=== PATIENT | female | born 1950 | race Caucasian/White ===

== ENCOUNTER → 2023-02-11 | Outpatient (OUT) | payer MEDICARE, SELFPAY ==
[2023-02-11 14:41] LABS: Anion Gap 12.5; BUN Creatinine Ratio 17.1; Calcium 8.7 mg/dL (8.5-10.1); Carbon Dioxide 28.4 mmol/L (21.0-32.0); Chloride 105 mmol/L (98-107); Estimated GFR (African America 49 (>=60); Estimated GFR (Non-African Ame 41 (>=60); Glucose 114 mg/dL (74-106); Potassium 4.9 mmol/L (3.5-5.1); Sodium 141 mmol/L (136-145)
== END ==
LOC: LAB 13:49
PROVIDERS: PCP Family Medicine
DX: Z01.812 Encounter for preprocedural laboratory examination (principal)
CPT/HCPCS: 36415; 80048

== ENCOUNTER 2023-04-07 11:02 | Emergency (ER) | payer MEDICARE, SELFPAY ==
[2023-04-07] VITALS (40 sets, daily range): BP systolic 62–118; BP diastolic 46–79; PULSE 91–114; RESP 10–34; O2SAT 83–99; BMI 35.7
--- NOTE | 2023-04-07 11:20 | ECG_ITS ---
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
--- NOTE | 2023-04-07 11:20 | XR_ITS ---
The [address] [address] Patient Name: CLINT HOLLAND MRN: [id number] date: 1950 Sex: F Assigned Patient Location: ER Current Patient Location: ER Accession/Order Number: [id number] Exam Date: 04/07/2023 12:25 Report Date: 04/07/2023 12:44 At the request of: JOAQUÍN CHAMBERS Procedure: XR chest 1V EXAMINATION: XR chest 1V HISTORY: sob COMPARISON: XR chest 05/31/2017 FINDINGS: LUNGS: Mild haziness within lateral left lung base. Right lung is clear. VASCULATURE: No increased pulmonary vasculature. PLEURA: No pneumothorax, effusion, or pleural thickening. CARDIAC: No cardiomegaly or cardiac silhouette abnormality. MEDIASTINUM: No visible mass or adenopathy. BONES: No fracture or visible bone lesion. OTHER: Negative. XR/XR chest 1V IMPRESSION: 1. Prominent left pericardial fat pad versus lingular infiltrates. A prominent fat pad is favored. Electronically authenticated by: ALEXX KATHLEEN Date: 04/07/2023 12:44
--- NOTE | 2023-04-07 11:24 | ED_ITS ---
HPI - General Adult General Chief complaint: Shortness of Breath/Dyspnea Stated complaint: SHORTNESS OF BREATH Time Seen by Provider: 04/07/23 11:20 Source: patient Mode of arrival: Wheelchair Limitations: no limitations History of Present Illness HPI narrative: Patient is a 72yo female who is presenting to the Emergency Room with chief complaint of shortness of breath, and worsening dyspnea on exertion. Patient takes no blood thinners. Patient stated on Friday and she started becoming more short of breath, and Friday she went to the [facility] was having significant amount of dyspnea with exertion. Patient stated she would only walk a very short distance and then had to sit on the bench to catch her breath. Patient has no significant recent traveling besides going to [place] for the [facility]. Patient is very mobile at home. Patient just had left rotator cuff surgery on February [address] Anne. patient is not a smoker, no hormone therapy. Patient has no significant cardiac history. Patient does take vitamins, hydrochlorothiazide, metformin, metoprolol, and acid reflux medicine along with statins. Patient has no significant weight gain. patient looks extremely pale. Patient's friends been telling her that she looks pale as well. Patient does take iron tablets daily. Patient does have black stool secondary to iron tablets, she's never had a gastrointestinal bleed before. Patient's lips look pale, skin looks pale. Patient has been complaining of some lightheaded dizziness as well, no significant chest pain or chest tightness. No dull pain, nausea, vomiting, or any other acute complaints. Patient action levels were in the mid 80s when she arrived to the Emergency Room, she is breathing in the low 20s. When patient was at rest, her oxygen was 89-91 room air, patient was initially placed on 2 L nasal cannula. Patient is speaking in full sentences, very pleasant. It was noted the patient's sister has had multiple blood clots as well, nobody else in the family has had blood clots. This information was found out after I found multiple submassive PE on the CTA of her chest as when patient told me this information. . All systems are negative except as noted/marked. All systems reviewed and otherwise negative. . Nurses note and vital signs reviewed and patient is hypoxic. patient placed on 2 L nasal cannula. General: The patient appears well and in mild respiratory distress secondary to hypoxia and slight increase in breathing.. Patient is resting comfortably on cart. Patient is not toxic, lethargic, or listless Skin: Warm, dry, extreme pallor noted. There is no rash noted. No petechiae, purpura. Head: Normocephalic, atraumatic Eye: pale conjunctiva, no drainage, EOMI. PERRL Ears, Nose, Mouth, and Throat: oral mucosa is moist. Nares patent. Mouth without vesicles. pale underneath her tongue sublingual as well. Cardiovascular: Regular Rate and Rhythm, no murmur, gallop, rub Respiratory: Patient is in mild respiratory distress secondary to increased work of breathing, mild hypoxia, no accessory muscle use, lungs are clear to auscultation, no wheezing, rales or rhonchi Back: non-tender, no CVA tenderness bilaterally to percussion. No CT LS midline pain GI: soft, obese, no tenderness to palpation, no masses appreciated. No rebound, guarding, or rigidity noted. No flank pain bilateral, No distention Musculoskeletal: Patient has full range of motion of all of the extremities, no motor, sensory, or focal neurological deficits. nonpitting edema to bilateral lower extremities,no chronic knee swelling, no unilateral swelling. Neurological: A&O x3, normal speech Psychiatric: Cooperative Related Data Home Medications Medication Instructions Recorded Confirmed cholecalciferol (vitamin D3) 50 2,000 unit PO DAILY 04/07/23 04/07/23 mcg (2,000 unit) capsule (Vitamin D3) diclofenac sodium 75 mg 75 mg PO Q12H 04/07/23 04/07/23 tablet,delayed release ferrous sulfate 325 mg (65 mg 325 mg PO DAILY 04/07/23 04/07/23 iron) tablet hydrochlorothiazide 12.5 mg tablet 12.5 mg PO DAILY 04/07/23 04/07/23 metformin 500 mg tablet 500 mg PO BID 04/07/23 04/07/23 metoprolol succinate 25 mg 25 mg PO DAILY 04/07/23 04/07/23 tablet,extended release 24 hr olmesartan 20 mg tablet 20 mg PO DAILY 04/07/23 04/07/23 pantoprazole 40 mg tablet,delayed 40 mg PO DAILY 04/07/23 04/07/23 release rosuvastatin 5 mg tablet 5 mg PO DAILY 04/07/23 04/07/23 Allergies Allergy/AdvReac Type Severity Reaction Status Date / Time meperidine [From Demerol] AdvReac Severe shortness Verified 04/07/23 11:10 of breath PFSH PFSH Social History Smoking status: Former smoker Exam Constitutional Vital Signs, click to edit/add: Last Vital Signs Pulse 98 H 04/07/23 12:20 Resp 18 04/07/23 12:20 BP 100/68 04/07/23 12:15 Pulse Ox 93 L 04/07/23 12:15 O2 Del Method Nasal Cannula 04/07/23 11:22 O2 Flow Rate 2 04/07/23 11:54 Course Vital Signs Vital signs: Vital Signs Pulse Rate 114 H 04/07/23 11:11 Respiratory Rate 24 04/07/23 11:11 Blood Pressure 118/79 04/07/23 11:11 Pulse Oximetry 90 L 04/07/23 11:11 Oxygen Delivery Method Room Air 04/07/23 11:11 Pulse Rate 98 H 04/07/23 12:20 Respiratory Rate 18 04/07/23 12:20 Blood Pressure 100/68 04/07/23 12:15 Pulse Oximetry 93 L 04/07/23 12:15 Oxygen Delivery Method Nasal Cannula 04/07/23 11:22 Oxygen Delivery Flow Rate 2 04/07/23 11:54 Medical Decision Making MDM Narrative Medical decision making narrative: a significant amount time was spent with this patient, greater than 60 minutes of one-on-one care. It was initially thought the patient would be severely anemic and required blood transfusion secondary to patient's color. Patient had pale lips, pallor to her conjunctiva, and sublingual. Patient was hypoxic when she arrived anywhere from 80-91 percent on room air, she is present to his oxygen. Patient was given a albuterol breathing treatment at [facility]. Patient was initially normotensive when I initially performed HPI, approximately 30 minutes later patient became hypotensive with a blood pressure 70/50s. Patient was given 1 L of IV fluid. Patient had a stat portable chest x-ray done that showed cardiomegaly, no other significant findings. Patient was given a 2nd liter of IV fluid along with a stat CTA chest ordered. I did call the radiologist, Dr. Beltre so that he could perform a stat read as well because I was concerned about large saddle PE. 1250 CTA chest showed a moderate PE burden bilateral, moderate heart strain which was the verbal report that I received from Dr. Roach. After the IV fluids, patient stated that she was feeling better. I initiated heparin drip PE protocol, I then spoke to the patient and she has been at the [facility] previously. She was there for a shoulder dislocation previously. [address] Wan at 1321 from the [facility], vascular surgeon. She agreed with IV fluids, IV heparin protocol, and stated the patient needed to come to the [facility] to the SICU for emergent transfer because patient will have intervention later today. Transfer could not be obtained within 4-5 hours, patient was going to be life flighted. 1345 Patient has been updated and aware of bilateral sudden massive PE, moderate heart strain, IV heparin drip, and the need to go to the [facility] for intervention. Patient has had a cardiac catheter several years ago and is aware of intervention that may occur. After 2 L of IV fluid, patient has maintained her blood pressure, heart rate has been in the 90s, patient has maintained mid 90s with her oxygen saturation with nasal cannula. Patient was extremely thankful for help. Patient mentioned to me that her sister years ago had multiple blood clots. Patient also states that her left calf has been cramping causing pain for the last couple weeks as well. Patient did have a shoulder surgery on February 28 of this year for rotator cuff surgery. Patient however has been very mobile and has not been bedridden because it was the left shoulder and she they will walk around function at home problem. Patient never had any type of genetic testing done for PE or deep vein thrombosis. Critical care time 60 minutes exclusive from separate billable procedures that were performed. The following was considered in the determination of critical care but not limited to the level of medical decision making, intensive cardiac and/or respiratory monitoring, frequent vital sign monitoring, evaluation of laboratory studies, evaluation of radiographic studies, oxygen monitoring, and constant monitoring and speaking to family at bedside Lab Data Lab results reviewed: Yes I reviewed the patient's lab results Lab results narrative: patient's H and H was tested twice. Patient arrives very pale, I believe the patient was in a be extremely anemic pursuant require blood transfusion by nina steele her history. H and H was checked again, and there is no significant change. 2 units of blood was canceled for transfusion. Labs: Lab Results 04/07/23 04/07/23 04/07/23 Range/Units 11:40 11:44 12:20 WBC 8.7 8.6 (4.0-11.0) 10^3/uL RBC 3.79 L 3.55 L (4.20-5.40) 10^6/uL Hgb 11.7 L 11.0 L (12.0-16.0) g/dL Hct 36.6 34.7 L (36.0-48.0) % MCV 96.6 97.7 (81.0-99.0) fL MCH 30.9 31.0 (26.7-34.0) pg MCHC 32.0 31.7 (29.9-35.2) g/dL RDW 14.6 14.6 (11.0-15.0) % Plt Count 266 237 (150-450) 10^3/uL MPV 9.9 9.7 (9.5-13.5) fL Neut % (Auto) 73.5 (43.0-75.0) % Lymph % (Auto) 16.7 L (20.5-60.0) % Garrett % (Auto) 8.3 (1.7-12.0) % Eos % (Auto) 0.7 L (0.9-7.0) % Baso % (Auto) 0.5 (0.2-2.0) % Neut # (Auto) 6.4 (1.4-6.5) 10^3/uL Lymph # (Auto) 1.5 (1.2-3.8) 10^3/uL Garrett # (Auto) 0.7 (0.3-0.8) 10^3/uL Eos # (Auto) 0.1 (0.0-0.7) 10^3/uL Baso # (Auto) 0.0 (0.0-0.1) 10^3/uL Abs Immat Gran (auto) 0.03 (0.00-0.03) 10^3/uL Imm/Tot Granulo (auto) 0.3 (0.0-0.5) % PT 10.5 (9.0-11.6) sec INR 0.99 APTT 27.6 (22.3-36.2) sec VBG pH 7.373 (7.330-7.430) VBG pCO2 44.0 (40.0-52.0) mmHg Sodium 131 L (136-145) mmol/L Potassium 3.7 (3.5-5.1) mmol/L Chloride 98 (98-107) mmol/L Carbon Dioxide 25.9 (21.0-32.0) mmol/L Anion Gap 10.8 BUN 17.0 (7.0-18.0) mg/dL Creatinine 1.21 H (0.55-1.02) mg/dL Est GFR ( Amer) 53 L (>=60) Est GFR (Non-Af Amer) 44 L (>=60) BUN/Creatinine Ratio 14.0 Glucose 172 H (74-106) mg/dL Calcium 9.2 (8.5-10.1) mg/dL Total Bilirubin 0.5 (0.2-1.0) mg/dL AST 11 L (15-37) U/L ALT 25 (14-59) U/L Alkaline Phosphatase 83 (46-116) U/L Troponin I High Sens 26.6 (4.0-51.3) pg/mL NT-Pro-B Natriuret Pep 6866.0 H* (<=900.0) pg/mL Total Protein 7.1 (6.4-8.2) g/dL Albumin 3.5 (3.4-5.0) g/dL Globulin 3.6 g/dL Albumin/Globulin Ratio 1.0 Stool Occult Blood Negative Blood Type A Positive Antibody Screen Negative Crossmatch See Detail Imaging Data CT scan - chest: Attestation: I personally reviewed and interpreted this imaging study as follows: Radiologist's impression: The [address] [address] Patient Name: CLINT HOLLAND MRN: [id number] date: 1950 Sex: F Assigned Patient Location: ER Current Patient Location: ER Accession/Order Number: [id number] Exam Date: 04/07/2023 12:28 Report Date: 04/07/2023 12:52 At the request of: JOAQUÍN CHAMBERS Procedure: CT angio chest EXAMINATION: CT angio chest HISTORY: sob COMPARISON: No relevant comparison available. TECHNIQUE: Multi-planar CT images were created with IV contrast. Axial, Coronal, and Sagittal images. Dose reduction techniques were achieved by using automated exposure control and/or adjustment of mA and/or kV according to patient size and/or use of iterative reconstruction technique. 3-D reconstruction was performed on a separate workstation. FINDINGS: VASCULATURE: Large amount of partially obstructing thrombus within right upper, lower, and middle lobe, and left upper, lower, and lingula. LUNGS: No visible pulmonary disease. PLEURA: No mass, effusion, or pneumothorax. GEOVANNY: No mass or adenopathy. MEDIASTINUM: No mass or adenopathy. CARDIAC: Interventricular septum is midline to slightly bulging into the left ventricle consistent with heart strain. AORTA: No aneurysm or dissection. CHEST WALL: No mass or axillary adenopathy. BONES: No bone lesion or fracture. LIMITED ABDOMEN: No suspicious findings. Limited images of the upper abdomen. OTHER: Negative. IMPRESSION: 1. Large pulmonary embolism burden bilaterally. 2. Mild to moderate heart strain. 3. No acute infiltrates. ECG Data Attestation: I personally reviewed and interpreted this ECG as follows: Interpretation: EKG interpretation. Sinus tachycardia at 105. Left axis deviation. Nonspecific ST-T wave changes. QTC of 397. Artifact noted. EKG reading low voltage. Discharge Plan Discharge Chief Complaint: Shortness of Breath/Dyspnea Clinical Impression: Dyspnea, Hypoxia, Pulmonary emboli Patient Disposition: Xfer Acute Care Hospital Discharge Location: [facility] Condition: Critical Mode of Transportation: EMS
[2023-04-07 11:51] LABS: pH VBG 7.373 (7.330-7.430)
[2023-04-07 11:57] LABS: Basophils Percent Auto 0.5 % (0.2-2.0); Eosinophils Absolute Auto 0.1 10^3/uL (0.0-0.7); Eosinophils Percent Auto 0.7 % (0.9-7.0); Hematocrit 36.6 % (36.0-48.0); Hemoglobin 11.7 g/dL (12.0-16.0); Immature Granulocytes Abs Auto 0.03 10^3/uL (0.00-0.03); Immature Granulocytes Pct Auto 0.3 % (0.0-0.5); Lymphocytes Absolute Auto 1.5 10^3/uL (1.2-3.8); Lymphocytes Percent Auto 16.7 % (20.5-60.0); Mean Corpuscular Hemoglobin 30.9 pg (26.7-34.0); Mean Corpuscular Volume 96.6 fL (81.0-99.0); Mean Platelet Volume 9.9 fL (9.5-13.5); Monocytes Absolute Auto 0.7 10^3/uL (0.3-0.8); Monocytes Percent Auto 8.3 % (1.7-12.0); Neutrophils Absolute Auto 6.4 10^3/uL (1.4-6.5); Neutrophils Percent Auto 73.5 % (43.0-75.0); Platelet Count 266 10^3/uL (150-450); Red Blood Count 3.79 10^6/uL (4.20-5.40); Red Cell Distribution Width 14.6 % (11.0-15.0); White Blood Count 8.7 10^3/uL (4.0-11.0)
[2023-04-07] MEDS: ALBUTEROL SULFATE 2.5 MG/3 ML VIAL NEB IH (12:00)
[2023-04-07 12:11] LABS: INR 0.99; Partial Thromboplastin Time 27.6 sec (22.3-36.2); Prothrombin Time 10.5 sec (9.0-11.6)
--- NOTE | 2023-04-07 12:12 | CT_ITS ---
The [address] [address] Patient Name: CLINT HOLLAND MRN: [id number] date: 1950 Sex: F Assigned Patient Location: ER Current Patient Location: ER Accession/Order Number: [id number] Exam Date: 04/07/2023 12:28 Report Date: 04/07/2023 12:52 At the request of: JOAQUÍN DAVIS Procedure: CT angio chest EXAMINATION: CT angio chest HISTORY: sob COMPARISON: No relevant comparison available. TECHNIQUE: Multi-planar CT images were created with IV contrast. Axial, Coronal, and Sagittal images. Dose reduction techniques were achieved by using automated exposure control and/or adjustment of mA and/or kV according to patient size and/or use of iterative reconstruction technique. 3-D reconstruction was performed on a separate workstation. FINDINGS: VASCULATURE: Large amount of partially obstructing thrombus within right upper, lower, and middle lobe, and left upper, lower, and lingula. LUNGS: No visible pulmonary disease. PLEURA: No mass, effusion, or pneumothorax. GEOVANNY: No mass or adenopathy. MEDIASTINUM: No mass or adenopathy. CARDIAC: Interventricular septum is midline to slightly bulging into the left ventricle consistent with heart strain. AORTA: No aneurysm or dissection. CHEST WALL: No mass or axillary adenopathy. BONES: No bone lesion or fracture. LIMITED ABDOMEN: No suspicious findings. Limited images of the upper abdomen. OTHER: Negative. CT/CT angio chest IMPRESSION: 1. Large pulmonary embolism burden bilaterally. 2. Mild to moderate heart strain. 3. No acute infiltrates. Findings discussed with Dr. Davis via telephone prior to dictation. Electronically authenticated by: ALEXX KATHLEEN Date: 04/07/2023 12:52
[2023-04-07] MEDS: 0.9 % SODIUM CHLORIDE 1,000 ML 1000 ML IV (12:15)
[2023-04-07 12:16] LABS: Alanine Aminotransferase 25 U/L (14-59); Albumin Level 3.5 g/dL (3.4-5.0); Alkaline Phosphatase 83 U/L (46-116); Anion Gap 10.8; Aspartate Amino Transferase 11 U/L (15-37); Bilirubin Total 0.5 mg/dL (0.2-1.0); Calcium 9.2 mg/dL (8.5-10.1); Carbon Dioxide 25.9 mmol/L (21.0-32.0); Chloride 98 mmol/L (98-107); Estimated GFR (African America 53 (>=60); Estimated GFR (Non-African Ame 44 (>=60); Globulin 3.6 g/dL; Glucose 172 mg/dL (74-106); Potassium 3.7 mmol/L (3.5-5.1); Sodium 131 mmol/L (136-145); Total Protein 7.1 g/dL (6.4-8.2)
[2023-04-07 12:22] LABS: Troponin I High Sensitivity 26.6 pg/mL (4.0-51.3)
[2023-04-07 12:24] LABS: Hematocrit 34.7 % (36.0-48.0); Mean Corpuscular HGB Conc 31.7 g/dL (29.9-35.2); Mean Corpuscular Volume 97.7 fL (81.0-99.0); Mean Platelet Volume 9.7 fL (9.5-13.5); Platelet Count 237 10^3/uL (150-450); Red Blood Count 3.55 10^6/uL (4.20-5.40); Red Cell Distribution Width 14.6 % (11.0-15.0); White Blood Count 8.6 10^3/uL (4.0-11.0)
[2023-04-07] MEDS: 0.9 % SODIUM CHLORIDE 1,000 ML 999 ML IV (13:10)
[2023-04-07] MEDS: HEPARIN SODIUM (PORCINE) 5,000 UNIT/ML VIAL 3300 UNIT IV (13:35)
[2023-04-07] MEDS: HEPARIN SODIUM,PORCINE/D5W 25,000 UNIT/500 ML IV.SOLN 22 UNIT IV (13:36)
[2023-04-07 14:44] LABS: Occult Blood Negative
== END 2023-04-07 15:25 | disposition short-term general hospital (02) ==
PROVIDERS: Emergency Provider Emergency Medicine; PCP Family Medicine
DX: I26.99 Other pulmonary embolism without acute cor pulmonale (principal); I51.9 Heart disease, unspecified; R06.09 Other forms of dyspnea; R09.02 Hypoxemia; Z79.899 Other long term (current) drug therapy; Z79.84 Long term (current) use of oral hypoglycemic drugs; E66.9 Obesity, unspecified; Z87.891 Personal history of nicotine dependence; Z68.35 Body mass index [BMI] 35.0-35.9, adult
CPT/HCPCS: 36415; 71045; 71275; 80053; 82800; 83880; 84484; 85025; 85027; 85610; 85730; 86850; 86900; 86901; 86920; 93005; 94640; 96374; 99285; G0328; Q9967

== ENCOUNTER 2023-05-21 07:49 | Outpatient (OUT) | payer MEDICARE, SELFPAY ==
[2023-05-21 08:29] LABS: Basophils Percent Auto 0.5 % (0.2-2.0); Eosinophils Absolute Auto 0.2 10^3/uL (0.0-0.7); Eosinophils Percent Auto 2.5 % (0.9-7.0); Hematocrit 33.2 % (36.0-48.0); Hemoglobin 10.4 g/dL (12.0-16.0); Immature Granulocytes Abs Auto 0.02 10^3/uL (0.00-0.03); Immature Granulocytes Pct Auto 0.3 % (0.0-0.5); Lymphocytes Absolute Auto 1.6 10^3/uL (1.2-3.8); Lymphocytes Percent Auto 26.9 % (20.5-60.0); Mean Corpuscular HGB Conc 31.3 g/dL (29.9-35.2); Mean Corpuscular Hemoglobin 31.2 pg (26.7-34.0); Mean Corpuscular Volume 99.7 fL (81.0-99.0); Mean Platelet Volume 9.6 fL (9.5-13.5); Monocytes Absolute Auto 0.7 10^3/uL (0.3-0.8); Monocytes Percent Auto 11.5 % (1.7-12.0); Neutrophils Absolute Auto 3.6 10^3/uL (1.4-6.5); Neutrophils Percent Auto 58.3 % (43.0-75.0); Platelet Count 310 10^3/uL (150-450); Red Blood Count 3.33 10^6/uL (4.20-5.40); Red Cell Distribution Width 14.9 % (11.0-15.0); White Blood Count 6.1 10^3/uL (4.0-11.0)
--- NOTE | 2023-05-21 08:30 | CA_ITS ---
Patient: CLINT HOLLAND Exam Date: 05/21/2023 : 1950 Gender:F Ordering : DR Larry Garcia . Admission #: [id number] Family : KRISTI ANDERSON Order #: [id number] CLICK HERE TO VIEW EXAM ECHOCARDIOGRAM REPORT PROCEDURE: CA ECHO DOPPLER COMPLETE INDICATIONS: Pulmonary embolism without acute cor pulmonale, hypertension, diabetes COMPARISON: None. DESCRIPTION: COMPLETE ECHOCARDIOGRAM Real-time transthoracic echocardiography with 2D, M-mode, spectral and color flow Doppler performed. QUALITY: Technical quality was good. LEFT VENTRICLE: Normal chamber size. Mild concentric left ventricular hypertrophy. LV EF: Normal left ventricular ejection fraction, (>55%). DIASTOLIC: Diastolic function is indeterminate. ATRIAL SEPTUM: Inadequately seen. LEFT ATRIUM: Normal chamber size. RIGHT ATRIUM: Normal chamber size. RIGHT VENTRICLE: Normal chamber size. Normal right ventricular systolic function. TRICUSPID VALVE: Normal mobility and thickness. No stenosis with trivial regurgitation. Doppler studies reveal mildly (35-45) elevated right sided pressures. RVSP 40 mmHg MITRAL VALVE: Normal mobility and thickness. No evidence of mitral valve stenosis. There is no mitral annular calcification. Mild mitral regurgitation. AORTIC VALVE: Normal trileaflet appearance. No visible sclerosis. Normal leaflet mobility. No evidence of aortic valve stenosis. No aortic regurgitation. AORTIC ROOT: Normal diameter and appearance. PULMONIC VALVE: Normal thickness and mobility. No stenosis. Trivial regurgitation. PERICARDIUM: Anterior free space; trivial effusion versus fat pad. IVC: Collapses with inspirations. PLEURA: CONCLUSION: 1. Global left ventricular systolic function is normal; visually estimated ejection fraction 60 to 65%. No wall motion abnormalities. 2. Mild left ventricular hypertrophy. 3. Diastolic function is indeterminate. 4. The right ventricle is normal in size and systolic function. 5. Trivial tricuspid regurgitation; mildly elevated right ventricular systolic pressure. 6. Mild mitral regurgitation. 7. Anterior free space; trivial effusion versus fat pad. Adult Echocardiography Procedure Report Left Ventricle LVEDD (3.7 - 5.6 cm): 4.37 cm LVESD (2.2 - 4.0 cm): 2.73 cm LVIVS thickness (0.6 - 1.2 cm): 0.85 cm LVPW thickness (0.5 - 1.0 cm): 1.12 cm e': 0.05 m/s E - e': 13.27 LVOT Max Gradient: 3.41 mm[Hg] LVOT Area (cm2): 0.92 m/s Peak Velocity (LVOT): 0.92 m/s LVOT Diameter 2.07 cm Left Atrium LA Volume Index (2D A2C): 25.70 ml/m2 Left Atrium Systolic Dimension: 4.16 cm Mitral Valve MV E to A Ratio: 0.65 Mitral Valve A-Wave Peak Velocity: 1.11 m/s Mitral Valve E-Wave Peak Velocity: 0.72 m/s Right Ventricle Aorta AO Root Diam: 2.99 cm Ascending Ao Diam: 2.55 cm Aortic Valve AoV Area (Peak Nelson): 1.98 cm2, 1.98 cm2 Peak Velocity(Antegrade Flow): 1.56 m/s Peak Gradient(Antegrade Flow): 9.69 mm[Hg] Tricuspid Valve Peak Velocity (Regurgitant Flow): 3.06 m/s Pulmonic Valve Peak Velocity: 1.10 m/s Peak Gradient: 5.16 mm[Hg], 4.53 mm[Hg] Right Atrium Right Atrium Systolic Pressure: 34.57 ml, 34.57 ml Dictated by: Marissa Cha M.D. on 05/22/2023 at 09:56 Approved by: Marissa Cha M.D. on 05/22/2023 at 09:59
[2023-05-21 09:02] LABS: Estimated Average Glucose 126 mg/dL
[2023-05-21 09:14] LABS: Alanine Aminotransferase 14 U/L (14-59); Albumin Globulin Ratio 1.1; Albumin Level 3.1 g/dL (3.4-5.0); Alkaline Phosphatase 53 U/L (46-116); Anion Gap 13.2; Aspartate Amino Transferase 8 U/L (15-37); BUN Creatinine Ratio 18.9; Bilirubin Total 0.5 mg/dL (0.2-1.0); Calcium 9.1 mg/dL (8.5-10.1); Carbon Dioxide 26.3 mmol/L (21.0-32.0); Chloride 106 mmol/L (98-107); Chol HDL Ratio 2.3; Cholesterol 106 mg/dL (<=200); Estimated GFR (African America 59 (>=60); Estimated GFR (Non-African Ame 48 (>=60); Free T3 1.19 pg/mL (2.18-3.98); Globulin 2.8 g/dL; Glucose 88 mg/dL (74-106); HDL Cholesterol 46 mg/dL (40-60); LDL Cholesterol Calculated 38.8 mg/dL; Potassium 4.5 mmol/L (3.5-5.1); Sodium 141 mmol/L (136-145); Thyroid Stimulating Hormone 2.169 uIU/mL (0.358-3.740); Total Protein 5.9 g/dL (6.4-8.2); Triglycerides 106 mg/dL (<=150); VLDL CHOLESTEROL 21.2 mg/dL
[2023-05-22 12:12] LABS: Insulin 14.7 uIU/mL (2.6-24.9)
== END 2023-05-21 07:50 | disposition home or self-care (01) ==
LOC: CARD 07:49
PROVIDERS: PCP Family Medicine; Visit Provider Family Medicine
DX: I26.99 Other pulmonary embolism without acute cor pulmonale (principal); E11.65 Type 2 diabetes mellitus with hyperglycemia; I10 Essential (primary) hypertension; E78.5 Hyperlipidemia, unspecified; E55.9 Vitamin D deficiency, unspecified; I08.1 Rheumatic disorders of both mitral and tricuspid valves
CPT/HCPCS: 36415; 80053; 80061; 82306; 83036; 83525; 83540; 84436; 84443; 84481; 85025; 93306

== ENCOUNTER 2024-01-23 09:25 | Outpatient (OUT) | payer MEDICARE, SELFPAY ==
--- NOTE | 2024-01-23 09:30 | MM_ITS ---
Patient Name: CLINT HOLLAND MR#: [id number] : 1950 Exam Date: 01/23/2024 Ordering Doctor: DR Larry Garcia . RADIOLOGY REPORT PROCEDURE: MM TOMOSYNTHESIS SCREENING BI COMPARISON: MG MAMM SCREEN DANICA W CAD, 11/08/2020. MG MAMM SCREEN 3D DANICA CAD, 03/13/2022. INDICATIONS: Screening Calculator Name NCI Breast Cancer Risk Assessment Tool 5 Year Breast Cancer Risk 1.60% Lifetime Breast Cancer Risk 4.10% Personal Breast Cancer No Personal Ovarian Cancer No Treatments HYSTERECTOMY Family Cancers None LOCATION: [facility] BREAST COMPOSITION: There are scattered areas of fibroglandular density. FINDINGS: DIAGNOSTIC CATEGORY 2--BENIGN FINDING. NO CHANGE FROM COMPARISON. Scattered benign-appearing nodules are present. Scattered benign-appearing calcifications are present. Scattered benign-appearing lymph nodes are present. RIGHT BREAST: No significant suspicious finding. LEFT BREAST: No significant suspicious finding. RECOMMENDATIONS: ROUTINE MAMMOGRAM AND CLINICAL EVALUATION IN 12 MONTHS. PLEASE NOTE: A NORMAL MAMMOGRAM DOES NOT EXCLUDE THE POSSIBILITY OF BREAST CANCER. A CLINICALLY SUSPICIOUS PALPABLE LUMP SHOULD BE BIOPSIED. Dictated by: Sandor Carpenter MD on 01/23/2024 at 11:37 Approved by: Sandor Carpenter MD on 01/23/2024 at 11:40
== END 2024-01-23 09:26 | disposition home or self-care (01) ==
LOC: MAMMO 09:26
PROVIDERS: PCP Family Medicine; Visit Provider Family Medicine
DX: Z12.31 Encounter for screening mammogram for malignant neoplasm of breast (principal)
CPT/HCPCS: 77063; 77067

== ENCOUNTER 2024-03-10 12:40 | Outpatient (OUT) | payer MEDICARE, SELFPAY ==
--- NOTE | 2024-03-10 12:48 | XR_ITS ---
[address] [address] Patient Name: CLINT HOLLAND MRN: [id number] date: 1950 Sex: F Assigned Patient Location: [facility] Current Patient Location: [facility] Accession/Order Number: [id number] Exam Date: 03/10/2024 13:00 Report Date: 03/10/2024 15:49 At the request of: KJ RILEY Procedure: XR DEXA axial skeleton EXAMINATION: XR DEXA axial skeleton HISTORY: Ovarian Failure COMPARISON: DEXA bone densitometry 09/16/2017 TECHNIQUE: Dual-energy X-ray absorptiometry (DXA) was performed. FINDINGS: SPINE ANALYSIS: Average bone mineral density is 1.221 g/cm2. T-score (standard deviation relative to young adult mean): 0.3 . +0.7% change since prior study. HIP ANALYSIS: Lowest bone mineral density is within the left femoral neck, 0.673 g/cm2. T-score (standard deviation relative to young adult mean): -2.6 . -4.9% change since prior study. XR/XR DEXA axial skeleton IMPRESSION: World Health Organization Classification: Osteoporosis - High Fracture Risk FRAX: Cannot calculate. Pharmacologic treatment recommendations * No uniform recommendation applies to all patients. Management plans must be individualized. * Consider initiating pharmacologic treatment in postmenopausal women and men >= 50 years of age who have the following: Primary fracture prevention: * T-score <= - 2.5 at the femoral neck, total hip, lumbar spine, 33% radius (some uncertainty with existing data) by DXA. * Low bone mass (osteopenia: T-score between - 1.0 and - 2.5) at the femoral neck or total hip by DXA with a 10-year hip fracture risk >= 3% or a 10-year major osteoporosis-related fracture risk >= 20% (i.e., clinical vertebral, hip, forearm, or proximal humerus) based on the [place]-adapted FRAXregistered model. Secondary fracture prevention: * Fracture of the hip or vertebra regardless of BMD [4, 5]. * Fracture of proximal humerus, pelvis, or distal forearm in persons with low bone mass (osteopenia: T-score between - 1.0 and - 2.5). The decision to treat should be individualized in persons with a fracture of the proximal humerus, pelvis, or distal forearm who do not have osteopenia or low BMD [12, 13]. Amol MS, Alla SL, Bert KL, Yudi EM, Teja KG, AJ, Catalino ES. The clinician's guide to prevention and treatment of osteoporosis. Osteoporos Int. 2021;33(10):5744-2104. doi: 10.1007/a32642-161-10045-o. Epub 2021Jan 03. Erratum in: Osteoporos Int. 2021Apr 04;: PMID: [id number]; PMCID: [id number]. Electronically authenticated by: ALEXX KATHLEEN Date: 03/10/2024 15:49
== END 2024-03-10 12:41 | disposition home or self-care (01) ==
LOC: RAD 12:41
PROVIDERS: PCP Family Medicine; Visit Provider Family Medicine
DX: E28.39 Other primary ovarian failure (principal); M81.0 Age-related osteoporosis without current pathological fracture
CPT/HCPCS: 77080

== ENCOUNTER 2024-04-01 07:26 | Outpatient (RCR) | payer MEDICARE, SELFPAY ==
[2024-04-01 10:24] VITALS: BP 120/76; PULSE 73; TEMP 36.3; O2SAT 93
--- NOTE | 2024-04-01 10:27 | PC.NURSE ---
educated patient on prolia schedule and need to have labs as well as taking calcium and vitamin d. patient verbalizes understanding
[2024-04-01 10:33] LABS: Calcium 9.6 mg/dL (8.5-10.1); Estimated GFR (African America >60 (>=60); Estimated GFR (Non-African Ame 55 (>=60)
[2024-04-01] MEDS: DENOSUMAB 60 MG/ML SYRINGE SUBQ (10:56)
== END 2024-04-07 08:32 | disposition home or self-care (01) ==
LOC: INF 07:26
PROVIDERS: PCP Family Medicine; Visit Provider Family Medicine
DX: M81.0 Age-related osteoporosis without current pathological fracture (principal)
CPT/HCPCS: 36415; 82310; 82565; 96372; J0897

== ENCOUNTER 2024-05-29 07:03 | Outpatient (OUT) | payer MEDICARE, SELFPAY ==
--- OUTSIDE RECORDS SUMMARY | 2024-05-29 07:07 | XMS_ITS | CCD ---
Author Organization [facility] Care Team Providers Care Education Teacher Name Role Phone ISAURA COLEMAN Attending Unavailable ISAURA COLEMAN Admitting Unavailable SELF, REFERRED Referring Unavailable SELF, REFERRED Primary Care Unavailable HOY ., DR UNDERWOOD Primary Care Unavailable HOY ., DR UNDERWOOD Admitting Unavailable HOY ., DR UNDERWOOD Attending Unavailable HOY ., DR UNDERWOOD Consulting Unavailable ZIEBER, DR MARK Castro Consulting Unavailable HOY ., DR UNDERWOOD Primary Care Unavailable HOY ., DR UNDERWOOD Admitting Unavailable HOY ., DR UNDERWOOD Attending Unavailable HOY ., DR UNDERWOOD Primary Care Unavailable HOY ., DR UNDERWOOD Admitting Unavailable HOY ., DR UNDERWOOD Attending Unavailable HOY ., DR UNDERWOOD Consulting Unavailable HOY ., DR UNDERWOOD Consulting Unavailable HOY ., DR UNDERWOOD Primary Care Unavailable HOY ., DR UNDERWOOD Admitting Unavailable HOY ., DR UNDERWOOD Attending Unavailable ZIEBER, DR MARK Castro Consulting Unavailable MARY ANN, SVETLANA Attending Unavailable SVETLANA REESE Admitting Unavailable HOY ., DR UNDERWOOD Primary Care Unavailable MARY ANN, SVETLANA Consulting Unavailable FISH, KRISTI H Attending Unavailable HOY, KJ M Referring Unavailable HOY, KJ M Primary Care Unavailable FISH, KRISTI H Referring Unavailable HOY, KJ M Primary Care Unavailable SUSANA ISRAEL Attending Unavailable Allergies Allergy Classification Reported Allergen(s) Allergy Type Date of Onset Reaction(s) Facility (2 sources) Meperidine Drug Allergy 05-13-2017 [facility] Repository (2 sources) Meperidine; Translations: [MEPERIDINE] Drug Allergy 07-14-2018 [facility] Repository Problems Active Problems Problem Classification Problem Date Documented Da te Episodic/Chronic Congestive heart failure; nonhypertensive (1 source) Unspecified diastolic (congestive) heart failure; Translations: [UNSPECIFIED DIASTOLIC HEART FAILURE] Onset: 09-04-2022 Chronic Deficiency and other anemia (2 sources) Anemia, unspecified; Translations: [ANEMIA UNSPECIFIED] Onset: 09-04-2022 Episodic Disorders of lipid metabolism (2 sources) Hyperlipidemia, unspecified; Translations: [Pure hypercholesterolemia , unspecified] Onset: 09-04-2022 Chronic Heart valve disorders (2 sources) Rheumatic tricuspid insufficiency; 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] Onset: 01-14-2023 Chronic Hypertension with complications and secondary hypertension (1 source) Hypertensive heart disease with heart failure; Translations: [HTN HEART DISEASE W/HEART FAIL] Onset: 09-04-2022 Chronic Osteoarthritis (1 source) Unspecified osteoarthritis, unspecified site; Translations: [UNSPECIFIED OSTEOARTHRITIS UNS SITE] Onset: 09-04-2022 Chronic Other and ill-defined heart disease (1 source) Heart disease, unspecified; Translations: [Heart disease, unspecified] Onset: 01-07-2024 Chronic Other lower respiratory disease (4 sources) Shortness of breath; Translations: [SHORTNESS OF BREATH] Onset: 01-08-2023 Episodic Phlebitis; thrombophlebitis and thromboembolism (1 source) Personal history of other venous thrombosis and embolism; Translations: [Personal history of other venous thrombosis and embolism] Onset: 01-07-2024 Episodic Pulmonary heart disease (1 source) Personal history of pulmonary embolism; Translations: [Personal history of pulmonary embolism] Onset: 01-07-2024 Episodic Unclassified (3 sources) CONTACT W/AND (SUSP) EXPOS COVID-19; Translations: [CONTACT W/AND (SUSP) EXPOS COVID-19] Onset: 04-06-2022 Unclassified (1 source) COUGH, UNSPECIFIED; Translations: [COUGH, UNSPECIFIED] Onset: 04-06-2022 Past or Other Problems Problem Classification Problem Date Documented Da te Episodic/Chronic Diabetes mellitus without complication (1 source) Other abnormal glucose; Translations: [OTHER ABNORMAL GLUCOSE] Onset: 09-04-2022 Episodic Other lower respiratory disease (1 source) Dyspnea, unspecified; Translations: [DYSPNEA UNSPECIFIED] Onset: 09-04-2022 Episodic Other screening for suspected conditions (not mental disorders or infectious disease) (4 sources) Encounter for screening mammogram for malignant neoplasm of breast; Translations: [ENC SCR MAMMO MALIG NEOPLASM BREAST] Onset: 03-13-2022 Episodic Other upper respiratory disease (1 source) Nasal congestion; Translations: [NASAL CONGESTION] Onset: 04-06-2022 Episodic Syncope (4 sources) Syncope and collapse; Translations: [SYNCOPE AND COLLAPSE] Onset: 08-28-2022 Episodic Unclassified (1 source) CONTACT W/AND (SUSP) EXPOS COVID-19; Translations: [CONTACT W/AND (SUSP) EXPOS COVID-19] Onset: 04-03-2022 Results Test Name Value Interpretation Reference Range Facility Office Visiton 01-23-2024 Follow-up visit [id number] StephonMartina K 1950 F Date Provider Department Center 01/23/2024 [id number]-[id number] ISRAEL BUCK Robertson Family History Problem Relation Age of Onset Valvular heart disease Mother Family Status - Relation Status Age at Mother Level of Service:68411 [place] OFFICE/OUTPATIENT ESTABLISHED LOW MDM 20 MIN Normal [facility] CBC AND AUTO DIFFon 01-07-20 ABSOLUTE BASOPHIL 0.0 X10E9/L Normal 0.0-0.2 [facility] Comment on above: Performed By: #### C NEREYDA, 50292-9, FEPR, 2276-4 #### [facility] ([id number]) [address], [address] [place] [address] ABSOLUTE NEUTROPHIL 4.3 X10E9/L Normal 1.5-6.6 [facility] Comment on above: Performed By: #### Cata DAWN, 11680-4, FEPR, 2276-4 #### [facility] ([id number]) [address], [address] [place] [address] Basophils/100 WBC (Bld) 0.6 % Normal [facility] Comment on above: Performed By: #### C NEREYDA, 64523-4, FEPR, 2276-4 #### [facility] ([id number]) [address], [address] [place] [address] Eosinophils (Bld) [#/Vol] 0.1 10*3/uL Normal 0.0-0.4 [facility] Comment on above: Performed By: #### C BCA, 88648-4, FEPR, 2275-4 #### [facility] ([id number]) [address] [address] [place] [address] Eosinophils/100 WBC (Bld) 1.5 % Normal [facility] Comment on above: Performed By: #### C BCA, 14251-2, FEPR, 2275-4 #### [facility] ([id number]) [address] [address] [place] [address] Erythrocyte distribution width (RBC) [Ratio] 13.1 % Normal 11.5-15.0 [facility] Comment on above: Performed By: #### C BCA, 72553-5, FEPR, 2275- #### [facility] ([id number]) [address] [address] [place] [address] Hematocrit (Bld) [Volume fraction] 38.2 % Normal 35-47 [facility] Comment on above: Performed By: #### C BCA, 17148-8, FEPR, 2275- #### [facility] ([id number]) [address] [address] [place] [address] Hemoglobin (Bld) [Mass/Vol] 12.9 g/dL Normal 11.7-15.5 [facility] Comment on above: Performed By: #### C BCA, 61976-2, FEPR, 2275- #### [facility] ([id number]) [address] [address] [place] [address] Lymphocytes (Bld) [#/Vol] 1.6 10*3/uL Normal 1.0-3.5 [facility] Comment on above: Performed By: #### C BCA, 27003-1, FEPR, 2275-4 #### [facility] ([id number]) [address] [address] [place] [address] Lymphocytes/100 WBC (Bld) 23.5 % Normal [facility] Comment on above: Performed By: #### C NEREYDA, 79139-2, FEPR, 2275- #### [facility] ([id number]) [address], [facility] [address] [place] [address] MCH (RBC) [Entitic mass] 31.5 pg Normal 27-34 [facility] Comment on above: Performed By: #### Cata BCA, 14113-5, FEPR, 2275- #### [facility] ([id number]) [address], [facility] [address] [place] [address] MCHC (RBC) [Mass/Vol] 33.7 g/dL Normal 32-36 [facility] Comment on above: Performed By: #### Cata DAWN, 30472-4, FEPR, 2275- #### [facility] ([id number]) [address], [facility] [address] [place] [address] MCV (RBC) [Entitic vol] 94 fL Normal 80-100 [facility] Comment on above: Performed By: #### Cata DAWN, 57817-7, FEPR, 2275- #### [facility] ([id number]) [address] [address] [place] [address] Monocytes (Bld) [#/Vol] 0.7 10*3/uL Normal 0-0.9 [facility] Comment on above: Performed By: #### Cata BCA, 31031-7, FEPR, 2275- #### [facility] ([id number]) [address], [facility] [address] [place] [address] Monocytes/100 WBC (Bld) 10.6 % Normal [facility] Comment on above: Performed By: #### Cata BCA, 08883-6, FEPR, 2275- #### [facility] ([id number]) [address], [facility] [address] [place] [address] Neutrophils/100 WBC (Bld) 63.8 % Normal [facility] Comment on above: Performed By: #### C BCA, 17844-8, FEPR, 2275-4 #### [facility] ([id number]) [address], [address] [place] [address] Platelet mean volume (Bld) [Entitic vol] 8.5 fL Normal 7-12 [facility] Comment on above: Performed By: #### C BCA, 25557-2, FEPR, 2275-4 #### [facility] ([id number]) [address] [address] [place] [address] Platelets (Bld) [#/Vol] 248 10*3/uL Normal 150-450 [facility] Comment on above: Performed By: #### Cata BCA, 31557-1, FEPR, 2275-4 #### [facility] ([id number]) [address] [address] [place] [address] RBC COUNT 4.08 X10E12/L Normal 3.80-5.20 [facility] Comment on above: Performed By: #### Cata BCA, 59769-5, FEPR, 2275-4 #### [facility] ([id number]) [address] [address] [place] [address] WBC (Bld) [#/Vol] 6.8 10*3/uL Normal 4.0-11.0 [facility] Comment on above: Performed By: #### Cata BCA, 65379-0, FEPR, 2275-4 #### [facility] ([id number]) [address] [address] [place] [address] FERRITINon 01-07-2024 Ferritin [Mass/Vol] 28 ng/mL Normal 11-307 [facility] Comment on above: Performed By: #### Cata BCA, 29995-4, FEPR, 2275-4 #### [facility] ([id number]) [address], [address] [place] [address] Fibrin D-dimer DDU (PPP) [Ma ss/Vol]on 01-07-2024 D DIMER <150 Normal <255 [facility] Comment on above: Result Comment: Results <255 ng/mL DDU: The presence of a VTE can safely be excluded with a negative D-Dimer result and Wells score. A negative result doesn't exclude the possibility of DIC. The test be repeated along with other diagnostic tests if the patient's symptoms persist or worsen. [email or web address] Performed By: #### C BCA, 33156-2, FEPR, 2276-4 #### [facility] ([id number]) [address], [address] [place] [address] IRON PROFILEon 01-07-2024 Iron [Mass/Vol] 95 ug/dL Normal 50-170 [facility] Comment on above: Performed By: #### C BCA, 76370-1, FEPR, 2276-4 #### [facility] ([id number]) [address], [address] [place] [address] IRON BINDING 372 ug/dL Normal 250-425 [facility] Comment on above: Performed By: #### C BCA, 75970-6, FEPR, 2276-4 #### [facility] ([id number]) [address], [address] [place] [address] IRON SATURATION 26 % SATURATION Normal 15-50 [facility] Comment on above: Performed By: #### C BCA, 02942-9, FEPR, 2276-4 #### [facility] ([id number]) [address], [address] [place] [address] Physician Referralon 023 Physician Referral [id number]#[id number] TIFF Normal [facility] ECHOCARDIO M/2D COMPLETEon 0 01-08-2023 ECHOCARDIO M/2D COMPLETE Patient: MARTINA HOLLAND Exam Date: 01/08/2023 : 1950 Gender:F Ordering : SVETLANA REESE [facility] Admission #: [id number] Family : 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 DESCRIPTION: COMPLETE ECHOCARDIOGRAM Real-time transthoracic echocardiography with 2D, M-mode, spectral and color flow Doppler performed. QUALITY: Technical quality was good. LEFT VENTRICLE: Normal chamber size. Normal left ventricular wall thickness. LV EF: Normal left ventricular ejection fraction, (>55%). DIASTOLIC: Normal diastolic function. ATRIAL SEPTUM: Visually appears intact. LEFT ATRIUM: Normal chamber size. RIGHT ATRIUM: Normal chamber size. RIGHT VENTRICLE: Normal chamber size. Normal right ventricular systolic function. TRICUSPID VALVE: Normal mobility and thickness. Mild regurgitation. No evidence of pulmonary hypertension. RVSP 31 mmHg MITRAL VALVE: Normal mobility and thickness. No evidence of mitral valve stenosis. There is no mitral annular calcification. Trivial mitral regurgitation. AORTIC VALVE: Normal trileaflet appearance. No visible sclerosis. Normal leaflet mobility. No evidence of aortic valve stenosis. No aortic regurgitation. AORTIC ROOT: Normal diameter and appearance. PULMONIC VALVE: Normal thickness and mobility. No stenosis. No regurgitation. PERICARDIUM: There is a small to moderate circumferential pericardial effusion seen. No obvious chamber collapse seen. No tricuspid or mitral inflow Doppler flows provided. IVC: Collapses with inspirations. CONCLUSION: Global left ventricular systolic function is normal; visually estimated ejection fraction is 60 to 65%. No significant wall motion abnormalities. The right ventricle is normal in size and systolic function. Normal diastolic function. Mild tricuspid regurgitation. Small to moderate circumferential pericardial effusion seen. Adult Echocardiography Procedure Report Left Ventricle LVEDD (3.7 - 5.6 cm): 4.28 cm LVESD (2.2 - 4.0 cm): 2.61 cm LVIVS thickness (0.6 - 1.2 cm): 0.75 cm LVPW thickness (0.5 - 1.0 cm): 0.80 cm e': 0.10 m/s E - e': 7.17 LVOT Max Gradient: 4.35 mm[Hg] Peak Velocity (LVOT): 1.04 m/s Mean Velocity (LVOT): 0.75 m/s LVOT Diameter 2.07 cm Left Ventricular Ejection Fraction: 69.85 %, 69.85 % Left Atrium LA Volume Index (2D A2C): 57.06 ml, 57.06 ml Left Atrium Systolic Dimension: 3.57 cm Mitral Valve MV E to A Ratio: 0.73, 0.71 Mitral Valve A-Wave Peak Velocity: 1.01 m/s, 0.93 m/s Mitral Valve E-Wave Peak Velocity: 0.73 m/s, 0.66 m/s Right Ventricle Aorta AO Root Diam: 2.82 cm Ascending Ao Diam: 2.59 cm Aortic Valve AoV Area (Peak Nelson): 2.20 cm2, 2.20 cm2 Peak Velocity(Antegrade Flow): 1.60 m/s Peak Gradient(Antegrade Flow): 10.24 mm[Hg] Tricuspid Valve Peak Velocity (Regurgitant Flow): 2.65 m/s Peak Velocity: 0.52 m/s Pulmonic Valve Peak Velocity: 1.00 m/s, 1.09 m/s Peak Gradient: 4.02 mm[Hg], 4.71 mm[Hg] Right Atrium Right Atrium Systolic Pressure: 55.43 ml, 55.43 ml Dictated by: Marissa Cha M.D. on 01/09/2023 at 16:46 Approved by: Marissa Cha M.D. on 01/09/2023 at 16:50 Normal [facility] INSULINon 08-29-2022 Insulin 18.2 uIU/mL Normal 2.6-24.9 [facility] Comment on above: Performed By: #### I NSULIN ####[facility] [id number] [address]DrCatalino Bebe Spann BNPon 08-28-2022 Natriuretic peptide B (Bld) [Mass/Vol] 82.0 pg/mL Normal <=900.0 [facility] Comment on above: Performed By: #### T SH, T7, CMP, BNP, LIPID #### [facility] [address] [address] [address] Bebe Spann CBC AUTO DIFFon 08-28-2022 BASO # 0.0 103/ul Normal 0.0-0.1 [facility] Comment on above: Performed By: #### C BC #### [facility] [address] [place] [address] Dr. Bebe Spann Basophils/100 WBC (Bld) 0.4 % Normal 0.2-2.0 [facility] Comment on above: Performed By: #### C BC #### [facility] [address] [place] [address] Dr. Bebe Spann EO # 0.1 103/ul Normal 0.0-0.7 [facility] Comment on above: Performed By: #### C BC #### [facility] [address] [place] [address] Dr. Bebe Spann Eosinophils/100 WBC (Bld) 1.7 % Normal 0.9-7.0 [facility] Comment on above: Performed By: #### C BC #### [facility] [address] [place] [address] Dr. Bebe Spann Erythrocyte distribution width (RBC) [Ratio] 14.4 % Normal 11.0-15.0 [facility] Comment on above: Performed By: #### C BC #### [facility] [address] [place] [address] Dr. Bebe Spann Hematocrit (Bld) [Volume fraction] 32.2 % Critically low 36.0-48.0 [facility] Comment on above: Performed By: #### C BC #### [facility] [address] [place] [address] Dr. Bebe Spann Hemoglobin (Bld) [Mass/Vol] 10.5 g/dL Critically low 12.0-16.0 [facility] Comment on above: Performed By: #### C BC #### [facility] [address] [place] [address] Dr. Bebe Spann IG # 0.03 10e3/ul Normal 0.00-0.03 [facility] Comment on above: Performed By: #### C BC #### [facility] [address] [place] [address] Dr. Bebe Spann IG % 0.4 % Normal 0.0-0.5 [facility] Comment on above: Performed By: #### C BC #### [facility] [address] [place] [address] Dr. Bebe Spann LYMPH # 2.2 103/ul Normal 1.2-3.8 [facility] Comment on above: Performed By: #### C BC #### [facility] [address] [place] [address] Dr. Bebe Spann Lymphocytes/100 WBC (Bld) 29.0 % Normal 20.5-60.0 [facility] Comment on above: Performed By: #### C BC #### [facility] [address] [place] [address] Dr. Bebe Spann MANUAL DIFF REQ NO Normal [facility] Comment on above: Performed By: #### C BC #### [facility] [address] [place] [address] Dr. Bebe Spann MCH (RBC) [Entitic mass] 31.0 pg Normal 26.7-34.0 [facility] Comment on above: Performed By: #### C BC #### [facility] [address] [place] [address] Dr. Bebe Spann MCHC (RBC) [Mass/Vol] 32.6 g/dL Normal 29.9-35.2 [facility] Comment on above: Performed By: #### C BC #### [facility] [address] [place] [address] Dr. Bebe Spann MCV (RBC) [Entitic vol] 95.0 fL Normal 81.0-99.0 [facility] Comment on above: Performed By: #### C BC #### [facility] [address] [place] [address] Dr. Bebe Spann MONO # 0.7 103/ul Normal 0.3-0.8 [facility] Comment on above: Performed By: #### C BC #### [facility] [address] [place] [address] Dr. Bebe Spann Monocytes/100 WBC (Bld) 9.1 % Normal 1.7-12.0 [facility] Comment on above: Performed By: #### C BC #### [facility] [address] [place] [address] Dr. Bebe Spann NEUT # 4.6 103/ul Normal 1.4-6.5 [facility] Comment on above: Performed By: #### C BC #### [facility] [address] [place] [address] Dr. Bebe Spann Neutrophils/100 WBC (Bld) 59.4 % Normal 43.0-75.0 [facility] Comment on above: Performed By: #### C BC #### [facility] [address] [place] [address] Dr. Bebe Spann Platelet mean volume (Bld) [Entitic vol] 9.7 fL Normal 9.5-13.5 [facility] Comment on above: Performed By: #### C BC #### [facility] [address] [place] [address] Dr. Bebe Spann PLT 277 103/ul Normal 150-450 [facility] Comment on above: Performed By: #### C BC #### [facility] [address] [place] [address] Dr. Bebe Spann RBC 3.39 106/ul Critically low 4.20-5.40 [facility] Comment on above: Performed By: #### C BC #### [facility] [address] [place] [address] Dr. Bebe Spann WBC 7.7 103/ul Normal 4.0-11.0 [facility] Comment on above: Performed By: #### C BC #### [facility] [address] [place] [address] Dr. Bebe Spann FREE THYROXINE INDEX T7on FTI 1.98 Normal 1.30-4.50 [facility] Comment on above: Performed By: #### T SH, T7, CMP, BNP, LIPID #### [facility] [address] [place] [address] Dr. Bebe Spann T3U 33.0 % Normal 30.0-39.0 [facility] Comment on above: Performed By: #### T SH, T7, CMP, BNP, LIPID #### [facility] [address] [address] [address] Bebe Spann T4 [Mass/Vol] 6.00 ug/dL Normal 4.80-13.90 [facility] Comment on above: Performed By: #### T SH, T7, CMP, BNP, LIPID #### [facility] [address] [address] [address] Bebe Spann GLYCOHEMOGLOBIN A1Con 2021 ADA RECOMMENDATION SEE BELOW Normal [facility] Comment on above: Result Comment: ADA RECOMMENDED LIMIT 4.0 - 6.0 ADA THERAPEUTIC TARGET < 7.0 ACTION SUGGESTED > 7.0 Performed By: #### A 1C ####[facility] [id number] [address]Dr. Bebe Spann Glucose [Mass/Vol] 134 mg/dL Normal [facility] Comment on above: Performed By: #### A 1C ####[facility] [id number] [address]Dr. Bebe Spann HbA1c (Bld) [Mass fraction] 6.3 % Critically high 4.5-6.2 [facility] Comment on above: Performed By: #### A 1C ####[facility] [address] [address]Dr. Bebe Spann IRONon 08-28-2022 Iron [Mass/Vol] 52.0 ug/dL Normal 50.0-170.0 [facility] Comment on above: Performed By: #### I ROSAMARIA #### [facility] [address] [address] [address] Bebe Spann LIPID PROFILEon 08-28-2022 CHOL-HDL RATIO NORM SEE BELOW Normal [facility] Comment on above: Result Comment: 3.3 - 4.4 LOW RISK 4.4 - 7.1 AVERAGE RISK 7.1 - 11.0 MODERATE RISK >11.0 HIGH RISK Performed By: #### T SH, T7, CMP, BNP, LIPID #### [facility] [address] [address] [address] Bebe Spann Cholesterol [Mass/Vol] 94 mg/dL Normal <=200 [facility] Comment on above: Performed By: #### T SH, T7, CMP, BNP, LIPID #### [facility] [address] [address] [address] Bebe Spann Cholesterol in HDL [Mass/Vol] 48 mg/dL Normal 40-60 [facility] Comment on above: Performed By: #### T SH, T7, CMP, BNP, LIPID #### [facility] [address] [address] [address] Bebe Spann Cholesterol in LDL [Mass/Vol] 23.2 mg/dL Normal [facility] Comment on above: Performed By: #### T SH, T7, CMP, BNP, LIPID #### [facility] [facility] [address] [address] [address] Bebe Spann Cholesterol.total/Ch olesterol in HDL [Mass ratio] 2.0 {ratio} Normal [facility] Comment on above: Performed By: #### T SH, T7, CMP, BNP, LIPID #### [facility] [address] [address] [address] Bebe Spann HDL NORMAL > or = 60 mg/dl - LO W CARDIOVASCULAR RISK <40 mg/dl - HIGH CARDIOVASCULAR RISK Normal [facility] Comment on above: Performed By: #### T SH, T7, CMP, BNP, LIPID #### [facility] [address] [address] [address] Bebe Spann LDL CALC NORMAL SEE BELOW Normal [facility] Comment on above: Result Comment: <100 mg/dl OPTIMAL 100 - 129 mg/dl NEAR OR ABOVE OPTIMAL 130 - 159 mg/dl BORDERLINE HIGH 160 - 189 mg/dl HIGH >190 mg/dl VERY HIGH Performed By: #### T SH, T7, CMP, BNP, LIPID #### [facility] [address] [address] [address] Bebe Spann Triglyceride [Mass/Vol] 114 mg/dL Normal <=150 [facility] Comment on above: Performed By: #### T SH, T7, CMP, BNP, LIPID #### [facility] [address] [place] [address] Dr. Bebe Spann VLDL CALC 22.8 mg/dL Normal [facility] Comment on above: Performed By: #### T SH, T7, CMP, BNP, LIPID #### [facility] [address] [place] [address] Dr. Bebe Spann PROF 14(COMP METB)on 022 Albumin [Mass/Vol] 3.2 g/dL Critically low 3.4-5.0 [facility] Comment on above: Performed By: #### T SH, T7, CMP, BNP, LIPID #### [facility] [address] [place] [address] Dr. Bebe Spann Albumin/Globulin [Mass ratio] 1.0 {ratio} Normal [facility] Comment on above: Performed By: #### T SH, T7, CMP, BNP, LIPID #### [facility] [address] [place] [address] Dr. Bebe Spann ALP [Catalytic activity/Vol] 61 U/L Normal 46-116 [facility] Comment on above: Performed By: #### T SH, T7, CMP, BNP, LIPID #### [facility] [address] [place] [address] Dr. Bebe Spann ALT [Catalytic activity/Vol] 20 U/L Normal 14-59 [facility] Comment on above: Performed By: #### T SH, T7, CMP, BNP, LIPID #### [facility] [address] [place] [address] Dr. Bebe Spann Anion gap [Moles/Vol] 10.6 mmol/L Normal [facility] Comment on above: Performed By: #### T SH, T7, CMP, BNP, LIPID #### [facility] [address] [place] [address] Dr. Bebe Spann AST [Catalytic activity/Vol] 12 U/L Critically low 15-37 [facility] Comment on above: Performed By: #### T SH, T7, CMP, BNP, LIPID #### [facility] [address] [place] [address] Dr. Bebe Spann Bilirubin [Mass/Vol] 0.3 mg/dL Normal 0.2-1.0 [facility] Comment on above: Performed By: #### T SH, T7, CMP, BNP, LIPID #### [facility] [address] [place] [address] Dr. Bebe Spann Calcium [Mass/Vol] 9.1 mg/dL Normal 8.5-10.1 [facility] Comment on above: Performed By: #### T SH, T7, CMP, BNP, LIPID #### [facility] [address] [place] [address] Dr. Bebe Spann Chloride [Moles/Vol] 103 mmol/L Normal 98-107 [facility] Comment on above: Performed By: #### T SH, T7, CMP, BNP, LIPID #### [facility] [address] [place] [address] Dr. Bebe Spann CO2 [Moles/Vol] 30.0 mmol/L Normal 21.0-32.0 [facility] Comment on above: Performed By: #### T SH, T7, CMP, BNP, LIPID #### [facility] [address] [place] [address] Dr. Bebe Spann Creatinine [Mass/Vol] 1.20 mg/dL Critically high 0.55-1.02 [facility] Comment on above: Performed By: #### T SH, T7, CMP, BNP, LIPID #### [facility] [address] [place] [address] Dr. Bebe Spann EGFR-AF MAURITANIAN 54 mL/min/1.73m2 Critically low >=60 [facility] Comment on above: Performed By: #### T SH, T7, CMP, BNP, LIPID #### [facility] [address] [place] [address] Dr. Bebe Spann EGFR-NON AF MAURITANIAN 44 mL/min/1.73m2 Critically low >=60 [facility] Comment on above: Performed By: #### T SH, T7, CMP, BNP, LIPID #### [facility] [address] [place] [address] Dr. Bebe Spann Globulin (S) [Mass/Vol] 3.1 g/dL Normal [facility] Comment on above: Performed By: #### T SH, T7, CMP, BNP, LIPID #### [facility] [address] [address] [address] Bebe Spann Glucose [Mass/Vol] 94 mg/dL Normal 74-106 [facility] Comment on above: Performed By: #### T SH, T7, CMP, BNP, LIPID #### [facility] [address] [place] [address] Dr. Bebe Spann Potassium [Moles/Vol] 4.6 mmol/L Normal 3.5-5.1 [facility] Comment on above: Performed By: #### T SH, T7, CMP, BNP, LIPID #### [facility] [address] [place] [address] Dr. Bebe Spann Protein [Mass/Vol] 6.3 g/dL Critically low 6.4-8.2 [facility] Comment on above: Performed By: #### T SH, T7, CMP, BNP, LIPID #### [facility] [address] [address] [address] Bebe Spann Sodium [Moles/Vol] 139 mmol/L Normal 136-145 [facility] Comment on above: Performed By: #### T SH, T7, CMP, BNP, LIPID #### [facility] [address] [address] [address] Bebe Spann Urea nitrogen [Mass/Vol] 20.0 mg/dL Critically high 7.0-18.0 [facility] Comment on above: Performed By: #### T SH, T7, CMP, BNP, LIPID #### [facility] [address] [address] [address] Bebe Spann Urea nitrogen/Creatinine [Mass ratio] 16.7 mg/mg Normal [facility] Comment on above: Performed By: #### T SH, T7, CMP, BNP, LIPID #### [facility] [address] [place] [address] Dr. Bebe Spann TSHon 08-28-2022 TSH 3.195 uIU/mL Normal 0.358-3.740 [facility] Comment on above: Performed By: #### T SH, T7, CMP, BNP, LIPID #### [facility] [address] [place], [place] [address] Dr. Bebe Spann [facility]09 SARS-CoV-2 (COVID-19) RNA MUSHTAQ+probe Ql (Unsp spec) Not detected Normal NOT DETECTED [facility] Comment on above: Result Comment: This test is not yet approved or cleared by the [place] FDA. When there are no FDA-approved or cleared tests available, and other criteria are met, FDA can make tests available under an emergency access mechanism called an Emergency Use Authorization (EUA). The EUA for this test is supported by the [place] of Health and Human Service's (HHS's) declaration that circumstances exist to justify the emergency use of in vitro diagnostics for the detection and/or diagnosis of the virus that causes COVID-19. This EUA will remain in effect (meaning this test can be used) for the duration of the COVID-19 declaration justifying emergency of IVDs, unless it is terminated or revoked by FDA (after which the test may no longer be used). When diagnostic testing is negative, the possibility of a false negative should be considered in the context of a patient's recent exposures and the presence of clinical signs and symptoms consistent with SARS-CoV-2. Performed By: #### C VDTBH ####[facility] [address] [place], [place] [address]EvDr. Bebe Spann MG MAMM SCREEN 3D DANICA CADon 03-13-2022 MG MAMM SCREEN 3D DANICA CAD Patient: MARTINA HOLLAND Exam Date: 03/13/2022 : 1950 Gender:F Ordering : DR KJ GARCIA . Admission #: [id number] Family : Order #: [id number] CLICK HERE TO VIEW EXAM RADIOLOGY REPORT PROCEDURE: MAMMOGRAM SCREENING 3D BILATERAL CAD COMPARISON: MG MAMM SCREEN DANICA W CAD, 11/08/2020. MG MAMM SCREEN DANICA W CAD, 09/29/2019. INDICATIONS: Screening mammography Calculator Name NCI Breast Cancer Risk Assessment Tool 5 Year Breast Cancer Risk 1.50% Lifetime Breast Cancer Risk 4.50% Personal Breast Cancer No Personal Ovarian Cancer No Treatments HYSTERECTOMY Family Cancers None LOCATION: [facility] BREAST COMPOSITION: Scattered areas fibroglandular density. RIGHT BREAST: No significant suspicious finding. Scattered benign-appearing calcifications are present. Scattered benign-appearing nodules are present. No significant change has occurred. LEFT BREAST: No significant suspicious finding. Scattered benign-appearing calcifications are present. Scattered benign-appearing nodules are present. No significant change has occurred. FINDINGS: DIAGNOSTIC CATEGORY 2--BENIGN FINDING: RECOMMENDATIONS: ROUTINE MAMMOGRAM AND CLINICAL EVALUATION IN 12 MONTHS. PLEASE NOTE: A NORMAL MAMMOGRAM DOES NOT EXCLUDE THE POSSIBILITY OF BREAST CANCER. A CLINICALLY SUSPICIOUS PALPABLE LUMP SHOULD BE BIOPSIED. Dictated by: Mark Beltre M.D. on 03/14/2022 at 13:25 Approved by: Mark Beltre M.D. on 03/14/2022 at 13:29 Normal [facility] Cardiovascular Lab Reporton 06-28-2021 Cardiovascular Lab Report [facility] Patient Name: [facility] MR #: [id number] Physician: Marissa Cha, Department of M.D. Medicine Service Date: 06/27/2021 Division of Birthdate: 1950 Cardiology Room #: [facility] Cardiovascular Services [address] [address] Cardiovascular Laboratory Report IMPRESSIONS: 1. Angiographically non-obstructive coronary arteries. 2. Normal global left ventricular systolic function. 3. Normal right-sided heart pressures and wedge pressures. 4. Normal cardiac output/cardiac index. 5. Evidence of probable left ventricular hypertrophy on left ventriculography. RECOMMENDATIONS: 1. The patient will undergo a complete echocardiogram. 2. Aggressive cardiovascular risk factor modification. 3. Consider alternate etiologies for the patient's symptomatology namely musculoskeletal, gastrointestinal, and/or pulmonary. 4. Further investigations and management for nonsustained ventricular tachycardia can be considered as an outpatient; she may benefit from referral to our electrophysiology colleagues. 5. Follow up with Isaura Coleman, certified nurse practitioner, in the next 2 to 4 weeks. 6. Follow up with her family physician as scheduled. PROCEDURES: Ultrasound-guided access to the right internal jugular vein, right heart catheterization, ultrasound-guided access to the left radial artery, bilateral selective coronary angiography, left heart catheterization, left ventriculography. METHODS: After risks, benefits, and alternatives were explained, written informed consent was obtained. The patient was prepped and draped in usual sterile fashion over the right neck and left wrist. Using 1% lidocaine solution, local infiltration anesthesia was achieved. Using a modified Seldinger technique, micropuncture kit under ultrasound guidance access to the right internal jugular vein was obtained. A 6-Latvian 11-cm sheath was inserted without difficulty. A Finn catheter was used for right heart catheterization measuring pressures in the right atrium, right ventricle, pulmonary artery, and pulmonary capillary wedge positions. Oxygen saturations were obtained and cardiac output/cardiac index was calculated using the modified Jitendra principle. The Finn catheter was removed. The jugular sheath was removed with application of manual pressure to achieve optimal hemostasis. Local infiltration anesthesia was achieved over the left wrist. A micropuncture kit was used under ultrasound guidance to access the left radial artery. A 6-Latvian glide sheath was inserted without difficulty. Bilateral selective coronary angiography was performed using JR4 and JL4 catheters. After reviewing the images, it was elected to proceed with left ventriculography. An angled pigtail catheter was advanced in and used to cross the aortic valve. Left ventriculography was performed using 36 mL at a constant rate of 12 mL per second. Aortic pullback pressure measurements were performed. At this point, it was elected to conclude the procedure. All catheters removed. The radial sheath was removed with application of a TR band per protocol to achieve optimal hemostasis. Overall, the patient tolerated the procedure well. There were no overt complications. She was to be transferred to the holding area in stable condition. FINDINGS: Hemodynamics. RA 11. RV 29/1, 7. PA 29/ (20). PCWP 11. TPG 9. AO 110/61 (81). Cardiac output 5.82/cardiac index 2.9. AO sat 95%/PA sat 60%. LEFT VENTRICULOGRAPHY: This was performed in the right anterior oblique projection. Ejection fraction was estimated to be 60% to 65%. No wall motion abnormalities were seen. No significant mitral regurgitation was seen. There appears to be concentric left ventricular hypertrophy. CORONARY ARTERIES: Left main coronary artery: This arises from the left coronary cusp. It bifurcates into the left anterior descending and left circumflex coronary arteries and is free of significant stenosis. Left anterior descending coronary artery: This is angiographically nonobstructive. Left circumflex coronary artery: This is angiographically nonobstructive. Right coronary artery: This is a dominant vessel giving rise to the posterior descending and posterolateral branches arise from a higher portion than normal. No significant stenosis is seen. INDICATIONS: Chest pain, nonsustained ventricular tachycardia. Electronically Signed by: Marissa Cha M.D. 07/03/2021 06:23 P Marissa Cha M.D. Date Dict: 06/27/2021/11:46 A/Marissa Cha M.D. Date Trans: 06/28/2021 03:01 A/[place] [id number] Normal [facility] Encounters Encounter Date Encounter Type Care Provider Facility Start: 01-23-2024 End: 01-23-2024 ambulatory SUSANA ISRAEL [facility] Start: 01-07-2024 End: 01-08-2024 ambulatory KRISTI Ramon [facility] Start: 01-07-2024 End: 01-07-2024 ambulatory KRISTI Ramon [facility] Start: 07-24-2023 ambulatory Facility:[facility] Start: 01-08-2023 End: 01-09-2023 ambulatory SVETLANA REESE Facility:[facility] Start: 08-28-2022 End: 08-29-[address] KJ GARCIA . Facility:[facility] Start: 04-11-[address] KJ GARCIA . Facili ty:[facility] Start: 04-03-2022 End: 04-03-[address] KJ GARCIA . Facility:[facility] Start: 03-13-2022 End: 03-14-[address] KJ GARCIA . Facility:[facility] Start: 06-27-2021 End: 06-28-2021 ambulatory ISAURA COLEMAN Facility:[facility] Procedures Date Procedure Procedure Detail Performing Clinician Start: 05-01-2024 Follow-up visit Follow-up KRISTI ANDERSON Payers Date Payer Category Payer Medicare [id number] 1958 Self-pay [id number] 1950 Unknown [id number] 2.16.8 [id number] 1950 Unknown [id number] 2.16.84 [id number] 1950 Unknown [id number] 2.16.84 [id number] 1950 Unknown [id number] 2.16.84 [id number] 1950 Unknown [id number] 2.16.84 [id number] 1950 Unknown [id number] 2.16.84 [id number] 1950 Unknown [id number] 2.16.8 [id number] 1950 Unknown [id number] 2.16.8 [id number] Medicare [id number] Unknown [id number] Progress note 01-23-2024 Note Date & Type Note Facility 01-23-2024 Note [facility] CARDIOLOGY PROGR ESS NOTE HPI: Martina Holland is a 73 y.o. female here for follow up Pmhx: HTN, NSVT, SVT, HPL. Patient here for 1 year follow up hypertension, hyperlipidemia, and NSVT. Had echo and routine labs w/ lipid in May 2023. She has lost 20# since visit last January, and Dr. Garcia has stopped olmesartan. Patient was diagnosed with PE in March 2023 and has been following with [facility] for this. Eliquis has been decreased to 2.5mg bid. She denies chest pain, SOB, palpitations, and LE edema. Review of Systems Constitutional: Negative. Respiratory: Negative. Cardiovascular: Negative. Neurological: Negative. All other systems reviewed and are negative. Visit Vitals BP 135/80 (BP Location: Left arm, Patient Position: Sitting) Pulse 59 Ht 1.549 m (5' 1 ) Wt 81.2 kg (179 lb) SpO2 97% BMI 33.82 kg/m??? Smoking Status Former BSA 1.87 m??? Allergies Allergen Reactions Meperidine Shortness of breath and Other Medications: Current Outpatient Medications on File Prior to Visit Medication Sig Dispense Refill aspirin 81 mg chewable tablet Chew 1 tablet every day by oral route. cholecalciferol, vitamin D3, 50 mcg (2,000 unit) capsule Take 2,000 Units by mouth in the morning. diclofenac (Voltaren) 75 mg EC tablet Take 75 mg by mouth every other day. Eliquis 5 mg tablet Take 2.5 mg by mouth in the morning and at bedtime. ferrous sulfate 325 (65 Fe) MG tablet 2 times daily. hydroCHLOROthiazide (HYDRODiuril) 12.5 mg tablet Take 1 tablet every day by oral route. metoprolol succinate XL (Toprol-XL) 25 mg 24 hr tablet 1 (one) time each day at the same time. pantoprazole (ProtoNix) 40 mg EC tablet 1 (one) time each day at the same time. rosuvastatin (Crestor) 5 mg tablet Take 5 mg by mouth in the morning. metFORMIN (Glucophage) 500 mg tablet every 12 (twelve) hours. olmesartan (BENIcar) 20 mg tablet 1 (one) time each day at the same time. No current facility-administered medications on file prior to visit. Physical Exam: Constitutional: Appearance: Normal appearance. Without apparent distress, obese HENT: Head: Normocephalic and atraumatic. Nose: Nose normal. Mouth/Throat: Mouth: Mucous membranes are moist. Eyes: Extraocular Movements: Extraocular movements intact. Conjunctiva/sclera: Conjunctivae normal. Neck: Vascular: No JVD. Cardiovascular: Rate and Rhythm: Normal rate and regular rhythm. Pulses: Dorsalis pedis pulses are 3 on the right side and 3on the left side. Posterior tibial pulses are 3 on the right side and 3 on the left side. Heart sounds: Normal heart sounds, S1 normal and S2 normal. Pulmonary: Effort: Pulmonary effort is normal. Breath sounds: Normal breath sounds. Abdominal: General: Bowel sounds are normal. Palpations: Abdomen is soft. Musculoskeletal: General: Normal range of motion. Cervical back: Normal range of motion. Right lower leg: No edema. Left lower leg: No edema. Skin: General: Skin is warm and dry. Capillary Refill: Capillary refill takes less than 2 seconds. Neurological: General: No focal deficit present. Mental Status: She is alert and oriented to person, place, and time. Psychiatric: Mood and Affect: Mood normal. Behavior: Behavior normal. Thought Content: Thought content normal. Judgment: Judgment normal. Labs: 08/28/22 CBC stable BUN 20, CR 1.20- elevated K+ 4.6 normal Chol 94, HDL 48, Trig 114, LDL 23.3- normal A1C 6.3- elevated Last lab values have been reviewed CV Testing: EKG today Normal sinus rhythm, Lt axis deviation, abnormal ECG- essentially unchanged from previous EKG 01/08/23 Echo 06/27/2021 Cardiac cath Assessment/Plan: Essential hypertension Hypertension is well controlled per patient report Olmesartan was stopped by PCP Continue toprol, hydrochlorothiazide Monitor Bp at home Nonsustained ventricular tachycardia Continue toprol 06/2021 Holter monitor strips reviewed with Dr Palmer- electrophysiology- agrees with 14 beat run of VT. Otherwise sinus bradycardia- at night, sinus tachycardia, PVCs and SVT Echo with normal EF. No signs/symptoms of ischemia Mixed hyperlipidemia Continue crestor Supraventricular tachycardia (CMS/HCC) Continue toprol PE On eliquis, managed by Vascular surgery Follow up with vascular surgery -Optimize medical management -Aggressive risk factor modification -Plan of care discussed with patient. All questions were answered. Patient voices understanding and is agreeable with current plan. -Patient was educated on red flag symptoms. Strict return precautions were provided. Patient verbalizes understanding -Follow-up in cardiology clinic in 6 months, or sooner as needed Thank you for allowing us to participate in the care of your patient. Please do not hesitate to contact cardiology with any questions or concerns. Susana Israel MD [facility] Clinical Note 08-28-2022 Note Date & Type Note Facility 08-28-2022 Note PROCEDURE: XR KNEE R T 4V or > HISTORY: Osteoarthritis ; chronic right knee pain COMPARISON: XR knee right 05/29/2017 FINDINGS: BONES:Right knee replacements and resurfacing of the patella; no hardware fracture or loosening. No bone fracture dislocation. SOFT TISSUES:No visible soft tissue swelling. EFFUSION:None visible. OTHER: Negative. IMPRESSION: 1. Stable surgical changes. No specific findings to account for patient's symptoms. Electronically authenticated by: MARK BELTRE Date: 2022-08-28 17:38 [facility] Summary Purpose Family History No Family History Records FoundNo Family History Records FoundNo Family History Records FoundNo Family History Records FoundNo Family History Records Found Advance Directives No Advanced Directives Records FoundNo Advanced Directives Records FoundNo Advanced Directives Records FoundNo Advanced Directives Records FoundNo Advanced Directives Records Found Additional Source Comments INFORMATION SOURCE (unrecogn ized section and content) DATE CREATED AUTHOR 07/03/2021 [facility] DATE CREATED AUTHOR AUTHOR'S ORGANIZ ATION 01/15/2023 [facility] DATE CREATED AUTHOR AUTHOR'S ORGANIZ ATION 07/26/2023 [facility] DATE CREATED AUTHOR AUTHOR'S ORGANIZ ATION 01/08/2024 [facility] DATE CREATED AUTHOR AUTHOR'S ORGANIZ ATION 03/08/2024 [facility] FOR RECORDS PERTAINING TO PATIENTS WHO ARE OR HAVE BEEN ENROLLED IN A CHEMICAL DEPENDENCY/SUBSTANCEABUSE PROGRAM, SOME INFORMATION MAY BE OMITTED. This clinical summary was aggregated from multiple sources. Caution should be exercised in using it in the provision of clinical care. This summary normalizes information from multiple sources, and as a consequence, information in this document may materially change the coding, format and clinical context of patient data. In addition, data may be omitted in some cases. CLINICAL DECISIONS SHOULD BE BASED ON THE PRIMARY CLINICAL RECORDS. [employer] provides no warranty or guarantee of the accuracy or completeness of information in this document.
[2024-05-29 07:29] LABS: Basophils Absolute Auto 0.1 10^3/uL (0.0-0.1); Basophils Percent Auto 0.9 % (0.2-2.0); Eosinophils Absolute Auto 0.1 10^3/uL (0.0-0.7); Eosinophils Percent Auto 1.9 % (0.9-7.0); Hematocrit 37.1 % (36.0-48.0); Hemoglobin 11.9 g/dL (12.0-16.0); Immature Granulocytes Abs Auto 0.02 10^3/uL (0.00-0.03); Immature Granulocytes Pct Auto 0.3 % (0.0-0.5); Lymphocytes Percent Auto 34.2 % (20.5-60.0); Mean Corpuscular HGB Conc 32.1 g/dL (29.9-35.2); Mean Corpuscular Hemoglobin 31.2 pg (26.7-34.0); Mean Corpuscular Volume 97.1 fL (81.0-99.0); Mean Platelet Volume 10.7 fL (9.5-13.5); Monocytes Absolute Auto 0.5 10^3/uL (0.3-0.8); Monocytes Percent Auto 9.1 % (1.7-12.0); Neutrophils Absolute Auto 3.1 10^3/uL (1.4-6.5); Neutrophils Percent Auto 53.6 % (43.0-75.0); Platelet Count 164 10^3/uL (150-450); Red Blood Count 3.82 10^6/uL (4.20-5.40); Red Cell Distribution Width 13.7 % (11.0-15.0); White Blood Count 5.7 10^3/uL (4.0-11.0)
[2024-05-29 08:13] LABS: Alanine Aminotransferase 17 U/L (14-59); Albumin Globulin Ratio 1.4; Albumin Level 3.4 g/dL (3.4-5.0); Alkaline Phosphatase 49 U/L (46-116); Anion Gap 8.4; Aspartate Amino Transferase 14 U/L (15-37); BUN Creatinine Ratio 15.7; Bilirubin Total 0.5 mg/dL (0.2-1.0); Calcium 9.1 mg/dL (8.5-10.1); Carbon Dioxide 32.5 mmol/L (21.0-32.0); Chloride 104 mmol/L (98-107); Chol HDL Ratio 2.2; Cholesterol 119 mg/dL (<=200); Estimated GFR (African America >60 (>=60); Estimated GFR (Non-African Ame 53 (>=60); Free T3 2.49 pg/mL (2.18-3.98); Globulin 2.4 g/dL; Glucose 99 mg/dL (74-106); HDL Cholesterol 54 mg/dL (40-60); LDL Cholesterol Calculated 45.2 mg/dL; Potassium 3.9 mmol/L (3.5-5.1); Sodium 141 mmol/L (136-145); Thyroid Stimulating Hormone 2.687 uIU/mL (0.358-3.740); Total Protein 5.8 g/dL (6.4-8.2); Triglycerides 99 mg/dL (<=150); VLDL CHOLESTEROL 19.8 mg/dL
[2024-05-29 10:48] LABS: Estimated Average Glucose 128 mg/dL; Glycohemoglobin A1C 6.1 % (4.5-6.2)
== END 2024-05-29 07:04 | disposition home or self-care (01) ==
LOC: LAB 07:04
PROVIDERS: PCP Family Medicine; Visit Provider Family Medicine
DX: E11.65 Type 2 diabetes mellitus with hyperglycemia (principal); E78.00 Pure hypercholesterolemia, unspecified; I10 Essential (primary) hypertension; K29.70 Gastritis, unspecified, without bleeding; E78.9 Disorder of lipoprotein metabolism, unspecified; D64.9 Anemia, unspecified; E03.9 Hypothyroidism, unspecified
CPT/HCPCS: 36415; 80053; 80061; 83036; 83540; 84436; 84443; 84481; 85025

== ENCOUNTER 2024-07-28 06:53 | Outpatient (OUT) | payer MEDICARE, SELFPAY ==
--- OUTSIDE RECORDS SUMMARY | 2024-07-28 06:56 | XMS_ITS | CCD ---
Author Organization [facility] Care Team Providers Care Beauty Culturist Apprentice Name Role Phone ISAURA COLEMAN Attending Unavailable [...] HOY ., DR UNDERWOOD Primary Care Unavailable SVETLANA REESE Consulting Unavailable MONICA, KRISTI H Attending Unavailable HOY, KJ M Referring Unavailable HOY, KJ M Primary Care Unavailable FISH, KRISTI H Referring Unavailable HOY, KJ M Primary Care Unavailable SUSANA ISRAEL Attending Unavailable Cahva Garcialas Primary Care Physician Eddie MILLARD Attending Unavailable Chava Garcialas Referring Unavailable Allergies Allergy Classification Reported Allergen(s) Allergy Type Date of Onset Reaction(s) Facility (3 sources) Meperidine; Translations: [Demerol] Drug Allergy 7 [facility] Repository (3 sources) Meperidine; Translations: [MEPERIDINE] Drug Allergy 8 Dyspnea (finding) [facility] Repository (2 sources) Ciprofloxacin; Translations: [ciprofloxacin] Drug Allergy Eruption of skin (disorder) [facility] Bk (1 source) No Known Medication Allergies; Translations: [No Known Medication Allergies] Propensity to adverse reactions (disorder) [facility] Repository Medications Current Medications Medication Drug Class(es) Dates Sig (Normalized) Sig (Original) apixaban 2.5 mg oral tablet (1 source) Factor Xa Inhibitor Start: 4 take 1 tablet by mouth twice daily Eliquis 2.5 mg oral tablet 2.5 mg = 1 tab(s), Oral, BID, Refills(s) 0 Start Date: 06/07/24 Status: Ordered aspirin 81 mg delayed release oral tablet (1 source) Platelet Aggregation Inhibitor, Nonsteroidal Anti-inflammator y Drug Start: 4 take 1 tablet by mouth once daily aspirin 81 mg Oral EC Tab 81 mg = 1 tab(s), Oral, Daily, Refills(s) 0 Start Date: 06/07/24 Status: Ordered ferrous sulfate 325 mg oral tablet (1 source) Start: 4 take 1 tablet by mouth twice daily ferrous sulfate 325 mg Tab 325 mg = 1 tab(s), Oral, BID, Refills(s) 0 Start Date: 06/07/24 Status: Ordered hydroCHLOROthiazide 12.5 mg oral capsule (1 source) Thiazide Diuretic Start: 4 take 1 capsule by mouth once daily hydrochlorothiazide 12.5 mg Cap 12.5 mg = 1 cap(s), Oral, Daily, Refills(s) 0 Start Date: 06/07/24 Status: Ordered 24 hr metoprolol succinate 25 mg extended release oral tablet (1 source) beta-Adrenergic Jayant Start: 4 take 1 tablet by mouth once daily metoprolol succinate 25 mg ER Tab 25 mg = 1 tab(s), Oral, Daily, Refills(s) 0 Start Date: 06/07/24 Status: Ordered pantoprazole 40 mg delayed release oral tablet (1 source) Proton Pump Inhibitor Start: 4 take 1 tablet by mouth once daily Pantoprazole [address] Tab 40 mg = 1 tab(s), Oral, Daily, Refills(s) 0 Start Date: 06/07/24 Status: Ordered rosuvastatin calcium 5 mg oral tablet (1 source) HMG-CoA Reductase Inhibitor Start: 4 take 1 tablet by mouth once daily rosuvastatin 5 mg Tab 5 mg = 1 tab(s), Oral, Daily, Refills(s) 0 Start Date: 06/07/24 Status: Ordered Vitamin D2 2000 intl units oral capsule (1 source) Start: 4 take 1 capsule by mouth once daily Vitamin D2 2000 intl units oral capsule 50 mcg = 1 cap(s), Oral, Daily, cap(s), Refills(s) 0 Start Date: 06/07/24 Status: Ordered Problems Active Problems Problem Classification Problem Date Documented Date Episodic/Chronic Abdominal hernia (2 sources) Incisional hernia; Translations: [Incisional hernia without obstruction or gangrene] Onset: 4 Episodic Allergic reactions (1 source) Eczema 06-07-2024 Episodic Cancer; other and unspecified primary (1 source) H/O: malignant neoplasm 06-07-2024 Episodic Cardiac dysrhythmias (1 source) Supraventricular tachycardia Onset: 1 06-07-2024 Chronic Congestive heart failure; nonhypertensive (1 source) Unspecified diastolic (congestive) heart failure; Translations: [UNSPECIFIED DIASTOLIC HEART FAILURE] Onset: 2 Chronic Coronary atherosclerosis and other heart disease (1 source) History of myocardial infarction 06-07-2024 Chronic Deficiency and other anemia (2 sources) Anemia, unspecified; Translations: [ANEMIA UNSPECIFIED] Onset: 2 Episodic Diabetes mellitus without complication (1 source) Type 2 diabetes mellitus Onset: 1 06-07-2024 Chronic Disorders of lipid metabolism (4 sources) Hyperlipidemia, unspecified; Translations: [Pure hypercholesterolemia, unspecified] Onset: 2 06-07-2024 Chronic Comment on above: Outside Source Comme nt: Last Assessment & Plan: Well controlled- continue crestor Diverticulosis and diverticulitis (1 source) Diverticular disease of colon 06-07-2024 Chronic Essential hypertension (1 source) Essential hypertension Onset: 7 06-07-2024 Chronic Comment on above: Outside Source Comme nt: Last Assessment & Plan: Hypertension is is well controlled 116/63 Continue toprol, olmesartan, hydrochlorothiazide Renal function stable Heart valve disorders (2 sources) Rheumatic tricuspid insufficiency; 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] Onset: 3 Chronic Hypertension with complications and secondary hypertension (1 source) Hypertensive heart disease with heart failure; Translations: [HTN HEART DISEASE W/HEART FAIL] Onset: 2 Chronic Osteoarthritis (1 source) Unspecified osteoarthritis, unspecified site; Translations: [UNSPECIFIED OSTEOARTHRITIS UNS SITE] Onset: 2 Chronic Osteoporosis (1 source) Osteoporosis 06-07-2024 Chronic Other and ill-defined heart disease (1 source) Heart disease, unspecified; Translations: [Heart disease, unspecified] Onset: 4 Chronic Other lower respiratory disease (4 sources) Shortness of breath; Translations: [SHORTNESS OF BREATH] Onset: 3 Episodic Other nutritional; endocrine; and metabolic disorders (1 source) Body mass index 30+ - obesity 07-06-2024 Chronic Other nutritional; endocrine; and metabolic disorders (1 source) Obesity caused by energy imbalance 06-07-2024 Chronic Other screening for suspected conditions (not mental disorders or infectious disease) (5 sources) Encounter for screening mammogram for malignant neoplasm of breast; Translations: [Screening for malignant neoplasm of colon done] Onset: 2 Episodic Other upper respiratory disease (1 source) Allergic rhinitis 06-07-2024 Chronic Phlebitis; thrombophlebitis and thromboembolism (2 sources) Personal history of other venous thrombosis and embolism; Translations: [H/O: Deep vein thrombosis] Onset: 4 06-07-2024 Episodic Pulmonary heart disease (2 sources) Personal history of pulmonary embolism; Translations: [Pulmonary embolism] Onset: 4 06-07-2024 Episodic Unclassified (3 sources) CONTACT W/AND (SUSP) EXPOS COVID-19; Translations: [CONTACT W/AND (SUSP) EXPOS COVID-19] Onset: 2 Unclassified (1 source) COUGH, UNSPECIFIED; Translations: [COUGH, UNSPECIFIED] Onset: 2 Unclassified (1 source) Patient encounter status 07-06-2024 Past or Other Problems Problem Classification Problem Date Documented Da te Episodic/Chronic Diabetes mellitus without complication (1 source) Other abnormal glucose; Translations: [OTHER ABNORMAL GLUCOSE] Onset: 09-04-2022 Episodic Other lower respiratory disease (1 source) Dyspnea, unspecified; Translations: [DYSPNEA UNSPECIFIED] Onset: 09-04-2022 Episodic Other upper respiratory disease (1 source) Nasal congestion; Translations: [NASAL CONGESTION] Onset: 04-06-2022 Episodic Residual codes; unclassified (1 source) Chronic pain Onset: 03-12-2017 06-07-2024 Episodic Syncope (4 sources) Syncope and collapse; Translations: [SYNCOPE AND COLLAPSE] Onset: 08-28-2022 Episodic Unclassified (1 source) CONTACT W/AND (SUSP) EXPOS COVID-19; Translations: [CONTACT W/AND (SUSP) EXPOS COVID-19] Onset: 04-03-2022 Results Test Name Value Interpretation Reference Range Facility Reminderson 07-08-2024 Reminders Reminders From: Mikayla Castillo LPN To: [facility] - Clinical; Sent: 07/08/2024 09:21:21 EDT Show up: 03/22/2029 07:00:00 EDT Subject: colonoscopy recall Due Date/Time: 04/22/2029 07:00:00 EDT Reminder/Recall Patient due for screening colonoscopy 04/2029. Normal [facility] Ambulatory Visit Summaryon 1 Ambulatory Visit Summary Ambulatory Visit Summary MARTINA HOLLAND :1950 Visit Date:07/06/2024 Ambulatory Visit Instructions Your Care Team Attending Physician - VENICE MERCHANT, Eddie Castro Primary Care Physician - Radha MERCHANT, Kj Referring Physician - Kj Garcia MD This Is Your Medications List Contact prescribing physician if questions or concerns apixaban (Eliquis 2.5 mg oral tablet) aspirin (aspirin 81 mg Oral EC Tab) ergocalciferol (Vitamin D2 2000 intl units oral capsule) ferrous sulfate (ferrous sulfate 325 mg Tab) hydrochlorothiazide (hydrochlorothiazide 12.5 mg Cap) metoprolol (metoprolol succinate 25 mg ER Tab) pantoprazole (Pantoprazole [address] Tab) rosuvastatin (rosuvastatin 5 mg Tab) Procedures Performed Colonoscopy (02/17/2014), Arthroscopy of knee, Arthroscopy of shoulder, Carpal tunnel release, section, Excision of calcaneal spur, Lithotripsy, Release of trigger finger, Repair of right inguinal hernia, Repair of ventral hernia, MELANI BSO - Total abdominal hysterectomy and bilateral salpingo-oophorectomy. Discharge Vitals Heart Rate (Peripheral) 68 Respiratory Rate 16 Blood Pressure 118/66 Height 154.9 cm Height 61 in Weight 80 kg Weight 176 lb BMI 33.34 Medications What How Much When Instructions Unchanged apixaban (Eliquis 2.5 mg oral tablet) 1 Tablets By Mouth 2 times a day Contact prescribing physician if questions or concerns Unchanged aspirin (aspirin 81 mg Oral EC Tab) 1 Tablets By Mouth Every day Contact prescribing physician if questions or concerns Unchanged ergocalciferol (Vitamin D2 2000 intl units oral capsule) 1 Capsules By Mouth Every day Contact prescribing physician if questions or concerns Unchanged ferrous sulfate (ferrous sulfate 325 mg Tab) 1 Tablets By Mouth 2 times a day Contact prescribing physician if questions or concerns Unchanged hydrochlorothiazide (hydrochlorothiazide 12.5 mg Cap) 1 Capsules By Mouth Every day Contact prescribing physician if questions or concerns Unchanged metoprolol (metoprolol succinate 25 mg ER Tab) 1 Tablets By Mouth Every day Contact prescribing physician if questions or concerns Unchanged pantoprazole (Pantoprazole [address] Tab) 1 Tablets By Mouth Every day Contact prescribing physician if questions or concerns Unchanged rosuvastatin (rosuvastatin 5 mg Tab) 1 Tablets By Mouth Every day Contact prescribing physician if questions or concerns Allergies Cipro (Rash) Demerol (SOB - Shortness of breath) Problems Ongoing - Any problem that you are currently receiving treatment for. Allergic rhinitis BMI 33.0-33.9,adult Chronic pain Diverticular disease of colon Eczema Essential hypertension History of DVT (deep vein thrombosis) History of myocardial infarction History of uterine cancer Mixed hyperlipidemia Obesity due to excess calories Osteoporosis Pulmonary embolism Pure hypercholesterolemia Supraventricular tachycardia Type 2 diabetes mellitus Patient Survey You may receive a survey via text or e-mail asking about your office visit. Please share your experience with us by completing your survey. We appreciate your feedback and thank you for choosing us for your care. Normal [facility] Office Visiton 01-23-2024 Follow-up visit [id number] Martina Holland 1950 F Date Provider Department Center 01/23/2024 3848-MARCELINALIBIADINORAVANGIEEarlene CARD [facility] Family History Problem Relation Age of Onset Valvular heart disease Mother Family Status - Relation Status Age at Mother Level of Service:87705 MI OFFICE/OUTPATIENT ESTABLISHED LOW MDM 20 MIN Normal [facility] CBC AND AUTO DIFFon 01-07-20 ABSOLUTE BASOPHIL 0.0 X10E9/L Normal 0.0-0.2 [facility] Comment on above: Performed By: #### C BCA, 94936-6, FEPR, 2276-4 #### [facility] ([id number]) [address], [address] [place] [address] ABSOLUTE NEUTROPHIL 4.3 X10E9/L Normal 1.5-6.6 [facility] Comment on above: Performed By: #### Cata BCA, 09046-6, FEPR, 6-4 #### [facility] ([id number]) [address], [address] [place] [address] Basophils/100 WBC (Bld) 0.6 % Normal [facility] Comment on above: Performed By: #### Cata BCA, 07217-0, FEPR, 2275-4 #### [facility] ([id number]) [address], [address] [place] [address] Eosinophils (Bld) [#/Vol] 0.1 10*3/uL Normal 0.0-0.[address] [facility] Comment on above: Performed By: #### Cata BCA, 73477-1, FEPR, 2276-4 #### [facility] ([id number]) [address], [address] [place] [address] Eosinophils/100 WBC (Bld) 1.5 % Normal [facility] Comment on above: Performed By: #### Cata BCA, 33719-1, FEPR, 2276-4 #### [facility] ([id number]) [address], [address] [place] [address] Erythrocyte distribution width (RBC) [Ratio] 13.1 % Normal 11.5-15.[address] [facility] Comment on above: Performed By: #### C BCA, 85263-8, FEPR, 2275- #### [facility] ([id number]) [address] [place] [address] Hematocrit (Bld) [Volume fraction] 38.2 % Normal 35-[address] [facility] Comment on above: Performed By: #### Cata BCA, 18906-2, FEPR, 2275- #### [facility] ([id number]) [address] [address] [place] [address] Hemoglobin (Bld) [Mass/Vol] 12.9 g/dL Normal 11.7-15.[address] [facility] Comment on above: Performed By: #### Cata BCA, 65300-8, FEPR, 2275- #### [facility] ([id number]) [address] [address] Lymphocytes (Bld) [#/Vol] 1.6 10*3/uL Normal 1.0-3.[address] [facility] Comment on above: Performed By: #### Cata BCA, 35663-6, FEPR, 2275- #### [facility] ([id number]) [address] [address] Lymphocytes/100 WBC (Bld) 23.5 % Normal [facility] Comment on above: Performed By: #### C BCA, 50330-4, FEPR, 2275- #### [facility] ([id number]) [address] [place] [address] MCH (RBC) [Entitic mass] 31.5 pg Normal 27-[address] [facility] Comment on above: Performed By: #### Cata BCA, 44052-0, FEPR, 2275-4 #### [facility] ([id number]) [address] [address] [place] [address] MCHC (RBC) [Mass/Vol] 33.7 g/dL Normal 32-[address] [facility] Comment on above: Performed By: #### Cata BCA, 14003-0, FEPR, 2275-4 #### [facility] ([id number]) [address] [address] [place] [address] MCV (RBC) [Entitic vol] 94 fL Normal 80-[address] [facility] Comment on above: Performed By: #### Cata BCA, 05607-1, FEPR, 2275- #### [facility] ([id number]) [address] [address] [place] [address] Monocytes (Bld) [#/Vol] 0.7 10*3/uL Normal 0-0.[address] [facility] Comment on above: Performed By: #### Cata BCA, 32593-1, FEPR, 2275- #### [facility] ([id number]) [address] [address] Monocytes/100 WBC (Bld) 10.6 % Normal [facility] Comment on above: Performed By: #### Cata BCA, 83923-0, FEPR, 2275- #### [facility] ([id number]) [address] [address] [place] [address] Neutrophils/100 WBC (Bld) 63.8 % Normal [facility] Comment on above: Performed By: #### Cata BCA, 18323-7, FEPR, 2275- #### [facility] ([id number]) [address] [place] [address] Platelet mean volume (Bld) [Entitic vol] 8.5 fL Normal 7-[address] [facility] Comment on above: Performed By: #### Cata BCA, 41140-9, FEPR, 2275- #### [facility] ([id number]) [address] [address] Platelets (Bld) [#/Vol] 248 10*3/uL Normal 150-[address] [facility] Comment on above: Performed By: #### Cata BCA, 14009-9, FEPR, 2276-4 #### [facility] ([id number]) [address] [address] RBC COUNT 4.08 X10E12/L Normal 3.80-5.[address] [facility] Comment on above: Performed By: #### Cata BCA, 61742-7, FEPR, 2276-4 #### [facility] ([id number]) [address] [address] WBC (Bld) [#/Vol] 6.8 10*3/uL Normal 4.0-11.0 [facility] Comment on above: Performed By: #### Cata BCA, 12449-9, FEPR, 2276-4 #### [facility] ([id number]) [address] [address] FERRITINon 01-07-2024 Ferritin [Mass/Vol] 28 ng/mL Normal 11-307 [facility] Comment on above: Performed By: #### Cata BCA, 41580-8, FEPR, 2276-4 #### [facility] ([id number]) [address] [address] Fibrin D-dimer DDU (PPP) [Ma ss/Vol]on 01-07-2024 D DIMER <150 Normal <[address] [facility] Comment on above: Result Comment: Results <255 ng/mL DDU: The presence of a VTE can safely be excluded with a negative D-Dimer result and Wells score. A negative result doesn't exclude the possibility of DIC. The test be repeated along with other diagnostic tests if the patient's symptoms persist or worsen. [email or web address] Performed By: #### C BCA, 87613-3, FEPR, 2276-4 #### [facility] ([id number]) [address], [address] [place] [address] IRON PROFILEon 01-07-2024 Iron [Mass/Vol] 95 ug/dL Normal 50-[address] [facility] Comment on above: Performed By: #### C BCA, 51338-9, FEPR, 2276-4 #### [facility] ([id number]) [address] [facility] [facility] [place] [address] IRON BINDING 372 ug/dL Normal 250-[address] [facility] Comment on above: Performed By: #### C BCA, 95998-0, FEPR, 2276-4 #### [facility] ([id number]) [address], [address] [place] [address] IRON SATURATION 26 % SATURATION Normal 15-50 [facility] Comment on above: Performed By: #### C BCA, 93854-6, FEPR, 2276-4 #### [facility] ([id number]) [address], [address] [place] [address] Physician Referralon 023 Physician Referral [phone] [id number] Normal [facility] ECHOCARDIO M/2D COMPLETEon 0 01-08-2023 ECHOCARDIO M/2D COMPLETE Patient: MARTINA HOLLAND Exam Date: 01/08/2023 : 1950 Gender:F Ordering : SVETLANA REESE 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 on 01/09/2023 at 16:50 Normal [facility] INSULINon 08-29-2022 Insulin 18.2 uIU/mL Normal 2.6-24.9 [facility] Comment on above: Performed By: #### I NSULIN ####[facility] [id number] [address]Dr. Bebe Spann BNPon 08-28-2022 Natriuretic peptide B (Bld) [Mass/Vol] 82.0 pg/mL Normal <=900.0 [facility] Comment on above: Performed By: #### T SH, T7, CMP, BNP, LIPID #### [facility] [address] [address] [address] Bebe Spann CBC AUTO DIFFon 08-28-2022 BASO # 0.0 103/ul Normal 0.0-0.1 [facility] Comment on above: Performed By: #### C BC #### [facility] [address] [address] [address] Bebe Spann Basophils/100 WBC (Bld) 0.4 % Normal 0.2-2.0 [facility] Comment on above: Performed By: #### C BC #### [facility] [address] [place] [address] Dr. Bebe Spann EO # 0.1 103/ul Normal 0.0-0.7 [facility] Comment on above: Performed By: #### C BC #### [facility] [address] [place] [address] Dr. Bebe Spann Eosinophils/100 WBC (Bld) 1.7 % Normal 0.9-7.0 [facility] Comment on above: Performed By: #### C BC #### [facility] [address] [place] [address] Dr. Bebe Spann Erythrocyte distribution width (RBC) [Ratio] 14.4 % Normal 11.0-15.0 [facility] Comment on above: Performed By: #### C BC #### [facility] [address] [place] [address] Dr. Bebe Spann Hematocrit (Bld) [Volume fraction] 32.2 % Critically low 36.0-48.0 [facility] Comment on above: Performed By: #### C BC #### [facility] [address] [place] [address] Dr. Bebe Spann Hemoglobin (Bld) [Mass/Vol] 10.5 g/dL Critically low 12.0-16.0 [facility] Comment on above: Performed By: #### C BC #### [facility] [address] [place] [address] Dr. Bebe Spann IG # 0.03 10e3/ul Normal 0.00-0.03 [facility] Comment on above: Performed By: #### C BC #### [facility] [address] [place] [address] Dr. Bebe Spann IG % 0.4 % Normal 0.0-0.5 [facility] Comment on above: Performed By: #### C BC #### [facility] [address] [place] [address] Dr. Bebe Spann LYMPH # 2.2 103/ul Normal 1.2-3.8 [facility] Comment on above: Performed By: #### C BC #### [facility] [address] [place] [address] Dr. Bebe Spann Lymphocytes/100 WBC (Bld) 29.0 % Normal 20.5-60.0 [facility] Comment on above: Performed By: #### C BC #### [facility] [address] [place] [address] Dr. Bebe Spann MANUAL DIFF REQ NO Normal [facility] Comment on above: Performed By: #### C BC #### [facility] [address] [place] [address] Dr. Bebe Spann MCH (RBC) [Entitic mass] 31.0 pg Normal 26.7-34.0 [facility] Comment on above: Performed By: #### C BC #### [facility] [address] [place] [address] Dr. Bebe Spann MCHC (RBC) [Mass/Vol] 32.6 g/dL Normal 29.9-35.2 [facility] Comment on above: Performed By: #### C BC #### [facility] [address] [place] [address] Dr. Bebe Spann MCV (RBC) [Entitic vol] 95.0 fL Normal 81.0-99.0 [facility] Comment on above: Performed By: #### C BC #### [facility] [address] [place] [address] Dr. Bebe Spnan MONO # 0.7 103/ul Normal 0.3-0.8 [facility] Comment on above: Performed By: #### C BC #### [facility] [address] [place] [address] Dr. Bebe Spann Monocytes/100 WBC (Bld) 9.1 % Normal 1.7-12.0 [facility] Comment on above: Performed By: #### C BC #### [facility] [address] [place] [address] Dr. Beeb Spann NEUT # 4.6 103/ul Normal 1.4-6.5 [facility] Comment on above: Performed By: #### C BC #### [facility] [address] [place] [address] Dr. Bebe Spann Neutrophils/100 WBC (Bld) 59.4 % Normal 43.0-75.0 [facility] Comment on above: Performed By: #### C BC #### [facility] [address] [place] [address] Dr. Bebe Spann Platelet mean volume (Bld) [Entitic vol] 9.7 fL Normal 9.5-13.5 [facility] Comment on above: Performed By: #### C BC #### [facility] [address] [address] [address] Bebe Spann PLT 277 103/ul Normal 150-450 [facility] Comment on above: Performed By: #### C BC #### [facility] [address] [place] [address] Dr. Bebe Spann RBC 3.39 106/ul Critically low 4.20-5.40 [facility] Comment on above: Performed By: #### C BC #### [facility] [address] [place] [address] Dr. Bebe Spann WBC 7.7 103/ul Normal 4.0-11.0 [facility] Comment on above: Performed By: #### C BC #### [facility] [address] [place] [address] Dr. Bebe Spann FREE THYROXINE INDEX T7on FTI 1.98 Normal 1.30-4.50 [facility] Comment on above: Performed By: #### T SH, T7, CMP, BNP, LIPID #### [facility] [address] [place] [address] Dr. Bebe Spann T3U 33.0 % Normal 30.0-39.0 [facility] Comment on above: Performed By: #### T SH, T7, CMP, BNP, LIPID #### [facility] [address] [place] [address] Dr. Bebe Spann T4 [Mass/Vol] 6.00 ug/dL Normal 4.80-13.90 [facility] Comment on above: Performed By: #### T SH, T7, CMP, BNP, LIPID #### [facility] [address] [place] [address] Dr. Bebe Spann GLYCOHEMOGLOBIN A1Con 2021 ADA RECOMMENDATION SEE BELOW Normal [facility] Comment on above: Result Comment: ADA RECOMMENDED LIMIT 4.0 - 6.0 ADA THERAPEUTIC TARGET < 7.0 ACTION SUGGESTED > 7.0 Performed By: #### A 1C ####[facility] [id number] [place] [address]Dr. Bebe Spann Glucose [Mass/Vol] 134 mg/dL Normal [facility] Comment on above: Performed By: #### A 1C ####[facility] [id number] [place] [address]Dr. Bebe Spann HbA1c (Bld) [Mass fraction] 6.3 % Critically high 4.5-6.2 [facility] Comment on above: Performed By: #### A 1C ####[facility] [id number] [place] [address]Dr. Bebe Spann IRONon 08-28-2022 Iron [Mass/Vol] 52.0 ug/dL Normal 50.0-170.0 [facility] Comment on above: Performed By: #### I ROSAMARIA #### [facility] [address] [address] [address] Bebe Spann LIPID PROFILEon 08-28-2022 CHOL-HDL RATIO NORM SEE BELOW Normal [facility] Comment on above: Result Comment: 3.3 - 4.4 LOW RISK 4.4 - 7.1 AVERAGE RISK 7.1 - 11.0 MODERATE RISK >11.0 HIGH RISK Performed By: #### T SH, T7, CMP, BNP, LIPID #### [facility] [address] [address] [address] Bebe Spann Cholesterol [Mass/Vol] 94 mg/dL Normal <=200 [facility] Comment on above: Performed By: #### T SH, T7, CMP, BNP, LIPID #### [facility] [address] [address] [address] Bebe Spann Cholesterol in HDL [Mass/Vol] 48 mg/dL Normal 40-60 [facility] Comment on above: Performed By: #### T SH, T7, CMP, BNP, LIPID #### [facility] [address] [address] [address] Bebe Spann Cholesterol in LDL [Mass/Vol] 23.2 mg/dL Normal [facility] Comment on above: Performed By: #### T SH, T7, CMP, BNP, LIPID #### [facility] [address] [address] [address] Bebe Spann Cholesterol.total/C holesterol in HDL [Mass ratio] 2.0 {ratio} Normal [facility] Comment on above: Performed By: #### T SH, T7, CMP, BNP, LIPID #### [facility] [address] [address] [address] Bebe Spann HDL NORMAL > or = 60 mg/dl - LO W CARDIOVASCULAR RISK <40 mg/dl - HIGH CARDIOVASCULAR RISK Normal [facility] Comment on above: Performed By: #### T SH, T7, CMP, BNP, LIPID #### [facility] [address] [address] [address] Bebe Spann LDL CALC NORMAL SEE BELOW Normal [facility] Comment on above: Result Comment: <100 mg/dl OPTIMAL 100 - 129 mg/dl NEAR OR ABOVE OPTIMAL 130 - 159 mg/dl BORDERLINE HIGH 160 - 189 mg/dl HIGH >190 mg/dl VERY HIGH Performed By: #### T SH, T7, CMP, BNP, LIPID #### [facility] [address] [address] [address] Bebe Spann Triglyceride [Mass/Vol] 114 mg/dL Normal <=150 [facility] Comment on above: Performed By: #### T SH, T7, CMP, BNP, LIPID #### [facility] [address] [address] [address] Bebe Spann VLDL CALC 22.8 mg/dL Normal [facility] Comment on above: Performed By: #### T SH, T7, CMP, BNP, LIPID #### [facility] [address] [address] [address] Bebe Spann PROF 14(COMP METB)on 022 Albumin [Mass/Vol] 3.2 g/dL Critically low 3.4-5.[address] [facility] Comment on above: Performed By: #### T SH, T7, CMP, BNP, LIPID #### [facility] [address] [place] [address] Dr. Bebe Spann Albumin/Globulin [Mass ratio] 1.0 {ratio} Normal [facility] Comment on above: Performed By: #### T SH, T7, CMP, BNP, LIPID #### [facility] [address] [place] [address] Dr. Bebe Spann ALP [Catalytic activity/Vol] 61 U/L Normal 46-116 [facility] Comment on above: Performed By: #### T SH, T7, CMP, BNP, LIPID #### [facility] [address] [place] [address] Dr. Bebe Spann ALT [Catalytic activity/Vol] 20 U/L Normal 14-59 [facility] Comment on above: Performed By: #### T SH, T7, CMP, BNP, LIPID #### [facility] [address] [place] [address] Dr. Bebe Spann Anion gap [Moles/Vol] 10.6 mmol/L Normal [facility] Comment on above: Performed By: #### T SH, T7, CMP, BNP, LIPID #### [facility] [address] [place] [address] Dr. Bebe Spann AST [Catalytic activity/Vol] 12 U/L Critically low 15-37 [facility] Comment on above: Performed By: #### T SH, T7, CMP, BNP, LIPID #### [facility] [address] [place] [address] Dr. Bebe Spann Bilirubin [Mass/Vol] 0.3 mg/dL Normal 0.2-1.0 [facility] Comment on above: Performed By: #### T SH, T7, CMP, BNP, LIPID #### [facility] [address] [place] [address] Dr. Bebe Spann Calcium [Mass/Vol] 9.1 mg/dL Normal 8.5-10.1 [facility] Comment on above: Performed By: #### T SH, T7, CMP, BNP, LIPID #### [facility] [address] [address] [address] Bebe Spann Chloride [Moles/Vol] 103 mmol/L Normal 98-107 [facility] Comment on above: Performed By: #### T SH, T7, CMP, BNP, LIPID #### [facility] [address] [address] [address] Bebe Spann CO2 [Moles/Vol] 30.0 mmol/L Normal 21.0-32.0 [facility] Comment on above: Performed By: #### T SH, T7, CMP, BNP, LIPID #### [facility] [address] [place] [address] Dr. Bebe Spann Creatinine [Mass/Vol] 1.20 mg/dL Critically high 0.55-1.02 [facility] Comment on above: Performed By: #### T SH, T7, CMP, BNP, LIPID #### [facility] [address] [place] [address] Dr. Bebe Spann EGFR-AF SOUTH AFRICAN 54 mL/min/1.73m2 Critically low >=60 [facility] Comment on above: Performed By: #### T SH, T7, CMP, BNP, LIPID #### [facility] [address] [place] [address] Dr. Bebe Spann EGFR-NON AF SOUTH AFRICAN 44 mL/min/1.73m2 Critically low >=60 [facility] Comment on above: Performed By: #### T SH, T7, CMP, BNP, LIPID #### [facility] [address] [place] [address] Dr. Bebe Spann Globulin (S) [Mass/Vol] 3.1 g/dL Normal [facility] Comment on above: Performed By: #### T SH, T7, CMP, BNP, LIPID #### [facility] [address] [place] [address] Dr. Bebe Spann Glucose [Mass/Vol] 94 mg/dL Normal 74-106 [facility] Comment on above: Performed By: #### T SH, T7, CMP, BNP, LIPID #### [facility] [address] [place] [address] Dr. Bebe Spann Potassium [Moles/Vol] 4.6 mmol/L Normal 3.5-5.1 [facility] Comment on above: Performed By: #### T SH, T7, CMP, BNP, LIPID #### [facility] [address] [place] [address] Dr. Bebe Spann Protein [Mass/Vol] 6.3 g/dL Critically low 6.4-8.2 [facility] Comment on above: Performed By: #### T SH, T7, CMP, BNP, LIPID #### [facility] [address] [place] [address] Dr. Bebe Spann Sodium [Moles/Vol] 139 mmol/L Normal 136-145 [facility] Comment on above: Performed By: #### T SH, T7, CMP, BNP, LIPID #### [facility] [address] [place] [address] Dr. Bebe Spann Urea nitrogen [Mass/Vol] 20.0 mg/dL Critically high 7.0-18.0 [facility] Comment on above: Performed By: #### T SH, T7, CMP, BNP, LIPID #### [facility] [address] [place] [address] Dr. Bebe Spann Urea nitrogen/Creatinine [Mass ratio] 16.7 mg/mg Normal [facility] Comment on above: Performed By: #### T SH, T7, CMP, BNP, LIPID #### [facility] [address] [place] [address] Dr. Bebe Spann TSHon 08-28-2022 TSH 3.195 uIU/mL Normal 0.358-3.740 [facility] Comment on above: Performed By: #### T SH, T7, CMP, BNP, LIPID #### [facility] [address] [place] [address] Dr. Bebe Spann Cov[facility]-19 [facility]09 SARS-CoV-2 (COVID-19) RNA MUSHTAQ+probe Ql (Unsp spec) Not detected Normal NOT DETECTED [facility] Comment on above: Result Comment: This test is not yet approved or cleared by the [place] FDA. When there are no FDA-approved or cleared tests available, and other criteria are met, FDA can make tests available under an emergency access mechanism called an Emergency Use Authorization (EUA). The EUA for this test is supported by the Accounts Receivable Supervisor of Health and Human Service's (HHS's) declaration [...] consistent with SARS-CoV-2. Performed By: #### [facility] ####[facility] [id number] [place], [place] [address]Bg. Bebe Spann MG MAMM SCREEN 3D DANICA CADon 03-13-2022 MG MAMM SCREEN 3D DANICA CAD Patient: MARTINA HOLLAND Exam Date: 03/13/2022 : 1950 Gender:F Ordering : DR KJ GARCIA . Admission #: [id number] Family : Order #: [id number] CLICK HERE TO VIEW EXAM RADIOLOGY REPORT [...] Treatments HYSTERECTOMY Family Cancers None LOCATION: [facility] BREAST COMPOSITION: Scattered areas fibroglandular density. RIGHT [...] Beltre M.D. on 03/14/2022 at 13:29 Normal [facility] Cardiovascular Lab Reporton 06-28-2021 Cardiovascular Lab Report [facility] Patient Name: Stephon Martina [facility] MR #: [id number] Physician: Marissa Cha, Department of M.D. Medicine Service Date: 06/27/2021 Division of Birthdate: 1950 Cardiology Room #: [facility] Cardiovascular Services [place] [address] Cardiovascular Laboratory Report IMPRESSIONS: 1. Angiographically non-obstructive [...] right internal jugular vein was obtained. A 6-South African 11-cm sheath was inserted without difficulty. A [...] to access the left radial artery. A 6-South African glide sheath was inserted without difficulty. Bilateral [...] Hemodynamics. RA 11. RV 29/1, 7. PA 29/11 (20). PCWP 11. TPG 9. AO 110/61 [...] P Marissa Cha M.D. Date Dict: 06/27/2021/11:46 Amanda Cha M.D. Date Trans: 06/28/2021 03:01 Mejia/destinee [id number] Normal [facility] Vital Signs Date Time Vital Sign Value Performing Clinician Jose lal 07-06-2024 13:26-0400 Blood Pressure Location Eddie MILLARD [facility] 07-06-2024 13:26-0400 Diastolic blood pressure 66 mm[Hg] Eddie MILLARD [facility] 07-06-2024 13:26-0400 Heart rate 68 /min Eddie MILLARD [facility] 07-06-2024 13:26-0400 Respiratory rate 16 /min Eddie MILLARD [facility] 07-06-2024 13:26-0400 Systolic blood pressure 118 mm[Hg] [facility] En[facility] Encounter Date Encounter Type Care Provider Facility Start: 07-06-2024 End: 07-06-2024 ambulatory Eddie MILLARD Facility: [facility] Start: 07-06-2024 End: 07-06-2024 [facility] Start: 01-23-2024 End: [facility]23[facility]: 01-07-2024 End: 01-08-2024 ambulatory [facility] Start: 01-07-2024 End: 01-07-2024 ambulatory [facility] Start: 07-24-2023 ambulatory Eddie MILLARD Facility:[facility] Start: 01-08-2023 End: 01-09-2023 ambulatory SVETLANA REESE Facility:[facility] Start: 08-28-2022 End: 08-29-[address] KJ GARCIA . Facility:[facility] Start: 04-11-[address] KJ GARCIA . Facili ty:[facility] Start: 04-03-2022 End: 04-03-[address] KJ GARCIA . Facility:[facility] Start: 03-13-2022 End: 03-14-[address] KJ GARCIA . Facility:[facility] Start: 06-27-2021 End: 06-28-2021 ambulatory ISAURA Rosales JARED Facility:[facility] Procedures Date Procedure Procedure Detail Performing Clinician Start: 01-07-2024 Follow-up visit Follow-up KRISTI ANDERSON Start: 02-17-2014 Colonoscopy Eddie NI LL Arthroscopy of knee Eddie NILL Arthroscopy of shoulder Raymond ael NILL section Eddie NIL L Decompression of med nya nerve Eddie NILL Lithotripsy Eddie NILL Ostectomy of calcane us for spur Eddie NILL Release of trigger finger Mi chael NILL Repair of right ingu inal hernia Eddie NILL Repair of ventral hernia Preston hael NILL Total abdominal hysterectomy with bilateral salpingo-oophorectomy Eddie NILL Immunizations Immunization Date Immunization Notes Care Provider Fa cili 07-24-2022 SARS-CoV-2 (COVID-19 ) [id number] Eddie NILL [facility] 06-12-2021 SARS-CoV-2 (COVID-19 ) mRNA BNT-162b2 vax Eddie NILL [facility] 11-28-2020 SARS-CoV-2 (COVID-19 ) mRNA BNT-162b2 antelmo MILLARD [facility] 11-06-2020 SARS-CoV-2 (COVID-19 ) mRNA BNT-162b2 antelmo MILLARD [facility] Payers Date Payer Category Payer Medicare [id number] 1958 Self-pay [id number] 1950 Unknown [id number] 2.16.8 [id number] 1950 Unknown [id number] 2.16.84 [id number] 1950 Unknown [id number] 2.16.84 [id number] 1950 Unknown [id number] 2.16.84 [id number] 1950 Unknown [id number] 2.16.84 [id number] 1950 Unknown [id number] 2.16.84 [id number] 1950 Unknown [id number] 2.16.8 [id number] 1950 Unknown [id number] 2.16.8 [id number] 1950 Unknown [id number] 2.16.8 [id number] Medicare [id number] Unknown [id number] Social History Date Type Detail Facility Start: 07-06-2024 Tobacco smoking status Never [facility] Sex Assigned At Female [facility] Functional Status Date Assessment Result Facility 07-06-2024 Functional Status N/A [facility] Clinical Note 07-06-2024 Note Date & Type Note Facility 07-06-2024 Note General Surgery Offi ce/Clinic Note Chief Complaint consultation for colonoscopy HPI Staff 74 year old female presents on consultation from Dr. Garcia for screening colonoscopy. Denies abdominal or rectal pain. No rectal bleeding or change in bowel habits. Denies nausea or vomiting. No unexplained weight loss. Last colonoscopy completed 02/2014 with diverticulosis. No known family history of colon cancer. Patient on Eliquis for h/o of PE/DVT. In addition, patient request evaluation of ventral hernia. Reports noting bulge to right of surgical scar that she noted greater than one year ago. Denies this being bothersome. No imaging completed. History of Present Illness 74 yo female with h/o htn, DMII, hyperlipidemia, DVT/PE on Eliquis, [place], SVT, osteoporosis, uterine cancer; referred for colorectal screening; last colonoscopy 2013 with diffuse diverticulosis; patient denies abd pain or bowel changes, no blood in stools, some intermittent abd pain in area of recurrent bulge mid abd; no N/V; abd operations significant for , MELANI with bso, ventral hernia repair, upper midline; on baby asa and Eliquis daily; no tobacco use; no fmhx of GI malignancy or IBD. Review of Systems PHQ Score Initial Depression Screen Score: 0 SCORE ROS - Provider Constitutional: no fever, no sweats, no weight loss. Eyes: no glasses, no blurred vision, no visual loss. ENMT: no dentures, no hoarseness, no swallowing difficulties, no hearing loss, no ear infection(s), no nose bleeds. Cardiovascular: normal blood pressure, no chest pain, regular heartbeat, no heart murmur. Respiratory: no shortness of breath, no cough, no asthma, no wheezing. Gastrointestinal: no nausea, no vomiting, no diarrhea, no constipation, no blood in stool, no change in bowel habits, no abdominal pain, no hepatitis. Genitourinary: no kidney stones, no urine infection, no dysuria. Musculoskeletal: no pain, no weakness. Skin: no changing moles, no rash, no skin lumps. Neurologic: no seizures, no epilepsy, no headache. Psychiatric: no emotional or psychiatric problem. Heme/Lymph: no bleeding problems, no anemia, no blood clots, no transfusions. Allergy/Immunologic: no swollen lymph nodes/glands, no IV drug abuse. Other: Additional ROS info: Except as noted in the above Review of Systems and in the History of Present Illness, all other systems have been reviewed and are negative or noncontributory. Physical Exam Vitals & Measurements HR: 68(Peripheral) RR: 16 BP: 118/66 HT: 61 in HT: 154.9 cm WT: 80 kg WT: 176 lb BMI: 33.34 HEENT: normal conjunctiva, sclera clear, no scleral icterus, EOM intact, PERRLA, oral mucosa moist without lesions. Neck: trachea midline, no mass, symmetric, no thyromegaly or nodules, no adenopathy Respiratory: lungs CTA, respirations non labored. Cardiovascular: regular rate and rhythm, no murmur, no pedal edema or varicosities. Gastrointestinal: obese, soft, non distended, no tenderness, no masses, 5 cm reducible bulge to right of upper midline scar, supraumbilical area; nontender, no skin changes; diastasis recti yes, no hepatosplenomegaly; normal bs Lymphatic: no cervical adenopathy, no supraclavicular adenopathy. Musculoskeletal: normal gait, digits and nails without infection, nodes, cyanosis, clubbing. Skin: no rashes, no lesions, no ulcers, no subcutaneous nodules, induration. Psychiatric/Neuro: oriented to time, place, person, judgement normal, affect appropriate for age, insight intact, no focal deficits. Tests: , review of old records completed , Discussed surgical options, risks, and possible complications with patient. Assessment/Plan 1. Screening for malignant neoplasm of colon (Z12.11: Encounter for screening for malignant neoplasm of colon) plan colonoscopy under anesthesia, informed consent obtained. Ordered: E&M of New Patient Moderate 45-59 Min [id number] 2. Recurrent ventral incisional hernia (K43.2: Incisional hernia without obstruction or gangrene) obtain abd/pelvic ct scan with contrast for further evaluation, will call patient with results; signs/symptoms of incarceration/strangulation of hernia explained in detail, and patient understands that he should seek prompt medical evaluation if they were to occur. Ordered: E&M of New Patient Moderate 45-59 Min [id number] Follow-up No qualifying data available Problem List/Past Medical History Ongoing Allergic rhinitis BMI 33.0-33.9,adult Chronic pain Diverticular disease of colon Eczema Essential hypertension History of DVT (deep vein thrombosis) History of myocardial infarction History of uterine cancer Mixed hyperlipidemia Obesity due to excess calories Osteoporosis Pulmonary embolism Pure hypercholesterolemia Recurrent ventral incisional hernia Screening for malignant neoplasm of colon Supraventricular tachycardia Type 2 diabetes mellitus Historical No qualifying data Procedure/Surgical History Colonoscopy (02/17/2014), Arthroscopy of (more content not included)... [facility] Comment on above: Result Comment: Elec tronically Signed By: VENICE MERCHANT, Eddie Harley\Date and Time Signed: 07/06/24 14:31 EDT Progress note 01-23-2024 Note Date & Type [...] March 2023 and has been following with [facility] [place] [facility] for this. Eliquis has been [...] any questions or concerns. Susana Israel MD [facility] Clinical Note 08-28-2022 Note Date & Type [...] by: MARK BELTRE Date: 2022-08-28 17:38 [facility] Evaluation + Plan note Note Date & Type Note Facility Evaluation + Plan note No data available for this section [facility] Hospital Discharge instructions Note Date & Type Note Facility Hospital Discharge instructions No data available for this section [facility] Progress note Note Date & Type Note Facility Progress note No data available for this section [facility] Summary Purpose Family History No Family History Records FoundNo Family History Records FoundNo Family History Records FoundNo Family History Records Found No data available for this section No Family History Records Found Advance Directives No Advanced Directives Records FoundNo Advanced Directives Records FoundNo Advanced Directives Records FoundNo Advanced Directives Records FoundNo Advanced Directives Records Found Additional Source Comments INFORMATION SOURCE (unrecogn ized section and content) DATE CREATED AUTHOR 07/03/2021 [facility] DATE CREATED AUTHOR AUTHOR'S ORGANIZ ATION 01/15/2023 [facility] DATE CREATED AUTHOR AUTHOR'S ORGANIZ ATION 01/08/[address] [facility] DATE CREATED AUTHOR AUTHOR'S ORGANIZ ATION 03/08/2024 [facility] DATE CREATED AUTHOR AUTHOR'S ORGANIZ ATION 07/10/2024 [facility] Patient Care team informatio n (unrecognized section and content) Personnel Name: Kj Garcia MD Address: Address: [address] [place] [address] FOR RECORDS PERTAINING TO PATIENTS WHO ARE [...] BE BASED ON THE PRIMARY CLINICAL RECORDS. [facility] provides no warranty or guarantee of the accuracy or completeness of information in this document.
--- NOTE | 2024-07-28 07:07 | CT_ITS ---
The [address] [address] Patient Name: CLINT HOLLAND MRN: [id number] date: 1950 Sex: F Assigned Patient Location: LAB Current Patient Location: LAB Accession/Order Number: [id number] Exam Date: 07/28/2024 08:15 Report Date: 07/28/2024 08:50 At the request of: POONAM MILLARD Procedure: CT abdomen pelvis w con EXAM: CT abdomen pelvis w con HISTORY: Recurrent ventral incisional hernia K43.2 COMPARISON: None. TECHNIQUE: Following intravenous administration of 100 mL of Omnipaque 300, axial soft tissue windows of the abdomen and pelvis were performed with coronal and sagittal reformats. CT dose reduction technique was used including Automated Exposure Control. Findings: Small hiatal hernia. ABDOMEN: The liver, gallbladder, spleen, pancreas, and adrenal glands are unremarkable. Unremarkable right kidney. Left renal low-attenuation lesions, too small to characterize. The bilateral ureters are nondilated. There are colonic diverticula. There is a small epigastric ventral hernia containing a portion of small bowel. There is mild small bowel wall thickening. Small bowel immediately upstream is mildly dilated whereas the wall bowel downstream is normal caliber. Oral contrast is seen downstream from the hernia. The appendix is nondilated. The aorta is normal caliber. No enlarged abdominal lymph nodes or free abdominal fluid. Postsurgical changes involving the ventral wall the abdomen. Pelvis: Unremarkable bladder. The uterus is surgically absent. No enlarged pelvic lymph nodes or free pelvic fluid. Mild multilevel degenerative thoracic spondylosis. CT/CT abdomen pelvis w con IMPRESSION: 1. Ventral hernia containing small bowel. Partial small bowel obstruction. 2. Other nonemergent findings, as described above. Electronically authenticated by: JESUS MANUEL FERNÁNDEZ Date: 07/28/2024 08:50
[2024-07-28 07:19] LABS: Estimated GFR (African America 56 (>=60 mL/min/1.73m^2); Estimated GFR (Non-African Ame 46 (>=60 mL/min/1.73m^2)
== END 2024-07-28 06:54 | disposition home or self-care (01) ==
LOC: LAB 06:54
PROVIDERS: PCP Family Medicine; Visit Provider Surgery
DX: Z01.812 Encounter for preprocedural laboratory examination (principal); K43.2 Incisional hernia without obstruction or gangrene; K43.9 Ventral hernia without obstruction or gangrene; K56.690 Other partial intestinal obstruction
CPT/HCPCS: 36415; 74177; 82565; Q9967

== ENCOUNTER 2024-09-22 13:39 | Outpatient (OUT) | payer MEDICARE, SELFPAY ==
--- NOTE | 2024-09-22 13:46 | XR_ITS ---
The [address] [address] Patient Name: CLINT HOLLAND MRN: [id number] date: 1950 Sex: F Assigned Patient Location: [facility] Current Patient Location: Accession/Order Number: [id number] Exam Date: 09/22/2024 13:50 Report Date: 09/23/2024 07:30 At the request of: KJ RILEY Procedure: XR hand RT min 3V PROCEDURE: XR wrist RT min 3V, XR hand RT min 3V COMPARISON: None. HISTORY: Hand Arthritis FINDINGS: BONES:No acute fracture or dislocation. Mild to moderate diffuse degenerative changes with joint space narrowing and marginal osteophyte formation most significant at the first carpal metacarpal joint SOFT TISSUES:Negative. No visible soft tissue swelling. EFFUSION:None visible. OTHER: Negative. XR/XR hand RT min 3V IMPRESSION: Osteoarthritis most significant first carpometacarpal joint Electronically authenticated by: ZANDRA ADAMSON Date: 09/23/2024 07:30
--- NOTE | 2024-09-22 13:46 | XR_ITS ---
The [address] [address] Patient Name: CLINT HOLLAND MRN: [id number] date: 1950 Sex: F Assigned Patient Location: [facility] Current Patient Location: Accession/Order Number: [id number] Exam Date: 09/22/2024 13:50 Report Date: 09/23/2024 07:30 At the request of: KJ RILEY Procedure: XR wrist RT min 3V PROCEDURE: XR wrist RT min 3V, XR hand RT min 3V COMPARISON: None. HISTORY: Hand Arthritis FINDINGS: BONES:No acute fracture or dislocation. Mild to moderate diffuse degenerative changes with joint space narrowing and marginal osteophyte formation most significant at the first carpal metacarpal joint SOFT TISSUES:Negative. No visible soft tissue swelling. EFFUSION:None visible. OTHER: Negative. XR/XR wrist RT min 3V IMPRESSION: Osteoarthritis most significant first carpometacarpal joint Electronically authenticated by: ZANDAR ADAMSON Date: 09/23/2024 07:30
== END 2024-09-22 13:40 | disposition home or self-care (01) ==
LOC: RAD 13:40
PROVIDERS: PCP Family Medicine; Visit Provider Family Medicine
DX: M19.041 Primary osteoarthritis, right hand (principal); M19.031 Primary osteoarthritis, right wrist
CPT/HCPCS: 73110; 73130

== ENCOUNTER 2025-03-04 10:07 | Outpatient (OUT) | payer MEDICARE, SELFPAY ==
--- OUTSIDE RECORDS SUMMARY | 2025-01-03 09:22 | XMS_ITS ---
Author Organization The [facility] in [place] Address [address] [place] [address] Care Team Providers Care Lens Molder Name Role Phone Chava Garcia Primary Care Provider [phone] REASON FOR VISIT Water Pill/ Lightheadedness Encounters Encounter Location Date Provider Diagnosis [facility] [address] [place] [address] 01/03/2025 Chava Garcia Acute bronchitis, unspecified organism J20.9 Assessments Encounter Date Diagnosis (ICD Code) Assessment Notes Treatment Notes Treatment Clinical Notes Section Notes 01/03/2025 Acute bronchitis, unspecified organism (ICD-10 - J20.9) Plan Of Treatment Medication Medication Name Sig Start Date Stop Date Notes Paxlovid (300/100) 20 x 150 MG & 10 x 100MG 3 tablets Orally Twice a day 08/09/2024 Normal creatinine < 1 month ago Next Appt Details Provider Name:Chava Garcia, 08:45:00 AM, [address] [place], [address], Progress Notes * Martina HOLLAND KDOB:1950 (74 yo F)Acc No.[id number]:01/03/2025 Patient: Sabine TORREZporfirio Lauren :1950 A ge:74 Y S ex:Female Address:[address] [place] [address] [place], [address] * Refills Stop Paxlovid (300/100) Tablet Therapy Pack, 20 x 150 MG & 10 x 100MG, Orally, 3 tablets, Twice a day * true * Date: Generated for Tamara steele/Kel/Valentina on: 0 03/04/2025 10:10 AM EDT
--- OUTSIDE RECORDS SUMMARY | 2025-01-24 09:45 | XMS_ITS ---
Author Organization The [facility] in [place] Address [address] [place] [address] Care Team Providers Care Engine Repairer Service Name Role Phone Chava Garcia Primary Care Provider [phone] REASON FOR VISIT wants to talk to nurse Encounters Encounter Location Date Provider Diagnosis [address] [address] 01/24/2025 Chava Garcia Plan Of Treatment Next Appt Details Provider Name:Chava Garcia, 08:45:00 AM, [address] [place], [address], Progress Notes * Martina HOLLAND KDOB:1950 (74 yo F)Acc No.[id number]:01/24/2025 UNLOCKED PROGRESS NOTE Nurse Visit Patient: Martina TORREZ [facility] Fel[facility] :1950 A ge:74 Y S ex:Female Date:01/24/2025 Address:[address] [place] [address] [id number] Check In:01:45 PM EST Subjective: * Chief Complaints: * 1 . Wants to talk to nurse. * Medical History: Objective: * Vitals: Assessment: Plan: * Treatment: * * Electronic signature of Chava Garcia MD, [id number] on 03/04/2025 at 10:10 AM EDT Sign off status: Pending Visit Status: C ANC (Cancelled) * Provider: Earlene Garcia ([facility])MD Date: 0 01/24/2025 Generated for Tamara steele/Kel/Valentina on: 0 03/04/2025 10:10 AM EDT
--- OUTSIDE RECORDS SUMMARY | 2025-02-23 06:30 | XMS_ITS ---
Author Organization [facility] in [place] Address [address] [place] [address] Care Team Providers Care Tool Maker Bench Name Role Phone Chava Garcia Primary Care Provider Allergies Allergen (clinical drug ingredient) Drug/Non Drug Allergy documented on EMR Reaction Allergy Type Onset Date Status meperidine Demerol shortness of breath Drug Allergy Active ciprofloxacin Ciprofloxacin rash Drug Allergy Active Results Component Value Reference Range Notes UA DIP NONAUTO WO MICRO (810 02) - IN OFFICE (Not yet reviewed by provider) Interpretation: Performing Lab: Notes/Report: COLOR yellow CLARITY clear GLUCOSE n BILIRUBIN n KETONE n SPECIFIC GRAVITY 1.005 BLOOD n PH 5 PROTEIN n UROBILINOGEN n NITRITE n LEUKOCYTE ESTERASE n REASON FOR VISIT 3mon, Thinks possibly UTI, urinary urgency Medications Medication SIG (Take, Route, Frequency, Duration) Notes Start Date End Date Status Rosuvastatin Calcium 5 MG 1 tablet Orall y Once a day for 90 days Active Pantoprazole Sodium 40 MG 1 tablet Orall y Once a day for 90 days Active Triamcinolone Acetonide 0.1 % 1 application Externally Two times a Week Active Vitamin D3 50 MCG (1999) 1 capsule Or ally Once a day Active Metoprolol Succinate ER 25 MG 1 tablet Orally Once a day for 90 days Active Lancets 30G - use 1 lancet DX: E11 .9 once Daily for 90 days Active OneTouch Ultra - USE 1 STRIP TO CHECK GLUCOSE ONCE DAILY VIA METER, FASTING, IN THE MORNING. 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 15 ; Diabetes mellitus type 2, uncontrolled E11.65 ; Pure hypercholesterolemia, unspecified E78.00 ; Essential (primary) hypertension I10 ; Gastritis K29.70 ; Chronic kidney disease due to diabetes mellitus E11.22 ; Primary pulmonary hypertension I27.0 and Chronic kidney disease, stage 3a N18.31 Assessments Encounter Date Diagnosis (ICD Code) Assessment Notes Treatment Notes Treatment Clinical Notes Section Notes 02/23/2025 Urinary urgency (ICD-10 - R39.15) treateing for uti 02/23/2025 Diabetes mellitus type 2, uncontrolled (ICD-10 - E11.65) great controle 02/23/2025 Pure hypercholesterole michelle, unspecified (ICD-10 - E78.00) on meds 02/23/2025 Essential (primary) hypertension (ICD-10 - I10) stabel here 02/23/2025 Gastritis (ICD-10 - K29.70) stagble on meds 02/23/2025 Chronic kidney disease due to diabetes mellitus (ICD-10 - E11.22) wathin labs 02/23/2025 Primary pulmonary hypertension (ICD-10 - I27.0) roman stable 02/23/2025 Chronic kidney disease, stage 3a (ICD-10 - N18.31) checking labs Plan Of Treatment Medication Medication Name Sig Start Date Stop Date Notes Amoxicillin-Pot Clavulanate 875-125 MG 1 tablet Orally every 12 hrs for 10 days 02/23/2025 Treatment Notes Assessment Notes Urinary urgency treateing for uti Diabetes mellitus type 2, uncontrolled g reat controle Pure hypercholesterolemia, unspecified o n meds Essential (primary) hypertension stabel here Gastritis stagble on meds Chronic kidney disease due to diabetes m [facility] wathin labs Primary pulmonary hypertension roman stabl e Chronic kidney disease, stage 3a checkin g labs Pending Test Test Name Order Date UA DIP NONAUTO WO MICRO (12511) - IN OFF ICE 02/23/2025 Next Appt Details Provider Name:Chava Garcia, 08:45:00 AM, [address] [place], [address], Progress Notes * Martina HOLLAND KDOB:1950 (74 yo F)Acc No.[id number]:02/23/2025 Progress Note Patient: Martina TORREZ Provider: Earlene Garcia ([facility])MD :1950 A ge:74 Y S ex:Female Date:02/23/2025 Address:[address] [place] [address] [address] [id number] Check In:10:19 AM ESTCheck O ut:10:56 AM EST Subjective: * Chief Complaints: * 3 monThinks possibly UTI, urinary urgency * HPI: G eneral: Fee like UTI coming back -0 urien dilute so test isnt accurate dm 110's chol - taking meds and tolerateon gerd - stabel on meds. * ROS: E ENT: hearing changes d enies. v isual changes d enies.?non-healing mouth sores d enies. s wollen glands or neck lumps d enies. h oarseness d enies. s ore throat d enies. d ifficulty swallowing d enies. n ose bleeds d enies. n kathrine congestion d enies. e ar ache d enies. e ar discharge?denies. r inging in ears d enies. l ight sensitivity d enies. e ye pain d enies. b lurring d enies. e ye irritation d enies. d ouble vision d enies.?vision loss d enies. G eneral/Constitutional: Sweats: D enies. F atigue d enies. S leep problems d enies. A norexia d enies. M alaise d enies. W eight loss d enies.?Fatigue or Weakness d enies. F ever or Chills d enies. C ardiovascular: Shortness of Breath w/lying flat d enies. L ightheadedness/dizziness d enies. C hest tightness/ heavy pressure d enies. S welling of legs, ankles, or feet d enies. W aking up with shortness of breath d enies. C hest pain denies. P alpitations d enies. W eight gain d enies. R espiratory: Chronic or frequent cough d enies. C oughing up blood?denies. D ifficulty breathing d enies. P roductive cough d enies. S noring?denies. S hortness of breath that awakens from sleep (PND) d enies. C hest pain d enies. S putum production d enies. W heezing d enies. M usculoskeletal: Joint pain d enies. J oint Fluid d enies. B ack pain d enies. K nee pain d enies. N marcell pain d enies. J oint Stiffness d enies. M uscle cramps d enies. W eakness of muscles d enies. A rthritis d enies. M uscle aches d enies. P ain in shoulder(s) d enies. S wollen joints d enies. 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, not elsewhere classified Modified On:01/17/2023W/U Status:confirmed R53.83 Fatigue Modified On:01/17/2023/U Status:confirmed G56.00 Carpal tunnel syndro me Modified On:01/17/2023 Status:confirmed I95.1 Orthostasis Modified On:01/17/2023 Status:confirmed M85.80 Osteopenia Modified On:01/17/2023 Status:confirmed L30.9 Eczema Modified On:01/17/2023U Status:confirmed M25.559 Hip pain Modified On:01/17/2023 Status:confirmed M25.50 Arthralgia Modified On:01/17/2023U Status:confirmed M17.9 Osteoarthritis of ri ght knee Modified On:01/17/2023 Status:confirmed E11.65 Diabetes mellitus ty pe 2, uncontrolled Modified On:11/26/2023 Status:confirmed R55 Near syncope Modified On:01/17/2023 Status:confirmed K42.9 Umbilical hernia Modified On:01/17/2023 Status:confirmed E66.3 Over weight Modified On:01/17/2023 Status:confirmed J30.2 Allergic rhinitis, s easonal Modified On:01/17/2023 Status:confirmed K57.30 Colon, diverticulosi s Modified On:01/17/2023 Status:confirmed K46.9 Other abdominal dimitry ia Modified On:01/17/2023 Status:confirmed K42.9 Periumbilical hernia Modified On:01/17/2023 Status:confirmed M19.90 DA (degenerative art hritis) Modified On:01/17/2023 Status:confirmed M77.32 Calcaneal spur, left Modified On:01/17/2023U Status:confirmed G25.9 Abnormal leg movemen t Modified On:01/17/2023U Status:confirmed E78.00 Pure hypercholestero lemia, unspecified Modified On:11/26/2023U Status:confirmed 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, unspecified laterality Modified On:11/26/2023U Status:confirmed J30.9 Allergic rhinitis, u nspecified Modified On:12/30/2022 Status:confirmed I10 Essential (primary) hypertension Modified On:11/26/2023U Status:confirmed I51.5 Myocardial degenerat ion Modified On:11/26/2023 Status:confirmed I26.99 Other pulmonary embo lism without acute cor pulmonale Modified On:05/07/2023U Status:confirmed I25.2 Anterolateral myocar dial infarction greater than eight weeks ago Modified On:04/23/2023U Status:confirmed I82.409 Acute embolism and t hrombosis of unspecified deep veins of unspecified lower extremity Modified On:07/08/2023U Status:confirmed J01.90 Acute sinus infectio n Modified On:07/23/2023 Status:confirmed K29.70 Gastritis Modified On:08/27/2023 Status:confirmed M54.50 Low back pain at mul tiple sites Modified On:09/29/2023 Status:confirmed N39.0 Urinary tract infect ion, site not specified Modified On:09/29/2023 Status:confirmed S00.93XA Head contusion Modified On:11/03/2023U Status:confirmed M81.0 Osteoporosis Modified On:03/12/2024U Status:confirmed K57.90 Diverticulosis Modified On:05/26/2024U Status:confirmed M12.9 Hand arthritis Modified On:09/22/2024U Status:confirmed E11.9 Diabetes Modified On:11/24/2024U Status:confirmed I95.1 Orthostatic hypotens ion Modified On:12/31/2024U Status:confirmed 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 Modified On:02/23/2025U Status:confirmed I27.0 Primary pulmonary hy pertension Modified On:02/23/2025U Status:confirmed N18.31 Chronic kidney disea se, stage 3a Modified On:02/23/2025U Status:confirmed * Medical History: * Surgical History: H ernia Repair C Section Bone Spur Lithotripsy Left Shoulder Surgery 02/28/2023exa study 5-8-80Ldcxaflyi hernia repair 10/29/2024 * Hospitalization/Major Diagno stic Procedure: F all/ Shoulder Dislocation ulmonary Embolism 03/2023 * Family History: F ather: , acute myocardial infarction, hypertension, diagnosed with Unspecified essential hypertension, Unspecified heart disease. M other: , Cerebral vascular accident, acute myocardial infarction, diagnosed with Unspecified heart disease. B nikier(s): alive. S isopal(s): alive. D isaac(s): alive. 2 brother(s) , 4 sister(s) - healthy. 1 daughter(s) - healthy. . * Social History: T obacco Use: T obacco Use/Smoking P atient is a n onsmoker * Medications: T akingAspir-Low 81 MG Tablet Delayed Release 1 tablet Orally Once a day Eliquis(Apixaban) 2.5 MG Tablet 1 tablet Orally Twice a day Iron 325 (65 Fe) MG Tablet 1 tablet Orally BID Lancets 30G - Miscellaneous use 1 lancet DX: E11.9 once Daily Metoprolol Succinate ER 25 MG Tablet Extended Release 24 Hour 1 tablet Orally Once a day OneTouch Ultra(Glucose Blood) - Strip USE 1 STRIP TO CHECK GLUCOSE ONCE DAILY VIA METER, FASTING, IN THE MORNING. In Vitro Dx: E11.9 Pantoprazole Sodium 40 MG Tablet Delayed Release 1 tablet Orally Once a day Rosuvastatin Calcium 5 MG Tablet 1 tablet Orally Once a day Triamcinolone Acetonide 0.1 % Cream 1 application Externally Two times a Week Vitamin D3 50 MCG (1999 UT) Capsule 1 capsule Orally Once a day Taking Aspir-Low 81 MG Tablet Delayed Release 1 tablet Orally Once a day Taking Eliquis(Apixaban) 2.5 MG Tablet 1 tablet Orally Twice a day Taking Iron 325 (65 Fe) MG Tablet 1 tablet Orally BID Taking Lancets 30G - Miscellaneous use 1 lancet DX: E11.9 once Daily Taking Metoprolol Succinate ER 25 MG Tablet Extended Release 24 Hour 1 tablet Orally Once a day Taking OneTouch Ultra(Glucose Blood) - Strip USE 1 STRIP TO CHECK GLUCOSE ONCE DAILY VIA METER, FASTING, IN THE MORNING. In Vitro Dx: E11.9 Taking Pantoprazole Sodium 40 MG Tablet Delayed Release 1 tablet Orally Once a day Taking Rosuvastatin Calcium 5 MG Tablet 1 tablet Orally Once a day Taking Triamcinolone Acetonide 0.1 % Cream 1 application Externally Two times a Week Taking Vitamin D3 50 MCG (2000 UT) Capsule 1 capsule Orally Once a day DiscontinuedCarafate(Sucralfate) 1 GM Tablet 1 tablet on an empty stomach Orally before each meal CeleBREX(Celecoxib) 100 MG Capsule 1 capsule with food Orally Once a day Ondansetron 4 MG Tablet Disintegrating 1 tablet on the tongue and allow to dissolve Orally Q 6 hours PRN tiZANidine HCl 4 MG Tablet 1 tablet at bedtime as needed Orally Once a day , Notes to Pharmacist: PRNMedication List reviewed and reconciled with the patientDiscontinued Carafate(Sucralfate) 1 GM Tablet 1 tablet on an empty stomach Orally before each meal Discontinued CeleBREX(Celecoxib) 100 MG Capsule 1 capsule with food Orally Once a day Discontinued Ondansetron 4 MG Tablet Disintegrating 1 tablet on the tongue and allow to dissolve Orally Q 6 hours PRN Discontinued tiZANidine HCl 4 MG Tablet 1 tablet at bedtime as needed Orally Once a day , Notes to Pharmacist: PRNMedication List reviewed and reconciled with the patient * Allergies: D emerol: shortness of breath - Allergy - Criticality HighCiprofloxacin: rash - Side Effects - Criticality Highno[Allergies Verified] Objective: * Vitals: W t:187.4lbs, Ht: 61 in, BP:118/76mm Hg, BMI:35.41Index, Ht-cm: 154.94 cm, Wt-k kg. * Examination: P hysical Exam: GENERAL: w ell developed, well nourished, in no acute distress. HEAD: n ormocephalic/atraumatic. EYES: p upils equal, round and reactive to light, conjunctivae and sclerae normal. EARS: n o deformity or lesion of external ear, canals and TM appear normal bilaterally, TM's intact, not inflamed with normal light reflex, hearing grossly normal to conversational speech. NOSE: n o deformity, discharge, inflammation, or lesions.? MOUTH: m ucous membranes moist, normal oropharynx and posterior pharynx without lesions or exudates, tongue normal, dentition normal. NECK: n marcell supple, no masses or palpable cervical nodes, trachea midline, thyroid without nodules, masses, tenderness, or enlargement. CHEST: n o chest wall deformity, no chest wall tenderness.? LUNGS: n ormal respiratory effort and clear to auscultation, no wheezes, rales, or rhonchi, good air exchange. CARDIO: r egular rate and rhythm, normal S1 and S2, nor murmur, rub, or gallop. PULSES: n ormal capillary refill. ABDOMEN: s oft, non-distended, non-tender, no masses. MUSCULOSKELETAL: n o deformity or scoliosis noted, normal range of motion, joints normal, no erythema, edema, effusion, or ecchymosis. EXTREMITY: n o clubbing, cyanosis, edema, or deformity with normal ROM in both upper and lower bilateral extremities. NEUROLOGIC: g rossly normal. SKIN: n o rashes, ulcerations, or suspicious lesions. LYMPH NODES: n o cervical adenopathy, nodes normal. MENTAL STATUS: a lert and oriented x3, normal mood and affect. Assessment: * Assessment: 1. U rinary urgency - R39.15 (Primary) 2 . D iabetes mellitus type 2, uncontrolled - E11.65 3 . P ure hypercholesterolemia, unspecified - E78.00 4 . E ssential (primary) hypertension - I10 5 . G astritis - K29.70 6. C hronic kidney disease due to diabetes mellitus - E11.22 7 .?Primary pulmonary hypertension - I27.0 8 . C hronic kidney disease, stage 3a - N18.31 Plan: * Treatment: 2. D iabetes mellitus type 2, uncontrolled Notes: great controle 3. P ure hypercholesterolemia, unspecified Notes: on meds 4. E ssential (primary) hypertension Notes: stabel here 5. G astritis Notes: stagble on meds 6. C hronic kidney disease due to diabetes mellitus Notes: wathin labs 7. P rimary pulmonary hypertension Notes: roman stable 8. C hronic kidney disease, stage 3a Notes: checking labs * Labs: * L ab: UA DIP NONAUTO WO MICRO (83699) - IN OFFICE (Collection Date & Time - 02/23/2025) Value Reference Range C OLOR yellow * C LARITY clear * G LUCOSE n * B ILIRUBIN n * K ETONE n * S PECIFIC GRAVITY 1.005 * B LOOD n * P H 5 * P ROTEIN n * U ROBILINOGEN n * N ITRITE n * L EUKOCYTE ESTERASE n * Procedure Codes: 8 1002 URINALYSIS WO MICRO * * Sign off status: Completed Visit Status: C HK (Check Out) true * Provider: Earlene Garcia ([facility])MD Date: 0 02/23/2025 Generated for Printi ng/Faxing/eTransmitting on: 0 03/04/2025 10:10 AM EDT History and Physical Notes * HPI (History of Present Illness) Category Sub-Category Detail Notes Category Not es General Fee like UTI coming back -0 urien dilute so test isnt accurate dm 110's chol - taking meds and tolerateon gerd - stabel on meds Examination Category Sub-Category Detail Notes Category Not es Physical Exam GENERAL: well developed, well nourished, in no acute distress HEAD: normocephalic/atraum atic EYES: pupils equal, round and reactive to light, conjunctivae and sclerae normal EARS: no deformity or lesi on of external ear, canals and TM appear normal bilaterally, TM's intact, not inflamed with normal light reflex, hearing grossly normal to conversational speech NOSE: no deformity, discha rge, inflammation, or lesions MOUTH: mucous membranes ester st, normal oropharynx and posterior pharynx without lesions or exudates, tongue normal, dentition normal NECK: neck supple, no mass es or palpable cervical nodes, trachea midline, thyroid without nodules, masses, tenderness, or enlargement CHEST: no chest wall deform ity, no chest wall tenderness LUNGS: normal respiratory e ffort and clear to auscultation, no wheezes, rales, or rhonchi, good air exchange CARDIO: regular rate and rhy thm, normal S1 and S2, nor murmur, rub, or gallop PULSES: normal capillary ref ill ABDOMEN: soft, non-distended, non-tender, no masses RECTAL: MUSCULOSKELETAL: no deformity or scol iosis noted, normal range of motion, joints normal, no erythema, edema, effusion, or ecchymosis EXTREMITY: no clubbing, cyanosi s, edema, or deformity with normal ROM in both upper and lower bilateral extremities NEUROLOGIC: grossly normal SKIN: no rashes, ulceratio ns, or suspicious lesions LYMPH NODES: no cervical adenopat hy, nodes normal MENTAL STATUS: alert and oriented x 3, normal mood and affect
--- OUTSIDE RECORDS SUMMARY | 2025-03-04 09:40 | XMS_ITS | Encounter Summary ---
Author Organization [facility] Address [address] [place] [address] Care Team Providers Care End Worker Name Role Phone Larry Garcia MD Primary Care Provider [phone] Encounter Details Date Type Department Care Team (Late st Contact Info) Description 03/04/2025 9:40 AM EDT Office Visit [facility] [address] [place] [address] Asael Hansen, FUNDRAISING COORDINATOR [address] [place] [address] Essential hypertension (Primary Dx); Nonsustained ventricular tachycardia (CMS/HCC); Supraventricular tachycardia; Mixed hyperlipidemia Social History Tobacco Use Types Packs/Day Years Used Date Smoking Tobacco: Former Cigarettes Smokeless Tobacco: Never Alcohol Use Standard Drinks/Week Comments Defer 0 (1 standard drink = 0.6 oz pur e alcohol) Humiliation, Afraid, Rape, and Kick questionnair e Answer Date Recorded Within the last year, have y ou been afraid of your partner or ex-partner? No 01/11/2025 Emotionally Abused Not on file 01/11/2025 Physically Abused Not on file 01/11/2025 Sexually Abused Not on file 01/11/2025 PHQ-2 Answer Date Recorded Patient Health Questionnaire-2 Score 0 01/11/2025 Comments Unknown Sex and Gender Information Value Date Recorded Sex Assigned at Not on file Legal Sex Female 11:59 PM EDT Gender Identity Not on file Sexual Orientation Not on file documented as of this encounter Last Filed Vital Signs Vital Sign Reading Time Taken Comments Blood Pressure 146/80 03/04/2025 9:47 AM EDT Pulse 62 03/04/2025 9:47 AM EDT Temperature - - Respiratory Rate - - Oxygen Saturation 96% 03/04/2025 9:47 AM EDT Inhaled Oxygen Concentration - - Weight 85.3 kg (188 lb) 03/04/2025 9:47 AM EDT Height 154.9 cm (5' 1 ) 03/04/2025 9:47 AM EDT Body Mass Index 35.52 03/04/2025 9:47 AM EDT documented in this encounter Progress Notes * Asael Hansen, FUNDRAISING COORDINATOR - 03/04/2025 9:40 AM EDT Images from the original note were not included. SUBJECTIVE Reason for Visit: Martina Szymanski is a 74 y.o. year old female patient being seen for follow-up visit,6 month. HPI: Martina Szymanski is a 74 y.o. year old female with significant medical history of hypertension, hyperlipidemia, nonsustained ventricular tachycardia and nonsustained SVT, PE March 2023, and obesity. 03/04/2025 office visit: Patient seen evaluated in the office today, she is accompanied by her daughter. She denies chest pain, shortness of breath, lightheadedness dizziness, or lower extremity edema. She does endorse palpitations that occur very infrequently, reports occurring about 2 times in the last year where she is aware of her heart rate and it feels it is beating extra fast. The duration lasts less than 1 minute and is not associated with diaphoresis or chest pain. 09/20/2024 office visit (Dr. Winslow): The patient is physically very active, she cleans her house every day and she mops it every other day without any symptoms of chest pain or shortness of breath. She denies orthopnea or paroxysmal nocturnal dyspnea or dizziness or palpitations. She denies legs edema or legs comfort on exertion. Medical History[1] Surgical History[2] Problem List[3] family history includes Valvular heart disease in her mother. Social History[4] OBJECTIVE Visit Vitals Smoking Status Former Physical Exam Constitutional: General Appearance: well-developed, appears stated age. Level of Distress: no acute distress. Neck: Jugular Veins: normal jugular venous pressure. Lungs: Auscultation: no rales or rhonchi and normal breath sounds. Cardiovascular: Rate And Rhythm: regular Heart Sounds: normal S1 and s2; Systolic Murmur: not heard. Diastolic Murmur: not heard. Extremities: no edema Peripheral Pulses: Pulses: full and equal in all extremities except if noted. Abdomen: Inspection and Palpation: non distended or tender and soft. Musculoskeletal: Inspection: no joint tenderness or swelling. Neurologic: Gait: normal gait. Psychiatric: Mental Status: alert and normal affect. Skin: Inspection and Palpation: warm and dry. Allergies: Allergies[5] Outpatient Medications: Current Outpatient Medications Medication Instructions aspirin 81 mg chewable tablet Chew 1 tablet every day by oral route. cholecalciferol (vitamin D3) 2,000 Units, oral, Daily RT Eliquis 2.5 mg, oral, 2 times daily ferrous sulfate 325 (65 Fe) MG tablet 2 times daily hydroCHLOROthiazide (HYDRODiuril) 12.5 mg tablet Take 1 tablet every day by oral route. metoprolol succinate XL (Toprol-XL) 25 mg 24 hr tablet Every 24 hours oxyCODONE (ROXICODONE) 5 mg, oral, Every 6 hours PRN pantoprazole (ProtoNix) 40 mg EC tablet Every 24 hours rosuvastatin (CRESTOR) 5 mg, oral, Nightly Recent Labs: No visits with results within 2 Month(s) from this visit. Latest known visit with results is: Admission on 10/29/2024, Discharged on 10/29/2024 Component Date Value Glucose POC 10/29/2024 105 Most recent labs reviewed 05/29/2024: WBC 5.7, hemoglobin 11.9, platelets 164 Sodium 141, potassium 3.9, BUN 16, creatinine 1.02, EGFR 53, glucose 99, hemoglobin A1c 6.1%, calcium 9.1, albumin 3.4 LDL 45, triglycerides 99, HDL 54, total cholesterol 119 TSH 2.6, T47.0, I have personally reviewed and anaylzed the following laboratory results above. These findings havebeen analyzed in the context of the patient's clinical presentation. Cardiovascular Diagnostic Studies: TTE 05/21/2023: CONCLUSION: 1. Global left ventricular systolic function is normal; visually estimated ejection fraction 60 to 65%. No wall motion abnormalities. 2. Mild left ventricular hypertrophy. 3. Diastolic function is indeterminate. 4. The right ventricle is normal in size and systolic function. 5. Trivial tricuspid regurgitation; mildly elevated right ventricular systolic pressure. 6. Mild mitral regurgitation. 7. Anterior free space; trivial effusion versus fat pad. 12 Lead ECG: Encounter Date: 09/20/24 ECG 12 lead Narrative Normal sinus rhythm, heart rate 63 bpm, left axis deviation, possible old anterolateral septal infarct, no change from prior EKG I have personally reviewed and analyzed all available cardiac diagnostic tests and imaging reports.Findings have been analyzed in the context of the patient's clinical status. Assessment and Plan #Hypertension Blood pressure today is 146/80, heart rate 62 She reports stopping her hydrochlorothiazide because it made her pee too much but she is agreeable to try it again and she was instructed on the importance of keeping her blood pressure under control Most recent TTE 05/21/2023: EF 60 to 65%. Mild LVH. Diastolic dysfunction. - She is prescribed hydrochlorothiazide 12.5 mg ---> reports not taking, last dispensed November 2024 with 90-day supply ---> recommend restarting patient agreeable will send new prescription - Continue metoprolol succinate XL 25 mg daily #Hyperlipidemia Most recent lipid panel reviewed, 05/29/2024: LDL 45, triglycerides 99, HDL 54, total cholesterol 119 Stable - Continue rosuvastatin 5 mg daily #Nonsustained ventricular tachycardia Noted on Holter monitor Asymptomatic Controlled on metoprolol - Continue metoprolol succinate 25 XL mg #Nonsustained SVT Denies palpitations Denies lightheadedness dizziness, presyncope or syncopal episodes Stable - Continue metoprolol succinate XL 25 mg daily #Hx of PE History of PE March 2023 - Continue Eliquis 2.5 mg twice daily #Hx of Hernia Ventral incisional hernia status post repair #Obesity Plan Overview: She was instructed to keep a log of her blood pressure right before taking medications and approximately 2 hours after. She is agreeable with treatment plan. Labs: BMP, CBC, lipid panel Will resume hydrochlorothiazide ---> sent to pharmacy Follow-up in 6 months No follow-ups on file. Asael Hansen, [facility] [1] Past Medical History: Diagnosis Date Arthritis Cancer (CMS/HCC) uterus Deep vein thrombosis (CMS/HCC) GERD (gastroesophageal reflux disease) Hernia, incisional Hyperlipidemia Hypertension Joint pain rt hand NSVT (nonsustained ventricular tachycardia) (CMS/HCC) Pulmonary embolism (CMS/HCC) Sleep apnea SVT (supraventricular tachycardia) [2] Past Surgical History: Procedure Laterality Date CARDIAC CATHETERIZATION 06/27/2021 SECTION, CLASSIC HERNIA REPAIR HYSTERECTOMY 2004, total KNEE ARTHROPLASTY rt knee REPLACEMENT TOTAL KNEE ONCOLOGIC [3] Patient Active Problem List Diagnosis Acute pain of right knee Artificial knee joint present Chronic pain Essential hypertension History of cancer of uterine body History of hysterectomy Hypoproteinemia Malignant neoplasm of uterus (CMS/HCC) Near syncope Nonsustained ventricular tachycardia (CMS/HCC) Obesity Orthopedic aftercare Osteoarthritis of knee Skin rash Supraventricular tachycardia Type 2 diabetes mellitus without complication (CMS/HCC) Mixed hyperlipidemia Premenopausal menorrhagia Internal derangement of left shoulder History of total knee replacement Pre-operative cardiovascular examination Abdominal hernia Acute deep vein thrombosis (DVT) of tibial vein of right lower extremity (CMS/HCC) Acute pulmonary embolism with acute cor pulmonale (CMS/HCC) Arthritis Calcaneal spur Carpal tunnel syndrome Diverticular disease of colon Eczema Extrapyramidal movements present Fatigue Left shoulder pain Low back pain Ocular hypertension Orthostatic hypotension Osteopenia Overweight Pathological dislocation of left shoulder, not elsewhere classified PONV (postoperative nausea and vomiting) Prolonged emergence from general anesthesia Pure hypercholesterolemia Seasonal allergic rhinitis SOB (shortness of breath) Umbilical hernia History of DVT (deep vein thrombosis) History of myocardial infarction Recurrent ventral incisional hernia Pre-op evaluation History of anesthesia complications [4] Social History Tobacco Use Smoking status: Former Types: Cigarettes Smokeless tobacco: Never Substance Use Topics Alcohol use: Defer Drug use: Never [5] Allergies Allergen Reactions Meperidine Shortness of breath and Other Ciprofloxacin Rash documented in this encounter Plan of Treatment Scheduled Orders Name Type Priority Associated Diagnoses Orde r Schedule Basic metabolic panel Lab Routine Essential hypertension Expected: 03/04/2025 (Approximate), Expires: 03/04/2026 documented as of this encounter Visit Diagnoses Diagnosis Essential hypertension- Primary Unspecified essential hypertension Nonsustained ventricular tachycardia (CMS/HCC) Supraventricular tachycardia Other specified cardiac dysrhythmias Mixed hyperlipidemia documented in this encounter Care Teams End Worker Relationship Specialty Start Date End Date Larry Garcia MD [facility] [id number] PCP - General 08/13/22 documented as of this encounter
--- OUTSIDE RECORDS SUMMARY | 2025-03-04 10:10 | XMS_ITS ---
Author Organization [employer] Address [id number] [address] [place] [address] Care Team Providers Care Solar Panel Installation Supervisor Name Role Phone Larry Garcia MD Primary Care Provider [phone] Active Problems Problem Noted Date Diagnosed Date History of myocardial infarction 09/20/2024 Controlled type 2 diabetes m ellitus, without long-term current use of insulin 04/08/2023 Arthritis 04/08/2023 HLD (hyperlipidemia) 04/08/2023 HTN (hypertension) 04/08/2023 PONV (postoperative nausea and vomiting) 023 Cancer, uterine 04/08/20232004 Prolonged emergence from general anesthesia 09/2022 Acute deep vein thrombosis ( DVT) of tibial vein of right lower extremity 04/08/2023 SOB (shortness of breath) 04/08/2023 Acute pulmonary embolism with acute cor pulmonal e 04/07/2023 Left shoulder pain 03/28/2023 Abdominal hernia 03/05/2023 Carpal tunnel syndrome 03/05/2023 Diverticular disease of colon 03/05/2023 Eczema 03/05/2023 Extrapyramidal movements present 03/05/2023 Fatigue 03/05/2023 Hip pain 03/05/2023 Low back pain 03/05/2023 Ocular hypertension 03/05/2023 Orthostatic hypotension 03/05/2023 Osteopenia 03/05/2023 Pathological dislocation of left shoulder, not elsewhere classified 03/05/2023 Seasonal allergic rhinitis 03/05/2023 Pure hypercholesterolemia 03/05/2023 Premenopausal menorrhagia 01/29/2023 Nonsustained ventricular tachycardia 2021 Overview (04/08/2023): Images from the original note were not included. Last Assessment & Plan: Denied palpitations- stable Continue metoprolol Images from the original note were not included. Last Assessment & Plan: Denied palpitations- stable Continue metoprolol Obesity 2021 Supraventricular tachycardia 2021 Overview (04/08/2023): Last Assessment & Plan: Continue toprol Last Assessment & Plan: Continue toprol Presence of right artificial knee joint 10/23/19 18 Hypoproteinemia 06/13/2017 Chronic pain 03/12/2017 Osteoarthritis of knee 01/28/2017 Current Treatment and Therapy Plans No current plan information found. Past Treatment and Therapy Plans No past plan information found. Lifetime Dose Tracking * Chemical Lifetime Dose Automatic Entry Manual Entr y Fluoroscopy 208 mGy 0 mGy 208 mGy
--- OUTSIDE RECORDS SUMMARY | 2025-03-04 10:10 | XMS_ITS | Encounter Summary ---
Author Organization [employer] Address [id number] [address] [place] [address] Care Team Providers Care Composite Science Teacher Name Role Phone Larry Garcia MD Primary Care Provider [phone] Encounter Details Date Type Department Care Team (Late st Contact Info) Description 07/09/2023 Orders Only [facility] [address] [place] [id number] Ref Prov, [place] [address] Social History Tobacco Use Types Packs/Day Years Used Date Smoking Tobacco: Former Smokeless Tobacco: Never Alcohol Use Standard Drinks/Week Comments Yes 0 (1 standard drink = 0.6 oz pur e alcohol) rare beer AUDIT-C Answer Date Recorded Q1: How often do you have a drink containing alc ohol? 2-4 times a month 04/07/2023 Q2: How many drinks containi ng alcohol do you have on a typical day when you are drinking? 1 or 2 04/07/2023 Q3: How often do you have si x or more drinks on one occasion? Never 04/07/2023 PHQ-2 Answer Date Recorded Total Score 0 04/07/2023 PRAPARE - Transportation Answer Date Re corded In the past 12 months, has l ack of transportation kept you from medical appointments or from getting medications? No 11/2022 In the past 12 months, has l ack of transportation kept you from meetings, work, or from getting things needed for daily living? No 04/10/2023 Housing Instability Answer Date Recorde d Are you worried or concerned that in the next two months you may not have stable housing that you own, rent or stay in as a part of a household? No 04/10/2023 Childcare Answer Date Recorded Childcare Unknown 02/17/2019 Employment Answer Date Recorded Employment Unknown 02/17/2019 Hunger Screening Answer Date Recorded Within the past 12 months we worried whether our food would run out before we got money to buy more. Never True 07/07/2023 Within the past 12 months th e food we bought just didn't last and we didn't have money to get more. Never True 07/07/2023 Purpose - Life Answer Date Recorded Purpose and direction in life Unknown Comments No Sex and Gender Information Value Date Recorded Sex Assigned at Not on file Legal Sex Female 11:22 AM EDT Gender Identity Not on file Sexual Orientation Not on file documented as of this encounter Plan of Treatment Upcoming Encounters Date Type Department Care Team (Late st Contact Info) Description 02/06/2026 8:30 AM EDT Office Visit [facility] [address] [place] [address] Lorraine Mc, [address] [facility] [address] [place] [id number] documented as of this encounter Procedures Procedure Name Priority Date/Time Associated Diagnosis Comments ECHO COMPLETE WO CONTRAST Routine 05/21/2023 2:27 PM EDT documented in this encounter Results * Echo complete W/O contrast (05/21/2023 2:27 PM EDT) Anatomical Region Laterality Modality Chest N/A Ultrasound us Not In System Ref Prov CV ECHO ORDERABLES Final Result documented in this encounter Visit Diagnoses Not on filedocumented in this encounter Additional Health Concerns Assessment Noted Time PHQ-9 Depression Total Score: 0 04/07/20 7:12 PM EDT documented as of this encounter Care Teams Composite Science Teacher Relationship Specialty Start Date End Date Larry Garcia MD PCP - General 11/03/22 documented as of this encounter
--- OUTSIDE RECORDS SUMMARY | 2025-03-04 10:10 | XMS_ITS | Clinical Summary ---
Author Organization [employer] Address [id number] [address] [place] [address] Care Team Providers Care Pumper Gager Apprentice Name Role Phone Larry Garcia MD Primary Care Provider [phone] Allergies Active Allergy Reactions Criticality Noted Date Comments Meperidine Shortness Of Breath High 07/14/2018 Medications cholecalciferol , vitamin D3, 2,000 units capsule Take 1 capsule (2,000 Units total) by mouth in the morning. Active hydroCHLOROthia zide (HYDRODIURIL) 12.5 mg tablet Take 1 tablet (12.5 mg total) by mouth daily. Active diclofenac (VOLTAREN) 75 mg EC tablet Take 1 tablet (75 mg total) by mouth in the morning and 1 tablet (75 mg total) before bedtime. Every other day. Active aspirin 81 mg Take 1 tablet (81 mg total) by mouth in the morning. Active pantoprazole (PROTONIX) 20 mg EC tablet Take 1 tablet (20 mg total) by mouth in the morning. Active ferrous sulfate 325 (65 FE) mg tablet Take 1 tablet (325 mg total) by mouth in the morning and 1 tablet (325 mg total) in the evening. Take with meals. Active metoprolol succinate XL (TOPROL XL) 25 mg 24 hr tablet Take 1 tablet (25 mg total) by mouth in the morning. Active rosuvastatin (CRESTOR) 5 mg tablet Take 1 tablet (5 mg total) by mouth in the morning. Active ELIQUIS 2.5 mg tablet Take 1 tablet (2.5 mg total) by mouth in the morning and 1 tablet (2.5 mg total) before bedtime. Active Active Problems Problem Noted Date Diagnosed Date [...] Chronic pain 03/12/2017 Osteoarthritis of knee 01/28/2017 Encounters Date Type Department Care Team Description 01/24/2025 8:30 AM EDT Office Visit [facility] [place] [address] Lorraine Mc, Bilateral carotid artery stenosis (Primary Dx); History of pulmonary embolus (PE); History of DVT (deep vein thrombosis) 01/24/2025 Travel from Last 3 Months Immunizations Immunization Administration Dates Next Due Covid-19, Mrna, Lnp-s, Bival ent, Pf, 10 Mcg/0.2 Ml 07/24/2022 Influenza, Injectable, quadrivalent (PF) 020,07/27/2018,05/29/2017 Influenza, Trivalent, Adjuvanted 06/14/2020 Influenza, Unspecified 06/06/2016 Pneumococcal Conjugate 13-Valent 12/04/2017 Pneumococcal Polysaccharide 10/09/2016, 6 Tdap 06/01/2021,10/17/2014 Family History Medical History Relation Name Comments Heart attack Father Hypertension Father Stroke Mother Relation Name Status Comments Father Mother Social History Tobacco Use Types Packs/Day Years Used Date Smoking Tobacco: Former Smokeless Tobacco: Never Tobacco Cessation:Counseling Given: Not Answered Alcohol Use Standard Drinks/Week Comments Yes 0 [...] got money to buy more. Never True 01/07/2024 Within the past 12 months th e food we bought just didn't last and we didn't have money to get more. Never True 01/07/2024 Purpose - Life Answer Date Recorded Purpose and direction in life Unknown Comments No Sex and Gender Information Value Date Recorded Sex Assigned at Not on file Legal Sex Female 11:22 AM EDT Gender Identity Not on file Sexual Orientation Not on file Last Filed Vital Signs Vital Sign Reading Time Taken Comments Blood Pressure 129/80 01/24/2025 8:36 AM EDT Pulse 63 01/24/2025 8:36 AM EDT Temperature 36.8 C (98.2 F) 04/10/2023 12:00 PM EDT Respiratory Rate 15 07/07/2023 11:40 AM EDT Oxygen Saturation 94% 05/05/2023 11:56 AM EDT Inhaled Oxygen Concentration - - Weight 83.5 kg (184 lb) 01/24/2025 8:36 AM EDT Height 154.9 cm (5' 1 ) 01/07/2024 8:30 AM EDT Body Mass Index 34.77 01/07/2024 8:30 AM EDT Plan of Treatment Upcoming Encounters Date Type Department Care Team (Late st Contact Info) Description 02/06/2026 8:30 AM EDT Office Visit [facility] [address] [place] [address] Lorraine Mc, DO [address] [place] [address] Health Maintenance Due Date Last Done Comments Diabetic Ophthalmology Exam 1950 Diabetic Foot Exam 1969 Depression Screening 04/07/2024 04/07/2023 Fall Risk Screening 07/07/2024 07/07/2023 COVID-19 Vaccine (5 - Pfizer risk 2023- season) 2025 08/02/2024, 07/24/2022, 06/12/2021, Additional history exists Influenza Vaccine 05/09/2025 07/25/2020, , 07/27/2018, Additional history exists Adult BMI Screening 01/24/2026 01/24/2025 Tobacco Screening 01/24/2026 01/24/2025 DTaP,Tdap and Td Vaccines (3 - Td or Tdap) 06/01/2031 06/01/2021, 10/17/2014 Zoster (Shingles) Vaccine Completed 07/02/2023, Medical Devices Not on file Insurance [employer] MEDICARE Care Teams Pumper Gager Apprentice Relationship Specialty Start Date End Date Larry Garcia MD PCP - General 11/03/22
--- OUTSIDE RECORDS SUMMARY | 2025-03-04 10:11 | XMS_ITS | Clinical Summary ---
Author Organization [facility] Address [address] [place] [address] Care Team Providers Care Outbound Telemarketer Name Role Phone Larry Garcia MD Primary Care Provider [phone] Allergies Active Allergy Reactions Criticality Noted Date Comments Ciprofloxacin Rash Low 10/25/2024 Meperidine Shortness of breath,Other High 07/14/2018 Medications aspirin 81 mg chewable tablet Chew 1 tablet every day by oral route. Active cholecalciferol, vitamin D3, 50 mcg (2,000 unit) capsule Take 2,000 Units by mouth in the morning. Active metoprolol succinate XL (Toprol-XL) 25 mg 24 hr tablet 1 (one) time each day at the same time. Active pantoprazole (ProtoNix) 40 mg EC tablet 1 (one) time each day at the same time. Active rosuvastatin (Crestor) 5 mg tablet Take 5 mg by mouth at bedtime. Active ferrous sulfate 325 (65 Fe) MG tablet 2 times daily. Activ e Eliquis 5 mg tablet Take 2.5 mg by mouth in the morning and at bedtime. 12/24/19 24 Active oxyCODONE (Roxicodone) 5 mg immediate release tabletIndication s:Recurrent ventral incisional hernia Take 1 tablet (5 mg) by mouth every 6 (six) hours if needed for severe pain (8-10 pain score) for up to 15 doses. 15 tablet 10/29/19 25 Active Additional Information Patient not taking.Reported on 03/04/2025 hydroCHLOROthiaz gloria 12.5 mg tabletIndication s:Essential hypertension Take 1 tablet (12.5 mg) by mouth in the morning. 90 tablet 3 03/04/20 25 Active hydroCHLOROthiaz gloria (HYDRODiuril) 12.5 mg tablet Take 1 tablet every day by oral route. 025 Discontin ued(Reord er) Active Problems Problem Noted Date Diagnosed Date Chronic kidney disease due to diabetes mellitus 03/04/2025 Idiopathic pulmonary hypertensive arterial disea se 03/04/2025 Stage 3a chronic kidney disease 03/04/2025 History of anesthesia complications 10/29/2024 History of DVT (deep vein thrombosis) 09/20/2024 History of myocardial infarction 09/20/2024 Recurrent ventral incisional hernia 09/20/2024 Pre-op evaluation 09/20/2024 Acute deep vein thrombosis ( DVT) of tibial vein of right lower extremity 04/08/2023 01/23/2024 Arthritis 04/08/2023 01/23/2024 PONV (postoperative nausea and vomiting) 023 01/23/2024 Prolonged emergence from general anesthesia 09/202201/23/2024 SOB (shortness of breath) 04/08/20232023 Acute pulmonary embolism with acute cor pulmonal e 04/07/2023 01/23/2024 Left shoulder pain 03/28/2023 01/23/2024 Abdominal hernia 03/05/2023 Assessment & Plan (10/29/2024 2:05 PM EST): Orders from past 72 hours: Full Code; Standing ceFAZolin in dextrose (iso-os) (Ancef) IVPB 2 g Full Code Calcaneal spur 03/05/2023 01/23/2024 Carpal tunnel syndrome 03/05/2023 Diverticular disease of colon 03/05/2023 Eczema 03/05/2023 01/23/2024 Extrapyramidal movements present 03/05/2023 01/23/2024 Fatigue 03/05/2023 01/23/2024 Low back pain 03/05/2023 01/23/2024 Ocular hypertension 03/05/2023 01/23/2024 Orthostatic hypotension 03/05/2023 01/23/20 24 Osteopenia 03/05/2023 01/23/2024 Overweight 03/05/2023 01/23/2024 Pathological dislocation of left shoulder, not elsewhere classified 03/05/2023 01/23/2024 Pure hypercholesterolemia 03/05/20232023 Seasonal allergic rhinitis 03/05/202301/22 Umbilical hernia 03/05/2023 01/23/2024 Pre-operative cardiovascular examination 023 Assessment & Plan (02/05/2023 12:16 PM EDT): RCRI- 0 points Class I Risk 3.9 % 30-day risk of , CT, or cardiac arrest From a cardiology perspective pt may proceed with planned Lt shoulder arthroscopy surgery, she is a low risk for a low risk procedure. She may hold ASA for 5-7 days prior if needed. Please monitor all hemodynamics carefully Premenopausal menorrhagia 01/29/2023 Internal derangement of left shoulder 01/29/2023 History of total knee replacement 01/29/2023 Mixed hyperlipidemia 08/14/2022 Assessment & Plan (02/05/2023 12:12 PM EDT): Well controlled- continue crestor Assessment & Plan (08/14/2022 12:13 PM EST): Continue crestor Near syncope 2021 Assessment & Plan (02/05/2023 12:13 PM EDT): Stable- no syncope episodes Assessment & Plan (08/14/2022 12:11 PM EST): Denied any syncopal episodes since last visit Nonsustained ventricular tachycardia 2021 Overview (08/14/2022): Images from the original note were not included. Assessment & Plan (02/05/2023 12:13 PM EDT): Denied palpitations- stable Continue metoprolol Assessment & Plan (08/14/2022 9:14 AM EST): Continue toprol 06/2021 Holter monitor strips reviewed with Dr Palmer- electrophysiology- agrees with 14 beat run of VT. Otherwise sinus bradycardia- at night, sinus tachycardia, PVCs and SVT Obesity 2021 Supraventricular tachycardia 2021 Assessment & Plan (08/14/2022 12:11 PM EST): Continue toprol History of cancer of uterine body 03/25/2019 History of hysterectomy 03/25/2019 Acute pain of right knee 04/01/2018 Skin rash 12/11/2017 Orthopedic aftercare 08/07/2017 Hypoproteinemia 06/13/2017 Artificial knee joint present 06/12/2017 Malignant neoplasm of uterus 06/11/2017 Essential hypertension 06/03/2017 Assessment & Plan (02/05/2023 12:12 PM EDT): Hypertension is is well controlled 116/63 Continue toprol, olmesartan, hydrochlorothiazide Renal function stable Assessment & Plan (08/14/2022 12:11 PM EST): Hypertension is well controlled Continue toprol, hydrochlorothiazide, olmesartan Chronic pain 03/12/2017 Osteoarthritis of knee 01/28/2017 Type 2 diabetes mellitus without complication Encounters Date Type Department Care Team Description 03/04/2025 9:40 AM EDT Office Visit [facility] [address] [place] [address] Asael Hansen CNP Essential hypertension (Primary Dx); Nonsustained ventricular tachycardia (CMS/HCC); Supraventricular tachycardia; Mixed hyperlipidemia 01/11/2025 9:00 AM EDT Office Visit [facility] [address] [place] [address] Bhavya Fishman MD Incisional hernia, without obstruction or gangrene (Primary Dx) from Last 3 Months Family History Medical History Relation Name Comments Valvular heart disease Mother Atrial fibrillation Sister Lupus Sister Relation Name Status Comments Mother Sister Social History Tobacco Use Types Packs/Day Years Used Date Smoking Tobacco: Former Cigarettes Smokeless Tobacco: Never Tobacco Cessation:Counseling Given: Not Answered Alcohol Use Standard Drinks/Week Comments Defer 0 [...] Pulse 62 03/04/2025 9:47 AM EDT Temperature 36.3 C (97.4 F) 01/11/2025 8:58 AM EDT Respiratory Rate 16 01/11/2025 8:58 AM EDT Oxygen Saturation 96% 03/04/2025 9:47 AM EDT Inhaled Oxygen Concentration - - Weight 85.3 kg (188 lb) 03/04/2025 9:47 AM EDT Height 154.9 cm (5' 1 ) 03/04/2025 9:47 AM EDT Body Mass Index 35.52 03/04/2025 9:47 AM EDT Plan of Treatment Health Maintenance Due Date Last Done Comments CT Colonography 1951 Diabetes: Hemoglobin A1C 1950 FIT-DNA 1951 FIT 1951 FOBT 1950 Medicare Annual Wellness (AWV) 1950 Sigmoidoscopy 1950 Diabetes: Retinopathy Screening 1961 Mammogram 1991 COVID-19 Vaccine ( season) 2024 08/02/2024, 07/24/2022, 07/24/2022, Additional history exists Influenza Vaccine (Season Ended) 2025 07/25/2020, 06/14/2020, 07/27/2018, Additional history exists Depression Screening 01/11/2026 01/11/2025 Fall Risk Screening 01/11/2026 01/11/2025 Colonoscopy 04/22/2029 04/22/2019, 04/08, 02/17/2014 Colorectal Cancer Screening 04/22/2029 Adult Tetanus 06/01/2031 06/01/2021, 10/17/2014 Pneumococcal Vaccine: 50+ Years Completed 05/03/2023, 12/04/2017, 10/09/2016, Additional history exists Zoster Vaccines Completed 07/02/2023, 05/03/2023 HIB Vaccines Aged Out No longer eligi ble based on patient's age to complete this topic HPV Vaccines Aged Out No longer eligi ble based on patient's age to complete this topic IPV Vaccines Aged Out No longer eligi ble based on patient's age to complete this topic Meningococcal B Vaccine Aged Out No l onger eligible based on patient's age to complete this topic Meningococcal Vaccine Aged Out No davin sumaya eligible based on patient's age to complete this topic Rotavirus Vaccines Aged Out No longer eligible based on patient's age to complete this topic Insurance [employer] MEDICARE ADVANTAGE Advance Directives * Full Code (Latest Code Status on File) Date Activated Date Inactivated Comments 10/29/2024 11:28 AM 10/29/2024 7:58 PM Care Teams Outbound Telemarketer Relationship Specialty Start Date End Date Larry Garcia MD [address] [facility] [address] [address] PCP - General 08/13/22
--- OUTSIDE RECORDS SUMMARY | 2025-03-04 10:11 | XMS_ITS | Patient Health Record ---
Author Organization The [facility] in [place] Address [address] [place] [address] Care Team Providers Care [employer] Assistant Name Role Phone Chaav Riley Primary Care Provider Allergies Allergen (clinical drug ingredient) Drug/Non Drug Allergy documented on EMR Reaction Allergy Type Onset Date Status meperidine Demerol shortness of breath Drug Allergy Active ciprofloxacin Ciprofloxacin rash Drug Allergy Active Results Component Value Reference Range Notes COVID-19, Flu A+B IH (Not ye t reviewed by provider) Interpretation: Performing Lab: Notes/Report: COVID positive FLU A neg FLU B neg Control present UA DIP NONAUTO WO MICRO (810 02) - IN OFFICE (Not yet reviewed by provider) Interpretation: Performing Lab: Notes/Report: COLOR yellow CLARITY clear GLUCOSE n BILIRUBIN n KETONE n SPECIFIC GRAVITY 1.005 BLOOD n PH 5 PROTEIN n UROBILINOGEN n NITRITE n LEUKOCYTE ESTERASE n GLYCOHEMOGLOBIN A1C Reviewed date:05/30/2024 09:18:25 PM Interpretation: Performing Lab: Notes/Report: [facility] , Glycohemoglobin A1C 6.1 4.5-6.2 % ADA THERAPEUTIC TARGET < 7.0 ADA RECOMMENDED LIMIT 4.0 - 6.0 ACTION SUGGESTED > 7.0 Estimated Average Glucose 128 Performing Lab: see note ML - [facility] LB CREATININE Reviewed date:07/28/2024 07:54:49 AM Interpretation: Performing Lab: Notes/Report: [facility] , Creatinine 1.15 0.55-1.02 mg/dL Estimated GFR ( Regina 56 >=60 mL/min/1.73m 2 Estimated GFR (Non- Shira 46 >=60 mL/min/1.73m 2 Performing Lab: see note ML - [facility] LB CBC AUTO DIFF Reviewed date:05/30/2024 09:18:25 PM Interpretation: Performing Lab: Notes/Report: [facility] , White Blood Count 5.7 4.0-11.0 10 3/uL Red Blood Count 3.82 4.20-5.40 10 6/uL Hemoglobin 11.9 12.0-16.0 g/dL Hematocrit 37.1 36.0-48.0 % Mean Corpuscular Volume 97.1 81.0-99.0 fL Mean Corpuscular Hemoglobin 31.2 26.7-34.0 pg Mean Corpuscular HGB Conc 32.1 29.9-35.2 g/dL Red Cell Distribution Width 13.7 11.0-15.0 % Platelet Count 164 150-450 10 3/uL Mean Platelet Volume 10.7 9.5-13.5 fL Neutrophils Percent Auto 53.6 43.0-75.0 % Lymphocytes Percent Auto 34.2 20.5-60.0 % Monocytes Percent Auto 9.1 1.7-12.0 % Eosinophils Percent Auto 1.9 0.9-7.0 % Basophils Percent Auto 0.9 0.2-2.0 % Immature Granulocytes Pct Auto 0.3 0.0-0.5 % Neutrophils Absolute Auto 3.1 1.4-6.5 10 3/uL Lymphocytes Absolute Auto 2.0 1.2-3.8 10 3/uL Monocytes Absolute Auto 0.5 0.3-0.8 10 3/uL Eosinophils Absolute Auto 0.1 0.0-0.7 10 3/uL Basophils Absolute Auto 0.1 0.0-0.1 10 3/uL Immature Granulocytes Abs Auto 0.02 0.00-0.03 10 3/uL Performing Lab: see note ML - [facility] LB CREATININE Reviewed date:04/01/2024 09:01:52 PM Interpretation: Performing Lab: Notes/Report: [facility] , Creatinine 0.99 0.55-1.02 mg/dL Estimated GFR ( Regina >60 >=60 Estimated GFR (Non- Shira 55 >=60 Performing Lab: see note ML - [facility] LB CALCIUM Reviewed date:04/01/2024 09:01:52 PM Interpretation: Performing Lab: Notes/Report: [facility] , Calcium 9.6 8.5-10.1 mg/dL Performing Lab: see note ML - [facility] LB XR DEXA axial skeleton Reviewed date:03/11/2024 12:49:25 PM Interpretation: Performing Lab: Notes/Report: Source Facility: [facility]-[address] [place] [address] [place] [address] XRay Report Signed Patient: MARTINA HOLLAND MR#: [id number] : 1950 Acct:[id number] Age/Sex: 73 / F ADM Date: 03/10/24 Loc: RAD Attending Dr: Kj Riley M.D. Ordering Physician: Kj Riley M.D. Date of Service: 03/10/24 Procedure(s): XR DEXA axial skeleton Accession Number(s): [id number] cc: Kj Riley M.D. The [place] [address] Patient Name: MARTINA HOLLAND MRN: [id number] date: 1950 Sex: F Assigned Patient Location: [facility] Current Patient Location: [facility] Accession/Order Number: [id number] Exam Date: 03/10/2024 13:00 Report Date: 03/10/2024 15:49 At the request of: KJ RILEY Procedure: XR DEXA axial skeleton EXAMINATION: XR DEXA axial skeleton HISTORY: Ovarian Failure COMPARISON: DEXA bone densitometry 09/16/2017 TECHNIQUE: Dual-energy X-ray absorptiometry (DXA) was performed. FINDINGS: SPINE ANALYSIS: Average bone mineral density is 1.221 g/cm2. T-score (standard deviation relative to young adult mean): 0.3 . +0.7% change since prior study. HIP ANALYSIS: Lowest bone mineral density is within the left femoral neck, 0.673 g/cm2. T-score (standard deviation relative to young adult mean): -2.6 . -4.9% change since prior study. XR/XR DEXA axial skeleton IMPRESSION: World Health Organization Classification: Osteoporosis - High Fracture Risk FRAX: Cannot calculate. Pharmacologic treatment recommendations * No uniform recommendation applies to all patients. Management plans must be individualized. * Consider initiating pharmacologic treatment in postmenopausal women and men >= 50 years of age who have the following: Primary fracture prevention: * T-score <= - 2.5 at the femoral neck, total hip, lumbar spine, 33% radius (some uncertainty with existing data) by DXA. * Low bone mass (osteopenia: T-score between - 1.0 and - 2.5) at the femoral neck or total hip by DXA with a 10-year hip fracture risk >= 3% or a 10-year major osteoporosis-related fracture risk >= 20% (i.e., clinical vertebral, hip, forearm, or proximal humerus) based on the US-adapted FRAXregistered model. Secondary fracture prevention: * Fracture of the hip or vertebra regardless of BMD [4, 5]. * Fracture of proximal humerus, pelvis, or distal forearm in persons with low bone mass (osteopenia: T-score between - 1.0 and - 2.5). The decision to treat should be individualized in persons with a fracture of the proximal humerus, pelvis, or distal forearm who do not have osteopenia or low BMD [12, 13]. Amol MS, Alla SL, Bert KL, Yudi EM, Teja KG, AJ, Catalino ES. The clinician's guide to prevention and treatment of osteoporosis. Osteoporos Int. 2021;33(10):2647-7248. doi: 10.1007/g99312-204-03123-z. Epub 2021Jan 03. Erratum in: Osteoporos Int. 2021Apr 04;: PMID: 61774247; PMCID: [id number]. Electronically authenticated by: MARK BELTRE Date: 03/10/2024 15:49 Dictated By: Mark Beltre M.D. Signed By: 03/10/24 1551 DD/ 1549 TD/TT: Extension Work Director: The [address] [address] XRay Report Signed Patient: MARTINA HOLLAND MR#: [id number] : 1950 Acct:[id number] Age/Sex: 73 / F ADM Date: 03/10/24 Loc: RAD Attending Dr: Octavio Riley M.D. Ordering Physician: Kj Riley M.D. Date of Service: 03/10/24 Procedure(s): XR DEX A axial skeleton Accession Number(s): [id number] cc: Kj Riley M.D. [place] [address] Patient Name: MARTINA HOLLAND MRN: [id number] date: 1950 Sex: F Assigned Patient Location: [facility] Current Patient Location: [facility] Accession/Order Numb er: [id number] Exam Date: 03/10/2024 13:00 Report Date: 03/10/2024 15:49 At the request of: KJ RILEY Procedure: XR DEXA axial skeleton EXAMINATION: XR DEXA axial skeleton HISTORY: Ovarian Failure COMPARISON: DEXA bon e densitometry 09/16/2017 TECHNIQUE: Dual-ener gy X-ray absorptiometry (DXA) was performed. FINDINGS: SPINE ANALYSIS: Average bone mineral density is 1.221 g/cm2. T-score (standard deviation relative to young adult mean): 0.3 . +0.7% change since prior study. HIP ANALYSIS: Lowest bone mineral density is within the left femoral neck, 0.673 g/cm2. T-score (standard deviation relative to young adult mean): -2.6 . -4.9% change since prior study. XR/XR DEXA axial skeleton IMPRESSION: World Health Organization Classification: Osteoporosis - High Fracture Risk FRAX: Cannot calculate. Pharmacologic treatm ent recommendations * No uniform recommendation applies to all patients. Management plans must be individualized. * Consider initiatin g pharmacologic treatment in postmenopausal women and men >= 50 years of age w ho have the following: Primary fracture prevention: * T-score <= - 2.5 a t the femoral neck, total hip, lumbar spine, 33% radius (some uncertainty wi th existing data) by DXA. * Low bone mass (osteopenia: T-score between - 1.0 and - 2.5) at the femoral neck or total hip by DXA with a 10-year hip fracture risk >= 3% or a 10-year major osteoporosis-related fracture risk >= 20% (i.e., clinical vertebral, hip, forearm, or proximal humerus) based on the US-adapted FRAXregistered model. Secondary fracture prevention: * Fracture of the hi p or vertebra regardless of BMD [4, 5]. * Fracture of proxim al humerus, pelvis, or distal forearm in persons with low bone mass (osteopeni a: T-score between - 1.0 and - 2.5). The decision to treat should be individualized in persons with a fracture of the proximal humerus, pelvis, or distal forearm who do not have osteopenia or low BMD [12, 13]. Amol MS, Alla SL, Bert KL, Yudi EM, Teja KG, AJ, Catalino ES. The clinician's guid e to prevention and treatment of osteoporosis. Osteoporos Int. 2021;3310):4954-0579. doi: 10.1007/i71117-516-8826 0-y. Epub 2021Jan 03. Erratum in: Osteoporos Int. 2021Apr 04;: PMID: [id number]; PMCID: [id number]. Electronically authenticated by: MARK BELTRE Date: 03/10/2024 15:49 Dictated By: Mark Beltre M.D. Signed By: 03/10/24 1551 DD/ 1549 TD/TT: Extension Work Director: XR wrist RT min 3V Reviewed date:09/23/2024 12:49:26 PM Interpretation: Performing Lab: Notes/Report: Source Facility: [place] [address] [place] [address] XRay Report Signed Patient: MARTINA HOLLAND MR#: [id number] : 1950 Acct:[id number] Age/Sex: 74 / F ADM Date: 09/22/24 Loc: RAD Attending Dr: Kj Riley M.D. Ordering Physician: Kj Riley M.D. Date of Service: 09/22/24 Procedure(s): XR wrist RT min 3V Accession Number(s): [id number] cc: Kj Riley M.D. [place] [address] Patient Name: MARTINA HOLLAND MRN: [id number] date: 1950 Sex: F Assigned Patient Location: RAD Current Patient Location: Accession/Order Number: [id number] Exam Date: 09/22/2024 13:50 Report Date: 09/23/2024 07:30 At the request of: KJ RILEY Procedure: XR wrist RT min 3V PROCEDURE: XR wrist RT min 3V, XR hand RT min 3V COMPARISON: None. HISTORY: Hand Arthritis FINDINGS: BONES:No acute fracture or dislocation. Mild to moderate diffuse degenerative changes with joint space narrowing and marginal osteophyte formation most significant at the first carpal metacarpal joint SOFT TISSUES:Negative. No visible soft tissue swelling. EFFUSION:None visible. OTHER: Negative. XR/XR wrist RT min 3V IMPRESSION: Osteoarthritis most significant first carpometacarpal joint Electronically authenticated by: ZANDRA ADAMSON Date: 09/23/2024 07:30 Dictated By: Zandra Adamson M.D. Signed By: 09/23/2432 DD/ 9 TD/TT: Extension Work Director: [place] [address] XRay Report Signed Patient: MARTINA HOLLAND MR#: [id number] : 1950 Acct:[id number] Age/Sex: 74 / F ADM Date: 09/22/24 Loc: RAD Attending Dr: Octavio Riley M.D. Ordering Physician: Kj Riley M.D. Date of Service: 09/22/24 Procedure(s): XR wri st RT min 3V Accession Number(s): [id number] cc: Kj Riley M.D. The [address] [address] Patient Name: MARTINA HOLLAND MRN: [id number] date: 1950 Sex: F Assigned Patient Location: [facility] Current Patient Location: Accession/Order Numb er: [id number] Exam Date: 09/22/2024 13:50 Report Date: 09/23/2024 07:30 At the request of: KJ RILEY Procedure: XR wrist RT min 3V PROCEDURE: XR wrist RT min 3V, XR hand RT min 3V COMPARISON: None. HISTORY: Hand Arthritis FINDINGS: BONES:No acute fract ure or dislocation. Mild to moderate diffuse degenerative changes with joint space narrowing and marginal osteophyte formation most significant at the first carpal metacarpal joint SOFT TISSUES:Negativ e. No visible soft tissue swelling. EFFUSION:None visible. OTHER: Negative. XR/XR wrist RT min 3V IMPRESSION: Osteoarthritis most significant first carpometacarpal joint Electronically authenticated by: ZANDRA ADAMSON Date: 09/23/2024 07:30 Dictated By: Walt Adamson M.D. Signed By: 09/23/2432 DD/ 9 TD/TT: Extension Work Director: XR HAND RT MIN 3V Reviewed date:09/23/2024 12:49:26 PM Interpretation: Performing Lab: Notes/Report: Source Facility: [place] [address] XRay Report Signed Patient: MARTINA HOLLAND MR#: [id number] : 1950 Acct:[id number] Age/Sex: 74 / F ADM Date: 09/22/24 Loc: [facility] Attending Dr: Kj Riley M.D. Ordering Physician: Kj Riley M.D. Date of Service: 09/22/24 Procedure(s): XR hand RT min 3V Accession Number(s): [id number] cc: Kj Riley M.D. [place] [address] Patient Name: MARTINA HOLLAND MRN: [id number] date: 1950 Sex: F Assigned Patient Location: [facility] Current Patient Location: Accession/Order Number: [id number] Exam Date: 09/22/2024 13:50 Report Date: 09/23/2024 07:30 At the request of: KJ RILEY Procedure: XR hand RT min 3V PROCEDURE: XR wrist RT min 3V, XR hand RT min 3V COMPARISON: None. HISTORY: Hand Arthritis FINDINGS: BONES:No acute fracture or dislocation. Mild to moderate diffuse degenerative changes with joint space narrowing and marginal osteophyte formation most significant at the first carpal metacarpal joint SOFT TISSUES:Negative. No visible soft tissue swelling. EFFUSION:None visible. OTHER: Negative. XR/XR hand RT min 3V IMPRESSION: Osteoarthritis most significant first carpometacarpal joint Electronically authenticated by: ZANDRA ADAMSON Date: 09/23/2024 07:30 Dictated By: Zandra Adamson M.D. Signed By: 09/23/2432 DD/ 9 TD/TT: Extension Work Director: [place] [address] XRay Report Signed Patient: MARTINA HOLLAND MR#: [id number] : 1950 Acct:[id number] Age/Sex: 74 / F ADM Date: 09/22/24 Loc: RAD Attending Dr: Octavio Riley M.D. Ordering Physician: Kj Riley M.D. Date of Service: 09/22/24 Procedure(s): XR ring d RT min 3V Accession Number(s): [id number] cc: Kj Riley M.D. [place] [id number] Patient Name: MARTINA HOLLAND MRN: [id number] date: 1950 Sex: F Assigned Patient Location: RAD Current Patient Location: Accession/Order Numb er: [id number] Exam Date: 09/22/2024 13:50 Report Date: 09/23/2024 07:30 At the request of: KJ RILEY Procedure: XR hand R T min 3V PROCEDURE: XR wrist RT min 3V, XR hand RT min 3V COMPARISON: None. HISTORY: Hand Arthritis FINDINGS: BONES:No acute fract ure or dislocation. Mild to moderate diffuse degenerative changes with joint space narrowing and marginal osteophyte formation most significant at the first carpal metacarpal joint SOFT TISSUES:Negativ e. No visible soft tissue swelling. EFFUSION:None visible. OTHER: Negative. XR/XR hand RT min 3V IMPRESSION: Osteoarthritis most significant first carpometacarpal joint Electronically authenticated by: ZANDRA ADAMSON Date: 09/23/2024 07:30 Dictated By: Walt Adamson M.D. Signed By: 09/23/24731 DD/ 9 TD/TT: Extension Work Director: CT abdomen pelvis w con Reviewed date:07/28/2024 12:33:32 PM Interpretation: Performing Lab: Notes/Report: Source Facility: [place] [address] CT Scan Report Signed Patient: MARTINA HOLLAND MR#: [id number] : 1950 Acct:[id number] Age/Sex: 74 / F ADM Date: 07/28/24 Loc: LAB Attending Dr: Poonam Schmitt M.D. Ordering Physician: Poonam Schmitt M.D. Date of Service: 07/28/24 Procedure(s): CT abdomen pelvis w con Accession Number(s): [id number] cc: Kj Riley M.D. [place] [address] Patient Name: MARTINA HOLLAND MRN: [id number] date: 1950 Sex: F Assigned Patient Location: LAB Current Patient Location: LAB Accession/Order Number: [id number] Exam Date: 07/28/2024 08:15 Report Date: 07/28/2024 08:50 At the request of: POONAM SCHMITT Procedure: CT abdomen pelvis w con EXAM: CT abdomen pelvis w con HISTORY: Recurrent ventral incisional hernia K43.2 COMPARISON: None. TECHNIQUE: Following intravenous administration of 100 mL of Omnipaque 300, axial soft tissue windows of the abdomen and pelvis were performed with coronal and sagittal reformats. CT dose reduction technique was used including Automated Exposure Control. Findings: Small hiatal hernia. ABDOMEN: The liver, gallbladder, spleen, pancreas, and adrenal glands are unremarkable. Unremarkable right kidney. Left renal low-attenuation lesions, too small to characterize. The bilateral ureters are nondilated. There are colonic diverticula. There is a small epigastric ventral hernia containing a portion of small bowel. There is mild small bowel wall thickening. Small bowel immediately upstream is mildly dilated whereas the wall bowel downstream is normal caliber. Oral contrast is seen downstream from the hernia. The appendix is nondilated. The aorta is normal caliber. No enlarged abdominal lymph nodes or free abdominal fluid. Postsurgical changes involving the ventral wall the abdomen. Pelvis: Unremarkable bladder. The uterus is surgically absent. No enlarged pelvic lymph nodes or free pelvic fluid. Mild multilevel degenerative thoracic spondylosis. CT/CT abdomen pelvis w con IMPRESSION: 1. Ventral hernia containing small bowel. Partial small bowel obstruction. 2. Other nonemergent findings, as described above. Electronically authenticated by: JESUS MANUEL BURNETT Date: 07/28/2024 08:50 Dictated By: Jesus Manuel Burnett M.D. Signed By: 07/28/24852 DD/ 9 TD/TT: Extension Work Director: [place] [address] CT Scan Report Signed Patient: MARTINA HOLLAND MR#: [id number] : 1950 Acct:[id number] Age/Sex: 74 / F ADM Date: 07/28/24 Loc: LAB Attending Dr: Wen Schmitt M.D. Ordering Physician: Poonam Schmitt M.D. Date of Service: 07/28/24 Procedure(s): CT abdomen pelvis w con Accession Number(s): [id number] cc: Kj Riley M.D. [place] [id number] Patient Name: MARTINA HOLLAND MRN: [id number] date: 1950 Sex: F Assigned Patient Location: LAB Current Patient Location: LAB Accession/Order Numb er: [id number] Exam Date: 08:15 Report Date: 07/28/2024 08:50 At the request of: POONAM SCHMITT Procedure: CT abdome n pelvis w con EXAM: CT abdomen pel vis w con HISTORY: Recurrent ventral incisional hernia K43.2 COMPARISON: None. TECHNIQUE: Following intravenous administration of 100 mL of Omnipaque 300, axial soft tissue windows of the abdomen and pelvis were performed with coronal and sagittal reforma ts. CT dose reduction technique was used including Automated Exposure Control. Findings: Small hiatal hernia. ABDOMEN: The liver, gallbladd er, spleen, pancreas, and adrenal glands are unremarkable. Unremarkable right kidney. Left renal low-attenuation lesions, too small to characterize. The bilateral ureters are nondilated. There are colonic diverticula. There is a small epigastric ventral hernia containing a portion of small bowel. There is mild small bowel wall thickening. Small bowel immediat carolina upstream is mildly dilated whereas the wall bowel downstream is normal caliber. Oral contrast is seen downstream from the hernia. The appendix is nondilated. The aorta is normal caliber. No enlarged abdomina l lymph nodes or free abdominal fluid. Postsurgical changes involving the ventral wall the abdomen. Pelvis: Unremarkable bladder. The uterus is surgically absent. No enlarged pelvic lymph nodes or free pelvic fluid. Mild multilevel degenerative thoracic spondylosis. CT/CT abdomen pelvis w con IMPRESSION: 1. Ventral hernia containing small bowel. Partial small bowel obstruction. 2. Other nonemergent findings, as described above. Electronically authenticated by: JESUS MANUEL BURNETT Date: 07/28/2024 08:50 Dictated By: Jesus Manuel Burnett M.D. Signed By: 07/28/24 0853 DD/ 0850 TD/TT: Extension Work Director: TSH Reviewed date:05/30/2024 09:18:26 PM Interpretation: Performing Lab: Notes/Report: [facility] , Thyroid Stimulating Hormone 2.687 0.358-3.740 uIU/mL Performing Lab: see note ML - [facility] LB T4 Reviewed date:05/30/2024 09:18:26 PM Interpretation: Performing Lab: Notes/Report: [facility] , T4 Thyroxine 7.00 4.80-13.90 ug/dL Performing Lab: see note ML - [facility] LB PROF 14(COMP METB) Reviewed date:05/30/2024 09:18:25 PM Interpretation: Performing Lab: Notes/Report: [facility] , Sodium 141 136-145 mmol/L Potassium 3.9 3.5-5.1 mmol/L Chloride 104 98-107 mmol/L Carbon Dioxide 32.5 21.0-32.0 mmol/L Anion Gap 8.4 Glucose 99 74-106 mg/dL Blood Urea Nitrogen 16.0 7.0-18.0 mg/dL Creatinine 1.02 0.55-1.02 mg/dL Estimated GFR ( Regina >60 >=60 Estimated GFR (Non- Shira 53 >=60 BUN Creatinine Ratio 15.7 Calcium 9.1 8.5-10.1 mg/dL Bilirubin Total 0.5 0.2-1.0 mg/dL Aspartate Amino Transferase 14 15-37 U/L Alanine Aminotransferase 17 14-59 U/L Alkaline Phosphatase 49 46-116 U/L Total Protein 5.8 6.4-8.2 g/dL Albumin Level 3.4 3.4-5.0 g/dL Globulin 2.4 Albumin Globulin Ratio 1.4 Performing Lab: see note ML - [facility] LIPID PROFILE Reviewed date:05/30/2024 09:18:25 PM Interpretation: Performing Lab: Notes/Report: [facility] , Triglycerides 99 <=150 mg/dL Cholesterol 119 <=200 mg/dL HDL Cholesterol 54 40-60 mg/dL <40 mg/dl - HIGH CARDIOVASCULAR RISK > or =60 mg/dl - LOW CARDIOVASCULAR RISK LDL Cholesterol Calculated 45.2 130-159 mg/dl BORDERLINE HIGH >190 mg/dl VERY HIGH 100-129 mg/dl NEAR OR ABOVE OPTIMAL <100 mg/dl OPTIMAL 160-189 mg/dl HIGH VLDL CHOLESTEROL 19.8 Chol HDL Ratio 2.2 3.3 - 4.4 LOW RISK >11.0 HIGH RISK 7.1 - 11.0 MODERATE RISK 4.4 - 7.1 AVERAGE RISK Performing Lab: see note ML - [facility] IRON Reviewed date:05/30/2024 09:18:25 PM Interpretation: Performing Lab: Notes/Report: [facility] , Iron 62.0 50.0-170.0 ug/dL Performing Lab: see note ML - [facility] FREE T3 Reviewed date:05/30/2024 09:18:25 PM Interpretation: Performing Lab: Notes/Report: [facility] , Free T3 2.49 2.18-3.98 pg/mL Performing Lab: see note ML - [facility] LB Reason For Referral Diagnosis 1 Diverticulosis (K57. 90) Referral Organization [facility] Referring Provider First Name Chava Referring Provider Last Name Radha Referring Provider Speciality Family [facility] hakeem Referred Provider Poonam Schmitt Referred Provider Specialty General Surg lizet Referral Priority Routine Medications Medication SIG (Take, Route, Frequency, Duration) Notes Start Date End Date Status Rosuvastatin Calcium 5 MG 1 tablet Orall y Once a day for 90 days Active Pantoprazole Sodium 40 MG 1 tablet Orall y Once a day for 90 days Active Triamcinolone Acetonide 0.1 % 1 application Externally Two times a Week Active Aspir-Low 81 MG 1 tablet Orally Once a day Active Metoprolol Succinate ER 25 MG 1 tablet Orally Once a day for 90 days Active Lancets 30G - use 1 lancet DX: E11 .9 once Daily for 90 days Active OneTouch Ultra - USE 1 STRIP TO CHECK GLUCOSE ONCE DAILY VIA METER, FASTING, IN THE MORNING. In Vitro Dx: E11.9 for 100 days Active Eliquis 2.5 MG 1 tablet Orally Twic e a day Active Vitamin D3 50 MCG (2000 UT) 1 capsule Or ally Once a day Active Amoxicillin-Pot Clavulanate 875-125 MG 1 tablet Orally every 12 hrs for 10 days 02/23/2025 Active Iron 325 (65 Fe) MG 1 tablet Orally BID for 90 days Active Immunizations Vaccine Route Administration Date Status Comme nts Flu, Fluad (83835) 65 yrs + High Dose Seasonal (6494-2489) IM Intramuscular 07/01/2023 Administered Flu, Fluad (40158) 65 yrs+, single-dose syringe (7955-8724) IM Intramuscular 07/06/2024 Administered Pneumococcal (Pneumovax 23) Unknown 09/04/2016 Administered Pneumococcal (Pneumovax 23) Unknown 10/09/2016 Administered Pneumococcal (Prevnar 13) Unknown 12/04/2017 Administer ed Pneumococcal (Prevnar 20) Unknown 05/03/2023 Administer ed SARS-COV-2 (COVID 19 Pfizer 30mcg/0.3mL) Unknown 11/06/2020 Administered SARS-COV-2 (COVID 19 Pfizer 30mcg/0.3mL) Unknown 11/28/2020 Administered SARS-COV-2 (COVID 19 Pfizer 30mcg/0.3mL) Unknown 06/12/2021 Administered SARS-COV-2 (COVID 19) bivalent 30 mcg/0.3 ml dose Unknown 07/24/2022 Administered Shingrix (Zoster) Unknown 05/03/2023 Administered Shingrix (Zoster) Unknown 07/02/2023 Administered Social History Tobacco Use: Social History Observation Description Date Details (start date - stop date) Never Smoker NA - NA Tobacco Use/Smoking Question Answer Notes Patient is a nonsmoker Alcohol Screen (Audit-C) Question Answer Notes Did you have a drink containing alcohol in the p ast year? No Points 0 Interpretation Negative AUDIT-C (Standard) Question Answer Notes Did you have a drink containing alcohol in the p ast year? 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) Active confirmed Problem 068791347673 Acute embolism and thrombosis of unspecified deep veins of unspecified lower extremity (I82.409) Active confirmed Problem Orthostatic hypotension (81449439) Orthostatic hypotension (I95.1) Active confirmed Problem 66474270 Allergic rhinitis, unspecified (J30.9) Active confirmed Problem Pathological dislocation of the shoulder region (064292965) Pathological dislocation of left shoulder, 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 confirmed Problem 90258712 Urinary tract infection, site not specified (N39.0) Active confirmed Problem Fatigue (42867781) Fatigue (R53.83) Active conf irmed Problem Carpal tunnel syndro me (67538650) Carpal tunnel syndrome (G56.00) Active confirmed Problem Orthostatic hypotension (34708336) Orthostasis (I95.1) Active confirmed Problem Osteopenia (357229204) Osteopeni a (M85.80) Active confirmed Problem Eczema (21975872) Eczema (L30.9) Active confirm ed Problem Hip pain (77387621) Hip pain (M25.559) Active confirmed Problem Diverticular disease of colon (992268904) Diverticulosis (K57.90) Active confirmed Problem Arthralgia (10810031) Arthralgia (M25.50) Active confirmed Problem Osteoarthritis of kn ee (322757265) Osteoarthritis of right knee (M17.9) Active confirmed Problem Osteoporosis (93845656) Osteoporosis (M81.0) Active confirmed Problem Gastritis (3866965) Gastritis (K29.70) Active confirmed Problem Diabetes mellitus ty pe 2 (12956986) Diabetes mellitus type 2, uncontrolled (E11.65) Active confirmed Problem Near syncope (390047434) Near syncope (R55) Active confirmed Problem Umbilical hernia (136336203) Umbilical hernia (K42.9) Active confirmed Problem Acute sinusitis (22753830) Acute sinus infection (J01.90) Active confirmed Problem Overweight (286892439) Over weig ht (E66.3) Active confirmed Problem Seasonal allergic rhinitis (970012082) Allergic rhinitis, seasonal (J30.2) Active confirmed Problem Diverticular disease of colon (048594902) Colon, diverticulosis (K57.30) Active confirmed Problem Abdominal hernia (26934975) Other abdominal hernia (K46.9) Active confirmed Problem Head contusion (S00.93XA) Active confirmed Problem Umbilical hernia (873048601) Periumbilical hernia (K42.9) Active confirmed Problem Arthropathy (897187131) Hand arthritis (M12.9) Active confirmed Problem Osteoarthritis (696183925) DA (degenerative arthritis) (M19.90) Active confirmed Problem Calcaneal spur (20138289) Calcaneal spur, left (M77.32) Active confirmed Problem Extrapyramidal movements (700198468) Abnormal leg movement (G25.9) Active confirmed Problem Pure hypercholesterolemia (560580937) Pure hypercholesterol emia, unspecified (E78.00) Active confirmed Problem Old myocardial infarction (1664119) Anterolateral myocardial infarction greater than eight weeks ago (I25.2) Active confirmed Problem Ocular hypertension (4045720) Borderline glaucoma with ocular hypertension, 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) Active confirmed Problem Diabetic renal disea se (170037503) 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) Active confirmed Problem Type II diabetes mellitus without complication (478426677) Diabetes (E11.9) Active confirmed Problem Chronic kidney disea se stage 3A (disorder) (659314830) Chronic kidney disease, stage 3a (N18.31) Active confirmed Problem Low back pain (finding) (185141049) Low back pain at multiple sites (M54.50) Active confirmed Vital Signs Temperature 99.1 degrees Fahrenheit 08/09/2024 Blood pressure diastolic 76 mm Hg 02/23/2025 Height 61 in 02/23/2025 Blood pressure systolic 118 mm Hg 02/23/2025 Weight 187.4 lbs 02/23/2025 BMI 35.41 kg/m2 02/23/2025 Encounters Encounter Location Date Provider Diagnosis [facility] [address] [place] [address] 03/11/2024 [facility] [address] [place] [address] 03/18/2024 [facility] [address] [place] [address] 05/26/2024 Chava eugenia Diverticulosis K57.9 0 [facility] [address] [place] [address] 05/30/2024 Chava eugenia [facility] [address] [place] [address] 09/09/2024 [facility] [address] [place] [address] 09/14/2024 [facility] [address] [place] [address] 09/22/2024 [facility] [address] [place] [address] 09/23/2024 Chava eugenia [facility] [address] [place] [address] 10/04/2024 Chava eugenia [facility] [address] [place] [address] 10/21/2024 [facility] [address] [place] [address] 11/12/2024 [facility] [address] [place] [address] 12/06/2024 [facility] [address] [place] [address] 01/03/2025 Chava H[place] Acute bronchitis, unspecified organism J20.[address] [address] 07/06/2024 Chava Hoy Encounter for immunization Z23 [address] [address] 11/24/2024 Chava Hoy Fatigue R53.83 ; Pur e hypercholesterolemia, unspecified E78.00 ; Essential (primary) hypertension I10 and Diabetes E11.[address] [address] 02/23/2025 Chava Hoy Urinary urgency R39. 15 ; Diabetes mellitus type 2, uncontrolled E11.65 ; Pure hypercholesterolemia, unspecified E78.00 ; Essential (primary) hypertension I10 ; Gastritis K29.70 ; Chronic kidney disease due to diabetes mellitus E11.22 ; Primary pulmonary hypertension I27.0 and Chronic kidney disease, stage 3a N18.[address] [address] 05/26/2024 Chava Hoy Diabetes mellitus ty pe 2, uncontrolled E11.65 ; Pure hypercholesterolemia, unspecified E78.00 ; Essential (primary) hypertension I10 and Gastritis K29.[address] [address] 08/09/2024 Chava Hoy Acute bronchitis, unspecified organism J20.9 and COVID-[address] [address] 09/22/2024 Chava Hoy Myocardial degenerat ion I51.5 ; Diabetes mellitus type 2, uncontrolled E11.65 and Hand arthritis M12.[address] [address] 12/31/2024 Chava Hoy Orthostatic hypotens ion I95.[address] [address] 03/17/2024 Chava Hoy Hip pain M25.559 and Arthralgia M25.50 Assessments Encounter Date Diagnosis (ICD Code) Assessment Notes Treatment Notes Treatment Clinical Notes Section Notes 05/26/2024 Diabetes mellitus type 2, uncontrolled (ICD-10 - E11.65) levels are good 05/26/2024 Pure hypercholesterolem ia, unspecified (ICD-10 - E78.00) review meds 03/17/2024 Hip pain (ICD-10 - M25.559) 03/17/2024 Arthralgia (ICD-10 - M25.50) 07/06/2024 Encounter for immunization (ICD-10 - Z23) 08/09/2024 Acute bronchitis, unspecified organism (ICD-10 - J20.9) Rest and drink more liquids, especially water. You may use a humidifier or vaporizer to help keep the drainage moist. Slwa-vha-mekworw Nasal Saline may help the stuffy and runny nose. Use Ibuprofen and or Tylenol as needed for fever, chills, body aches or pain. Children 5 years old should not be given dzia-rrz-eqeeuhu cough and cold medications such as guaifenesin and dextromethorphan. If you're over age 5, you may try nizy-cls-htvprkm cold medications such as guaifenesin and dextromethorphan, or multi-symptom cold reliever such as Dayquil to help reduce the symptoms. Antibiotics have been prescribed. You should take these until completed and follow the directions. Antibiotics can sometimes cause upset stomach, and in rare cases, serious allergic reactions or serious gastrointestinal problems. If you start having severe abdominal pain, severe vomiting, or bloody diarrhea, you should be reevaluated by your physician or urgent care immediately. Follow up with your Primary Care Provider or return to clinic if symptoms do not improve within 3-5 days. If you develop severe symptoms such as shortness of breath, repeated vomiting, coughing up blood, or chest pain you should go to the emergency room or call 911 08/09/2024 COVID-19 (ICD-10 - U07.1) 11/24/2024 Fatigue (ICD-10 - R53.83) 11/24/2024 Pure hypercholesterolem ia, unspecified (ICD-10 - E78.00) sgabel on meds 12/31/2024 Orthostatic hypotension (ICD-10 - I95.1) thining possible related to her meds - stoipping HCTZ 02/23/2025 Urinary urgency (ICD-10 - R39.15) treateing for uti 02/23/2025 Diabetes mellitus type 2, uncontrolled (ICD-10 - E11.65) great controle 09/22/2024 Myocardial degeneration (ICD-10 - I51.5) 05/26/2024 Diverticulosis (ICD-10 - K57.90) 01/03/2025 Acute bronchitis, unspecified organism (ICD-10 - J20.9) 09/22/2024 Diabetes mellitus type 2, uncontrolled (ICD-10 - E11.65) 09/22/2024 Hand arthritis (ICD-10 - M12.9) 02/23/2025 Pure hypercholesterolem ia, unspecified (ICD-10 - E78.00) on meds 11/24/2024 Essential (primary) hypertension (ICD-10 - I10) good control 05/26/2024 Essential (primary) hypertension (ICD-10 - I10) stable on meds 05/26/2024 Gastritis (ICD-10 - K29.70) no symptoms 11/24/2024 Diabetes (ICD-10 - E11.9) stable 02/23/2025 Essential (primary) hypertension (ICD-10 - I10) stabel here 02/23/2025 Gastritis (ICD-10 - K29.70) stagble on meds 02/23/2025 Chronic kidney disease due to diabetes mellitus (ICD-10 - E11.22) wathin labs 02/23/2025 Primary pulmonary hypertension (ICD-10 - I27.0) roman stable 02/23/2025 Chronic kidney disease, stage 3a (ICD-10 - N18.31) checking labs Plan Of Treatment Pending Test Test Name Order Date CMP (COMPLETE METABOLIC PANEL) 3 CMP (COMPLETE METABOLIC PANEL) 4 HEMOGLOBIN A1C (GLYCO) 05/07/2023 HEMOGLOBIN A1C (GLYCO) 05/26/2024 IRON, TOTAL 05/26/2024 IRON, TOTAL 05/07/2023 LIPID PANEL (CHOL/TRIG/HDL/LDL) 05/07/20 23 LIPID PANEL (CHOL/TRIG/HDL/LDL) 05/26/20 24 CBC WITH DIFF 05/26/2024 CBC WITH DIFF 05/07/2023 VITAMIN D, 25 LEVEL (TOTAL) 05/07/2023 DEXA Axial Skeleton (hips, pelvis, spine )* 02/26/2024 UA DIP NONAUTO WO MICRO (45671) - IN OFF ICE 02/23/2025 Insulin Level 05/07/2023 COVID-19, Flu A+B IH 08/09/2024 XR Hand 3 Views Right 09/22/2024 ECHOCARDIO M or 2D COMPLETE 12/30/2022 THYROID PANEL (T4/TSH/FREE T3) 3 THYROID PANEL (T4/TSH/FREE T3) 4 ECHOCARDIO M/2D COMPLETE 05/07/2023 Next Appt Details Provider Name:Chava Riley, 08:45:00 AM, [address] [facility], [place], [address], Insurance Providers Payer Name Payer Address Payer Phone Subscriber Number Group Number Insured Name Patient Relationship to Insured Coverage Start Date Coverage End Date [employer] [address] [place], [place] [id number] Martina Holland Self - patient is the insured 2 Medications Administered Medication Instructions Date of Administration Dosage Notes Ketorolac Tromethamine 09/29/2023 30 mg 30 Orphenadrine Citrate 09/29/2023 30 mg 30 Medical (General) History Medical History History ICD Code Pathological dislocation of left shoulde r, not elsewhere classified M24.312 Fatigue R53.83 DA (degenerative arthritis) M19.90 Other abdominal hernia K46.9 Over weight E66.3 Near syncope R55 Eczema L30.9 Borderline glaucoma with ocular hyperten viky, unspecified laterality H40.059 Osteopenia M85.80 Diabetes mellitus type 2, uncontrolled E 11.65 Arthralgia M25.50 Orthostasis I95.1 Low back pain, unspecified M54.50 Hip pain M25.559 Osteoarthritis of right knee M17.9 Allergic rhinitis, seasonal J30.2 Carpal tunnel syndrome G56.00 Colon, diverticulosis K57.30 Periumbilical hernia K42.9 Calcaneal spur, left M77.32 Pure hypercholesterolemia, unspecified E 78.00 Abnormal leg movement G25.9 Umbilical hernia K42.9 Surgical History Surgery Date(Month/Year) Hernia Repair C Section Bone Spur Left Shoulder Surgery 02/28/2023 dexa study 03-10-24 Umbilical hernia repair 10/29/2024 Lithotripsy Hospitalization History Reason Date(Month/Year) Pulmonary Embolism 03/2023 Fall/ Shoulder Dislocation 10/2022
--- OUTSIDE RECORDS SUMMARY | 2025-03-04 10:11 | XMS_ITS | Referral Summary ---
Author Organization [facility] Address [address] [place] [address] Care Team Providers Care Adult Care Provider Name Role Phone Larry Garcia MD Primary Care Provider [phone] Encounters Date Type Department Care Team Description 03/04/2025 9:40 AM EDT Office Visit [facility] [place] [address] [place] [address] Asael Hansen CNP Essential hypertension (Primary Dx); Nonsustained ventricular tachycardia (CMS/HCC); Supraventricular tachycardia; Mixed hyperlipidemia 01/11/2025 9:00 AM EDT Office Visit [facility] [address] [place] [address] Bhavya Fishman MD Incisional hernia, without obstruction or gangrene (Primary Dx) from Last 3 Months Allergies Active Allergy Reactions Criticality Noted Date [...] hypertension 03/05/2023 01/23/2024 Orthostatic hypotension 03/05/2023 01/23/20 Osteopenia 03/05/2023 01/23/2024 Overweight 03/05/2023 01/23/2024 Pathological dislocation of left shoulder, not elsewhere classified 03/05/2023 01/23/2024 Pure hypercholesterolemia 03/05/20232023 Seasonal allergic rhinitis 03/05/202301/22 Umbilical hernia 03/05/2023 01/23/2024 Pre-operative cardiovascular examination 023 Assessment & Plan (02/05/2023 12:16 PM EDT): RCRI- 0 points Class I Risk 3.9 % 30-day risk of , MS, or cardiac arrest From a cardiology perspective [...] 01/28/2017 Type 2 diabetes mellitus without complication Social History Tobacco Use Types Packs/Day Years [...] 03/04/2025 9:47 AM EDT Plan of Treatment Not on file Insurance [employer] MED[employer]ARE ADVANTAGE Advance Directives * Full Code (Latest Code Status on File) Date Activated Date Inactivated Comments 10/29/2024 11:28 AM 10/29/2024 7:58 PM Care Teams Adult Care Provider Relationship Specialty Start Date End Date Larry Garcia MD [address] [facility] [place] [address] PCP - General 08/13/22
--- OUTSIDE RECORDS SUMMARY | 2025-03-04 10:11 | XMS_ITS | Encounter Summary ---
Author Organization [facility] Address [id number] [address] [place] [address] Care Team Providers Care Chairman Ceo Name Role Phone Larry Garcia MD Primary Care Provider [phone] Encounter Details Date Type Department Care Team (Late st Contact Info) Description 04/07/2023 Orders Only [facility] [address] [place] [phone] External, Scanning Provider Pain (Primary Dx) Social History Tobacco Use Types Packs/Day Years [...] Employment Answer Date Recorded Employment Unknown 02/17/2019 Purpose - Life Answer Date Recorded Purpose and direction in life Unknown Comments No Sex and Gender Information Value Date Recorded Sex Assigned at Not on file Legal Sex Female 11:22 AM EDT Gender Identity Not on file Sexual Orientation Not on file documented as of this encounter Functional Status * Audit-C Score Answer Date of Assessment Author 2 04/07/2023 7:11 PM EDT Ivette Smalls RN * Question Answer Date of Assessment Author Q1: How often do you have a drink containing alcohol? 2-4 times a month 04/07/2023 7:11 PM KARINT Torsten Smalls RN Q2: How many drinks containing alcohol do you have on a typical day when you are drinking? 1 or 2 04/07/2023 7:11 PM EDT Torsten Smalls RN Q3: How often do you have six or more drinks on one occasion? Never 04/07/2023 7:11 PM EDT Torsten Smalls RN * Question Answer Date of Assessment Author Functional Status Independent 04/07/2023 7:12 PM EDT Ivette Smalls RN documented as of this encounter Plan of Treatment Upcoming Encounters Date Type Department Care Team (Late st Contact Info) Description 02/06/2026 8:30 AM EDT Office Visit [facility] [place] [address] Lorraine Mc DO [address] [facility] [address] [place] [address] documented as of this encounter Results * CT angiogram chest (04/07/2023 12:35 PM EDT) us Scanning Provider External IMG CT ORDERABLES Fin al Result * X-ray chest 1 view (04/07/2023 11:55 AM EDT) us Scanning Provider External IMG DIAGNOSTIC IMAGIN G ORDERABLES Final Result documented in this encounter Visit Diagnoses Diagnosis Pain- Primary Generalized pain documented in this encounter Additional Health Concerns Assessment Noted Time PHQ-9 Depression Total Score: 0 04/07/20 23 7:12 PM EDT documented as of this encounter Care Teams Chairman Ceo Relationship Specialty Start Date End Date Larry Garcia MD PCP - General 11/03/22 documented as of this encounter
--- OUTSIDE RECORDS SUMMARY | 2025-03-04 10:11 | XMS_ITS | Encounter Summary ---
Author Organization [facility] Address [address] [facility] [place] [address] Care Team Providers Care Emery Wheel Molder Name Role Phone Larry Garcia MD Primary Care Provider [phone] Encounter Details Date Type Department Care Team (Late Contact Info) Description 03/12/2023 Abstract [facility] [address] [place] [address] Kervin Camara, MEDICAL ASSISTING PROGRAM DIRECTOR [address] [place] [address] Social History Tobacco Use Types Packs/Day Years Used Date Smoking Tobacco: Former Cigarettes Smokeless Tobacco: Never Alcohol Use Standard Drinks/Week Comments Never 0 (1 standard drink = 0.6 oz pur e alcohol) Comments Unknown Sex and Gender Information Value Date Recorded Sex Assigned at Not on file Legal Sex Female 7:11 PM EDT Gender Identity Not on file Sexual Orientation Not on file COVID-19 Exposure Response Date Recorded In the last 10 days, have yo u been in contact with someone who was confirmed or suspected to have Coronavirus/COVID-19? No / Unsure 03/05/2023 1:23 PM EDT documented as of this encounter Plan of Treatment Upcoming Encounters Date Type Department Care Team (Late Contact Info) Description 06/08/2025 8:00 AM EDT Office Visit [facility] [address] [place] [address] Jr. Akbar Dent DO [address] [place] [address] documented as of this encounter Visit Diagnoses Not on filedocumented in this encounter Care Teams Emery Wheel Molder Relationship Specialty Start Date End Date Larry Garcia MD PCP - General Family Medicine 01/16/23 documented as of this encounter
--- OUTSIDE RECORDS SUMMARY | 2025-03-04 10:11 | XMS_ITS | Clinical Summary ---
Author Organization [facility] Address [address] [place] [address] Care Team Providers Care Spray Gunner Name Role Phone Larry Garcia MD Primary Care Provider [phone] Allergies Active Allergy Reactions Criticality Noted Date Comments Meperidine Hcl 01/29/2023 Other Reaction(s): Trouble Breathing / Fainted Medications metFORMIN (Glucophage) 500 MG tablet every 12 (twelve) hours. Active cholecalciferol (Vitamin D-3) 50 MCG (1999 UT) capsule Take by mouth Daily. 12/24/2022 Active simvastatin (Zocor) 20 MG tablet take 1 tablet (20MG) by ORAL route every day for in the evening Oral Active olmesartan (BENIcar) 20 MG tablet Take 20 mg by mouth in the morning. Active hydroCHLOROthia zide (Microzide) 12.5 MG capsule 1 capsule 1 (one) time each day at the same time. Active diclofenac (Voltaren) 75 MG EC tablet Take 75 mg by mouth in the morning and 75 mg before bedtime. 01/10/2023 Active ASPIRIN 81 MG chewable tablet 1 (one) time each day at the same time. Active pantoprazole (ProtoNix) 40 MG EC tablet 1 (one) time each day at the same time. Active metoprolol succinate XL (Toprol-XL) 25 MG 24 hr tablet 1 (one) time each day at the same time. Active ferrous sulfate 325 (65 Fe) MG tablet 1 (one) time each day at the same time. Active Eliquis DVT/PE Starter Pack 5 MG tablet therapy pack Take 2 tablets by mouth twice daily for 7 days, then take 1 tablet twice daily 04/08/2023 Active Active Problems Problem Noted Date Diagnosed Date Left shoulder pain 03/28/2023 Status post left rotator cuff repair 03/28/2023 Abdominal hernia 03/05/2023 Calcaneal spur 03/05/2023 Carpal tunnel syndrome 03/05/2023 Diverticular disease of colon 03/05/2023 Eczema 03/05/2023 Extrapyramidal movements present 03/05/2023 Fatigue 03/05/2023 Low back pain 03/05/2023 Ocular hypertension 03/05/2023 Orthostatic hypotension 03/05/2023 Osteopenia 03/05/2023 Overweight 03/05/2023 Pathological dislocation of left shoulder, not elsewhere classified 03/05/2023 Pure hypercholesterolemia 03/05/2023 Seasonal allergic rhinitis 03/05/2023 Umbilical hernia 03/05/2023 Hip pain 03/05/2023 Pre-operative cardiovascular examination 023 Overview (03/05/2023): Last Assessment & Plan: RCRI- 0 points Class I Risk 3.9 % 30-day risk of , CO, or cardiac arrest From a cardiology perspective pt may proceed with planned Lt shoulder arthroscopy surgery, she is a low risk for a low risk procedure. She may hold ASA for 5-7 days prior if needed. Please monitor all hemodynamics carefully Essential hypertension 01/29/2023 History of hysterectomy 01/29/2023 History of total knee replacement 01/29/2023 Hypoproteinemia 01/29/2023 Internal derangement of left shoulder 01/29/2023 Malignant neoplasm of uterus 01/29/2023 Other chronic pain 01/29/2023 Premenopausal menorrhagia 01/29/2023 Pain in right knee 01/29/2023 Presence of right artificial knee joint 01/30/20 Primary osteoarthritis of right knee 01/29/2023 Skin rash 01/29/2023 Type 2 diabetes mellitus wit hout complication, without long-term current use of insulin 01/29/2023 Mixed hyperlipidemia 08/14/2022 Overview (03/05/2023): Last Assessment & Plan: Well controlled- continue crestor Near syncope 2021 Overview (03/05/2023): Last Assessment & Plan: Stable- no syncope episodes Nonsustained ventricular tachycardia 2021 Overview (03/05/2023): Images from the original note were not included. Last Assessment & Plan: Denied palpitations- stable Continue metoprolol Obesity 2021 Supraventricular tachycardia 2021 Overview (03/05/2023): Last Assessment & Plan: Continue toprol History of cancer of uterine body 03/25/2019 Orthopedic aftercare 08/07/2017 Arthralgia of lower leg 01/17/2017 Immunizations Immunization Administration Dates Next Due Influenza, Unspecified 06/06/2016 Influenza, injectable, quadr ivalent, preservative free 07/25/2020,07/27/2018,05/29/2017 Influenza, trivalent, adjuvanted 06/14/2020 Moderna Bivalent Booster Vaccination 07/24/2022 Pneumococcal Conjugate PCV 13 12/04/2017 Pneumococcal Polysaccharide PPSV23 10/09/2016, Tdap 06/01/2021,10/17/2014 Family History Medical History Relation Name Comments Heart disease Father Hypertension Father Stroke Mother Relation Name Status Comments Father Mother Social History Tobacco Use Types Packs/Day Years Used Date Smoking Tobacco: Former Cigarettes Smokeless Tobacco: Never Tobacco Cessation:Counseling Given: Not Answered Alcohol Use Standard Drinks/Week Comments Never 0 (1 standard drink = 0.6 oz pure alcohol) caffeine intake:1-2 cups per day Comments Unknown Sex and Gender Information Value Date Recorded Sex Assigned at Not on file Legal Sex Female 7:11 PM EDT Gender Identity Not on file Sexual Orientation Not on file Last Filed Vital Signs Vital Sign Reading Time Taken Comments Blood Pressure 120/80 11/17/2019 12:00 PM EDT Pulse - - Temperature - - Respiratory Rate - - Oxygen Saturation - - Inhaled Oxygen Concentration - - Weight 85.3 kg (188 lb) 06/04/2023 8:07 AM EDT Height 154.9 cm (5' 1 ) 06/04/2023 8:07 AM EDT Body Mass Index 35.52 06/04/2023 8:07 AM EDT Plan of Treatment Upcoming Encounters Date Type Department Care Team (Late st Contact Info) Description 06/08/2025 8:00 AM EDT Office Visit [facility] [address] [place] [id number] Jr. Akbar Dent C, DO [address] [facility] [address] [place] [address] Health Maintenance Due Date Last Done Comments CT Colonography 1951 FIT-DNA 1951 FIT 1950 FOBT 1950 Sigmoidoscopy 1950 Mammogram 1991 Influenza Vaccine (Season Ended) 2025 07/25/2020, 06/14/2020, 07/27/2018, Additional history exists Colonoscopy 04/22/2029 04/22/2019 Colorectal Cancer Screening 04/22/2029 Pneumococcal Vaccine: 65+ Years Completed 05/03/2023, 12/04/2017, 10/09/2016, Additional history exists Procedures Procedure Name Priority Date/Time Associated Diagnosis Comments COLONOSCOPY Routine 04/22/2019 12:00 PM EDT from Last 3 Months or Most Recently Relevant to Health Maintenance Results * Colonoscopy (04/22/2019 12:00 PM EDT) Anatomical Region Laterality Modality Endoscopy 04/22/2019 12:0 0 PM EDT Narrative 04/22/2019 12:00 PM EDT PERFORMED AT [facility] LOCATION:[id number] Procedure Note CONVERSION, GENERIC - 01/22/2023 PERFORMED AT [facility] LOCATION:[id number] us Neville Xavier MD ENDOSCOPY PROCEDURE ORDERABL ES Final Result from Last 3 Months or Most Recently Relevant to Health Maintenance Insurance [employer] MED[employer]ARE [employer]AGE Care Teams Spray Gunner Relationship Specialty Start Date End Date Larry Garcia MD PCP - General Family Medicine 01/16/23
--- OUTSIDE RECORDS SUMMARY | 2025-03-04 10:33 | XMS_ITS | CCD ---
Author Organization [facility] Care Team Providers Care Hot Saw Helper Name Role Phone DEDE COLEMAN Attending Unavailable DEDE COLEMAN Admitting Unavailable SELF, REFERRED Referring Unavailable SELF, REFERRED Primary Care Unavailable HOY ., DR UNDERWOOD Primary Care Unavailable HOY ., DR UNDERWOOD Admitting Unavailable HOY ., DR UNDERWOOD Attending Unavailable HOY ., DR UNDERWOOD Consulting Unavailable ZIEBER, DR ALEXX Castro Consulting Unavailable HOY ., DR UNDERWOOD [...] ., DR UNDERWOOD Attending Unavailable ZIEBER, DR ALEXX Castro Consulting Unavailable SVETLANA REESE Attending Unavailable SVETLANA REESE Admitting Unavailable LIBIAY ., DR UNDERWOOD Primary Care Unavailable SVETLANA REESE Consulting Unavailable KRISTI ESCOBAR Attending Unavailable HOY, KJ M Referring Unavailable HOY, KJ M Primary Care Unavailable KRISTI ESCOBAR Referring Unavailable HOY, KJ M Primary Care Unavailable Radha Kj Primary Care Physician Eddie MILLARD Attending Unavailable Kj Garcia Referring Unavailable Kj Garcia MD Primary Care Provider HAIR LEIGH Admitting Unavailable HAIR LEIGH Attending Unavailable HAIR LEIGH Attending Unavailable HAIR LEIGH Attending Unavailable ARGENIS ONEIL Attending Unavailable ISAIAH ISRAEL Attending Unavailable HAIR LEIGH Referring Unavailable HAIR LEIGH Attending Unavailable Kj Garcia MD Primary Care Provider [phone] LORRAINE STEPHENS Attending Unavailable KJ GARCIA Referring Unavailable KJ GARCIA Primary Care Unavailable Allergies Allergy Classification Reported Allergen(s) Allergy Type Date of Onset Reaction(s) Facility (3 sources) Meperidine; Translations: [Demerol] Drug Allergy 7 [facility] Repository (7 sources) Meperidine; Translations: [MEPERIDINE] Drug Allergy 8 Dyspnea (finding), Shortness Of Breath [facility] Repository (3 sources) Ciprofloxacin; Translations: [ciprofloxacin] Drug Allergy 5 Eruption of skin (disorder) [facility] (1 source) No Known Medication Allergies; Translations: [No Known Medication Allergies] Propensity to adverse reactions (disorder) [facility] Repository Medications Current Medications Medication Drug Class(es) Dates Sig (Normalized) Sig (Original) apixaban 2.5 mg oral tablet (6 sources) Factor Xa Inhibitor Start: 06-07-2024 take 1 tablet by mouth twice daily Eliquis 2.5 mg oral tablet 2.5 mg = 1 tab(s), Oral, BID, Refills(s) 0 Start Date: 06/07/24 Status: Ordered Start: 04-17-2023 End: 01-24-2025 take 1 tablet by mouth in the morning, then take 1 tablet by mouth at bedtime apixaban (ELIQUIS) 5 mg tablet Take 1 tablet (5 mg total) by mouth in the morning and 1 tablet (5 mg total) before bedtime. 60 tablet 3 04/17/2023 01/24/2025 Discontinued (Dose adjustment) Start: 04-08-2023 End: 01-07-2024 take 2 tablets by mouth twice daily, then take 1 tablet by mouth twice daily apixaban (ELIQUIS DVT-PE TREAT 30D START) 5 mg (74 tabs) tablets,dose pack tablet Take 2 tablets by mouth twice daily for 7 days, then take 1 tablet twice daily 74 tablet 04/08/2023 01/07/2024 Discontinued (Duplicate Listing) aspirin 81 mg delayed release oral tablet (4 sources) Platelet Aggregation Inhibitor, Nonsteroidal Anti-inflammatory Drug Start: 06-07-2024 take 1 tablet by mouth once daily aspirin 81 mg Oral EC Tab 81 mg = 1 tab(s), Oral, Daily, Refills(s) 0 Start Date: 06/07/24 Status: Ordered cholecalciferol 0.05 mg oral capsule (3 sources) Vitamin D take 1 capsule by mouth in the morning cholecalciferol, vitamin D3, 2,000 units capsule Take 1 capsule (2,000 Units total) by mouth in the morning. Active diclofenac sodium 75 mg delayed release oral tablet (3 sources) Nonsteroidal Anti-inflammatory Drug take 1 tablet by mouth in the morning, then take 1 tablet by mouth every other day at bedtime diclofenac (VOLTAREN) 75 mg EC tablet Take 1 tablet (75 mg total) by mouth in the morning and 1 tablet (75 mg total) before bedtime. Every other day. Active ferrous sulfate 325 mg oral tablet (4 sources) Start: 06-07-2024 take 1 tablet by mouth twice daily ferrous sulfate 325 mg Tab 325 mg = 1 tab(s), Oral, BID, Refills(s) 0 Start Date: 06/07/24 Status: Ordered hydroCHLOROthiazide 12.5 mg oral capsule (4 sources) Thiazide Diuretic Start: 06-07-2024 take 1 capsule by mouth once daily hydrochlorothiazide 12.5 mg Cap 12.5 mg = 1 cap(s), Oral, Daily, Refills(s) 0 Start Date: 06/07/24 Status: Ordered take 1 tablet by mouth once betty y hydroCHLOROthiazide (HYDRODIURIL) 12.5 mg tablet Take 1 tablet (12.5 mg total) by mouth daily. Active 24 hr metoprolol succinate 25 mg extended release oral tablet (4 sources) beta-Adrenergic Jayant Start: 06-07-2024 take 1 tablet by mouth once daily metoprolol succinate 25 mg ER Tab 25 mg = 1 tab(s), Oral, Daily, Refills(s) 0 Start Date: 06/07/24 Status: Ordered take 1 tablet by fabienne th every twenty-four hours in the morning metoprolol succinate XL (TOPROL XL) 25 m g 24 hr tablet Take 1 tablet (25 mg total) by mouth in the morning. Active pantoprazole 40 mg delayed release oral tablet (4 sources) Proton Pump Inhibitor Start: 06-07-2024 take 1 tablet by mouth once daily Pantoprazole [address] Tab 40 mg = 1 tab(s), Oral, Daily, Refills(s) 0 Start Date: 06/07/24 Status: Ordered take 1 tablet by mouth in the mo rning pantoprazole (PROTONIX) 20 mg EC tablet Take 1 tablet (20 mg total) by mouth in the morning. Active rosuvastatin calcium 5 mg oral tablet (4 sources) HMG-CoA Reductase Inhibitor Start: 06-07-2024 take 1 tablet by mouth once daily rosuvastatin 5 mg Tab 5 mg = 1 tab(s), Oral, Daily, Refills(s) 0 Start Date: 06/07/24 Status: Ordered simvastatin 20 mg oral tablet (3 sources) HMG-CoA Reductase Inhibitor End: 01-24-2025 simvastatin (ZOCOR) 20 mg tablet 01/24/2025 Discontinued Vitamin D2 2000 intl units oral capsule (1 source) Start: 06-07-2024 take 1 capsule by mouth once daily Vitamin D2 2000 intl units oral capsule 50 mcg = 1 cap(s), Oral, Daily, cap(s), Refills(s) 0 Start Date: 06/07/24 Status: Ordered Completed/Discontinued Medications Medication Drug Class(es) Dates Sig (Normalized) Sig (Original) cetirizine hydrochloride 10 mg oral tablet (1 source) Histamine-1 Receptor Antagonist End: 01-07-2024 take 1 tablet by mouth in the morning, then take 1 tablet by mouth at bedtime cetirizine (ZyrTEC) 10 mg tablet Take 1 tablet (10 mg total) by mouth in the morning and 1 tablet (10 mg total) before bedtime. 01/07/2024 Discontinued (Therapy completed) metFORMIN hydrochloride 500 mg oral tablet (1 source) Biguanide Start: 04-11-2023 End: 01-07-2024 take 1 tablet by mouth in the morning, then take 1 tablet by mouth at bedtime metFORMIN (GLUCOPHAGE) 500 mg tablet Take 1 tablet (500 mg total) by mouth in the morning and 1 tablet (500 mg total) before bedtime. Hold Metformin until evening dose on 04/11/23. 60 tablet 1 04/11/2023 01/07/2024 Discontinued (Patient Stopped On Own) olmesartan medoxomil 20 mg oral tablet (1 source) Angiotensin 2 Receptor Jayant End: 01-07-2024 take 1 tablet by mouth in the morning olmesartan (BENICAR) 20 mg tablet Take 1 tablet (20 mg total) by mouth in the morning. 01/07/2024 Discontinued (Therapy completed) Problems Active Problems Problem Classification Problem Date Documented Date Episodic/Chronic Cancer of uterus (3 sources) Malignant neoplasm of uterus; Translations: [Malignant neoplasm of uterus, part unspecified] Onset: 3 04-08-2023 Chronic Cancer; other and unspecified primary (1 source) H/O: malignant neoplasm 06-07-2024 Episodic Cardiac dysrhythmias (7 sources) Supraventricular tachycardia; Translations: [Nonsustained ventricular tachycardia ] Onset: 1 06-07-2024 Chronic Congestive heart failure; nonhypertensive (1 source) Unspecified diastolic (congestive) heart failure; Translations: [UNSPECIFIED DIASTOLIC HEART FAILURE] Onset: 2 Chronic Coronary atherosclerosis and other heart disease (4 sources) History of myocardial infarction; Translations: [Old myocardial infarction] Onset: 5 06-07-2024 Chronic Deficiency and other anemia (2 sources) Anemia, unspecified; Translations: [ANEMIA UNSPECIFIED] Onset: 2 Episodic Diabetes mellitus without complication (4 sources) Type 2 diabetes mellitus; Translations: [Type 2 diabetes mellitus without complications] Onset: 1 06-07-2024 Chronic Disorders of lipid metabolism (10 sources) Hyperlipidemia, unspecified; Translations: [Pure hypercholesterolemia, unspecified] Onset: 2 06-07-2024 Chronic Comment on above: Outside Source Comme nt: Last Assessment & Plan: Well controlled- continue crestor Diverticulosis and diverticulitis (4 sources) Diverticular disease of colon; Translations: [Diverticulosis of colon] Onset: 3 06-07-2024 Chronic Essential hypertension (6 sources) Essential hypertension; Translations: [Hypertensive disorder] Onset: 7 06-07-2024 Chronic Comment on above: Outside Source Comme nt: Last Assessment & Plan: Hypertension is is well controlled 116/63 Continue toprol, olmesartan, hydrochlorothiazide Renal function stable Glaucoma (3 sources) Ocular hypertension; Translations: [Ocular hypertension, unspecified eye] Onset: 3 04-08-2023 Chronic Heart valve disorders (2 sources) Rheumatic tricuspid insufficiency; 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] Onset: 3 Chronic Hypertension with complications and secondary hypertension (1 source) Hypertensive heart disease with heart failure; Translations: [HTN HEART DISEASE W/HEART FAIL] Onset: 2 Chronic Menopausal disorders (3 sources) Menorrhagia; Translations: [Excessive bleeding in the premenopausal period] Onset: 3 04-08-2023 Chronic Occlusion or stenosis of precerebral arteries (3 sources) Bilateral stenosis of carotid arteries; Translations: [Occlusion and stenosis of bilateral carotid arteries] Onset: 5 01-24-2025 Chronic Osteoarthritis (7 sources) Unspecified osteoarthritis, unspecified site; Translations: [Arthritis] Onset: 7 04-08-2023 Chronic Osteoporosis (1 source) Osteoporosis 06-07-2024 Chronic Other and ill-defined heart disease (1 source) Heart disease, unspecified; Translations: [Heart disease, unspecified] Onset: 4 Chronic Other connective tissue disease (3 sources) Artificial knee joint present; Translations: [Presence of right artificial knee joint] Onset: 8 04-08-2023 Chronic Other hereditary and degenerative nervous system conditions (3 sources) Extrapyramidal movements; Translations: [Extrapyramidal and movement disorder, unspecified] Onset: 3 04-08-2023 Chronic Other lower respiratory disease (4 sources) Shortness of breath; Translations: [SHORTNESS OF BREATH] Onset: 3 Episodic Other nervous system disorders (3 sources) Carpal tunnel syndrome; Translations: [Carpal tunnel syndrome, unspecified upper limb] Onset: 3 04-08-2023 Chronic Other nervous system disorders (3 sources) Chronic pain; Translations: [Other chronic pain] Onset: 7 04-08-2023 Chronic Other nutritional; endocrine; and metabolic disorders (1 source) Body mass index 30+ - obesity 07-06-2024 Chronic Other nutritional; endocrine; and metabolic disorders (1 source) Obesity caused by energy imbalance 06-07-2024 Chronic Other nutritional; endocrine; and metabolic disorders (3 sources) Hypoproteinemia; Translations: [Other disorders of glycoprotein metabolism] Onset: 7 04-08-2023 Chronic Other nutritional; endocrine; and metabolic disorders (3 sources) Obesity; Translations: [Obesity, unspecified] Onset: 1 04-08-2023 Chronic Other nutritional; endocrine; and metabolic disorders (2 sources) Other obesity due to excess calories; Translations: [Other obesity due to excess calories] Onset: 2 Chronic Other nutritional; endocrine; and metabolic disorders (2 sources) Body mass index (BMI) 33.0-33.9, adult; Translations: [Body mass index (BMI) 33.0-33.9, adult] Onset: 2 Chronic Other screening for suspected conditions (not mental disorders or infectious disease) (5 sources) Encounter for screening mammogram for malignant neoplasm of breast; Translations: [Screening for malignant neoplasm of colon done] Onset: 2 Episodic Other upper respiratory disease (1 source) Allergic rhinitis 06-07-2024 Chronic Other upper respiratory disease (3 sources) Seasonal allergic rhinitis; Translations: [Other seasonal allergic rhinitis] Onset: 3 04-08-2023 Chronic Phlebitis; thrombophlebitis and thromboembolism (8 sources) Personal history of other venous thrombosis and embolism; Translations: [H/O: Deep vein thrombosis] Onset: 3 06-07-2024 Episodic Pulmonary heart disease (3 sources) Acute pulmonary embolism; Translations: [Other pulmonary embolism with acute cor pulmonale] Onset: 3 04-10-2023 Chronic Pulmonary heart disease (5 sources) Personal history of pulmonary embolism; Translations: [Pulmonary embolism] Onset: 4 06-07-2024 Episodic Unclassified (3 sources) CONTACT W/AND (SUSP) EXPOS COVID-19; Translations: [CONTACT W/AND (SUSP) EXPOS COVID-19] Onset: 2 Unclassified (1 source) COUGH, UNSPECIFIED; Translations: [COUGH, UNSPECIFIED] Onset: 2 Unclassified (1 source) Patient encounter status 07-06-2024 Unclassified (2 sources) Post-op; Translations: [Post-op] Onset: 5 Unclassified (1 source) Supraventricular tachycardia, unspecified; Translations: [Supraventricular tachycardia, unspecified] Onset: 2 Unclassified (1 source) Other ventricular tachycardia; Translations: [Other ventricular tachycardia] Onset: 2 Unclassified (1 source) Obesity, class 1; Translations: [Obesity, class 1] Onset: 2 Unclassified (2 sources) Consult; Translations: [Consult] Onset: 4 Unclassified (1 source) Blood Clot(s) Onset: 5 Past or Other Problems Problem Classification Problem Date Documented Date Episodic/Chronic Abdominal hernia (9 sources) Incisional hernia; Translations: [Incisional hernia without obstruction or gangrene] Onset: 03-05-2023 Episodic Allergic reactions (4 sources) Eczema; Translations: [Dermatitis, unspecified] Onset: 03-05-2023 06-07-2024 Episodic Coagulation and hemorrhagic disorders (2 sources) Spontaneous ecchymoses; Translations: [Spontaneous ecchymoses] Onset: 09-30-2024 Episodic Complications of surgical procedures or medical care (3 sources) Delayed recovery from general anesthesia; Translations: [Other complications of anesthesia, initial encounter] Onset: 04-08-2023 04-08-2023 Episodic Deficiency and other anemia (1 source) Anemia; Translations: [Anemia, unspecified] 01-07-2024 Episodic Diabetes mellitus without complication (1 source) Other abnormal glucose; Translations: [OTHER ABNORMAL GLUCOSE] Onset: 09-04-2022 Episodic Malaise and fatigue (3 sources) Fatigue; Translations: [Other fatigue] Onset: 03-05-2023 04-08-2023 Episodic Mood disorders (3 sources) Mood disorders Onset: 04-07-2023 04-07-2023 Nausea and vomiting (3 sources) Postoperative nausea and vomiting; Translations: [Nausea with vomiting, unspecified] Onset: 04-08-2023 04-08-2023 Episodic Other bone disease and musculoskeletal deformities (3 sources) Osteopenia; Translations: [Other specified disorders of bone density and structure, unspecified site] Onset: 03-05-2023 04-08-2023 Episodic Other circulatory disease (3 sources) Orthostatic hypotension; Translations: [Orthostatic hypotension] Onset: 03-05-2023 04-08-2023 Episodic Other lower respiratory disease (1 source) Dyspnea, unspecified; Translations: [DYSPNEA UNSPECIFIED] Onset: 09-04-2022 Episodic Other lower respiratory disease (3 sources) Dyspnea; Translations: [Shortness of breath] Onset: 04-08-2023 04-08-2023 Episodic Other non-traumatic joint disorders (3 sources) Hip pain; Translations: [Pain in unspecified hip] Onset: 03-05-2023 04-08-2023 Episodic Other non-traumatic joint disorders (3 sources) Pain in left shoulder; Translations: [Pain in joint, shoulder region] Onset: 03-28-2023 04-08-2023 Episodic Other non-traumatic joint disorders (3 sources) Pathological dislocation of shoulder region; Translations: [Pathological dislocation of left shoulder, not elsewhere classified] Onset: 03-05-2023 04-08-2023 Episodic Other upper respiratory disease (1 source) Nasal congestion; Translations: [NASAL CONGESTION] Onset: 04-06-2022 Episodic Residual codes; unclassified (1 source) Chronic pain Onset: 03-12-2017 06-07-2024 Episodic Spondylosis; intervertebral disc disorders; other back problems (3 sources) Low back pain; Translations: [Low back pain] Onset: 03-05-2023 04-08-2023 Episodic Syncope (4 sources) Syncope and collapse; Translations: [SYNCOPE AND COLLAPSE] Onset: 08-28-2022 Episodic Unclassified (1 source) CONTACT W/AND (SUSP) EXPOS COVID-19; Translations: [CONTACT W/AND (SUSP) EXPOS COVID-19] Onset: 04-03-2022 Unclassified (1 source) Supraventricular tachycardia, unspecified; Translations: [Supraventricular tachycardia, unspecified] Onset: 09-20-2024 Unclassified (1 source) Other ventricular tachycardia; Translations: [Other ventricular tachycardia] Onset: 09-20-2024 Unclassified (1 source) Obesity, class 1; Translations: [Obesity, class 1] Onset: 09-20-2024 Results Test Name Value Interpretation Reference Range Facility Office Visiton 01-11-2025 Follow-up visit [id number] Martina Holland 1950 F Date Provider Department [place] 01/11/2025 [facility] Family History Problem Relation Age of Onset Valvular heart disease Mother Family Status - Relation Status Age at Mother Level of Service:30256 [place] POSTOP FOLLOW UP VISIT RELATED TO ORIGINAL PX Reason for Visit and Comments: Post-op [483] - Patient here for 2 month post op, s/p open incisional hernia repair 10/29/2024. [facility] Office Visiton 11-10-2024 Follow-up visit [id number] Martina Holland 1950 F Date Provider Department Center 11/10/2024 [facility] SURG Second Fl Family History Problem Relation Age of Onset Valvular heart disease Mother Family Status - Relation Status Age at Mother Level of Service:31995 [place] POSTOP FOLLOW UP VISIT RELATED TO ORIGINAL PX Reason for Visit and Comments: Post-op [483] - Martina is here today for post op: s/p open incisional hernia repair 10/29/2024 [facility] 36on 11-02-[address] Leigh: patien t is to wear the binder for 2 months. She may try wearing the binder over a t-shirt rather than contact directly with skin. Spoke with patient and notified, understands. Will keep area clean and dry and try wearing over a t-shirt. [facility] 36 Patient called in stating that she has been wearing the binder since her surgery on 10/29/[address] Leigh for hernia repair. She voiced that she is starting to get a rash from wearing it all the time. She would like to know how long she has to wear it. Please advise. [facility] 36on 11-01-2024 36 Letter created and emailed as requested. [facility] 36 Patient called statreji steele that her daughter forgot to ask for a letter for work for the day that the patient had surgery. Patient had surgery on 10/[address] Leigh. She would like the letter to be emailed to [email or web address] [facility] HPon 10-29-2024 HP History Of Present Illness Martina Holland is a 74 y.o. female with known midline ventral hernia. She was seen in clinic on 08/24/24 and complained of increased bulging of her midline hernia. Prior CT imaging of her abdomen showed supraumbilical abdominal wall bulging with 3.8 cm fascial defect. Abdominal surgical history significant for incisional hernia repair, hysterectomy, and . Patient was was also evaluated by Cardiology for pre-operative risk stratification given history of NSVT and determined to be low risk for cardiac events. She denies any obstructive symptoms. Past Medical History She has a past medical history of Arthritis, Cancer (CMS/HCC), Deep vein thrombosis (CMS/HCC), GERD (gastroesophageal reflux disease), Hernia, incisional, Hyperlipidemia, Hypertension, Joint pain, NSVT (nonsustained ventricular tachycardia) (CMS/HCC), Pulmonary embolism (CMS/HCC), Sleep apnea, and SVT (supraventricular tachycardia). Surgical History She has a past surgical history that includes section, classic; Hernia repair; Hysterectomy; Replacement total knee oncologic; Cardiac catheterization (06/27/2021); and Knee Arthroplasty. Social History She reports that she has quit smoking. Her smoking use included cigarettes. She has never used smokeless tobacco. No history on file for alcohol use and drug use. Family History Family History Problem Relation Name Age of Onset Valvular heart disease Mother Allergies Meperidine and Ciprofloxacin Medications Medications Prior to Admission Medication Sig Dispense Refill Last Dose aspirin 81 mg chewable tablet Chew 1 tablet every day by oral route. Past Week cholecalciferol, vitamin D3, 50 mcg (2,000 unit) capsule Take 2,000 Units by mouth in the morning. Past Week Eliquis 5 mg tablet Take 2.5 mg by mouth in the morning and at bedtime. Past Week ferrous sulfate 325 (65 Fe) MG tablet 2 times daily. Past Week hydroCHLOROthiazide (HYDRODiuril) 12.5 mg tablet Take 1 tablet every day by oral route. 10/28/2024 metoprolol succinate XL (Toprol-XL) 25 mg 24 hr tablet 1 (one) time each day at the same time. 10/29/2024 pantoprazole (ProtoNix) 40 mg EC tablet 1 (one) time each day at the same time. 10/29/2024 rosuvastatin (Crestor) 5 mg tablet Take 5 mg by mouth at bedtime. 10/28/2024 Review of Systems All other systems reviewed and are negative. Last Recorded Vitals Visit Vitals BP (!) 141/91 (BP Location: Left arm, Patient Position: Lying) Pulse 69 Temp 36 ???C (96.8 ???F) (Temporal) Resp 16 Ht 1.549 m (5' 1 ) Wt 80.2 kg (176 lb 12.9 oz) SpO2 97% BMI 33.41 kg/m??? Smoking Status Former BSA 1.86 m??? Physical Exam Constitutional: Appearance: She is obese. HENT: Head: Atraumatic. Cardiovascular: Rate and Rhythm: Normal rate. Pulmonary: Effort: Pulmonary effort is normal. Abdominal: General: Abdomen is flat. Palpations: Abdomen is soft. Comments: Supraumbilical midline abdominal wall bulging. Musculoskeletal: Cervical back: Neck supple. Neurological: Mental Status: She is alert. Relevant Lab Results Lab Results Component Value Date NA 142 09/30/2024 K 3.8 09/30/2024 CL 103 09/30/2024 CO2 32 (H) 09/30/2024 BUN 14 09/30/2024 CREATININE 1.04 09/30/2024 GLUCOSE 100 09/30/2024 CALCIUM 9.6 09/30/2024 ANIONGAP 11 09/30/2024 EGFR 56.8 (L) 09/30/2024 BCR 13.5 09/30/2024 Relevant Imaging Results ECG 12 lead Normal sinus rhythm, heart rate 63 bpm, left axis deviation, possible old anterolateral septal infarct, no change from prior EKG Assessment & Plan Abdominal hernia Orders from past 72 hours: Full Code; Standing ceFAZolin in dextrose (iso-os) (Ancef) IVPB 2 g Full Code Principal Problem: Abdominal hernia Martina Holland is a 74 y.o. female with known midline ventral hernia. She was seen in clinic on 08/24/24 and complained of increased bulging of her midline hernia. OR today for open incisional hernia repair, possible mesh Informed consent obtained at bedside Serge Durand MD General Surgery PGY2 [facility] OPNOTEon 10-29-2024 OPNOTE OPEN INCISIONAL CEFERINO IA REPAIR Operative Note Date: 10/29/2024 Location: [facility] OR Name: Martina Holland, : 1950, Diagnosis Pre-op Diagnosis * Incisional hernia, without obstruction or gangrene [K43.2] Post-op Diagnosis * Incisional hernia, without obstruction or gangrene [K43.2] Procedures * OPEN INCISIONAL HERNIA REPAIR Surgeons Primary: Hair Leigh MD Resident - Assisting: Serge Durand MD Procedure Summary Anesthesia: General ASA: III Estimated Blood Loss: Minimal Total IV Fluids: 250 mL Drains: * None in log * Staff: Graduate Teaching Assistant: Kareen Rangel RN Scrub Person: Mylene Nino CST [employer] Graduate Teaching Assistant: Shavon Alcantar RN [employer] Scrub: Mary Mcarthur RN Indications: Martina Holland is an 74 y.o. female who is having surgery for Incisional hernia, without obstruction or gangrene [K43.2]. Open incisional hernia repair was offered to the patient, informed consent was obtained. Procedure Details: The patient was seen in the preoperative area. The risks, benefits, complications, treatment options, non-operative alternatives, expected recovery and outcomes were discussed with the patient. The possibilities of reaction to medication, pulmonary aspiration, injury to surrounding structures, bleeding, recurrent infection, the need for additional procedures, failure to diagnose a condition, and creating a complication requiring transfusion or operation were discussed with the patient. The patient concurred with the proposed plan, giving informed consent. The site of surgery was properly noted/marked if necessary per policy. The patient has been actively warmed in preoperative area. Preoperative antibiotics have been ordered and given within 1 hours of incision. Venous thrombosis prophylaxis have been ordered including bilateral sequential compression devices The patient was brought to the operating room, laid on the operating table in supine position. General was initiated. Patient's abdomen was prepped and draped in usual sterile fashion. 1 % lidocaine local infiltration was performed. A vertical supra umbilical incision was made 8 cm long with # 15 scalpel. subcutaneous tissue dissection with the electrocautery. A 3 cm in diameter hernia sac were freed from subcutaneous tissue. The neck of hernia sac was from the fascia defect. The hernia sac was opened, hernia content including small bowel. Hernia content was reduced. The sac was resected. The fascia defect is 3 cm in diameter, which was repaired with interrupted 1-0 PDS figure of 8 sutures. the skin was closed by 3-0 Vicryl interrupted deep dermal sutures and 4-0 Vicryl running subcuticular sutures. Steri-Strips was applied to the incision. Abdominal binder was applied. The operation was completed without complication. I was present during the entire operation. Minimal blood loss. Hernia sac was sent to permanent pathology. Findings: Supraumbilical incisional hernia, fascial defect is 3 cm in diameter. Hernia content is small bowel, reducible. Complications: None; patient tolerated the procedure well. Disposition: PACU - hemodynamically stable. Condition: stable Hair Leigh Normal [facility] POCT GLUCOSE METER UNSOLICIT ED RESULTSon 10-29-2024 Glucose [Mass/Vol] 105 mg/dL Normal 70-105 [facility] Comment on above: Order Comment: Waive d Testing in the ED is performed under the ED CLIA certificate #[id number]. Result Comment: dhol as Performed By: #### L [id number] #### [facility] ([facility]) [address] [place] [address] 36on 10-05-2024 36 ----- Message from Lj Oneil MD sent at 10/04/2024 1:22 PM EST ----- Lipids and LFTs are good. Continue meds and diet and recheck in 6 months. Also BMP is good Normal [facility] Owen 09-30-2024 ALT [Catalytic activity/Vol] 15 U/L Normal 7-52 [facility] Comment on above: Performed By: #### L [id number] ####[facility] ([facility])[address] [place] [address] Manuel 09-30-2024 AST [Catalytic activity/Vol] 17 U/L Normal 13-39 [facility] Comment on above: Performed By: #### L [id number] ####[facility] ([facility])[address] [place] [address] BASIC METABOLIC PANELon - Anion gap [Moles/Vol] 11 mmol/L Normal 7-20 [facility] Comment on above: Performed By: #### L [id number] #### [facility] ([facility]) [address] [place] [address] Calcium [Mass/Vol] 9.6 mg/dL Normal 8.6-10.3 [facility] Comment on above: Performed By: #### L [id number] #### [facility] ([facility]) [address] [place] [address] Chloride [Moles/Vol] 103 mmol/L Normal 98-107 [facility] Comment on above: Performed By: #### L [id number] #### [facility] ([facility]) [address] [place] [address] CO2 [Moles/Vol] 32 mmol/L High 21-31 [facility] Comment on above: Performed By: #### L [id number] #### [facility] ([facility]) [address] [place] [address] Creatinine [Mass/Vol] 1.04 mg/dL Normal 0.60-1.20 [facility] Comment on above: Performed By: #### L [id number] #### [facility] ([facility]) [address] [place] [address] GLOMERULAR FILTRATION RATE ML/MIN/1.73 SQ M.PREDICTED 56.8 mL/min/1.73m*2 Low >60.0 [facility] Comment on above: Result Comment: The [facility]???s estimated glomerular filtration rate (eGFR) will no longer include consideration of race in its calculation. The National Kidney Foundation???s eGFR Task Force developed new recommendations for the estimation of the glomerular filtration rate in the [place] They recommend immediate implementation of the new equation refit without the race variable in all laboratories because the calculation does not include race. In addition to not including race in the calculation and reporting, it included diversity in its development, and has acceptable performance characteristics and potential consequences that do not disproportionately affect any one group of individuals. Performed By: #### L [id number] #### [facility] ([facility]) [address] [place] [address] Glucose [Mass/Vol] 100 mg/dL Normal 70-100 [facility] Comment on above: Performed By: #### L [id number] #### [facility] ([facility]) [address] [place] [address] Potassium [Moles/Vol] 3.8 mmol/L Normal 3.5-5.1 [facility] Comment on above: Performed By: #### L [id number] #### [facility] ([facility]) [address] [facility] [place] [address] Sodium [Moles/Vol] 142 mmol/L Normal 136-145 [facility] Comment on above: Performed By: #### L [id number] #### [facility] ([facility]) [address] [place] [address] Urea nitrogen [Mass/Vol] 14 mg/dL Normal 7-25 [facility] Comment on above: Performed By: #### L [id number] #### [facility] ([facility]) [address] [place] [address] UREA NITROGEN/CREATININE (MASS RATIO) IN SER/PLAS 13.5 Normal [facility] Comment on above: Performed By: #### L [id number] #### [facility] ([facility]) [address] [place] [address] CBC WITH AUTO DIFFERENTIALon 09-30-2024 Basophils (Bld) [#/Vol] 0.05 10*3/uL Normal 0.00-0.20 [facility] Comment on above: Performed By: #### L [id number] #### [facility] ([facility]) [address] [place] [address] Basophils/100 WBC (Bld) 0.9 % Normal 0.0-1.0 [facility] Comment on above: Performed By: #### L [id number] #### [facility] ([facility]) [address] [place] [address] Eosinophils (Bld) [#/Vol] 0.15 10*3/uL Normal 0.00-0.50 [facility] Comment on above: Performed By: #### L [id number] #### [facility] ([facility]) [address] [place] [address] Eosinophils/100 WBC (Bld) 2.6 % Normal 0.0-6.0 [facility] Comment on above: Performed By: #### L [id number] #### [facility] ([facility]) [address] [place] [address] Erythrocyte distribution width (RBC) [Ratio] 14.3 % Normal 11.5-15.0 [facility] Comment on above: Performed By: #### L [id number] #### [facility] ([facility]) [address] [place] [address] ERYTHROCYTE MEAN CORPUSCULAR HEMOGLOBIN CONCENTRATION (G/DL) BY AUTOMATED 32.8 g/dL Normal 32.0-35.0 [facility] Comment on above: Performed By: #### L [id number] #### [facility] ([facility]) [address] [place] [address] Hematocrit (Bld) [Volume fraction] 40.2 % Normal 36.0-48.0 [facility] Comment on above: Performed By: #### L [id number] #### [facility] ([facility]) [address] [place] [address] Hemoglobin (Bld) [Mass/Vol] 13.2 g/dL Normal 12.0-15.0 [facility] Comment on above: Performed By: #### L [id number] #### [facility] ([facility]) [address] [place] [address] Immature granulocytes (Bld) [#/Vol] 0.02 10*3/uL Normal 0.00-0.20 [facility] Comment on above: Performed By: #### L [id number] #### [facility] ([facility]) [address] [place] [address] Immature granulocytes/100 WBC (Bld) 0.3 % Normal 0.0-1.0 [facility] Comment on above: Performed By: #### L [id number] #### [facility] ([facility]) [address] [place] [address] Lymphocytes (Bld) [#/Vol] 1.93 10*3/uL Normal 1.20-4.00 [facility] Comment on above: Performed By: #### L [id number] #### [facility] ([facility]) [address] [place] [address] Lymphocytes/100 WBC (Bld) 32.9 % Normal 20.0-45.0 [facility] Comment on above: Performed By: #### L [id number] #### [facility] ([facility]) [address] [place] [address] MCH (RBC) [Entitic mass] 32.1 pg Normal 27.0-33.0 [facility] Comment on above: Performed By: #### L [id number] #### [facility] ([facility]) [address] [place] [address] MCV (RBC) [Entitic vol] 97.8 fL Normal 82.0-98.0 [facility] Comment on above: Performed By: #### L [id number] #### [facility] ([facility]) [address] [place] [address] Monocytes (Bld) [#/Vol] 0.64 10*3/uL Normal 0.10-1.00 [facility] Comment on above: Performed By: #### L [id number] #### [facility] ([facility]) [address] [place] [address] Monocytes/100 WBC (Bld) 10.9 % Normal 5.0-12.0 [facility] Comment on above: Performed By: #### L [id number] #### [facility] ([facility]) [address] [place] [address] Neutrophils (Bld) [#/Vol] 3.08 10*3/uL Normal 1.60-7.60 [facility] Comment on above: Performed By: #### L [id number] #### [facility] ([facility]) [address] [place] [address] Neutrophils/100 WBC (Bld) 52.4 % Normal 40.0-72.0 [facility] Comment on above: Performed By: #### L [id number] #### [facility] ([facility]) [address] [place] [address] NRBC (PER 100 WBCS) BY AUTOMATED COUNT 0.0 % Normal 0 [facility] Comment on above: Performed By: #### L [id number] #### [facility] ([facility]) [address] [place] [address] PLATELETS (10*3/UL) IN BLOOD AUTOMATED COUNT 191 10*3/uL Normal 150-400 [facility] Comment on above: Performed By: #### L [id number] #### [facility] ([facility]) [address] [place] [address] RBC (Bld) [#/Vol] 4.11 10*6/uL Normal 3.80-5.00 [facility] Comment on above: Performed By: #### L [id number] #### [facility] ([facility]) [address] [place] [address] WBC (Bld) [#/Vol] 5.87 10*3/uL Normal 4.00-10.60 [facility] Comment on above: Performed By: #### L [id number] #### [facility] ([facility]) [address] [place] [address] LIPID PANELon 09-30-2024 CHOL/HDL 2.3 mg/dL Normal [facility] Comment on above: Performed By: #### L [id number] #### [facility] ([facility]) [address] [place] [address] Cholesterol [Mass/Vol] 119 mg/dL Low 120-200 [facility] Comment on above: Performed By: #### L [id number] #### [facility] ([facility]) [address] [place] [address] Magnesium [Mass/Vol] 99 mg/dL Normal 40-149 [facility] Comment on above: Result Comment: TRIG LYCERIDE REFERENCE RANGE: 20 YEARS AND OLDER CARDIOVASCULAR RISK LESS THAN 150 mg/dL LOW RISK 150 TO 199 mg/dL BORDERLINE RISK 200 mg/dL AND GREATER HIGH RISK Performed By: #### L [id number] #### [facility] ([facility]) [address] [place] [address] Magnesium [Mass/Vol] 48 mg/dL Normal 0-160 [facility] Comment on above: Performed By: #### L [id number] #### [facility] ([facility]) [address] [place] [address] Magnesium [Mass/Vol] 51 mg/dL Normal 23-92 [facility] Comment on above: Performed By: #### L [id number] #### [facility] ([facility]) [address] [place] [address] NON HDL CHOL. (LDL+VLDL) 68 Normal [facility] Comment on above: Performed By: #### L [id number] #### [facility] ([facility]) [address] [place] [address] TOTAL VLDL-C 20 mg/dL Normal 0-40 [facility] Comment on above: Performed By: #### L [id number] #### [facility] ([facility]) [address] [place] [address] Labon 09-30-2024 Lab [id number] Martina Holland 1950 F Date Provider Department Center 09/30/2024 2245-[facility] OPD LAB RESOURCE [facility] OPD [facility] C Family History Problem Relation Age of Onset Valvular heart disease Mother Family Status - Relation Status Age at Mother Normal [facility] MRSA/MSSA DNA NASALon 2024 MRSA DNA Negative Normal Negative [facility] Comment on above: Order Comment: Testi ng methodology is an automated qualitative in vitro diagnostic test for the directdetection and differentiation of Staphylococcus aureus (SA) DNA and methicillin-resistant Staphylococcus aureus (MRSA) DNA from nasal swabs in patients at risk for nasal colonization. The test utilizes real-time polymerase chain reaction (PCR) for the amplification of MRSA/SA DNA and fluorogenic target-specific hybridization probes for the detection of the amplified DNA. A negative result does not preclude nasal colonization. Performed By: #### L [id number] ####[facility] ([facility])[address] [place] [address] MSSA DNA Negative Normal Negative [facility] Comment on above: Order Comment: Sindyi ng methodology is an automated qualitative in vitro diagnostic test for the directdetection and differentiation of Staphylococcus aureus (SA) DNA and methicillin-resistant Staphylococcus aureus (MRSA) DNA from nasal swabs in patients at risk for nasal colonization. The test utilizes real-time polymerase chain reaction (PCR) for the amplification of MRSA/SA DNA and fluorogenic target-specific hybridization probes for the detection of the amplified DNA. A negative result does not preclude nasal colonization. Performed By: #### L [id number] ####[facility] ([facility])[address] [place] [address] PROTIME-INRon 09-30-2024 INR IN PPP BY COAGULATION ASSAY 1.02 Normal 0.90-1.10 [facility] Comment on above: Result Comment: ACCC P RECOMMENDED INR FOR WARFARIN THERAPY CONDITION INR PROPHYLAXIS OF VENOUS THROMBOSIS 2-3 (HIGH-RISK SURGERY) TREATMENT OF VENOUS THROMBOSIS 2-3 TREATMENT OF PULMONARY EMBOLISM 2-3 PREVENTION OF SYSTEMIC EMBOLISM: 2-3 ACUTE MYOCARDIAL INFARCTION TISSUE HEART VALVES VALVULAR HEART DISEASE ATRIAL FIBRILLATION RECURRENT SYSTEMIC EMBOLISM MECHANICAL HEART VALVE 2.5-3.5 FROM: ORAL ANTICOAGULANTS. MECHANISM OF ACTION, CLINICAL EFFECTIVENESS, AND OPTIMAL THERAPEUTIC RANGE. CHEST 1995;108:231S-246S. Performed By: #### L [id number] #### [facility] ([facility]) [address] [place] [address] PROTHROMBIN TIME (PT) IN PPP BY COAGULATION ASSAY 13.4 Seconds Normal 12.3-14.8 [facility] Comment on above: Performed By: #### L [id number] #### [facility] ([facility]) [address] [place] [address] Office Visiton 09-20-2024 Follow-up visit [id number] Martina Holland 1950 Date Provider Department Center 09/20/2024 83585-[facility]ENIS [facility] Family History Problem Relation Age of Onset Valvular heart disease Mother Family Status - Relation Status Age at Mother Level of Service:33761 [place] OFFICE/OUTPATIENT ESTABLISHED MOD MDM 30 MIN Reason for Visit and Comments: DVT [Other] - On Eliquis. Dr. Leigh's office has a message out to Dr. Escobar asking about holding Eliquis prior to procedure. Pre-op Exam [[id number]] - She is requesting cardiac clearance for upcoming hernia surgery with Dr. Leigh at [facility]. Patient denies chest pain, SOB, palpitations, and lightheadedness/syncope. Hypertension [[id number]] Hyperlipidemia [182] - Had routine labs w/ lipid panel in May 2024. Normal [facility] Consulton 08-24-2024 Consult [id number] Martina Holland 1950 Provider Department Center 08/24/2024 454-HAIR LEIGH [facility] SURG [place] Family History Problem Relation Age of Onset Valvular heart disease Mother Family Status - Relation Status Age at Mother Level of Service:95009 [place] OFFICE/OUTPATIENT NEW LOW MDM 30 MINUTES Reason for Visit and Comments: Consult [484] - Martina is here today for consult: Incisional Hernia Normal [facility] Reminderson 07-08-2024 Reminders Reminders From: Mikayla Castillo LPN To: N - Clinical; Sent: 07/08/2024 09:21:21 EDT Show up: 03/22/2029 07:00:00 EDT Subject: colonoscopy recall Due Date/Time: 04/22/2029 07:00:00 EDT Reminder/Recall Patient due for screening colonoscopy 04/2029. Normal [facility] Ambulatory Visit Summaryon 1 Ambulatory Visit [...] for choosing us for your care. Normal [facility] Office Visiton 01-23-2024 Follow-up visit [id number] Martina Holland 1950 F Date Provider Department Center 01/23/2024 3848[facility] Family History Problem Relation Age of Onset Valvular heart disease Mother Family Status - Relation Status Age at Mother Level of Service:74160 [place] OFFICE/OUTPATIENT ESTABLISHED LOW MDM 20 MIN Normal [facility] CBC AND AUTO DIFFon 01-07-20 24 ABSOLUTE BASOPHIL 0.0 X10E9/L Normal 0.0-0.2 [facility] Comment on above: Performed By: #### C BCA, 60849-8, FEPR, 2276-4 #### [facility] ([id number]) [address], [address] [place] [address] ABSOLUTE NEUTROPHIL 4.3 X10E9/L Normal 1.5-6.6 [facility] Comment on above: Performed By: #### C BCA, 75653-0, FEPR, 2276-4 #### [facility] ([id number]) [address], [address] [place] [address] Basophils/100 WBC (Bld) 0.6 % Normal [facility] Comment on above: Performed By: #### C BCA, 32791-1, FEPR, 2276-4 #### [facility] ([id number]) [address], [address] [place] [address] Eosinophils (Bld) [#/Vol] 0.1 10*3/uL Normal 0.0-0.4 [facility] Comment on above: Performed By: #### C BCA, 26429-1, FEPR, 2276-4 #### [facility] ([id number]) [address], [address] [place] [address] Eosinophils/100 WBC (Bld) 1.5 % Normal [facility] Comment on above: Performed By: #### C BCA, 55317-3, FEPR, 6-4 #### [facility] ([id number]) [address] [place] [address] Erythrocyte distribution width (RBC) [Ratio] 13.1 % Normal 11.5-15.0 [facility] Comment on above: Performed By: #### Cata BCA, 32583-9, FEPR, 6-4 #### [facility] ([id number]) [address], [address] [place] [address] Hematocrit (Bld) [Volume fraction] 38.2 % Normal 35-47 [facility] Comment on above: Performed By: #### C BCA, 63007-7, FEPR, 6-4 #### [facility] ([id number]) [address], [address] [place] [address] Hemoglobin (Bld) [Mass/Vol] 12.9 g/dL Normal 11.7-15.5 [facility] Comment on above: Performed By: #### C BCA, 44211-3, FEPR, 6-4 #### [facility] ([id number]) [address] [place] [address] Lymphocytes (Bld) [#/Vol] 1.6 10*3/uL Normal 1.0-3.5 [facility] Comment on above: Performed By: #### C BCA, 72471-9, FEPR, 2275- #### [facility] ([id number]) [address] [address] [place] [address] Lymphocytes/100 WBC (Bld) 23.5 % Normal [facility] Comment on above: Performed By: #### Cata BCA, 08996-7, FEPR, 2275- #### [facility] ([id number]) [address], [facility] [address] [place] [address] MCH (RBC) [Entitic mass] 31.5 pg Normal 27-34 [facility] Comment on above: Performed By: #### Cata DAWN, 06654-3, FEPR, 2275-12 #### [facility] ([id number]) [address], [facility] [address] [place] [address] MCHC (RBC) [Mass/Vol] 33.7 g/dL Normal 32-36 [facility] Comment on above: Performed By: #### Cata DAWN, 16958-7, FEPR, 2275- #### [facility] ([id number]) [address], [facility] [address] [place] [address] MCV (RBC) [Entitic vol] 94 fL Normal 80-100 [facility] Comment on above: Performed By: #### Cata DAWN, 45759-6, FEPR, 2275-12 #### [facility] ([id number]) [address], [facility] [address] [place] [address] Monocytes (Bld) [#/Vol] 0.7 10*3/uL Normal 0-0.9 [facility] Comment on above: Performed By: #### Cata BCA, 95263-6, FEPR, 2275- #### [facility] ([id number]) [address] [place] [address] Monocytes/100 WBC (Bld) 10.6 % Normal [facility] Comment on above: Performed By: #### C BCA, 40131-4, FEPR, 2275-4 #### [facility] ([id number]) [address] [address] [place] [address] Neutrophils/100 WBC (Bld) 63.8 % Normal [facility] Comment on above: Performed By: #### Cata DAWN, 82437-8, FEPR, 2275-4 #### [facility] ([id number]) [address] [address] [place] [address] Platelet mean volume (Bld) [Entitic vol] 8.5 fL Normal 7-12 [facility] Comment on above: Performed By: #### Cata DAWN, 79788-3, FEPR, 2275- #### [facility] ([id number]) [address] [address] Platelets (Bld) [#/Vol] 248 10*3/uL Normal 150-450 [facility] Comment on above: Performed By: #### Cata DAWN, 62992-5, FEPR, 2275- #### [facility] ([id number]) [address] [address] RBC COUNT 4.08 X10E12/L Normal 3.80-5.20 [facility] Comment on above: Performed By: #### Cata DAWN, 36732-6, FEPR, 2275- #### [facility] ([id number]) [address] [address] [place] [address] WBC (Bld) [#/Vol] 6.8 10*3/uL Normal 4.0-11.0 [facility] Comment on above: Performed By: #### Caat BCA, 17496-0, FEPR, 2275-4 #### [facility] ([id number]) [address] [address] [place] [address] D-Dimeron 01-07-2024 Fibrin D-dimer DDU (PPP) [Mass/Vol] NINF [facility] Comment on above: Results <255 ng/mL DDU: The presence of a VTE can safely be excluded with a negative D-Dimer result and Wells score. A negative result doesn't exclude the possibility of DIC. The test be repeated along with other diagnostic tests if the patient's symptoms persist or worsen. [email or web address] FERRITINon 01-07-2024 Ferritin [Mass/Vol] 28 ng/mL Normal 11-307 [facility] Comment on above: Performed By: #### C BCA, 78813-0, FEPR, 2276-4 #### [facility] ([id number]) [address] [place] [address] Fibrin D-dimer DDU (PPP) [Ma ss/Vol]on 01-07-2024 D DIMER <150 Normal <255 [facility] Comment on above: Result Comment: Results <255 ng/mL DDU: The presence of a VTE can safely be excluded with a negative D-Dimer result and Wells score. A negative result doesn't exclude the possibility of DIC. The test be repeated along with other diagnostic tests if the patient's symptoms persist or worsen. [email or web address] Performed By: #### C BCA, 18772-5, FEPR, 2276-4 #### [facility] ([id number]) [address], [address] [place] [address] [facility] IRON PROFILEon 01-07-2024 Iron [Mass/Vol] 95 ug/dL Normal 50-170 [facility] Comment on above: Performed By: #### C BCA, 43197-8, FEPR, 2276-4 #### [facility] ([id number]) [address], [address] [place] [address] IRON BINDING 372 ug/dL Normal 250-425 [facility] Comment on above: Performed By: #### C BCA, 65747-9, FEPR, 2276-4 #### [facility] ([id number]) [address] [place] [address] IRON SATURATION 26 % SATURATION Normal 15-50 [facility] Comment on above: Performed By: #### C BCA, 92147-2, FEPR, 2276-4 #### [facility] ([id number]) [address] [place] [address] Physician Referralon 023 Physician Referral [id number] Normal [facility] ECHOCARDIO M/2D COMPLETEon 0 01-08-2023 ECHOCARDIO M/2D COMPLETE Patient: MARTINA HOLLAND Exam Date: 01/08/2023 : 1950 Gender:F Ordering : SVETLANA REESE [facility] Admission #: [id number] Family : JOSÉ ANTONIO ASTUDILLO [employer] CLE[employer] Order #: [id number] CLICK HERE TO VIEW EXAM ECHOCARDIOGRAM REPORT [...] M.D. on 01/09/2023 at 16:50 Normal [facility] INSULINon 08-29-2022 Insulin 18.2 uIU/mL Normal 2.6-24.9 [facility] Comment on above: Performed By: #### I NSULIN ####[facility] [address] [place] [address]Dr. Bebe Spann BNPon 08-28-2022 Natriuretic peptide B (Bld) [Mass/Vol] 82.0 pg/mL Normal <=900.0 [facility] Comment on above: Performed By: #### T SH, T7, CMP, BNP, LIPID #### [facility] [address] [place] [address] Dr. Bebe Spann CBC AUTO DIFFon 08-28-2022 BASO # 0.0 103/ul Normal 0.0-0.1 [facility] Comment on above: Performed By: #### C BC #### [facility] [address] [place] [address] Dr. Bebe Spann Basophils/100 WBC (Bld) 0.4 % Normal 0.2-2.0 [facility] Comment on above: Performed By: #### C BC #### [facility] [address] [place] [address] Dr. Bebe Spann EO # 0.1 103/ul Normal 0.0-0.7 [facility] Comment on above: Performed By: #### C BC #### [facility] [address] [place] [address] Dr. Bebe Spann Eosinophils/100 WBC (Bld) 1.7 % Normal 0.9-7.0 [facility] Comment on above: Performed By: #### C BC #### [facility] [address] [place] [address] Dr. Bebe Spann Erythrocyte distribution width (RBC) [Ratio] 14.4 % Normal 11.0-15.0 [facility] Comment on above: Performed By: #### C BC #### [facility] [address] [place] [address] Dr. Bebe Spann Hematocrit (Bld) [Volume fraction] 32.2 % Critically low 36.0-48.0 [facility] Comment on above: Performed By: #### C BC #### [facility] [address] [place] [address] Dr. Bebe Spann Hemoglobin (Bld) [Mass/Vol] 10.5 g/dL Critically low 12.0-16.0 [facility] Comment on above: Performed By: #### C BC #### [facility] [address] [place] [address] Dr. Bebe Spann IG # 0.03 10e3/ul Normal 0.00-0.03 [facility] Comment on above: Performed By: #### C BC #### [facility] [address] [place] [address] Dr. Bebe Spann IG % 0.4 % Normal 0.0-0.5 [facility] Comment on above: Performed By: #### C BC #### [facility] [address] [place] [address] Dr. Bebe Spann LYMPH # 2.2 103/ul Normal 1.2-3.8 [facility] Comment on above: Performed By: #### C BC #### [facility] [address] [place] [address] Dr. Bebe Spann Lymphocytes/100 WBC (Bld) 29.0 % Normal 20.5-60.0 [facility] Comment on above: Performed By: #### C BC #### [facility] [address] [place] [address] Dr. Bebe Spann MANUAL DIFF REQ NO Normal [facility] Comment on above: Performed By: #### C BC #### [facility] [address] [place] [address] Dr. Bebe Spann MCH (RBC) [Entitic mass] 31.0 pg Normal 26.7-34.0 [facility] Comment on above: Performed By: #### C BC #### [facility] [address] [address] [address] Bebe Spann MCHC (RBC) [Mass/Vol] 32.6 g/dL Normal 29.9-35.2 [facility] Comment on above: Performed By: #### C BC #### [facility] [address] [place] [address] Dr. Bebe Spann MCV (RBC) [Entitic vol] 95.0 fL Normal 81.0-99.0 [facility] Comment on above: Performed By: #### C BC #### [facility] [address] [place] [address] Dr. Bebe Spann MONO # 0.7 103/ul Normal 0.3-0.8 [facility] Comment on above: Performed By: #### C BC #### [facility] [address] [place] [address] Dr. Bebe Spann Monocytes/100 WBC (Bld) 9.1 % Normal 1.7-12.0 [facility] Comment on above: Performed By: #### C BC #### [facility] [address] [place] [address] Dr. Bebe Spann NEUT # 4.6 103/ul Normal 1.4-6.5 [facility] Comment on above: Performed By: #### C BC #### [facility] [address] [place] [address] Dr. Bebe Spann Neutrophils/100 WBC (Bld) 59.4 % Normal 43.0-75.0 [facility] Comment on above: Performed By: #### C BC #### [facility] [address] [place] [address] Dr. Bebe Spann Platelet mean volume (Bld) [Entitic vol] 9.7 fL Normal 9.5-13.5 [facility] Comment on above: Performed By: #### C BC #### [facility] [address] [place] [address] Dr. Bebe Spann PLT 277 103/ul Normal 150-450 [facility] Comment on above: Performed By: #### C BC #### [facility] [address] [place] [address] Dr. Bebe Spann RBC 3.39 106/ul Critically low 4.20-5.40 [facility] Comment on above: Performed By: #### C BC #### [facility] [address] [address] [address] Bebe Spann WBC 7.7 103/ul Normal 4.0-11.0 [facility] Comment on above: Performed By: #### C BC #### [facility] [address] [address] [address] Bebe Spann FREE THYROXINE INDEX T7on FTI 1.98 Normal 1.30-4.50 [facility] Comment on above: Performed By: #### T SH, T7, CMP, BNP, LIPID #### [facility] [address] [address] [address] Bebe Spann T3U 33.0 % Normal 30.0-39.0 [facility] Comment on above: Performed By: #### T SH, T7, CMP, BNP, LIPID #### [facility] [address] [address] [address] Bebe Spann T4 [Mass/Vol] 6.00 ug/dL Normal 4.80-13.90 [facility] Comment on above: Performed By: #### T SH, T7, CMP, BNP, LIPID #### [facility] [address] [address] [address] Bebe Spann GLYCOHEMOGLOBIN A1Con 2021 ADA RECOMMENDATION SEE BELOW Normal [facility] Comment on above: Result Comment: ADA RECOMMENDED LIMIT 4.0 - 6.0 ADA THERAPEUTIC TARGET < 7.0 ACTION SUGGESTED > 7.0 Performed By: #### A 1C ####[facility] [address] [place] [address]Dr. Bebe Spann Glucose [Mass/Vol] 134 mg/dL Normal [facility] Comment on above: Performed By: #### A 1C ####[facility] [address] [place] [address]Dr. Bebe Spann HbA1c (Bld) [Mass fraction] 6.3 % Critically high 4.5-6.2 [facility] Comment on above: Performed By: #### A 1C ####[facility] [address] [place], [place] [address]OfDr. Bebe Spann IRONon 08-28-2022 Iron [Mass/Vol] 52.0 ug/dL Normal 50.0-170.0 [facility] Comment on above: Performed By: #### I ROSAMARIA #### [facility] [address] [address] [address] Bebe Spann LIPID PROFILEon 08-28-2022 CHOL-HDL RATIO NORM SEE BELOW Normal [facility] Comment on above: Result Comment: 3.3 - 4.4 LOW RISK 4.4 - 7.1 AVERAGE RISK 7.1 - 11.0 MODERATE RISK >11.0 HIGH RISK Performed By: #### T SH, T7, CMP, BNP, LIPID #### [facility] [address] [address] [address] Bbee Spann Cholesterol [Mass/Vol] 94 mg/dL Normal <=200 [facility] Comment on above: Performed By: #### T SH, T7, CMP, BNP, LIPID #### [facility] [address] [address] [address] Bebe Spann Cholesterol in HDL [Mass/Vol] 48 mg/dL Normal 40-60 [facility] Comment on above: Performed By: #### T SH, T7, CMP, BNP, LIPID #### [facility] [id number] Beeb Spann Cholesterol in LDL [Mass/Vol] 23.2 mg/dL Normal [facility] Comment on above: Performed By: #### T SH, T7, CMP, BNP, LIPID #### [facility] [id number] Bebe Spann Cholesterol.total/C holesterol in HDL [Mass ratio] 2.0 {ratio} Normal [facility] Comment on above: Performed By: #### T SH, T7, CMP, BNP, LIPID #### [facility] [address] [address] [address] Bebe Spann HDL NORMAL > or = 60 mg/dl - LO W CARDIOVASCULAR RISK <40 mg/dl - HIGH CARDIOVASCULAR RISK Normal [facility] Comment on above: Performed By: #### T SH, T7, CMP, BNP, LIPID #### [facility] [address] [address] [address] Bebe Spann LDL CALC NORMAL SEE BELOW Normal [facility] Comment on above: Result Comment: <100 mg/dl OPTIMAL 100 - 129 mg/dl NEAR OR ABOVE OPTIMAL 130 - 159 mg/dl BORDERLINE HIGH 160 - 189 mg/dl HIGH >190 mg/dl VERY HIGH Performed By: #### T SH, T7, CMP, BNP, LIPID #### [facility] [address] [address] [address] Bebe Spann Triglyceride [Mass/Vol] 114 mg/dL Normal <=150 [facility] Comment on above: Performed By: #### T SH, T7, CMP, BNP, LIPID #### [facility] [address] [address] [address] Bebe Spann VLDL CALC 22.8 mg/dL Normal [facility] Comment on above: Performed By: #### T SH, T7, CMP, BNP, LIPID #### [facility] [address] [address] [address] Bebe Spann PROF 14(COMP METB)on 022 Albumin [Mass/Vol] 3.2 g/dL Critically low 3.4-5.0 [facility] Comment on above: Performed By: #### T SH, T7, CMP, BNP, LIPID #### [facility] [address] [address] [address] Bebe Spann Albumin/Globulin [Mass ratio] 1.0 {ratio} Normal [facility] Comment on above: Performed By: #### T SH, T7, CMP, BNP, LIPID #### [facility] [address] [address] [address] Bebe Spann ALP [Catalytic activity/Vol] 61 U/L Normal 46-116 [facility] Comment on above: Performed By: #### T SH, T7, CMP, BNP, LIPID #### [facility] [address] [address] [address] Bebe Spann ALT [Catalytic activity/Vol] 20 U/L Normal 14-59 [facility] Comment on above: Performed By: #### T SH, T7, CMP, BNP, LIPID #### [facility] [address] [place] [address] Dr. Bebe Spann Anion gap [Moles/Vol] 10.6 mmol/L Normal [facility] Comment on above: Performed By: #### T SH, T7, CMP, BNP, LIPID #### [facility] [address] [place] [address] Dr. Bebe Spann AST [Catalytic activity/Vol] 12 U/L Critically low 15-37 [facility] Comment on above: Performed By: #### T SH, T7, CMP, BNP, LIPID #### [facility] [address] [place] [address] Dr. Bebe Spann Bilirubin [Mass/Vol] 0.3 mg/dL Normal 0.2-1.0 [facility] Comment on above: Performed By: #### T SH, T7, CMP, BNP, LIPID #### [facility] [address] [place] [address] Dr. Bebe Spann Calcium [Mass/Vol] 9.1 mg/dL Normal 8.5-10.1 [facility] Comment on above: Performed By: #### T SH, T7, CMP, BNP, LIPID #### [facility] [address] [place] [address] Dr. Bebe Spann Chloride [Moles/Vol] 103 mmol/L Normal 98-107 [facility] Comment on above: Performed By: #### T SH, T7, CMP, BNP, LIPID #### [facility] [address] [place] [address] Dr. Bebe Spann CO2 [Moles/Vol] 30.0 mmol/L Normal 21.0-32.0 [facility] Comment on above: Performed By: #### T SH, T7, CMP, BNP, LIPID #### [facility] [address] [place] [address] Dr. Bebe Spann Creatinine [Mass/Vol] 1.20 mg/dL Critically high 0.55-1.02 [facility] Comment on above: Performed By: #### T SH, T7, CMP, BNP, LIPID #### [facility] [address] [place] [address] Dr. Bebe Spann EGFR-AF CAMEROONIAN 54 mL/min/1.73m2 Critically low >=60 [facility] Comment on above: Performed By: #### T SH, T7, CMP, BNP, LIPID #### [facility] [address] [place] [address] Dr. Bebe Spann EGFR-NON AF CAMEROONIAN 44 mL/min/1.73m2 Critically low >=60 [facility] Comment on above: Performed By: #### T SH, T7, CMP, BNP, LIPID #### [facility] [address] [place] [address] Dr. Bebe Spann Globulin (S) [Mass/Vol] 3.1 g/dL Normal [facility] Comment on above: Performed By: #### T SH, T7, CMP, BNP, LIPID #### [facility] [address] [place] [address] Dr. Bebe Spann Glucose [Mass/Vol] 94 mg/dL Normal 74-106 [facility] Comment on above: Performed By: #### T SH, T7, CMP, BNP, LIPID #### [facility] [address] [place] [address] Dr. Bebe Spann Potassium [Moles/Vol] 4.6 mmol/L Normal 3.5-5.1 [facility] Comment on above: Performed By: #### T SH, T7, CMP, BNP, LIPID #### [facility] [address] [place] [address] Dr. Bebe Spann Protein [Mass/Vol] 6.3 g/dL Critically low 6.4-8.2 [facility] Comment on above: Performed By: #### T SH, T7, CMP, BNP, LIPID #### [facility] [address] [place] [address] Dr. Bebe Spann Sodium [Moles/Vol] 139 mmol/L Normal 136-145 [facility] Comment on above: Performed By: #### T SH, T7, CMP, BNP, LIPID #### [facility] [address] [address] [address] Bebe Spann Urea nitrogen [Mass/Vol] 20.0 mg/dL Critically high 7.0-18.0 [facility] Comment on above: Performed By: #### T SH, T7, CMP, BNP, LIPID #### [facility] [address] [place] [address] Dr. Bebe Spann Urea nitrogen/Creatinine [Mass ratio] 16.7 mg/mg Normal [facility] Comment on above: Performed By: #### T SH, T7, CMP, BNP, LIPID #### [facility] [address] [place] [address] Dr. Bebe Spann TSHon 08-28-2022 TSH 3.195 uIU/mL Normal 0.358-3.740 [facility] Comment on above: Performed By: #### T SH, T7, CMP, BNP, LIPID #### [facility] [address] [place] [address] Dr. Bebe Spann [facility]09 SARS-CoV-2 (COVID-19) RNA MUSHTAQ+probe Ql (Unsp spec) Not detected Normal NOT DETECTED [facility] Comment on above: Result Comment: This test is not yet approved or cleared by the [place] FDA. When there are no FDA-approved or cleared tests available, and other criteria are met, FDA can make tests available under an emergency access mechanism called an Emergency Use Authorization (EUA). The EUA for this test is supported by the Note Keeper of Health and Human Service's (HHS's) declaration [...] consistent with SARS-CoV-2. Performed By: #### C VDTB ####[facility] [address] [place], [place] [address]JpCatalino Spann MG MAMM SCREEN 3D DANIAC CADon 03-13-2022 MG MAMM SCREEN 3D DANICA CAD Patient: MARTINA HOLLAND Exam Date: 03/13/2022 : 1950 Gender:F Ordering : DR KJ GARCIA . Admission #: [id number] Family : Order #: [id number] CLICK HERE TO VIEW EXAM RADIOLOGY REPORT [...] Treatments HYSTERECTOMY Family Cancers None LOCATION: [facility] BREAST COMPOSITION: Scattered areas fibroglandular density. RIGHT [...] PALPABLE LUMP SHOULD BE BIOPSIED. Dictated by: Alexx Beltre M.D. on 03/14/2022 at 13:25 Approved by: Alexx Beltre M.D. on 03/14/2022 at 13:29 Normal [facility] Cardiovascular Lab Reporton 06-28-2021 Cardiovascular Lab Report [facility] Patient Name: Martina Holland [facility] MR #: [id number] Physician: Marissa Cha, Department of M.D. Medicine Service Date: 06/27/2021 Division of Birthdate: 1950 Cardiology Room #: Adult Cardiovascular Services [place] [address] Cardiovascular Laboratory Report IMPRESSIONS: 1. Angiographically non-obstructive [...] our electrophysiology colleagues. 5. Follow up with Dede Coleman, certified nurse practitioner, in the next [...] right internal jugular vein was obtained. A 6-Georgian 11-cm sheath was inserted without difficulty. A [...] to access the left radial artery. A 6-Georgian glide sheath was inserted without difficulty. Bilateral [...] P Marissa Cha M.D. Date Dict: 06/27/2021/11:46 Mejia/Marissa Cha M.D. Date Trans: 06/28/2021 03:01 Mejia/destinee [id number] Normal [facility] Vital Signs Date Time Vital Sign Value Performing Clinician Jose lal 01-24-2025 08:36-0400 Body mass index (BMI) [Ratio] 34.77 kg/m2 [employer] [facility] 01-24-2025 08:36-0400 Body weight 83.46 kg Lorraine Stephens DO Work Phone: [facility] 01-24-2025 08:36-0400 Diastolic blood pressure 80 mm[Hg] Lorraine Stephens DO Work Phone: [facility] 01-24-2025 08:36-0400 Heart rate 63 /min Lorraine Stephens DO Work Phone: [facility] 01-24-2025 08:36-0400 Systolic blood pressure 129 mm[Hg] Lorraine Stephens DO Work Phone: [facility] 07-06-2024 13:26-0400 Blood Pressure Location Eddie DOZIERL [facility] 07-06-2024 13:26-0400 Diastolic blood pressure 66 mm[Hg] Eddie DOZIERL [facility] 07-06-2024 13:26-0400 Heart rate 68 /min Eddie DOZIERL [facility] 07-06-2024 13:26-0400 Respiratory rate 16 /min Eddie DOZIERL [facility] 07-06-2024 13:26-0400 Systolic blood pressure 118 mm[Hg] Eddie DOZIERL [facility] 01-07-2024 08:30-0400 Body height 154.9 cm Kristi Escobar MD Work Phone: [facility] 01-07-2024 08:30-0400 Body mass index (BMI) [Ratio] 34.39 kg/m2 Kristi Escobar MD Work Phone: [facility] 01-07-2024 08:30-0400 Body weight 82.56 kg Kristi Escobar MD Work Phone: [facility] 01-07-2024 08:30-0400 Diastolic blood pressure 80 mm[Hg] Kristi Escobar MD Work Phone: [facility] 01-07-2024 08:30-0400 Systolic blood pressure 126 mm[Hg] Kristi Escobar MD Work Phone: [facility] Encounters Encounter Date Encounter Type Care Provider Facility Start: 01-24-2025 End: 01-24-2025 Office outpatient visit 15 minutes Lorraine Stephens DO Work Phone: [facility] Comment on above: Bilateral carotid ar [place] stenosis (Primary Dx); History of pulmonary embolus (PE); History of DVT (deep vein thrombosis) Start: 01-24-2025 End: 01-24-2025 ambulatory LORRAINE STEPHENS [facility] Start: 01-11-2025 End: 01-11-2025 ambulatory [facility] Start: 11-10-2024 End: 11-10-2024 ambulatory [facility] Start: 10-29-2024 End: 10-29-2024 ambulatory [facility] Start: 09-30-2024 ambulatory [facility] Start: 09-20-2024 End: 09-20-2024 ambulatory [facility] Start: 09-20-2024 End: 09-20-2024 Encounter for other preprocedural examination [facility] Start: 08-24-2024 End: 08-24-2024 ambulatory [facility] Start: 08-24-2024 End: 08-24-2024 ambulatory [facility] Start: 07-06-2024 End: 07-06-2024 ambulatory Eddie MILLARD Facility:[facility] Start: 07-06-2024 End: 07-06-2024 Patient encounter procedure Eddie MILLARD [facility] Start: 01-23-2024 End: 01-23-2024 ambulatory [facility] Start: 01-08-2024 End: 01-08-2024 Telephone encounter Xenia Lindo CMA [facility] Start: 01-07-2024 End: 01-08-2024 ambulatory KRISTI ESCOBAR [facility] Start: 01-07-2024 End: 01-07-2024 ambulatory KRISTI ESCOBAR [facility] Start: 01-07-2024 End: 01-07-2024 Office outpatient visit 25 minutes Kristi Escobar MD Work Phone: [facility] Comment on above: History of DVT (deep vein thrombosis) (Primary Dx); History of pulmonary embolus (PE); Anemia, unspecified type Start: 07-24-2023 ambulatory Eddie MILLARD Facility:[facility] Start: 01-08-2023 End: 01-09-2023 ambulatory SVETLANA REESE Facility:[facility] Start: 08-28-2022 End: 08-29-[address] KJ GARCIA . Facility:[facility] Start: 04-11-[address] KJ GARCIA . Facili ty:[facility] Start: 04-03-2022 End: 04-03-[address] KJ GARCIA . Facility:[facility] Start: 03-13-2022 End: 03-14-[address] KJ GARCIA . Facility:[facility] Start: 06-27-2021 End: 06-28-2021 ambulatory DEDE COLEMAN Facility:[facility] Procedures Date Procedure Procedure Detail Performing Clinician Start: 01-24-2025 Follow-up visit Follow-up LORRAINE STEPHENS Start: 01-07-2024 Follow-up visit Follow-up KRISTI ESCOBAR Start: 04-07-2023 Adult depression scr eening assessment Kristi Escobar MD Work Phone: Start: 02-17-2014 Colonoscopy Eddie NI LL Arthroscopy of knee Eddie MILLARD Arthroscopy of shoulder Raymond ael NILL section Eddie DOZIER L Decompression of med nya nerve Eddie MILLARD Lithotripsy Eddie MILLARD Ostectomy of calcane us for spur Eddie MILLARD Release of trigger finger Mi yanira MILLARD Repair of right ingu inal hernia Eddie MILLARD Repair of ventral hernia Preston jossy MILLARD Total abdominal hysterectomy with bilateral salpingo-oophorectomy Eddie MILLARD Plan of Treatment Date Care Activity Detail Author Start: 06-01-2031 DTaP,Tdap and Td Vaccines (3 - Td or Tdap) DTaP,Tdap and Td Vaccines (3 - Td or Tdap) [facility] Start: 02-06-2026 End: 02-06-2026 Patient encounter procedure 02/06/2026 8:30 AM EDT Office Visit [facility] [place] [address] Lorraine Stephens, DO [address] [address] [facility] [place] Start: 01-24-2026 Adult BMI Screening [facility] Start: 01-24-2026 Tobacco Screening Tobacco [facility]ening [facility] Start: 05-09-2025 Influenza vaccination Influenza Vacc ine [facility] Start: 01-30-2025 COVID-19 Vaccine (5 - Pfizer risk season) COVID-19 Vaccine (5 - Pfizer risk season) [facility] Start: 01-24-2025 End: 01-24-2026 US Carotid arteries - bilateral Vas carotid duplex bilateral Vascular Ultrasound Routine Bilateral carotid artery stenosis Expected: 01/24/2025, Expires: 01/24/2026 [employer] Work Phone: Comment on above: Expected: 01/24/2025 , Expires: 01/24/2026 Start: 01-24-2025 End: 01-24-2025 Patient encounter procedure 01/24/2025 8:30 AM EDT Office Visit [facility] [address] [place] [address] [place] [address] Lorraine Stephens, DO [address] [facility] [address] [place] [address] [facility] Start: 01-06-2025 Adult BMI Screening Adult BMI Screen ing [facility] Start: 01-06-2025 Tobacco Screening Tobacco Screening [facility] Start: 07-07-2024 Fall Risk Screening Fall Risk Screen ing [facility] Start: 05-09-2024 Influenza vaccination Influenza Vacc ine [facility] Start: 04-07-2024 Depression Screening Depression Scre ening [facility] Start: 05-09-2023 COVID-19 Vaccine ( season) COVID-19 Vaccine ( season) [facility] Start: 1968 Adult BMI Follow Up Plan Adult BMI Follow Up Plan [facility] Start: 1969 Diabetic foot examination Diabetic Foot Exam [facility] Start: 1950 Glaucoma screening Diabetic Op hthalmology Exam [facility] Start: 1950 Medicare Annual Wellness Visit Medicare Annual Wellness Visit [facility] End: 02-07-2024 D-Dimer D-Dimer Lab Routine History of DVT (deep vein thrombosis) History of pulmonary embolus (PE) Anemia, unspecified type 1 Occurrences starting 01/07/2024 until 02/07/2024 [employer] Work Phone: Comment on above: 1 Occurrences starti ng 01/07/2024 until 02/07/2024 Immunizations Immunization Date Immunization Notes Care Provider Fa cili 07-24-2022 Covid-19, Mrna, Lnp- s, Bivalent, Pf, 10 Mcg/0.2 Ml Kristi Escobar MD Work Phone: [facility] 07-24-2022 SARS-CoV-2 (COVID-19 ) [id number] Eddie MILLARD [facility] 06-12-2021 SARS-CoV-2 (COVID-19 ) mRNA BNT-162b2 vax Eddie MILLARD [facility] 06-01-2021 tetanus toxoid, redu екатерина diphtheria toxoid, and acellular pertussis vaccine, adsorbed Kristi Escobar MD Work Phone: [facility] 11-28-2020 SARS-CoV-2 (COVID-19 ) mRNA BNT-162b2 v[address] DOZIERL [facility] 11-06-2020 SARS-CoV-2 (COVID-19 ) mRNA BNT-162b1 vax Eddie NILL [facility] 07-25-2020 influenza, injectabl e, quadrivalent, preservative free Kristi Escobar MD Work Phone: [facility] 07-25-2020 influenza virus vacc ine, unspecified formulation Kristi Escobar MD Work Phone: [facility] 06-14-2020 Seasonal trivalent influenza vaccine, adjuvanted, preservative free Kristi Escobar MD Work Phone: [facility] 07-27-2018 influenza, injectabl e, quadrivalent, preservative free Kristi Escobar MD Work Phone: [facility] 12-04-2017 pneumococcal conjuga te vaccine, 13 valent Kristi Escobar MD Work Phone: [facility] 05-29-2017 influenza, injectabl e, quadrivalent, preservative free Kristi Escobar MD Work Phone: [facility] 10-09-2016 pneumococcal polysaccharide vaccine, 23 valent Kristi Escobar MD Work Phone: [facility] 09-04-2016 pneumococcal polysaccharide vaccine, 23 valent Kristi Escobar MD Work Phone: [facility] 06-06-2016 influenza virus vacc ine, unspecified formulation Kristi Escobar MD Work Phone: [facility] 10-17-2014 tetanus toxoid, redu екатерина diphtheria toxoid, and acellular pertussis vaccine, adsorbed Kristi Escobar MD Work Phone: [facility] Payers Date Payer Category Payer Medicare AETNA MEDICARE A ETNA MEDICARE PLAN (HMO) [id number] 2021-Present [phone] [address] [place] [address] [id number] 2021 Medicare HMO [employer] MEDICARE [id number] 1959 Medicare [id number] 1959 Self-pay [id number] 1950 Unknown [id number] 1950 Unknown [id number] 1951 Unknown [id number] 1951 Unknown [id number] 1951 Unknown [id number] 1951 Unknown [id number] 1951 Unknown [id number] 1951 Unknown [id number] 1951 Unknown [id number] 1950 Unknown [id number] Medicare [id number] Unknown [id number] Social History Date Type Detail Facility Start: 07-06-2024 Tobacco smoking status Never [facility] Start: 10-19-2020 End: 04-07-2023 Sex Assigned At Female [facility] Start: 04-07-2023 Tobacco smoking stat [facility] Ex-smoker [facility] History of tobacco use Current smoker [facility] Start: 04-07-2023 Tobacco use and exposure Smokeless tobacco non-user [facility] Start: 01-07-2024 End: 01-24-2025 Alcoholic beverage intake Current drinker of alcohol (finding) [facility] Start: 10-19-2020 End: 04-07-2023 History of Social function [facility] How often to you hav e a drink containing alcohol? 2-4 times a month [facility] How many standard drinks containing alcohol do you have on a typical day? 1 or 2 [facility] How often do you hav e 6 or more drinks on 1 occasion? Never [facility] Start: 04-21-2019 Alcohol Comment rare beer [facility] Start: 1950 Sex assigned at Not on file P [facility] Start: 04-13-2015 Sex Female (finding) [facility] Functional Status Date Assessment Result Facility 07-06-2024 Functional Status N/A [facility] Clinical Notes 08-28-2022 to 01-24-2025 Lorraine Stephens DO - 01/24/2025 8:30 AM EDTTelephone Encounter - Xenia Lindo CMA - 01/08/2024 9:06 AM EDTTelephone Encounter - Xenia Lindo [employer] - 01/08/2024 9:06 AM EDT Note Date & Type Note Facility 01-24-2025 History of Present illness Narrative Images from the original note were not included. CC: Chief Complaint Patient presents with Follow-up Blood Clot(s) No testing 74 y.o. 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 -04/09/2023: EKOS - PE (Dr. Mcgrath) Pt last seen in office 01/07/24 (Dr. Escobar). No significant SOB, LE edema. Decreased eliquis to 2.5mg BID. RTC 1 year. 01/24/25: Pt states since last seen in office she has overall been same. C/o intermittent chest tightness - follows w/ [facility]. Symptoms intermittent and only last a few seconds and occur during rest. Denies acute vision loss/amaurosis, focal neuro changes and/or stroke-like symptoms. Denies pain/cramping in LE w/ activity, rest pain, and/or tissue loss. Continues on eliquis 2.5mg BID - denies bleeding and/or cost concerns. Patient Active Problem List Diagnosis Acute pulmonary embolism with acute cor pulmonale ([facility]) Controlled type 2 diabetes mellitus, without long-term current use of insulin ([facility]) Arthritis HLD (hyperlipidemia) HTN (hypertension) PONV (postoperative nausea and vomiting) Cancer, uterine ([facility]) Prolonged emergence from general anesthesia Abdominal hernia Presence of right artificial knee joint Carpal tunnel syndrome Chronic pain Diverticular disease of colon Eczema Extrapyramidal movements present Fatigue Hip pain Hypoproteinemia Left shoulder pain Low back pain Nonsustained ventricular tachycardia ([facility]) Obesity Ocular hypertension Orthostatic hypotension Osteoarthritis of knee Osteopenia Pathological dislocation of left shoulder, not elsewhere classified Premenopausal menorrhagia Seasonal allergic rhinitis Supraventricular tachycardia Acute deep vein thrombosis (DVT) of tibial vein of right lower extremity ([facility]) SOB (shortness of breath) History of myocardial infarction Pure hypercholesterolemia BP 129/80 Pulse 63 Wt 83.5 kg (184 lb) BMI 34.77 kg/m Past Medical History: Diagnosis Date Arthritis Cancer ([facility]) uterine 2004 Chronic kidney disease stones Diabetes mellitus type 2, controlled (CMS-HCC) Hyperlipidemia Hypertension PONV (postoperative nausea and vomiting) Prolonged emergence from general anesthesia Past Surgical History: Procedure Laterality Date CARPAL TUNNEL RELEASE SECTION COLONOSCOPY N/A 04/22/2019 Performed by Neville Xavier MD at [facility] EX[facility] SP[facility] HERNIA REPAIR x4 HYSTERECTOMY JOINT REPLACEMENT Right knee LITHOTRIPSY ROTATOR CUFF REPAIR Right SHOULDER SURGERY TRIGGER FINGER RELEASE x2 Vascular Invasive/EKOS N/A 04/09/2023 Performed by Myron Mcgrath MD at [facility] CARDIAC CATH LABS ROS: Review of Systems Respiratory: Negative for shortness of breath. Cardiovascular: Negative for leg swelling. Gastrointestinal: Negative for abdominal pain and blood in stool. Hernia repair 10/2024 Genitourinary: Negative for hematuria and vaginal bleeding. Skin: Negative for wound. [x] Up to date w/ colon cancer screening [x] Up to date w/ mammogram [] Not up to date w/ [employer] cancer screening former smoker - quit 1975 History of: no h/o CVA + h/o: DVT, PE + h/o: MN, CAD, HTN no h/o: PAD, PVD, claudication no h/o: dilated LE veins/varicose veins + h/o: DM + h/o: cancer (uterine cancer - hysterectomy 1994) no family history of aneurysms Physical Exam: Physical Exam Vitals and nursing note reviewed. Constitutional: Appearance: Normal appearance. HENT: Head: Normocephalic and atraumatic. Pulmonary: Effort: Pulmonary effort is normal. Musculoskeletal: General: Normal range of motion. Comments: Moving all ext equally Skin: General: Skin is warm and dry. Neurological: General: No focal deficit present. Mental Status: She is alert and oriented to person, place, and time. Psychiatric: Attention and Perception: Attention normal. Mood and Affect: Mood normal. Speech: Speech normal. Behavior: Behavior is cooperative. Testing Reviewed: CBC with Differential: Lab Results Component Value Date WBC 6.8 01/07/2024 HGB 12.9 01/07/2024 HCT 38.2 01/07/2024 PLT 248 01/07/2024 MCV 94 01/07/2024 MCH 31.5 01/07/2024 MCHC 33.7 01/07/2024 RDW 13.1 01/07/2024 BMP: Lab Results Component Value Date SODIUM 142 04/10/2023 K 4.0 04/10/2023 CL 111 (H) 04/10/2023 CO2 20 (L) 04/10/2023 BUN 10 04/10/2023 CREATININE 0.80 04/10/2023 EGFR 79 04/10/2023 GLU 84 04/10/2023 BNP: Lab Results Component Value Date BNP 426 (H) 04/07/2023 Troponin: Lab Results Component Value Date TROPONINI 0.05 (H) 04/07/2023 HgBA1c: No results found for: HGBA1C Lipid Panel: No results found for: CHOL , TRIG , HDL , CHOLHDLR Assessment: Encounter Diagnoses Name Primary? Bilateral carotid artery stenosis Yes History of pulmonary embolus (PE) History of DVT (deep vein thrombosis) Martina was seen today for follow-up and blood clot(s). Diagnoses and all orders for this visit: Bilateral carotid artery stenosis - Vas carotid duplex bilateral; Future History of pulmonary embolus (PE) History of DVT (deep vein thrombosis) Plan of care: Please note that total time spent was 20 minutes. Preparing to see the patient (e.g., review of tests) Obtaining and/or reviewing separately obtained history Performing a medically appropriate examination and evaluation Counseling and educating the patient/family/caregiver Ordering medications, tests, or procedures Documenting visit details Martina was seen today for follow-up and blood clot(s). Diagnoses and all orders for this visit: Bilateral carotid artery stenosis - Vas carotid duplex bilateral; Future History of pulmonary embolus (PE) History of DVT (deep vein thrombosis) Martina Holland is a 74 y.o. White or female with h/o HTN, SVT, uterine cancer (1994), coronary artery disease ([place]), HLD, DM-2 and previous unprovoked VTE (DVT/PE 04/2023). -04/09/2023: EKOS - PE (Dr. Mcgrath) VTE: 04/2023: R posterior tibial DVT/PE 04/2023 Unprovoked Anticoag: eliquis 2.5mg BID Duration of AC: indefinite Asymptomatic carotid artery disease: pt high risk for carotid artery disease given age, HLD, and smoking history. Carotid duplex ordered. Chest tightness/pressure: encouraged to discuss w/ cardiology Medical mgmt: Anti-platelet: ASA Statin: crestor Anticoag: eliquis (DVT/PE) Return to clinic in 1 year after carotid duplex completed to review results and discuss further plan of care. SIGNATURE: Lorraine Stephens DO CC: MD Radha BUNDY Douglas M, MD documented in this encounter [facility] 01-11-2025 Note Subjective Patient ID: Martina Holland is a 74 y.o. female who presents for Post-op (Patient here for 2 month post op, s/p open incisional hernia repair 10/29/2024.). HPI 74 years old white female is status post open incisional hernia repair on October 2024. She is tolerating the regular diet, normal bowel movement, without abdominal pain. Review of Systems Constitutional: Negative. HENT: Negative. Eyes: Negative. Respiratory: Negative. Cardiovascular: Negative. Gastrointestinal: Negative. Endocrine: Negative. Genitourinary: Negative. Musculoskeletal: Positive for arthralgias and myalgias. Skin: Negative. Allergic/Immunologic: Negative. Neurological: Negative. Hematological: Bruises/bleeds easily. Objective Visit Vitals BP 144/63 (BP Location: Left arm, Patient Position: Sitting) Pulse 66 Temp 36.3 ???C (97.4 ???F) Resp 16 Physical Exam Constitutional: Appearance: She is obese. HENT: Head: Atraumatic. Cardiovascular: Rate and Rhythm: Normal rate. Pulmonary: Effort: Pulmonary effort is normal. Abdominal: General: Abdomen is flat. Palpations: Abdomen is soft. Comments: Incision is dry, clean, intact. Without sign of hernia recurrence. Musculoskeletal: Cervical back: Neck supple. Neurological: Mental Status: She is alert. Assessment/Plan Incisional hernia Postoperative visit Avoid lifting more than 20 pounds. No diagnosis found. No orders of the defined types were placed in this encounter. No results found for this or any previous visit (from the past 36 hour(s)). No follow-ups on file. [facility] 11-10-2024 Note Subjective Patient ID: Martina Holland is a 74 y.o. female who presents for Post-op (Martina is here today for post op: s/p open incisional hernia repair 10/29/2024). HPI 74 years old morbid obesity white female is status post open incisional hernia repair on October 29, 2024. She is tolerating to regular diet, normal bowel meant, without abdominal pain. Review of Systems Constitutional: Negative. HENT: Negative. Respiratory: Negative. Cardiovascular: Negative. Gastrointestinal: Negative. Genitourinary: Negative. Musculoskeletal: Negative. Neurological: Negative. Hematological: Negative. Objective Visit Vitals BP 134/66 (BP Location: Left arm, Patient Position: Sitting) Pulse 73 Temp 36.8 ???C (98.2 ???F) (Oral) Physical Exam HENT: Head: Atraumatic. Cardiovascular: Rate and Rhythm: Normal rate. Pulmonary: Effort: Pulmonary effort is normal. Abdominal: General: Abdomen is flat. Palpations: Abdomen is soft. Comments: Incision is dry, clean, intact. Musculoskeletal: Cervical back: Neck supple. Neurological: Mental Status: She is alert. Assessment/Plan Postoperative visit Apply abdominal binder for 2 months Avoid lifting more than 20 pounds for 2 months No diagnosis found. No orders of the defined types were placed in this encounter. No results found for this or any previous visit (from the past 36 hour(s)). No follow-ups on file. [facility] 10-29-2024 Note Patient: Martina morgan Procedure Summary Date: 10/29/24 Room / Location: [facility] OPERATING ROOM 01 / [facility] Operating Room Anesthesia Start: 1501 Anesthesia Stop: 1647 Procedure: OPEN INCISIONAL HERNIA REPAIR Diagnosis: Incisional hernia, without obstruction or gangrene (Incisional hernia, without obstruction or gangrene [K43.2]) Surgeons: Hair Leigh MD Responsible Provider: Lázaro Phelps MD Anesthesia Type: general ASA Status: 3 Anesthesia Type: general Vitals Value Taken Time BP 144/70 10/29/24 1715 Temp 36.8 ???C (98.2 ???F) 10/29/24 164 Pulse 67 10/29/24 1715 Resp 19 10/29/24 171 SpO2 96 % 10/29/241714 Anesthesia Post Evaluation Patient location during evaluation: PACU Patient participation: complete - patient participated Level of consciousness: awake and alert Pain score: 0 Pain management: satisfactory to patient Multimodal analgesia pain management approach Airway patency: patent Two or more strategies used to mitigate risk of obstructive sleep apnea Cardiovascular status: hemodynamically stable, acceptable and stable Respiratory status: acceptable, room air, spontaneous ventilation and nonlabored ventilation Hydration status: acceptable Patient is hemodynamically stable and is able to be discharged from PACU per anesthesia protocol. No notable events documented. [facility] 10-29-2024 Note Peripheral IV Date/Time: 10/29/2024 3:08 PM Placement Needle size: 18 G Laterality: left Location: external jugular Local anesthetic: none Site prep: alcohol Technique: anatomical landmarks Attempts: 1 [facility] 10-29-2024 Note Airway Date/Time: 10/29/2024 3:20 PM Urgency: elective Airway not difficult General Information and Staff Patient location during procedure: OR Anesthesiologist: Lázaro Phelps MD Resident/HOUSEHOLD REFRIGERATION MECHANIC/CAA: Tanner Mclaughlin MD Performed: resident/HOUSEHOLD REFRIGERATION MECHANIC/CAA Indications and Patient Condition Indications for airway management: anesthesia Spontaneous Ventilation: absent Sedation level: deep Preoxygenated: yes Patient position: sniffing Mask difficulty assessment: 1 - vent by mask Planned trial extubation Final Airway Details Final airway type: endotracheal airway Successful airway: ETT Cuffed: yes Successful intubation technique: video laryngoscopy Facilitating devices/methods: intubating stylet Endotracheal tube insertion site: oral Blade: Cohen Blade size: #3 ETT size (mm): 7.5 Cormack-Lehane Classification: grade I - full view of glottis Placement verified by: chest auscultation and capnometry Cuff volume (mL): 8 Measured from: lips ETT to lips (cm): 22 Number of attempts at approach: 1 Number of other approaches attempted: 0 [facility] 10-29-2024 Note Orders from past 72 hours: Full Code; Standing ceFAZolin in dextrose (iso-os) (Ancef) IVPB 2 g Full Code [facility] 10-28-2024 Note Patient: Martina morgan Procedure Information Date/Time: 10/29/24 1300 Procedure: OPEN INCISIONAL HERNIA REPAIR Location: [facility] OPERATING [facility] 01 / [facility] Operating Room Surgeons: Hair Leigh MD Relevant Problems Anesthesia (+) History of anesthesia complications (+) PONV (postoperative nausea and vomiting) (+) Prolonged emergence from general anesthesia Cardio (+) Essential hypertension (+) Supraventricular tachycardia Endo (+) Type 2 diabetes mellitus without complication (CMS/HCC) Nervous (+) Chronic pain Circulatory (+) Nonsustained ventricular tachycardia (CMS/HCC) Other (+) Arthritis (+) Extrapyramidal movements present (+) History of myocardial infarction Eliquis: Last taken ? TTE 04/08/2023: Left Ventricle: Systolic function is hyperdynamic with an ejection fraction over 70%. No segmental wall motion abnormalities. Right Ventricle: Right ventricular size appears normal. Systolic function is moderately reduced. Aortic Valve: There is trace regurgitation. There is no evidence of aortic valve stenosis. Mitral Valve: There is mild regurgitation. Tricuspid Valve: There is mild regurgitation.There is mild pulmonary hypertension. RVSP 48 mmHg. Pericardium: There is a trivial pericardial effusion. There is no echocardiographic evidence of tamponade. Past Medical History: Diagnosis Date Arthritis Cancer (CMS/HCC) uterus Deep vein thrombosis (CMS/HCC) GERD (gastroesophageal reflux disease) Hernia, incisional Hyperlipidemia Hypertension Joint pain rt hand NSVT (nonsustained ventricular tachycardia) (CMS/HCC) Pulmonary embolism (CMS/HCC) Sleep apnea SVT (supraventricular tachycardia) Past Surgical History: Procedure Laterality Date CARDIAC CATHETERIZATION 06/27/2021 SECTION, CLASSIC HERNIA REPAIR HYSTERECTOMY 2004, total KNEE ARTHROPLASTY rt knee REPLACEMENT TOTAL KNEE ONCOLOGIC Social History Tobacco Use Smoking status: Former Types: Cigarettes Smokeless tobacco: Never Labs Lab Results Component Value Date WBC 5.87 09/30/2024 HGB 13.2 09/30/2024 HCT 40.2 09/30/2024 PLT 191 09/30/2024 Lab Results Component Value Date NA 142 09/30/2024 K 3.8 09/30/2024 CO2 32 (H) 09/30/2024 CL 103 09/30/2024 BUN 14 09/30/2024 CREATININE 1.04 09/30/2024 GLUCOSE 100 09/30/2024 CALCIUM 9.6 09/30/2024 Lab Results Component Value Date PT 13.4 09/30/2024 INR 1.02 09/30/2024 No echocardiogram results found for the past 12 months Clinical information reviewed: Allergies Meds Physical Exam Airway Mallampati: III TM distance: >3 FB Neck ROM: full Cardiovascular Rhythm: regular Rate: normal Dental Pulmonary (+) decreased breath sounds Abdominal Anesthesia Plan ASA 3 general (Patient chart (PMH/PSH/Social/Meds/Allergies/etc ) was reviewed prior to patient interview. Difficult IV stick, discussed plan for central line. NSVT on chart, just seen on holter. Cardiology note reviewed. Patient did take toprol as expected. Specifically discussed the risks of oral/airway instrumentation (if needed) including (but not limited to) lip, gum, and teeth trauma. This has the potential to cause significant dental damage including tooth loss. Patient expressed understanding and wished to proceed. Patient was interviewed and evaluated prior to the start of the anesthetic. Note was inputted later. ) intravenous induction Postoperative administration of opioids is intended. Anesthetic plan and risks discussed with patient. Use of blood products discussed with patient who consented to blood products. Plan discussed with attending. Additional Equipment Requests [facility] 09-30-2024 Note Patient notified via mychart. Rachael Gomes MA [facility] 09-20-2024 Note ID Cardiology - [facility] Subjective Martina Holland is a 74 y.o. year old female patient being seen for preop clearance Patient Active Problem List Diagnosis Acute pain of right knee Artificial knee joint present Chronic pain Essential hypertension History of cancer of uterine body History of hysterectomy Hypoproteinemia (CMS/HCC) Malignant neoplasm of uterus (CMS/HCC) Near syncope Nonsustained ventricular tachycardia (CMS/HCC) Obesity Orthopedic aftercare Osteoarthritis of knee Skin rash Supraventricular tachycardia (CMS/HCC) Type 2 diabetes mellitus without complication (CMS/HCC) [...] rhinitis SOB (shortness of breath) Umbilical hernia HPI Patient has history of hypertension, hyperlipidemia, nonsustained ventricular tachycardia and nonsustained SVT, PE March 2023, and obesity The patient is physically very active, she cleans her house every day and she mops it every other day without any symptoms of chest pain or shortness of breath. She denies orthopnea or paroxysmal nocturnal dyspnea or dizziness or palpitations. She denies legs edema or legs comfort on exertion. ROS All systems were reviewed and they were negative except for the positive findings noted above in the history Past Medical History: Diagnosis Date Hyperlipidemia Hypertension NSVT (nonsustained ventricular tachycardia) (CMS/HCC) Past Surgical History: Procedure Laterality Date CARDIAC CATHETERIZATION 06/27/2021 SECTION, CLASSIC HERNIA REPAIR HYSTERECTOMY REPLACEMENT TOTAL KNEE ONCOLOGIC Family History Problem Relation Name Age of Onset Valvular heart disease Mother Social History Tobacco Use Smoking status: Former Types: Cigarettes Smokeless tobacco: Never Allergies Allergies Allergen Reactions Meperidine Shortness of breath and Other Medications Current Outpatient Medications: aspirin 81 mg chewable tablet, Chew 1 tablet every day by oral route., Disp: , Rfl: cholecalciferol, vitamin D3, 50 mcg (2,000 unit) capsule, Take 2,000 Units by mouth in the morning., Disp: , Rfl: Eliquis 5 mg tablet, Take 2.5 mg by mouth in the morning and at bedtime., Disp: , Rfl: ferrous sulfate 325 (65 Fe) MG tablet, 2 times daily., Disp: , Rfl: hydroCHLOROthiazide (HYDRODiuril) 12.5 mg tablet, Take 1 tablet every day by oral route., Disp: , Rfl: metoprolol succinate XL (Toprol-XL) 25 mg 24 hr tablet, 1 (one) time each day at the same time., Disp: , Rfl: pantoprazole (ProtoNix) 40 mg EC tablet, 1 (one) time each day at the same time., Disp: , Rfl: rosuvastatin (Crestor) 5 mg tablet, Take 5 mg by mouth in the morning., Disp: , Rfl: Objective Visit Vitals Smoking Status Former Physical exam: GENERAL: alert and oriented x3, well developed, in no acute distress. HEAD: atraumatic, normocephalic. EYES: GIANA, EOMI. NECK: trachea midline, no JVD present, no carotid bruits present. CARDIAC: S1, S2 present. RRR. No murmur, rubs, or gallops. RESPIRATORY: CTAB, no increased effort of breathing, no rales, rhonchi, or wheezing. ABDOMEN: soft, nontender, nondistended. EXTREMITIES: no lower extremity edema. No rash/skin discoloration present. NEURO: strength/sensation equal and symmetric in bilateral upper and lower extremities. PSYCH: appropriate mood, affect, and judgement. Labs: 05/29/2024 White blood count 5.7, hemoglobin 11.9, hematocrit 37.1, platelets 164 Sodium 141, potassium 3.9, BUN 16, creatinine 1.02, GFR above 60, glucose 99, calcium 9.1 HbA1c 6.1% Total bilirubin 0.5, AST 14, ALT 17, alk phos 49, total protein 5.8, albumin 3.4 Triglyceride 99, cholesterol 119, HDL 54, LDL 45 TSH 2.7, free T4 7, free T32.5 CV Testing: EKG today 09/20/2024 showed Normal sinus rhythm, heart rate 63 bpm, left axis deviation, possible old anterolateral septal infarct, no change from prior EKG EKG 01/23/2024 normal sinus rhythm, Lt axis deviation, abnormal ECG- essentially unchanged from previous EKG Echo 04/08/2023 Left Ventricle: Systolic function is hyperdynamic with an ejection fraction over 70%. No segmental wall motionabnormalities. Right Ventricle: Right ventricular size appears (more content not included)... [facility] 08-24-2024 Note Subjective Patient ID: Martina Holland is a 74 y.o. female who presents for Consult (Martina is here today for consult: Incisional Hernia ). HPI 74 years old white female with morbid obesity, remote with a history of ventral hernia repair. She is visiting for supraumbilical midline abdominal wall bulging. She denies of nausea, vomiting, abdominal pain. Review of Systems Constitutional: Negative. Respiratory: Negative. Cardiovascular: Negative. Gastrointestinal: Negative. Genitourinary: Negative. Musculoskeletal: Negative. Neurological: Negative. Hematological: Negative. Objective Visit Vitals BP 129/84 (BP Location: Right arm, Patient Position: Sitting) Pulse 77 Temp 37.3 ???C (99.1 ???F) (Oral) Physical Exam Constitutional: Appearance: She is obese. HENT: Head: Atraumatic. Cardiovascular: Rate and Rhythm: Normal rate. Pulmonary: Effort: Pulmonary effort is normal. Abdominal: General: Abdomen is flat. Palpations: Abdomen is soft. Comments: Supraumbilical midline abdominal wall bulging. Musculoskeletal: Cervical back: Neck supple. Neurological: Mental Status: She is alert. CT scan from [facility] showed supraumbilical abdominal wall bulging, fascial defect is 3.8 cm in diameter, with: Herniated. Assessment/Plan Midline incisional hernia Open incisional hernia repair is indicated. No diagnosis found. No orders of the defined types were placed in this encounter. No results found for this or any previous visit (from the past 36 hour(s)). No follow-ups on file. [facility] 07-06-2024 Note General Surgery Offi ce/Clinic Note [...] h/o htn, DMII, hyperlipidemia, DVT/PE on Eliquis, [place], SVT, osteoporosis, uterine cancer; referred for colorectal [...] E&M of New Patient Moderate 45-59 Min 56627 2. Recurrent ventral incisional hernia (K43.2: Incisional hernia without obstruction or gangrene) obtain abd/pelvic ct scan with contrast for further evaluation, will call patient with results; signs/symptoms of incarceration/strangulation of hernia explained in detail, and patient understands that he should seek prompt medical evaluation if they were to occur. Ordered: E&M of New Patient Moderate 45-59 Min 13638 Follow-up No qualifying data available Problem List/Past [...] (02/17/2014), Arthroscopy of (more content not included)... [facility] Comment on above: Result Comment: Elec tronically Signed By: VENICE MERCHANT, Eddie Castro\.anselmo\Date and Time Signed: 07/06/24 14:31 EDT 01-23-2024 Note [facility] CARDIOLOGY PROGR ESS NOTE [...] March 2023 and has been following with [facility] for this. Eliquis has [...] contact cardiology with any questions or concerns. Isaiah Israel MD [facility] 01-08-2024 Miscellaneous Notes Called patient to inform of normal test result. Dr. Escobar would like her to repeat d-dimer in 4-6 weeks [facility] Telephone encounter Note Called patient to inform of normal test result. Dr. Escobar would like her to repeat d-dimer in 4-6 weeks [facility] 01-07-2024 History of Present illness Narrative Images from the original note were not included. [facility] [address] [place] [address] Subjective: Patient ID: Martina Holland is a 73 y.o. female. Chief Complaint Chief Complaint Patient presents with Follow-up 6 month follow up History of Present Illness: The patient is a 73-year-old female who presents for for a history of submassive PE with right tibial vein DVT in April of 2023. She remains fully anticoagulated with Eliquis 5 mg b.i.d.. She does not notice any excessive bruising or bleeding. Labs were ordered when I saw her in June of last year but have not been resulted in epic: She does not have any residual shortness of breath or exertional issues. She is able to do her house chores at home but feels quite fatigued after this. It appears that she is still anemic and her blood testing that was performed at her local hospital continues to show that she has a hemoglobin of around 10. Echo was repeated at [facility] on 05/22/23: No significant swelling of lower extremities is reported. She is not requiring compression stockings. Patient Active Problem List Diagnosis Acute pulmonary embolism with acute cor pulmonale (CMS-HCC) Controlled type 2 diabetes mellitus, without long-term current use of insulin (CMS-HCC) Arthritis HLD (hyperlipidemia) HTN (hypertension) PONV (postoperative nausea and vomiting) Cancer, uterine (CMS-HCC) Prolonged emergence from general anesthesia Abdominal hernia Presence of right artificial knee joint Carpal tunnel syndrome Chronic pain Diverticular disease of colon Eczema Extrapyramidal movements present Fatigue Hip pain Hypoproteinemia (CMS-HCC) Left shoulder pain Low back pain Nonsustained ventricular tachycardia (CMS-HCC) Obesity Ocular hypertension Orthostatic hypotension Osteoarthritis of knee Osteopenia Pathological dislocation of left shoulder, not elsewhere classified Premenopausal menorrhagia Seasonal allergic rhinitis Supraventricular tachycardia (CMS-HCC) Acute deep vein thrombosis (DVT) of tibial vein of right lower extremity (CMS-HCC) SOB (shortness of breath) Current Outpatient Medications: apixaban (ELIQUIS) 5 mg tablet, Take 1 tablet (5 mg total) by mouth in the morning and 1 tablet (5 mg total) before bedtime., Disp: 60 tablet, Rfl: 3 aspirin 81 mg, Take 1 tablet (81 mg total) by mouth in the morning., Disp: , Rfl: cholecalciferol, vitamin D3, 2,000 units capsule, Take 1 capsule (2,000 Units total) by mouth in the morning., Disp: , Rfl: diclofenac (VOLTAREN) 75 mg EC tablet, Take 1 tablet (75 mg total) by mouth in the morning and 1 tablet (75 mg total) before bedtime. Every other day., Disp: , Rfl: ferrous sulfate 325 (65 FE) mg tablet, Take 1 tablet (325 mg total) by mouth in the morning and 1 tablet (325 mg total) in the evening. Take with meals., Disp: , Rfl: hydroCHLOROthiazide (HYDRODIURIL) 12.5 mg tablet, Take 1 tablet (12.5 mg total) by mouth daily., Disp: , Rfl: metoprolol succinate XL (TOPROL XL) 25 mg 24 hr tablet, Take 1 tablet (25 mg total) by mouth in the morning., Disp: , Rfl: pantoprazole (PROTONIX) 20 mg EC tablet, Take 1 tablet (20 mg total) by mouth in the morning., Disp: , Rfl: rosuvastatin (CRESTOR) 5 mg tablet, Take 1 tablet (5 mg total) by mouth in the morning., Disp: , Rfl: apixaban (ELIQUIS DVT-PE TREAT 30D START) 5 mg (74 tabs) tablets,dose pack tablet, Take 2 tablets by mouth twice daily for 7 days, then take 1 tablet twice daily (Patient not taking: Reported on 07/07/2023), Disp: 74 tablet, Rfl: 0 cetirizine (ZyrTEC) 10 mg tablet, Take 1 tablet (10 mg total) by mouth in the morning and 1 tablet (10 mg total) before bedtime. (Patient not taking: Reported on 07/07/2023), Disp: , Rfl: metFORMIN (GLUCOPHAGE) 500 mg tablet, Take 1 tablet (500 mg total) by mouth in the morning and 1 tablet (500 mg total) before bedtime. Hold Metformin until evening dose on 04/11/23. (Patient not taking: Reported on 01/07/2024), Disp: 60 tablet, Rfl: 1 olmesartan (BENICAR) 20 mg tablet, Take 1 tablet (20 mg total) by mouth in the morning. (Patient not taking: Reported on 01/07/2024), Disp: , Rfl: simvastatin (ZOCOR) 20 mg tablet, Take 1 tablet every day by oral route., Disp: , Rfl: The following portions of the patient's history were reviewed and updated as appropriate: allergies, current medications, past family history, past medical history, past social history, past surgical history and problem list. Review of Systems: Review of Systems Constitutional: Negative for chills, fatigue and fever. Eyes: Negative for visual disturbance. Respiratory: Negative for chest tightness and shortness of breath. Cardiovascular: Negative for chest pain and leg swelling. Musculoskeletal: Positive for arthralgias (L knee). Skin: Negative for color change, pallor, rash and wound. Neurological: Negative for weakness and numbness. Objective: Vitals BP 126/80 (BP Site: Right Arm, BP Postition: Sitting, BP CUFF SIZE: M (9-13 inches)) Ht 154.9 cm (5' 1 ) Wt 82.6 kg (182 lb) BMI 34.39 kg/m Physical Exam Physical Exam Vitals reviewed. Constitutional: General: She is not in acute distress. Appearance: She is well-developed. Neck: Vascular: No JVD. Cardiovascular: Rate and Rhythm: Normal rate and regular rhythm. Pulses: Normal pulses. Dorsalis pedis pulses are 2+ on the right side and 2+ on the left side. Posterior tibial pulses are 2+ on the right side and 2+ on the left side. Heart sounds: Normal heart sounds. No murmur heard. Pulmonary: Effort: Pulmonary effort is normal. Breath sounds: Normal breath sounds. Abdominal: Palpations: Abdomen is soft. Tenderness: There is no abdominal tenderness. Musculoskeletal: Right lower leg: No edema. Left lower leg: No edema. Skin: General: Skin is warm and dry. Capillary Refill: Capillary refill takes less than 2 seconds. Neurological: Mental Status: She is alert. Studies Reviewed Echo complete W/O contrast Result Date: 04/08/2023 Left Ventricle: Systolic function is hyperdynamic with an ejection fraction over 70%. No segmental wall motion abnormalities. Right Ventricle: Right ventricular size appears normal. Systolic function is moderately reduced. Aortic Valve: There is trace regurgitation. There is no evidence of aortic valve stenosis. Mitral Valve: There is mild regurgitation. Tricuspid Valve: There is mild regurgitation.There is mild pulmonary hypertension. RVSP 48 mmHg. Pericardium: There is a trivial pericardial effusion. There is no echocardiographic evidence of tamponade. Lab Results Component Value Date DDIMER 676 (H) 04/07/2023 Lab Results Component Value Date GLU 84 04/10/2023 CALCIUM 8.7 04/10/2023 SODIUM 142 04/10/2023 K 4.0 04/10/2023 CO2 20 (L) 04/10/2023 BUN 10 04/10/2023 CREATININE 0.80 04/10/2023 Lab Results Component Value Date WBC 8.0 04/10/2023 HGB 10.1 (L) 04/10/2023 HCT 30.2 (L) 04/10/2023 MCV 96 04/10/2023 PLT 186 04/10/2023 Assesment: Martina was seen today for follow-up. Diagnoses and all orders for this visit: History of DVT (deep vein thrombosis) History of pulmonary embolus (PE) Anemia, unspecified type Plan Plan: She is overdue for labs including CBC and iron studies. I will have her go downstairs today to have this drawn along with a D-dimer. Will change her dose of Eliquis 2.5 mg b.i.d. starting right away and I will go over the results of her testing including the new baseline D-dimer on the phone with her in the coming weeks. I will likely then order a follow-up D-dimer in 6-8 weeks to be repeated after she has changed to the intermediate dose. Follow-up on an annual basis otherwise can be more local in the [place] area for plan for indefinite anticoagulation therapy for her history of unprovoked VTE. This note was created with the assistance of a speech recognition program. While intending to generate a timely document that accurately reflects the content of the visit, no guarantee can be provided that every grammatical or spelling mistake has been or will be identified or corrected. Thank you for your understanding. Kristi Escobar III, MD documented in this encounter [facility] 01-07-2024 Miscellaneous Notes Addended by: KRISTI ESCOBAR on: 01/07/2024 01:29 PM Modules accepted: Orders documented in this encounter [facility] 01-07-2024 Note Addended by: Philip ESCOBAR on: 01/07/2024 01:29 PM Modules accepted: Orders [facility] 08-28-2022 Note PROCEDURE: XR KNEE R T [...] account for patient's symptoms. Electronically authenticated by: ALEXX BELTRE Date: 2022-08-28 17:38 [facility] Evaluation + Plan note No data available for this section [facility] Evaluation note Diagnosis History of DVT (deep vein thrombosis)- Primary History of pulmonary embolus (PE) Anemia, unspecified type [facility] Bilateral carotid artery stenosis- Primary Occlusion and stenosis of carotid artery without mention of cerebral infarction History of pulmonary embolus (PE) History of DVT (deep vein thrombosis) [facility] No data available for this section [facility] InstructionsNot on filedocumented in this encounter [facility] filed[facility] No data available for this section [facility] Summary Purpose Family History No Family History Records FoundNo Family History Records FoundNo Family History Records Found No data available for this section No Family History Records FoundNo Family History Records FoundNo Family History Records Found Advance Directives No Advanced Directives Records FoundNo Advanced Directives Records FoundNo Advanced Directives Records FoundNo Advanced Directives Records FoundNo Advanced Directives Records FoundNo Advanced Directives Records Found Additional Source Comments INFORMATION SOURCE (unrecogn ized section and content) DATE CREATED AUTHOR 07/03/2021 [facility] DATE CREATED AUTHOR AUTHOR'S ORGANIZ ATION 01/15/[address] [facility] DATE CREATED AUTHOR AUTHOR'S ORGANIZ ATION 01/08/2024 [facility] DATE CREATED AUTHOR AUTHOR'S ORGANIZ ATION 07/10/2024 [facility] DATE CREATED AUTHOR AUTHOR'S ORGANIZ ATION 01/14/2025 [facility] DATE CREATED AUTHOR AUTHOR'S ORGANIZ ATION 01/24/2025 [facility] Patient Care team informatio n (unrecognized section and content) Hot Saw Helper Relationship Specialty Start Date End Date Kj Garcia MD [facility] [place] [address] PCP - General 11/03/22 Hot Saw Helper Relationship Specialty Start Date End Date Kj Garcia MD [address] [place] [address] PCP - [facility] 11/03/22 Hot Saw Helper Relationship Specialty Start Date End Date Kj Garcia MD PCP - General 11/03/22 Reason for Visit (unrecogniz ed section and content) Reason Comments Follow-up 6 month follow up Reason Comments Follow-up Blood Clot(s) No testing FOR RECORDS PERTAINING TO PATIENTS WHO ARE [...] BE BASED ON THE PRIMARY CLINICAL RECORDS. [facility]. provides no warranty or guarantee of the accuracy or completeness of information in this document.
== END 2025-03-04 10:08 | disposition home or self-care (01) ==
LOC: US 10:07
PROVIDERS: PCP Family Medicine
DX: I65.23 Occlusion and stenosis of bilateral carotid arteries (principal); Z12.31 Encounter for screening mammogram for malignant neoplasm of breast; Z80.0 Family history of malignant neoplasm of digestive organs
CPT/HCPCS: 93880

== ENCOUNTER 2025-03-04 10:09 | Outpatient (OUT) | payer MEDICARE, SELFPAY ==
--- NOTE | 2025-03-04 10:50 | MM_ITS ---
Patient Name: CLINT HOLLAND MR#: [id number] : 1950 Exam Date: 03/04/2025 Ordering Doctor: DR KJ RILEY . RADIOLOGY REPORT PROCEDURE: MM TOMOSYNTHESIS SCREENING BI COMPARISON: MM TOMOSYNTHESIS SCREENING BI, 01/23/2024. MG MAMM SCREEN 3D DANICA CAD, 03/13/2022. MG MAMM SCREEN DANICA W CAD, 11/08/2020. MG MAMM DANICA SCRN W CAD DIG, 06/04/2013. INDICATIONS: Screening Calculator Name NCI Breast Cancer Risk Assessment Tool 5 Year Breast Cancer Risk 1.60% Lifetime Breast Cancer Risk 3.90% Personal Breast Cancer No Personal Ovarian Cancer No Treatments HYSTERECTOMY Family Cancers Grandmother-maternal with colon cancer at age 40. LOCATION: [facility] BREAST COMPOSITION: The breasts are almost entirely fatty. FINDINGS: DIAGNOSTIC CATEGORY 1--NEGATIVE. RIGHT BREAST: No significant suspicious finding. LEFT BREAST: No significant suspicious finding. RECOMMENDATIONS: ROUTINE MAMMOGRAM AND CLINICAL EVALUATION IN 12 MONTHS. PLEASE NOTE: A NORMAL MAMMOGRAM DOES NOT EXCLUDE THE POSSIBILITY OF BREAST CANCER. A CLINICALLY SUSPICIOUS PALPABLE LUMP SHOULD BE BIOPSIED. Dictated by: John Dias DO on 03/04/2025 at 14:14 Approved by: John Dias DO on 03/04/2025 at 14:17
== END 2025-03-04 10:10 | disposition home or self-care (01) ==
LOC: MAMMO 10:09
PROVIDERS: PCP Family Medicine; Visit Provider Family Medicine
DX: Z12.31 Encounter for screening mammogram for malignant neoplasm of breast (principal); Z80.0 Family history of malignant neoplasm of digestive organs; I65.23 Occlusion and stenosis of bilateral carotid arteries
CPT/HCPCS: 77063; 77067; 93880

== ENCOUNTER 2025-05-14 08:33 | Outpatient (OUT) | payer MEDICARE, SELFPAY ==
--- OUTSIDE RECORDS SUMMARY | 2025-05-14 08:37 | XMS_ITS | CCD ---
Author Organization [facility] CliniSyla Care Team Providers Care Inspector Paper Products Name Role Phone DEDE COLEMAN Attending Unavailable [...] REESE Attending Unavailable SVETLANA REESE Admitting Unavailable ROSEMARY ., DR UNDERWOOD Primary Care Unavailable SVETLANA REESE Consulting Unavailable KRISTI ESCOBAR Attending Unavailable KJ GARCIA Referring Unavailable KJ GARCIA Primary Care Unavailable KRISTI ESCOBAR Referring Unavailable KJ GARCIA Primary Care Unavailable Kj Garcia Primary Care Physician [phone] Eddie MILLARD Attending Unavailable Kj Garcia Referring Unavailable Kj Garcia MD Primary Care Provider [phone] Kj Garcia MD Primary Care Provider HAIR LEIGH Attending Unavailable HAIR LEIGH Referring Unavailable ARGENIS ONEIL Attending Unavailable SOHEILA DENISE Attending Unavailable HAIR LEIGH Attending Unavailable HAIR LEIGH Attending Unavailable HAIR LEIGH Admitting Unavailable HAIR LEIGH Attending Unavailable LORRAINE STEPHENS Attending Unavailable KJ GARCIA Referring Unavailable KJ GARCIA Primary Care Unavailable KJ GARCIA Referring Unavailable KJ GARCIA Primary Care Unavailable Allergies Allergy Classification Reported Allergen(s) Allergy Type Date of Onset Reaction(s) Facility (3 sources) Meperidine; Translations: [Demerol] Drug Allergy 7 [facility] Repository (7 sources) Meperidine; Translations: [MEPERIDINE] Drug Allergy 8 Dyspnea (finding), Shortness Of Breath [facility] Repository (3 sources) Ciprofloxacin; Translations: [ciprofloxacin] Drug Allergy 5 Eruption of skin (disorder) [facility] (1 source) No Known Medication Allergies; Translations: [No Known Medication Allergies] Propensity to adverse reactions (disorder) [facility] Repository Medications Current Medications Medication Drug [...] [Incisional hernia without obstruction or gangrene] Onset: 3 Episodic Cancer of uterus (3 sources) Malignant neoplasm [...] 1 06-07-2024 Chronic Disorders of lipid metabolism (12 sources) Hyperlipidemia, unspecified; Translations: [Pure hypercholesterolemia, unspecified] [...] Translations: [Pulmonary embolism] Onset: 4 06-07-2024 Episodic Residual codes; unclassified (1 source) Pain, unspecified; Translations: [Pain, unspecified] Onset: 5 Episodic Unclassified (3 sources) CONTACT W/AND (SUSP) [...] Problem Classification Problem Date Documented Date Episodic/Chronic Allergic reactions (4 sources) Eczema; Translations: [Dermatitis, [...] Value Interpretation Reference Range Facility Office Visiton 03-04-2025 Follow-up visit [id number] Sabine Hollandporfirio Lauren 1950 F Date Provider Department Center 03/04/2025 [id number], ADAM BUCK [facility] Family History Problem Relation Age of Onset Valvular heart disease Mother Atrial fibrillation Sister Lupus Sister Family Status - Relation Status Age at Mother Sister Level of Service:01049 [place] OFFICE/OUTPATIENT ESTABLISHED MOD MDM 30 MIN [facility] Office Visiton 01-11-2025 Follow-up visit [id number] StephonMartina Lauren 1950 Provider Department Center 01/11/2025 ALLISON GUIDOKUN [facility] SURG Second Fl Family History Problem Relation Age of Onset Valvular heart disease Mother Family Status - Relation Status Age at Mother Level of Service:91930 [place] POSTOP FOLLOW UP VISIT RELATED TO ORIGINAL PX Reason for Visit and Comments: Post-op [483] - Patient here for 2 month post op, s/p open incisional hernia repair 10/29/2024. [facility] Office Visiton 11-10-2024 Follow-up visit [id number] StephonMartina 1950 Provider Department Center 11/10/20[facility] Second Fl Family History Problem Relation Age of Onset Valvular heart disease Mother Family Status - Relation Status Age at Mother Level of Service:06411 [place] POSTOP FOLLOW UP VISIT RELATED TO ORIGINAL PX Reason for Visit and Comments: Post-op [483] - Martina is here today for post op: s/p open incisional hernia repair 10/29/2024 [facility] 36on 11-02-[address] Legih: patien t is to wear the binder for 2 months. She may try wearing the binder over a t-shirt rather than contact directly with skin. Spoke with patient and notified, understands. Will keep area clean and dry and try wearing over a t-shirt. [facility] 36 Patient called in stating that she has been wearing the binder since her surgery on 10/29/[address] Leigh for hernia repair. She voiced that she is starting to get a rash from wearing it all the time. She would like to know how long she has to wear it. Please advise. [facility] 36on 11-01-2024 36 Letter created and emailed as requested. [facility] 36 Patient called ilir cedric that her daughter forgot to ask for a letter for work for the day that the patient had surgery. Patient had surgery on 10/[address] Leigh. She would like the letter to be emailed to [email or web address] [facility] HPon 10-29-2024 History Of Present Illness Martina Holland is [...] Full Code Principal Problem: Abdominal hernia Martina K Stephon is a 74 y.o. female with known midline ventral hernia. She was seen in clinic on 08/24/24 and complained of increased bulging of her midline hernia. OR today for open incisional hernia repair, possible mesh Informed consent obtained at bedside Serge Durand MD General Surgery PGY2 Normal [facility] OPNOTEon 10-29-2024 OPNOTE OPEN INCISIONAL CEFERINO IA REPAIR Operative Note Date: 10/29/2024 Location: [facility] OR Name: Martina Holland, : 1950, Diagnosis [...] Drains: * None in log * Staff: Cover Operator: Kareen Rangel RN Scrub Person: Mylene Nino CST [place] Cover Operator: Shavon Alcantar RN [place] Scrub: Mary Mcarthur [...] was initiated. Patient's abdomen was prepped and aped in usual sterile fashion. 1 % lidocaine [...] hemodynamically stable. Condition: stable Hair Leigh Normal [facility] POCT GLUCOSE METER UNSOLICIT ED RESULTSon 10-29-2024 Glucose [Mass/Vol] 105 mg/dL Normal 70-105 [facility] Comment on above: Order Comment: Waive d Testing in the ED is performed under the ED CLIA certificate #[id number]. Result Comment: dhol as Performed By: #### L [id number] ####[facility] ([employer])[address] [place] [address] 36on 10-05-2024 36 ----- Message from Lj Oneil MD sent at 10/04/2024 1:22 PM EST ----- Lipids and LFTs are good. Continue meds and diet and recheck in 6 months. Also BMP is good Normal [facility] Owen 09-30-2024 ALT [Catalytic activity/Vol] 15 U/L Normal 7-52 [facility] Comment on above: Performed By: #### L [id number] #### [facility] ([employer]) [address] [place] [address] Manuel 09-30-2024 AST [Catalytic activity/Vol] 17 U/L Normal 13-39 [facility] Comment on above: Performed By: #### L [id number] #### [facility] (BEAKER) [address] [place] [address] BASIC METABOLIC PANELon 09-09 Anion gap [Moles/Vol] 11 mmol/L Normal 7-20 [facility] Comment on above: Performed By: #### L [id number] #### [facility] (BEAKER) [address] [place] [address] Calcium [Mass/Vol] 9.6 mg/dL Normal 8.6-10.3 [facility] Comment on above: Performed By: #### L [id number] #### [facility] (BEAKER) [address] [place] [address] Chloride [Moles/Vol] 103 mmol/L Normal 98-107 [facility] Comment on above: Performed By: #### L [id number] #### [facility] (BEAKER) [address] [place] [address] CO2 [Moles/Vol] 32 mmol/L High 21-31 [facility] Comment on above: Performed By: #### L [id number] #### [facility] (BEAKER) [address] [place] [address] Creatinine [Mass/Vol] 1.04 mg/dL Normal 0.60-1.20 [facility] Comment on above: Performed By: #### L [id number] #### [facility] (BEAKER) [address] [place] [address] GLOMERULAR FILTRATION RATE ML/MIN/1.73 SQ M.PREDICTED 56.8 mL/min/1.73m*2 Low >60.0 [facility] Comment on above: Result Comment: The [facility]???s estimated glomerular filtration rate (eGFR) will no [...] individuals. Performed By: #### L [id number] #### [facility] ([facility]) [address] [place] [address] Glucose [Mass/Vol] 100 mg/dL Normal 70-100 [facility] Comment on above: Performed By: #### L [id number] #### [facility] ([facility]) [address] [place] [address] Potassium [Moles/Vol] 3.8 mmol/L Normal 3.5-5.1 [facility] Comment on above: Performed By: #### L [id number] #### [facility] ([facility]) [address] [place] [address] Sodium [Moles/Vol] 142 mmol/L Normal 136-145 [facility] Comment on above: Performed By: #### L [id number] #### [facility] ([facility]) [address] [place] [address] Urea nitrogen [Mass/Vol] 14 mg/dL Normal 7-25 [facility] Comment on above: Performed By: #### L [id number] #### [facility] ([facility]) [address] [place] [address] UREA NITROGEN/CREATININE (MASS RATIO) IN SER/PLAS 13.5 Normal [facility] Comment on above: Performed By: #### L [id number] #### [facility] ([facility]) [address] [place] [address] CBC WITH AUTO DIFFERENTIALon 09-30-2024 Basophils (Bld) [#/Vol] 0.05 10*3/uL Normal 0.00-0.20 [facility] Comment on above: Performed By: #### L [id number] ####[facility] (BEAKER)[address] [place] [place] [address] Basophils/100 WBC (Bld) 0.9 % Normal 0.0-1.0 [facility] Comment on above: Performed By: #### L [id number] ####[facility] (BEAKER)[address] [place] [address] Eosinophils (Bld) [#/Vol] 0.15 10*3/uL Normal 0.00-0.50 [facility] Comment on above: Performed By: #### L [id number] ####[facility] (BEAKER)[address] [place] [address] Eosinophils/100 WBC (Bld) 2.6 % Normal 0.0-6.0 [facility] Comment on above: Performed By: #### L [id number] ####[facility] (BEAKER)[address] [place] [address] Erythrocyte distribution width (RBC) [Ratio] 14.3 % Normal 11.5-15.0 [facility] Comment on above: Performed By: #### L [id number] ####[facility] (BEAKER)[address] [place] [address] ERYTHROCYTE MEAN CORPUSCULAR HEMOGLOBIN CONCENTRATION (G/DL) BY AUTOMATED 32.8 g/dL Normal 32.0-35.0 [facility] Comment on above: Performed By: #### L [id number] ####[facility] (BEAKER)[address] [place] [address] Hematocrit (Bld) [Volume fraction] 40.2 % Normal 36.0-48.0 [facility] Comment on above: Performed By: #### L [id number] ####[facility] (BEAKER)[address] [place] [address] Hemoglobin (Bld) [Mass/Vol] 13.2 g/dL Normal 12.0-15.0 [facility] Comment on above: Performed By: #### L [id number] ####[facility] (BEAKER)[address] [place] [address] Immature granulocytes (Bld) [#/Vol] 0.02 10*3/uL Normal 0.00-0.20 [facility] Comment on above: Performed By: #### L [id number] ####[facility] (BEAKER)[address] [place] [address] Immature granulocytes/100 WBC (Bld) 0.3 % Normal 0.0-1.0 [facility] Comment on above: Performed By: #### L [id number] ####[facility] (BEAKER)[address] [place] [address] Lymphocytes (Bld) [#/Vol] 1.93 10*3/uL Normal 1.20-4.00 [facility] Comment on above: Performed By: #### L [id number] ####[facility] (BEAKER)[address] [place] [address] Lymphocytes/100 WBC (Bld) 32.9 % Normal 20.0-45.0 [facility] Comment on above: Performed By: #### L [id number] ####[facility] (BEAKER)[address] [place] [address] MCH (RBC) [Entitic mass] 32.1 pg Normal 27.0-33.0 [facility] Comment on above: Performed By: #### L [id number] ####[facility] (BEAKER)[address] [place] [address] MCV (RBC) [Entitic vol] 97.8 fL Normal 82.0-98.0 [facility] Comment on above: Performed By: #### L [id number] ####[facility] (BEAKER)[address] [place] [address] Monocytes (Bld) [#/Vol] 0.64 10*3/uL Normal 0.10-1.00 [facility] Comment on above: Performed By: #### L [id number] ####[facility] (BEAKER)[address] [place] [address] Monocytes/100 WBC (Bld) 10.9 % Normal 5.0-12.0 [facility] Comment on above: Performed By: #### L [id number] ####[facility] ([facility])[address] [place] [address] Neutrophils (Bld) [#/Vol] 3.08 10*3/uL Normal 1.60-7.60 [facility] Comment on above: Performed By: #### L [id number] ####[facility] ([facility])[address] [place] [address] Neutrophils/100 WBC (Bld) 52.4 % Normal 40.0-72.0 [facility] Comment on above: Performed By: #### L [id number] ####[facility] ([facility])[address] [place] [place] [address] NRBC (PER 100 WBCS) BY AUTOMATED COUNT 0.0 % Normal 0 [facility] Comment on above: Performed By: #### L [id number] ####[facility] ([facility])[address] [place] [address] PLATELETS (10*3/UL) IN BLOOD AUTOMATED COUNT 191 10*3/uL Normal 150-400 [facility] Comment on above: Performed By: #### L [id number] ####[facility] ([facility])[address] [place] [address] RBC (Bld) [#/Vol] 4.11 10*6/uL Normal 3.80-5.00 [facility] Comment on above: Performed By: #### L [id number] ####[facility] ([facility])[address] [place], [place] [address] WBC (Bld) [#/Vol] 5.87 10*3/uL Normal 4.00-10.60 [facility] Comment on above: Performed By: #### L [id number] ####[facility] [place] [address] LIPID PANELon 09-30-2024 CHOL/HDL 2.3 mg/dL Normal [facility] Comment on above: Performed By: #### L [id number] #### [facility] [address] [place] [address] Cholesterol [Mass/Vol] 119 mg/dL Low 120-200 [facility] Comment on above: Performed By: #### L [id number] #### [facility] ([facility]) [address] [place] [address] Magnesium [Mass/Vol] 99 mg/dL Normal 40-149 [facility] Comment on above: Result Comment: TRIG LYCERIDE REFERENCE RANGE: 20 YEARS AND OLDER CARDIOVASCULAR RISK LESS THAN 150 mg/dL LOW RISK 150 TO 199 mg/dL BORDERLINE RISK 200 mg/dL AND GREATER HIGH RISK Performed By: #### L [id number] #### [facility] ([facility]) [address] [place] [address] Magnesium [Mass/Vol] 48 mg/dL Normal 0-160 [facility] Comment on above: Performed By: #### L [id number] #### [facility] ([facility]) [address] [place] [address] Magnesium [Mass/Vol] 51 mg/dL Normal 23-92 [facility] Comment on above: Performed By: #### L [id number] #### [facility] ([facility]) [address] [place] [address] NON HDL CHOL. (LDL+VLDL) 68 Normal [facility] Comment on above: Performed By: #### L [id number] #### [facility] ([facility]) [address] [place] [address] TOTAL VLDL-C 20 mg/dL Normal 0-40 [facility] Comment on above: Performed By: #### L [id number] #### [facility] ([facility]) [address] [place] [address] Labon 09-30-2024 Lab [id number] Martina Holland 1950 F Date Provider Department Center 09/30/2024 6788-[facility] OPD LAB RESOURCE [facility] OPD ID Medical C Family History Problem Relation Age of Onset Valvular heart disease Mother Family Status - Relation Status Age at Mother Normal [facility] MRSA/MSSA DNA NASALon 2024 MRSA DNA Negative Normal Negative [facility] Comment on above: Order Comment: Testi ng [...] preclude nasal colonization. Performed By: #### L [id number] ####[facility] (BEAKER)[address] [place] [address] MSSA DNA Negative Normal Negative [facility] Comment on above: Order Comment: Testi ng [...] preclude nasal colonization. Performed By: #### L [id number] ####[facility] (BEAKER)[address] [place] [address] PROTIME-INRon 09-30-2024 INR IN PPP BY COAGULATION ASSAY 1.02 Normal 0.90-1.10 [facility] Comment on above: Result Comment: ACCC P [...] 1995;108:[id number]-246S. Performed By: #### L [id number] #### [facility] (BEAKER) [address] [place] [address] PROTHROMBIN TIME (PT) IN PPP BY COAGULATION ASSAY 13.4 Seconds Normal 12.3-14.8 [facility] Comment on above: Performed By: #### L [id number] #### [facility] (BEAKER) [address] [place] [address] Office Visiton 09-20-2024 Follow-up visit [id number] Martina Holland 1950 F Date Provider Department Center 09/20/2024 [id number]-CHGNDFARGENIS ONEIL BUCK [facility] Family History Problem Relation Age of Onset Valvular heart disease Mother Family Status - Relation Status Age at Mother Level of Service:71961 [place] OFFICE/OUTPATIENT ESTABLISHED MOD MDM 30 MIN Reason for Visit and Comments: DVT [Other] - On Eliquis. Dr. Leigh's office has a message out to Dr. Escobar asking about holding Eliquis prior to procedure. Pre-op Exam [[id number]] - She is requesting cardiac clearance for upcoming hernia surgery with Dr. Leigh at [facility]. Patient denies chest pain, SOB, palpitations, and lightheadedness/syncope. Hypertension [436404] Hyperlipidemia [182] - Had routine labs w/ lipid panel in May 2024. Normal [facility] Consulton 08-24-2024 Consult [id number] Martina Holland 1950 F Date Provider Department Center 08/24/2024 454-HAIR LEIGH [facility] SURG Second Fl Family History Problem Relation Age of Onset Valvular heart disease Mother Family Status - Relation Status Age at Mother Level of Service:72632 [place] OFFICE/OUTPATIENT NEW LOW MDM 30 MINUTES Reason for Visit and Comments: Consult [484] - Martina is here today for consult: Incisional Hernia Normal [facility] Reminderson 10-31-2024 Reminders Reminders From: Mikayla Castillo LPN To: Juan - Clinical; Sent: 07/08/2024 09:21:21 EDT Show up: 03/22/2029 07:00:00 EDT Subject: colonoscopy recall Due Date/Time: 04/22/2029 07:00:00 EDT Reminder/Recall Patient due for screening colonoscopy 04/2029. Normal [facility] Ambulatory Visit Summaryon 1 Ambulatory Visit Summary Ambulatory Visit Summary MARTINA HOLLAND :1950 Visit Date:07/06/2024 Ambulatory Visit Instructions Your Care Team Attending Physician - VENICE MERCHATN, Eddie Castro Primary Care Physician - Rosemary MERCHANT, Kj Referring Physician - Kj Garcia [...] choosing us for your care. Normal [facility] CBC AND AUTO DIFFon 01-07-20 24 ABSOLUTE BASOPHIL 0.0 X10E9/L Normal 0.0-0.2 [facility] Comment on above: Performed By: #### C NEREYDA, 73123-4, FEPR, 2276-4 #### [facility] ([id number]) [address], [address] [place] [address] ABSOLUTE NEUTROPHIL 4.3 X10E9/L Normal 1.5-6.6 [facility] Comment on above: Performed By: #### C NEREYDA, 17599-8, FEPR, 2276-4 #### [facility] ([id number]) [address] [place] [address] Basophils/100 WBC (Bld) 0.6 % Normal [facility] Comment on above: Performed By: #### C NEREYDA, 57967-6, FEPR, 6-4 #### [facility] ([id number]) [address], [address] [place] [address] Eosinophils (Bld) [#/Vol] 0.1 10*3/uL Normal 0.0-0.4 [facility] Comment on above: Performed By: #### C BCA, 31508-2, FEPR, 2275-4 #### [facility] ([id number]) [address], [facility] [address] [place] [address] Eosinophils/100 WBC (Bld) 1.5 % Normal [facility] Comment on above: Performed By: #### C BCA, 00726-7, FEPR, 2275-4 #### [facility] ([id number]) [address] [place] [address] Erythrocyte distribution width (RBC) [Ratio] 13.1 % Normal 11.5-15.0 [facility] Comment on above: Performed By: #### C NEREYDA, 41605-9, FEPR, 2275-4 #### [facility] ([id number]) [address] [place] [address] Hematocrit (Bld) [Volume fraction] 38.2 % Normal 35-47 [facility] Comment on above: Performed By: #### C BCA, 42882-0, FEPR, 2275-4 #### [facility] ([id number]) [address] [place] [address] Hemoglobin (Bld) [Mass/Vol] 12.9 g/dL Normal 11.7-15.5 [facility] Comment on above: Performed By: #### C BCA, 22844-7, FEPR, 2275-4 #### [facility] ([id number]) [address] [place] [address] Lymphocytes (Bld) [#/Vol] 1.6 10*3/uL Normal 1.0-3.5 [facility] Comment on above: Performed By: #### Cata DAWN, 98849-9, FEPR, 2275-4 #### [facility] ([id number]) [address], [address] [place] [address] Lymphocytes/100 WBC (Bld) 23.5 % Normal [facility] Comment on above: Performed By: #### Cata DAWN, 74529-0, FEPR, 2275- #### [facility] ([id number]) [address], [address] [place] [address] MCH (RBC) [Entitic mass] 31.5 pg Normal 27-34 [facility] Comment on above: Performed By: #### Cata DAWN, 60551-0, FEPR, 2275- #### [facility] ([id number]) [address], [address] [place] [address] MCHC (RBC) [Mass/Vol] 33.7 g/dL Normal 32-36 [facility] Comment on above: Performed By: #### Cata DAWN, 48573-7, FEPR, 2275- #### [facility] ([id number]) [address], [address] [place] [address] MCV (RBC) [Entitic vol] 94 fL Normal 80-100 [facility] Comment on above: Performed By: #### Cata DAWN, 20795-0, FEPR, 2275- #### [facility] ([id number]) [address], [address] [place] [address] Monocytes (Bld) [#/Vol] 0.7 10*3/uL Normal 0-0.9 [facility] Comment on above: Performed By: #### Cata DAWN, 05299-1, FEPR, 2275- #### [facility] ([id number]) [address], [address] [place] [address] Monocytes/100 WBC (Bld) 10.6 % Normal [facility] Comment on above: Performed By: #### C BCA, 99811-8, FEPR, 2275-4 #### [facility] ([id number]) [address], [facility] [address] [place] [address] Neutrophils/100 WBC (Bld) 63.8 % Normal [facility] Comment on above: Performed By: #### C BCA, 85482-6, FEPR, 2275-4 #### [facility] ([id number]) [address], [facility] [address] [place] [address] Platelet mean volume (Bld) [Entitic vol] 8.5 fL Normal 7-12 [facility] Comment on above: Performed By: #### Cata BCA, 28573-4, FEPR, 2275-4 #### [facility] ([id number]) [address], [facility] [address] [place] [address] Platelets (Bld) [#/Vol] 248 10*3/uL Normal 150-450 [facility] Comment on above: Performed By: #### Cata BCA, 72033-9, FEPR, 2275-4 #### [facility] ([id number]) [address], [facility] [address] [place] [address] RBC COUNT 4.08 X10E12/L Normal 3.80-5.20 [facility] Comment on above: Performed By: #### C BCA, 03735-1, FEPR, 2275-4 #### [facility] ([id number]) [address], [facility] [address] [place] [address] WBC (Bld) [#/Vol] 6.8 10*3/uL Normal 4.0-11.0 [facility] Comment on above: Performed By: #### Cata BCA, 72900-0, FEPR, 2275-4 #### [facility] ([id number]) [address] [place] [address], [address] [place] [address] D-Dimeron 01-07-2024 Fibrin D-dimer DDU (PPP) [Mass/Vol] [facility] Comment on above: Results <255 ng/mL DDU: The presence of a VTE can safely be excluded with a negative D-Dimer result and Wells score. A negative result doesn't exclude the possibility of DIC. The test be repeated along with other diagnostic tests if the patient's symptoms persist or worsen. [email or web address] FERRITINon 01-07-2024 Ferritin [Mass/Vol] 28 ng/mL Normal 11-307 [facility] Comment on above: Performed By: #### C BCA, 90020-2, FEPR, 2276-4 #### [facility] ([id number]) [address] [place] [address], [address] [address] Fibrin D-dimer DDU (PPP) [Ma ss/Vol]on 01-07-2024 D DIMER <150 Normal <255 [facility] Comment on above: Result Comment: Results <255 ng/mL DDU: The presence of a VTE can safely be excluded with a negative D-Dimer result and Wells score. A negative result doesn't exclude the possibility of DIC. The test be repeated along with other diagnostic tests if the patient's symptoms persist or worsen. [email or web address] Performed By: #### C BCA, 21691-8, FEPR, 2276-4 #### [facility] ([id number]) [address] [place] [address], [facility] [address] [place] [address] [facility] IRON PROFILEon 01-07-2024 Iron [Mass/Vol] 95 ug/dL Normal 50-170 [facility] Comment on above: Performed By: #### Cata BCA, 42676-6, FEPR, 2276-4 #### [facility] ([id number]) [address], [address] [place] [address] IRON BINDING 372 ug/dL Normal 250-425 [facility] Comment on above: Performed By: #### C BCA, 75305-3, FEPR, 2276-4 #### [facility] ([id number]) [address], [address] [place] [address] IRON SATURATION 26 % SATURATION Normal 15-50 [facility] Comment on above: Performed By: #### C BCA, 28488-8, FEPR, 2276-4 #### [facility] ([id number]) [address], [address] [place] [address] Physician Referralon 023 Physician Referral [phone] [id number] Normal [facility] ECHOCARDIO M/2D COMPLETEon 0 01-08-2023 ECHOCARDIO M/2D COMPLETE Patient: MARTINA HOLLAND Exam Date: 01/08/2023 : 1950 Gender:F Ordering : SVETLANA REESE [facility] Admission #: [id number] Family : JOSÉ ANTONIO ASTUDILLO [facility] Order #: [id number] CLICK HERE TO VIEW EXAM ECHOCARDIOGRAM REPORT [...] M.D. on 01/09/2023 at 16:50 Normal [facility] INSULINon 08-29-2022 Insulin 18.2 uIU/mL Normal 2.6-24.9 [facility] Comment on above: Performed By: #### I NSULIN ####[facility] [address] [place] [address]Dr. Bebe Spann BNPon 08-28-2022 Natriuretic peptide B (Bld) [Mass/Vol] 82.0 pg/mL Normal <=900.0 [facility] Comment on above: Performed By: #### T SH, T7, CMP, BNP, LIPID #### [facility] [address] [address] [address] Bebe Spann CBC AUTO DIFFon 08-28-2022 BASO # 0.0 103/ul Normal 0.0-0.1 [facility] Comment on above: Performed By: #### C BC #### [facility] [address] [place] [address] Dr. Bebe Spann Basophils/100 WBC (Bld) 0.4 % Normal 0.2-2.0 [facility] Comment on above: Performed By: #### C BC #### [facility] [address] [place] [address] Dr. Bebe Spann EO # 0.1 103/ul Normal 0.0-0.7 [facility] Comment on above: Performed By: #### C BC #### [facility] [address] [place] [address] Dr. Bebe Spann Eosinophils/100 WBC (Bld) 1.7 % Normal 0.9-7.0 [facility] Comment on above: Performed By: #### C BC #### [facility] [address] [place] [address] Dr. Bebe Spann Erythrocyte distribution width (RBC) [Ratio] 14.4 % Normal 11.0-15.0 [facility] Comment on above: Performed By: #### C BC #### [facility] [address] [place] [address] Dr. Bebe Spann Hematocrit (Bld) [Volume fraction] 32.2 % Critically low 36.0-48.0 [facility] Comment on above: Performed By: #### C BC #### [facility] [address] [place] [address] Dr. Bebe Spann Hemoglobin (Bld) [Mass/Vol] 10.5 g/dL Critically low 12.0-16.0 [facility] Comment on above: Performed By: #### C BC #### [facility] [address] [place] [address] Dr. Bebe Spann IG # 0.03 10e3/ul Normal 0.00-0.03 [facility] Comment on above: Performed By: #### C BC #### [facility] [address] [place] [address] Dr. Bebe Spann IG % 0.4 % Normal 0.0-0.5 [facility] Comment on above: Performed By: #### C BC #### [facility] [address] [place] [address] Dr. Bebe Spann LYMPH # 2.2 103/ul Normal 1.2-3.8 [facility] Comment on above: Performed By: #### C BC #### [facility] [address] [place] [address] Dr. Bebe Spann Lymphocytes/100 WBC (Bld) 29.0 % Normal 20.5-60.0 [facility] Comment on above: Performed By: #### C BC #### [facility] [address] [place] [address] Dr. Bebe Spann MANUAL DIFF REQ NO Normal [facility] Comment on above: Performed By: #### C BC #### [facility] [address] [place] [address] Dr. Bebe Spann MCH (RBC) [Entitic mass] 31.0 pg Normal 26.7-34.0 [facility] Comment on above: Performed By: #### C BC #### [facility] [address] [address] [address] Bebe Spann MCHC (RBC) [Mass/Vol] 32.6 g/dL Normal 29.9-35.2 [facility] Comment on above: Performed By: #### C BC #### [facility] [address] [address] [address] Bebe Spann MCV (RBC) [Entitic vol] 95.0 fL Normal 81.0-99.0 [facility] Comment on above: Performed By: #### C BC #### [facility] [address] [address] [address] Bebe Spann MONO # 0.7 103/ul Normal 0.3-0.8 [facility] Comment on above: Performed By: #### C BC #### [facility] [address] [place] [address] Dr. Bebe Spann Monocytes/100 WBC (Bld) 9.1 % Normal 1.7-12.0 [facility] Comment on above: Performed By: #### C BC #### [facility] [address] [place] [address] Dr. Bebe Spann NEUT # 4.6 103/ul Normal 1.4-6.5 [facility] Comment on above: Performed By: #### C BC #### [facility] [address] [place] [address] Dr. Bebe Spann Neutrophils/100 WBC (Bld) 59.4 % Normal 43.0-75.0 [facility] Comment on above: Performed By: #### C BC #### [facility] [address] [place] [address] Dr. Bebe Spann Platelet mean volume (Bld) [Entitic vol] 9.7 fL Normal 9.5-13.5 [facility] Comment on above: Performed By: #### C BC #### [facility] [address] [place] [address] Dr. Bebe Spann PLT 277 103/ul Normal 150-450 [facility] Comment on above: Performed By: #### C BC #### [facility] [address] [address] [address] Bebe Spann RBC 3.39 106/ul Critically low 4.20-5.40 [facility] Comment on above: Performed By: #### C BC #### [facility] [address] [address] [address] Bebe Spann WBC 7.7 103/ul Normal 4.0-11.0 [facility] Comment on above: Performed By: #### C BC #### [facility] [address] [address] [address] Bebe Spann FREE THYROXINE INDEX T7on FTI 1.98 Normal 1.30-4.50 [facility] Comment on above: Performed By: #### T SH, T7, CMP, BNP, LIPID #### [facility] [address] [address] [address] Bebe Spann T3U 33.0 % Normal 30.0-39.0 [facility] Comment on above: Performed By: #### T SH, T7, CMP, BNP, LIPID #### [facility] [address] [address] [address] Bebe Spann T4 [Mass/Vol] 6.00 ug/dL Normal 4.80-13.90 [facility] Comment on above: Performed By: #### T SH, T7, CMP, BNP, LIPID #### [facility] [address] [address] [address] Bebe Spann GLYCOHEMOGLOBIN A1Con 2021 ADA RECOMMENDATION SEE BELOW Normal [facility] Comment on above: Result Comment: ADA RECOMMENDED LIMIT 4.0 - 6.0 ADA THERAPEUTIC TARGET < 7.0 ACTION SUGGESTED > 7.0 Performed By: #### A 1C ####[facility] [address] [place] [address]Dr. Bebe Spann Glucose [Mass/Vol] 134 mg/dL Normal [facility] Comment on above: Performed By: #### A 1C ####[facility] [address] [place] [address]Dr. Bebe Spann HbA1c (Bld) [Mass fraction] 6.3 % Critically high 4.5-6.2 [facility] Comment on above: Performed By: #### A 1C ####[facility] [address] [place], [place] [address]PbDr. Bebe Spann IRONon 08-28-2022 Iron [Mass/Vol] 52.0 ug/dL Normal 50.0-170.0 [facility] Comment on above: Performed By: #### I ROSAMRAIA #### [facility] [address] [address] [address] Bebe Spann LIPID PROFILEon 08-28-2022 CHOL-HDL RATIO NORM SEE BELOW Normal [facility] Comment on above: Result Comment: 3.3 - 4.4 LOW RISK 4.4 - 7.1 AVERAGE RISK 7.1 - 11.0 MODERATE RISK >11.0 HIGH RISK Performed By: #### T SH, T7, CMP, BNP, LIPID #### [facility] [address] [address] [address] Bebe Spann Cholesterol [Mass/Vol] 94 mg/dL Normal <=200 [facility] Comment on above: Performed By: #### T SH, T7, CMP, BNP, LIPID #### [facility] [address] [address] [address] Bebe Spann Cholesterol in HDL [Mass/Vol] 48 mg/dL Normal 40-60 [facility] Comment on above: Performed By: #### T SH, T7, CMP, BNP, LIPID #### [facility] [address] [id number] [address] Bebe Spann Cholesterol in LDL [Mass/Vol] 23.2 mg/dL Normal [facility] Comment on above: Performed By: #### T SH, T7, CMP, BNP, LIPID #### [facility] [address] [id number] Bebe Spann Cholesterol.total/C holesterol in HDL [Mass ratio] 2.0 {ratio} Normal [facility] Comment on above: Performed By: #### T SH, T7, CMP, BNP, LIPID #### [facility] [address] [address] [address] Bebe Spann HDL NORMAL > or = 60 mg/dl - LO W CARDIOVASCULAR RISK <40 mg/dl - HIGH CARDIOVASCULAR RISK Normal [facility] Comment on above: Performed By: #### T SH, T7, CMP, BNP, LIPID #### [facility] [address] [address] [address] Bebe Spann LDL CALC NORMAL SEE BELOW Normal [facility] Comment on above: Result Comment: <100 mg/dl OPTIMAL 100 - 129 mg/dl NEAR OR ABOVE OPTIMAL 130 - 159 mg/dl BORDERLINE HIGH 160 - 189 mg/dl HIGH >190 mg/dl VERY HIGH Performed By: #### T SH, T7, CMP, BNP, LIPID #### [facility] [address] [address] [address] Bebe Spann Triglyceride [Mass/Vol] 114 mg/dL Normal <=150 [facility] Comment on above: Performed By: #### T SH, T7, CMP, BNP, LIPID #### [facility] [address] [address] [address] Bebe Spann VLDL CALC 22.8 mg/dL Normal [facility] Comment on above: Performed By: #### T SH, T7, CMP, BNP, LIPID #### [facility] [address] [address] [address] Bebe Spann PROF 14(COMP METB)on 08-28- 022 Albumin [Mass/Vol] 3.2 g/dL Critically low 3.4-5.0 [facility] Comment on above: Performed By: #### T SH, T7, CMP, BNP, LIPID #### [facility] [address] [address] [address] Beeb Spann Albumin/Globulin [Mass ratio] 1.0 {ratio} Normal [facility] Comment on above: Performed By: #### T SH, T7, CMP, BNP, LIPID #### [facility] [address] [address] [address] Bebe Spann ALP [Catalytic activity/Vol] 61 U/L Normal 46-116 [facility] Comment on above: Performed By: #### T SH, T7, CMP, BNP, LIPID #### [facility] [address] [place] [address] Dr. Bebe Spann ALT [Catalytic activity/Vol] 20 U/L Normal 14-59 [facility] Comment on above: Performed By: #### T SH, T7, CMP, BNP, LIPID #### [facility] [address] [place] [address] Dr. Bebe Spann Anion gap [Moles/Vol] 10.6 mmol/L Normal [facility] Comment on above: Performed By: #### T SH, T7, CMP, BNP, LIPID #### [facility] [address] [place] [address] Dr. Bebe Spann AST [Catalytic activity/Vol] 12 U/L Critically low 15-37 [facility] Comment on above: Performed By: #### T SH, T7, CMP, BNP, LIPID #### [facility] [address] [place] [address] Dr. Bebe Spann Bilirubin [Mass/Vol] 0.3 mg/dL Normal 0.2-1.0 [facility] Comment on above: Performed By: #### T SH, T7, CMP, BNP, LIPID #### [facility] [address] [place] [address] Dr. Bebe Spann Calcium [Mass/Vol] 9.1 mg/dL Normal 8.5-10.1 [facility] Comment on above: Performed By: #### T SH, T7, CMP, BNP, LIPID #### [facility] [address] [place] [address] Dr. eBbe Spann Chloride [Moles/Vol] 103 mmol/L Normal 98-107 [facility] Comment on above: Performed By: #### T SH, T7, CMP, BNP, LIPID #### [facility] [address] [place] [address] Dr. Bebe Spann CO2 [Moles/Vol] 30.0 mmol/L Normal 21.0-32.0 [facility] Comment on above: Performed By: #### T SH, T7, CMP, BNP, LIPID #### [facility] [address] [place] [address] Dr. Bebe Spann Creatinine [Mass/Vol] 1.20 mg/dL Critically high 0.55-1.02 [facility] Comment on above: Performed By: #### T SH, T7, CMP, BNP, LIPID #### [facility] [address] [place] [address] Dr. Bebe Spann EGFR-AF CONGOLESE 54 mL/min/1.73m2 Critically low >=60 [facility] Comment on above: Performed By: #### T SH, T7, CMP, BNP, LIPID #### [facility] [address] [place] [address] Dr. Bebe Spann EGFR-NON AF CONGOLESE 44 mL/min/1.73m2 Critically low >=60 [facility] Comment on above: Performed By: #### T SH, T7, CMP, BNP, LIPID #### [facility] [address] [place] [address] Dr. Bebe Spann Globulin (S) [Mass/Vol] 3.1 g/dL Normal [facility] Comment on above: Performed By: #### T SH, T7, CMP, BNP, LIPID #### [facility] [address] [place] [address] Dr. Bebe Spann Glucose [Mass/Vol] 94 mg/dL Normal 74-106 [facility] Comment on above: Performed By: #### T SH, T7, CMP, BNP, LIPID #### [facility] [address] [place] [address] Dr. Bebe Spann Potassium [Moles/Vol] 4.6 mmol/L Normal 3.5-5.1 [facility] Comment on above: Performed By: #### T SH, T7, CMP, BNP, LIPID #### [facility] [address] [place] [address] Dr. Bebe Spann Protein [Mass/Vol] 6.3 g/dL Critically low 6.4-8.2 [facility] Comment on above: Performed By: #### T SH, T7, CMP, BNP, LIPID #### [facility] [address] [place] [address] Dr. Bebe Spann Sodium [Moles/Vol] 139 mmol/L Normal 136-145 [facility] Comment on above: Performed By: #### T SH, T7, CMP, BNP, LIPID #### [facility] [address] [place], [place] [address] Dr. Bebe Spann Urea nitrogen [Mass/Vol] 20.0 mg/dL Critically high 7.0-18.0 [facility] Comment on above: Performed By: #### T SH, T7, CMP, BNP, LIPID #### [facility] [address] [place], [place] [address] Dr. Bebe Spann Urea nitrogen/Creatinine [Mass ratio] 16.7 mg/mg Normal [facility] Comment on above: Performed By: #### T SH, T7, CMP, BNP, LIPID #### [facility] [address] [place], [place] [address] Dr. Bebe Spann TSHon 08-28-2022 TSH 3.195 uIU/mL Normal 0.358-3.740 [facility] Comment on above: Performed By: #### T SH, T7, CMP, BNP, LIPID #### [facility] [address] [place], [place] [address] Dr. Bebe Spann Covid-19 PCR ([facility])on 03-09 SARS-CoV-2 (COVID-19) RNA MUSHTAQ+probe Ql (Unsp spec) Not detected Normal NOT DETECTED [facility] Comment on above: Result Comment: This test is not yet approved or cleared by the [place] FDA. When there are no FDA-approved or cleared tests available, and other criteria are met, FDA can make tests available under an emergency access mechanism called an Emergency Use Authorization (EUA). The EUA for this test is supported by the Cardiac Care Unit Nurse of Health and Human Service's (HHS's) declaration [...] with SARS-CoV-2. Performed By: #### C VDTB ####[facility] [address] [place], [place] [address]OeCatalino Spann MG MAMM SCREEN 3D DANICA CADon 03-13-2022 MG MAMM SCREEN 3D DANICA CAD Patient: MARTINA HOLLAND Exam Date: 03/13/2022 : 1950 Gender:F Ordering : DR KJ GARCIA . Admission #: [id number] Family : Order #: [id number] CLICK HERE TO VIEW EXAM RADIOLOGY REPORT [...] Treatments HYSTERECTOMY Family Cancers None LOCATION: [facility] BREAST COMPOSITION: Scattered areas fibroglandular density. [...] M.D. on 03/14/2022 at 13:29 Normal [facility] Cardiovascular Lab Reporton 06-28-2021 Cardiovascular Lab Report [facility] Patient Name: Martina Holland [facility] MR #: [id number] Physician: Marissa Cha, Department of M.D. Medicine Service Date: 06/27/2021 Division of Birthdate: 1950 Cardiology Room #: CC Adult Cardiovascular Services [facility] [address] [place], [place] [address] Cardiovascular Laboratory Report IMPRESSIONS: 1. Angiographically non-obstructive [...] right internal jugular vein was obtained. A 6-Greek 11-cm sheath was inserted without difficulty. A [...] to access the left radial artery. A 6-Greek glide sheath was inserted without difficulty. Bilateral [...] Cha M.D. Date Trans: 06/28/2021 03:01 Mejia/destinee [id number] Normal [facility] Vital Signs Date Time Vital Sign Value Performing Clinician Jose lal 01-24-2025 08:36-0400 Body mass index (BMI) [Ratio] 34.77 kg/m2 Lorraine Stephens DO Work Phone: [employer] 01-24-2025 08:36-0400 Body weight 83.46 kg Lorraine Stephens DO Work Phone: [facility] 01-24-2025 08:36-0400 Diastolic blood pressure 80 mm[Hg] Lorraine Stephens DO Work Phone: [facility] 01-24-2025 08:36-0400 Heart rate 63 /min Lorraine Stephens DO Work Phone: [facility] 01-24-2025 08:36-0400 Systolic blood pressure 129 mm[Hg] Lorraine Stephens DO Work Phone: [facility] 07-06-2024 13:26-0400 Blood Pressure Location Eddie DOZIERL [facility] 07-06-2024 13:26-0400 Diastolic blood pressure 66 mm[Hg] Eddie NILL [facility] 07-06-2024 13:26-0400 Heart rate 68 /min Eddie NILL [facility] 07-06-2024 13:26-0400 Respiratory rate 16 /min Eddie NILL [facility] 07-06-2024 13:26-0400 Systolic blood pressure 118 mm[Hg] Eddie NILL [facility] 01-07-2024 08:30-0400 Body height 154.9 cm Kristi Escobar MD Work Phone: [facility] 01-07-2024 08:30-0400 Body mass index (BMI) [Ratio] 34.39 kg/m2 Kristi Escobar MD Work Phone: [facility] 01-07-2024 08:30-0400 Body weight 82.56 kg Kristi Escobar MD Work Phone: [facility] 01-07-2024 08:30-0400 Diastolic blood pressure 80 mm[Hg] Kristi Escobar MD Work Phone: [facility] 01-07-2024 08:30-0400 Systolic blood pressure 126 mm[Hg] Kristi Escobar MD Work Phone: [facility] Encounters Encounter Date Encounter Type Care Provider Facility Start: 03-22-2025 ambulatory KJ GARCIA [facility] Start: 03-04-2025 End: 03-04-2025 ambulatory SOHEILA DENISE [facility] Start: 01-24-2025 End: 01-24-2025 Office outpatient visit 15 minutes Lorraine Stephens Work Phone: [facility] [place] Comment on above: Bilateral carotid ar [place] stenosis (Primary Dx); History of pulmonary embolus (PE); History of DVT (deep vein thrombosis) Start: 01-24-2025 End: 01-24-2025 ambulatory LORRAINE STEPHENS [facility] Start: 01-11-2025 End: 01-11-2025 ambulatory [facility] Start: 11-10-2024 End: 11-10-2024 ambulatory [facility] Start: 10-29-2024 End: 10-29-2024 ambulatory [facility] Start: 09-30-2024 ambulatory [facility] Start: 09-20-2024 End: 09-20-2024 ambulatory [facility] Start: 09-20-2024 End: 09-20-2024 Encounter for other preprocedural examination [facility] [facility] Start: 08-24-2024 End: 08-24-2024 ambulatory [facility] Start: 08-24-2024 End: 08-24-2024 ambulatory [facility] Start: 07-06-2024 End: 07-06-2024 ambulatory Eddie MILLARD Facility:[facility] Start: 07-06-2024 End: 07-06-2024 Patient encounter procedure Eddie MILLARD [facility] Start: 01-08-2024 End: 01-08-2024 Telephone encounter Xenia Lindo VAT SKIMMER [facility] Start: 01-07-2024 End: 01-08-2024 ambulatory KRISTI Mable ESCOBAR [facility] Start: 01-07-2024 End: 01-07-2024 ambulatory [facility] Start: 01-07-2024 End: 01-07-2024 Office outpatient visit 25 minutes Kristi Escobar MD Work Phone: [facility] Comment on above: History of DVT (deep vein thrombosis) (Primary Dx); History of pulmonary embolus (PE); Anemia, unspecified type Start: 07-24-2023 ambulatory Eddie MILLARD Facility:[facility] Start: 01-08-2023 End: 01-09-2023 ambulatory SVETLANA REESE Facility:[facility] Start: 08-28-2022 End: 08-29-[address] KJ GARCIA . Facility:[facility] Start: 04-11-[address] KJ GARCIA . Facili ty:[facility] Start: 04-03-2022 End: 04-03-[address] KJ GARCIA . Facility:[facility] Start: 03-13-2022 End: 03-14-[address] KJ GARCIA . Facility:[facility] Start: 06-27-2021 End: 06-28-2021 ambulatory DEDE COLEMAN Facility:[facility] Procedures Date Procedure Procedure Detail Performing Clinician Start: 01-24-2025 Follow-up visit Follow-up LORRAINE STEPHENS Start: 01-07-2024 Follow-up visit Follow-up KRISTI ESCOBAR Start: 04-07-2023 Adult depression scr eening assessment Kristi Escobar MD Work Phone: Start: 02-17-2014 Colonoscopy Eddie JEAN-BAPTISTE LL Arthroscopy of knee Eddie MILLARD Arthroscopy of shoulder Raymond aecm MILLARD section Eddie Saunders Decompression of med nya nerve Eddie MILLARD Lithotripsy Eddie MILLARD Ostectomy of calcane us for spur Eddie MILLARD Release of trigger finger Lilia MILLARD Repair of right ingu inal hernia Eddie MILLARD Repair of ventral hernia Preston hasaulo MILLARD Total abdominal hysterectomy with bilateral salpingo-oophorectomy Eddie MILLARD Plan of Treatment Date Care Activity Detail Author Start: 06-01-2031 DTaP,Tdap and Td Vaccines (3 - Td or Tdap) DTaP,Tdap and Td Vaccines (3 - Td or Tdap) [facility] Start: 02-06-2026 End: 02-06-2026 Patient encounter procedure 02/06/2026 8:30 AM EDT Office Visit [facility] [address] [place] [address] Lorraine Stephens, DO [address] [facility] [address] [place] [address] [facility] [place] Start: 01-24-2026 Adult BMI Screening Adult BMI Screen ing [facility] Start: 01-24-2026 Tobacco Screening Tobacco Screening [facility] [employer] [facility] Start: 05-09-2025 Influenza vaccination Influenza Vacc ine [facility] Start: 01-30-2025 COVID-19 Vaccine (5 - Pfizer risk season) COVID-19 Vaccine (5 - Pfizer risk season) [email or web address] Start: 01-24-2025 End: 01-24-2026 US Carotid arteries - bilateral Vas carotid duplex bilateral Vascular Ultrasound Routine Bilateral carotid artery stenosis Expected: 01/24/2025, Expires: 01/24/2026 [employer] Work Phone: Comment on above: Expected: 01/24/2025 , Expires: 01/24/2026 Start: 01-24-2025 End: 01-24-2025 Patient encounter procedure 01/24/2025 8:30 AM EDT Office Visit [facility] [address] [place] [address] [place] [address] Lorraine Stephens DO [address] [facility] [address] [place] [address] [facility] Start: 01-06-2025 Adult BMI Screening [facility] ing [facility] Start: 01-06-2025 Tobacco Screening [facility]ening [email or web address] Start: 07-07-2024 Fall Risk Screening Fall Risk Screen ing [facility] Start: 05-09-2024 Influenza vaccination Influenza Vacc ine [facility] Start: 04-07-2024 Depression Screening Depression Scre ening [email or web address] Start: 05-09-2023 COVID-19 Vaccine ( season) COVID-19 Vaccine ( season) [email or web address] Start: 1969 Adult BMI Follow Up Plan Adult BMI Follow Up Plan [facility] [employer] Start: 1969 Diabetic foot examination Diabetic Foot Exam [email or web address] Start: 1950 Glaucoma screening Diabetic Op hthalmology Exam [email or web address] Start: 1950 Medicare Annual Wellness Visit Medicare Annual Wellness Visit [facility] End: 02-07-2024 D-Dimer D-Dimer Lab Routine History of DVT (deep vein thrombosis) History of pulmonary embolus (PE) Anemia, unspecified type 1 Occurrences starting 01/07/2024 until 02/07/2024 [employer] Work Phone: Comment on above: 1 Occurrences starti ng 01/07/2024 until 02/07/2024 Immunizations Immunization Date Immunization Notes Care Provider Fa cility 07-24-2022 Covid-19, Mrna, Lnp- s, Bivalent, Pf, 10 Mcg/0.2 Ml Kristi Escobar MD Work Phone: [employer] 07-24-2022 SARS-CoV-2 (COVID-19 ) [id number] Eddie MILLARD [facility] 06-12-2021 SARS-CoV-2 (COVID-19 ) mRNA BNT-162b2 vax Eddie DOZIERL [facility] 06-01-2021 tetanus toxoid, redu екатерина diphtheria toxoid, and acellular pertussis vaccine, adsorbed Kristi Escobar MD Work Phone: [facility] 11-28-2020 SARS-CoV-2 (COVID-19 ) mRNA BNT-162b2 vax Eddie NILL [facility] 11-06-2020 SARS-CoV-2 (COVID-19 ) mRNA BNT-162b2 v[address] DOZEIRL [facility] 07-25-2020 influenza, injectabl e, quadrivalent, preservative free Kristi Escobar MD Work Phone: [facility] 07-25-2020 influenza virus vacc ine, unspecified formulation Kristi Escobar MD Work Phone: [facility] 06-14-2020 Seasonal trivalent influenza vaccine, adjuvanted, preservative free Kristi Escobar MD Work Phone: [facility] 07-27-2018 influenza, injectabl e, quadrivalent, preservative free Kristi Escobar MD Work Phone: [facility] 12-04-2017 pneumococcal conjuga te vaccine, 13 valent Kristi Escobar MD Work Phone: [facility] 05-29-2017 influenza, injectabl e, quadrivalent, preservative free Kristi Escobar MD Work Phone: [facility] 10-09-2016 pneumococcal polysaccharide vaccine, 23 valent Kristi Escobar MD Work Phone: [facility] 09-04-2016 pneumococcal polysaccharide vaccine, 23 valent Kristi Escobar MD Work Phone: [facility] 06-06-2016 influenza virus vacc ine, unspecified formulation Kristi Escobar MD Work Phone: [facility] 10-17-2014 tetanus toxoid, redu екатерина diphtheria toxoid, and acellular pertussis vaccine, adsorbed Kristi Escobar MD Work Phone: [employer] Payers Date Payer Category Payer Medicare AETNA MEDICARE A ETNA MEDICARE PLAN (HMO) [id number] 2021-Present [phone] [address] [place] [address] [id number] 2021 Medicare HMO [employer] MEDICARE [id number] 2021 Unknown [id number] 2018 Unknown [id number] 2016 Medicare [id number] 2015 Private Health Insurance [id number] 1959 Medicare [id number] 1959 Self-pay [id number] 1951 Unknown [id number] 1951 Unknown [id number]. 593 1951 Unknown [id number]. 593 1951 Unknown [id number]. 593 1951 Unknown [id number]. 593 1951 Unknown [id number]. 593 1951 Unknown [id number] [id number]. 1286 1951 Unknown [id number] [id number]. 1286 1951 Unknown [id number] [id number]. 727 1951 Unknown [id number]. 1286 1951 Unknown [id number] 1286 Social History Date Type Detail Facility Start: 07-06-2024 Tobacco smoking status Never [facility] Start: 10-19-2020 End: 04-07-2023 Sex Assigned At Female [facility] Start: 04-07-2023 Tobacco smoking stat [facility] Ex-smoker [facility] History of tobacco use [facility] Start: 04-07-2023 Tobacco use and exposure Smokeless tobacco non-user [facility] Start: 01-07-2024 End: 01-24-2025 Alcoholic beverage intake Current drinker of alcohol (finding) [facility] Start: 10-19-2020 End: 04-07-2023 History of Social function [facility] How often to you hav e a drink containing alcohol? 2-4 times a month [facility] How many standard drinks containing alcohol do you have on a typical day? 1 or 2 [facility] How often do you hav e 6 or more drinks on 1 occasion? Never [facility] Start: 04-21-2019 Alcohol Comment rare beer [facility] Start: 1950 Sex assigned at Not on file [facility] Start: 04-13-2015 Sex Female (finding) [facility] Functional Status Date Assessment Result Facility 07-06-2024 Functional Status N/A [facility] Clinical Notes 08-28-2022 to 03-04-2025 Lorraine Rosales Jesusita, DO - 01/24/2025 8:30 AM EDTTelephone Encounter - Xenia Lindo, [facility] - 01/08/2024 9:06 AM EDTTelephone Encounter - Xenia Lindo, [facility] - 01/08/2024 9:06 AM EDT Note Date & Type Note Facility 03-04-2025 Note SUBJECTIVE Reason for Visit: Martina Holland is a 74 y.o. year old female patient being seen for follow-up visit, 6 month. HPI: Martina Holland is a 74 y.o. year [...] or chest pain. 09/20/2024 office visit (Dr. Oneil): The patient is physically very active, she [...] the following laboratory results above. These findings have been analyzed in the context of [...] all available cardiac diagnostic tests and imaging reports. Findings have been analyzed in the context of [...] Continue metoprolol succinate XL 25 mg daily #Hyperlipidemi (more content not included)... [facility] 01-24-2025 History of Present illness Narrative Images from the original note were not included. CC: Chief Complaint Patient presents with Follow-up Blood Clot(s) No testing 74 y.o. female w/ h/o HTN, SVT, uterine cancer (1994), coronary artery disease ([place]), HLD, DM-2 and previous unprovoked VTE (DVT/PE [...] mellitus, without long-term current use of insulin ([facility]) Arthritis HLD (hyperlipidemia) HTN (hypertension) PONV (postoperative nausea and vomiting) Cancer, uterine ([facility]) Prolonged emergence from general anesthesia Abdominal hernia Presence of right artificial knee joint Carpal tunnel syndrome Chronic pain Diverticular disease of colon Eczema Extrapyramidal movements present Fatigue Hip pain Hypoproteinemia Left shoulder pain Low back pain Nonsustained ventricular tachycardia ([facility]) Obesity Ocular hypertension Orthostatic hypotension Osteoarthritis of knee Osteopenia Pathological dislocation of left shoulder, not elsewhere classified Premenopausal menorrhagia Seasonal allergic rhinitis Supraventricular tachycardia Acute deep vein thrombosis (DVT) of tibial vein of right lower extremity ([facility]) SOB (shortness of breath) History of myocardial infarction Pure hypercholesterolemia BP 129/80 Pulse 63 Wt 83.5 kg (184 lb) BMI 34.77 kg/m Past Medical History: Diagnosis Date Arthritis Cancer ([facility]) uterine 2004 Chronic kidney disease stones Diabetes mellitus type 2, controlled ([facility]) Hyperlipidemia Hypertension PONV (postoperative nausea and vomiting) Prolonged emergence from general anesthesia Past Surgical History: Procedure Laterality Date CARPAL TUNNEL RELEASE SECTION COLONOSCOPY N/A 04/22/2019 Performed by Neville Xavier MD at [facility] EXC[facility] SPUR HERNIA REPAIR x4 HYSTERECTOMY JOINT REPLACEMENT Right knee LITHOTRIPSY ROTATOR CUFF REPAIR Right SHOULDER SURGERY TRIGGER FINGER RELEASE x2 Vascular Invasive/EKOS N/A 04/09/2023 Performed by Myron Mcgr[facility] MD at [facility] ROS: Review of Systems Respiratory: Negative for shortness of breath. Cardiovascular: Negative for leg swelling. Gastrointestinal: Negative for abdominal pain and blood in stool. Hernia repair 10/2024 Genitourinary: Negative for hematuria and vaginal bleeding. Skin: Negative for wound. [x] Up to date w/ colon cancer screening [x] Up to date w/ mammogram [] Not up to date w/ relief man cancer screening former smoker - quit 1975 History of: no h/o CVA + h/o: DVT, PE + h/o: [place], CAD, HTN no h/o: PAD, PVD, claudication [...] SVT, uterine cancer (1994), coronary artery disease ([place]), HLD, DM-2 and previous unprovoked VTE (DVT/PE [...] care. SIGNATURE: Lorraine Stephens DO CC: MD Rosemary BUNDY Douglas M, MD documented in this encounter [email or web address] 01-11-[facility]25 Note Subjective Patient ID: Martina Holland [...] past 36 hour(s)). No follow-ups on file. [facility] 11-10-2024 Note Subjective Patient ID: Martina Holland [...] past 36 hour(s)). No follow-ups on file. [facility] 10-29-2024 Note Patient: Martina K Ree d Procedure Summary Date: 10/29/24 Room / Location: [facility] OPERATING ROOM 01 / [facility] Operating Room Anesthesia Start: 1501 Anesthesia Stop: 1647 Procedure: OPEN INCISIONAL HERNIA REPAIR Diagnosis: Incisional hernia, without obstruction or gangrene (Incisional hernia, without obstruction or gangrene [K43.2]) Surgeons: Hair Leigh MD Responsible Provider: Lázaro Phelps MD Anesthesia Type: general ASA Status: 3 Anesthesia Type: general Vitals Value Taken Time BP 144/70 10/29/241714 Temp 36.8 ???C (98.2 ???F) 10/29/241644 Pulse 67 10/29/241714 Resp 19 10/29/241714 SpO2 96 % 10/29/241714 Anesthesia Post Evaluation [...] per anesthesia protocol. No notable events documented. [facility] 10-29-2024 Note Peripheral IV Date/Time: 10/29/2024 3:08 PM Placement Needle size: 18 G Laterality: left Location: external jugular Local anesthetic: none Site prep: alcohol Technique: anatomical landmarks Attempts: 1 [facility] 10-29-2024 Note Airway Date/Time: 10/29/2024 3:20 PM Urgency: elective Airway not difficult General Information and Staff Patient location during procedure: OR Anesthesiologist: Lázaro Phelps MD Resident/HVAC/R INSTRUCTOR/CAA: Tanner Mclaughlin MD Performed: resident/HVAC/R INSTRUCTOR/CAA Indications and Patient Condition Indications for airway [...] 1 Number of other approaches attempted: 0 [facility] 10-29-2024 Note Orders from past 72 hours: Full Code; Standing ceFAZolin in dextrose (iso-os) (Ancef) IVPB 2 g Full Code [facility] 10-28-2024 Note Patient: Martina morgan Procedure Information Date/Time: 10/29/24 1300 Procedure: OPEN INCISIONAL HERNIA REPAIR Location: [facility] OPERATING ROOM 01 / [facility] Operating Room Surgeons: Hair Leigh MD Relevant [...] CATHETERIZATION 06/27/2021 SECTION, CLASSIC HERNIA REPAIR HYSTERECTOMY 2005, total KNEE ARTHROPLASTY rt knee REPLACEMENT TOTAL [...] Plan discussed with attending. Additional Equipment Requests [facility] 09-30-2024 Note Patient notified via [employer]hart. Rachael Gomes MA [facility] 09-20-2024 Note ID Cardiology - [facility] Subjective Martina Holland is a 74 [...] ventricular size appears (more content not included)... [facility] 08-24-2024 Note Subjective Patient ID: Martina Holland [...] Status: She is alert. CT scan from [facility] showed supraumbilical abdominal wall bulging, fascial defect is 3.8 cm in diameter, with: Herniated. Assessment/Plan Midline incisional hernia Open incisional hernia repair is indicated. No diagnosis found. No orders of the defined types were placed in this encounter. No results found for this or any previous visit (from the past 36 hour(s)). No follow-ups on file. [facility] 07-06-2024 Note General Surgery Offi ce/Clinic Note [...] h/o htn, DMII, hyperlipidemia, DVT/PE on Eliquis, [place], SVT, osteoporosis, uterine cancer; referred for colorectal [...] E&M of New Patient Moderate 45-59 Min [id number] 2. Recurrent ventral incisional hernia (K43.2: Incisional hernia without obstruction or gangrene) obtain abd/pelvic ct scan with contrast for further evaluation, will call patient with results; signs/symptoms of incarceration/strangulation of hernia explained in detail, and patient understands that he should seek prompt medical evaluation if they were to occur. Ordered: E&M of New Patient Moderate 45-59 Min [id number] Follow-up No qualifying data available Problem List/Past [...] Arthroscopy of (more content not included)... [facility] Comment on above: Result Comment: Elec tronically Signed By: VENICE MERCHANT, Eddie Harley\Date and Time Signed: 07/06/24 14:31 EDT 01-08-2024 Miscellaneous Notes Called patient to inform of normal test result. Dr. Escobar would like her to repeat d-dimer in 4-6 weeks documented in this encounter [facility] 01-08-2024 Telephone encounter Note Called patient to inform of normal test result. Dr. Escobar would like her to repeat d-dimer in 4-6 weeks [facility] 01-07-2024 History of Present illness Narrative Images from the original note were not included. [facility] [address] [place] [address] Subjective: Patient ID: Martina Holland is a [...] of around 11. Echo was repeated at [facility] on 05/22/23: No significant swelling of lower extremities is reported. She is not requiring compression stockings. Patient Active Problem List Diagnosis Acute pulmonary embolism with acute cor pulmonale (CMS-HCC) Controlled type 2 diabetes mellitus, without long-term current use of insulin ([facility]) Arthritis HLD (hyperlipidemia) HTN (hypertension) PONV [...] otherwise can be more local in the [facility] for plan for indefinite anticoagulation therapy for [...] Escobar III, MD documented in this encounter [facility] 01-07-2024 Miscellaneous Notes Addended by: KRISTI ESCOBAR on: 01/07/2024 01:29 PM Modules accepted: Orders documented in this encounter [facility] 01-07-2024 Note Addended by: Philip ESCOBAR on: 01/07/2024 01:29 PM Modules accepted: Orders [facility] 08-28-2022 Note PROCEDURE: XR KNEE R T [...] by: ALEXX BELTRE Date: 2022-08-28 17:38 [facility] Evaluation + Plan note No data available for this section [facility] Evaluation note Diagnosis History of DVT (deep vein thrombosis)- Primary History of pulmonary embolus (PE) Anemia, unspecified type documented [facility] this encounter [facility] Diagnosis Bilateral carotid artery stenosis- Primary Occlusion and stenosis of carotid artery without mention of cerebral infarction History of pulmonary embolus (PE) History of DVT (deep vein thrombosis) documented [facility] this encounter [facility] No data available for this section [facility] InstructionsNot on filedocumented in this encounter [facility] on filedocumented in this encounter [facility] No data available for this section [facility] Summary Purpose Family History No Family [...] section and content) DATE CREATED AUTHOR 07/03/2021 [facility] DATE CREATED AUTHOR AUTHOR'S ORGANIZ ATION 01/15/2023 [facility] DATE CREATED AUTHOR AUTHOR'S ORGANIZ ATION 01/08/2024 [facility] DATE CREATED AUTHOR AUTHOR'S ORGANIZ ATION 07/10/2024 [facility] DATE CREATED AUTHOR AUTHOR'S ORGANIZ ATION 03/05/2025 [facility] DATE CREATED AUTHOR AUTHOR'S ORGANIZ ATION 03/26/2025 [facility] Patient Care team informatio n (unrecognized section and content) [employer] Relationship Specialty Start Date End Date Kj Garcia MD [address] [id number] PCP - General 11/03/22 [employer] Relationship Specialty Start Date End Date Kj Garcia MD [address] [place] [address] PCP - General 11/03/22 [employer] Relationship Specialty Start Date End Date Kj [...] BE BASED ON THE PRIMARY CLINICAL RECORDS. [employer] [facility]. provides no warranty or guarantee of the accuracy or completeness of information in this document.
[2025-05-14 09:38] LABS: Hematocrit 38.7 % (36.0-48.0); Hemoglobin 12.9 g/dL (12.0-16.0); Immature Granulocytes Abs Auto 0.01 10^3/uL (0.00-0.03); Immature Granulocytes Pct Auto 0.2 % (0.0-0.5); Lymphocytes Absolute Auto 1.8 10^3/uL (1.2-3.8); Mean Corpuscular HGB Conc 33.3 g/dL (29.9-35.2); Mean Corpuscular Hemoglobin 32.1 pg (26.7-34.0); Mean Corpuscular Volume 96.3 fL (81.0-99.0); Platelet Count 223 10^3/uL (150-450); Red Blood Count 4.02 10^6/uL (4.20-5.40); White Blood Count 5.4 10^3/uL (4.0-11.0)
[2025-05-14 10:04] LABS: Alanine Aminotransferase 16 U/L (14-59); Albumin Globulin Ratio 1.2; Albumin Level 3.8 g/dL (3.4-5.0); Alkaline Phosphatase 52 U/L (46-116); Anion Gap 11.4; Aspartate Amino Transferase 17 U/L (15-37); Blood Urea Nitrogen 18.0 mg/dL (7.0-18.0); Calcium 9.4 mg/dL (8.5-10.1); Carbon Dioxide 30.5 mmol/L (21.0-32.0); Chloride 106 mmol/L (98-107); Cholesterol 127 mg/dL (<=200); Estimated GFR (African America >60 (>=60 mL/min/1.73m^2); Estimated GFR (Non-African Ame 53 (>=60 mL/min/1.73m^2); Globulin 3.1 g/dL; Glucose 100 mg/dL (74-106); HDL Cholesterol 60 mg/dL (40-60); Potassium 3.9 mmol/L (3.5-5.1); Sodium 144 mmol/L (136-145); Total Protein 6.9 g/dL (6.4-8.2); Triglycerides 76 mg/dL (<=150); VLDL CHOLESTEROL 15.2 mg/dL
[2025-05-14 10:14] LABS: Iron 103.0 ug/dL (50.0-170.0)
[2025-05-14 10:34] LABS: Free T3 2.22 pg/mL (2.18-3.98); Thyroid Stimulating Hormone 2.111 uIU/mL (0.358-3.740); Uric Acid 6.9 mg/dL (2.6-6.0)
[2025-05-16 12:08] LABS: Antinuclear Antibodies, IFA Negative (.)
== END 2025-05-14 08:34 | disposition home or self-care (01) ==
PROVIDERS: PCP Family Medicine; Visit Provider Family Medicine
DX: E11.65 Type 2 diabetes mellitus with hyperglycemia (principal); N18.31 Chronic kidney disease, stage 3a; E78.00 Pure hypercholesterolemia, unspecified; K29.70 Gastritis, unspecified, without bleeding; Z12.12 Encounter for screening for malignant neoplasm of rectum; D64.9 Anemia, unspecified; E03.9 Hypothyroidism, unspecified; R53.83 Other fatigue; I12.9 Hypertensive chronic kidney disease with stage 1 through stage 4 chronic kidney disease, or unspecified chronic kidney disease
CPT/HCPCS: 36415; 80053; 80061; 83036; 83540; 84436; 84443; 84450; 84460; 84481; 84550; 85025; 86038; 86060; 86140; 86431

== ENCOUNTER 2025-05-14 08:33 | Outpatient (OUT) | payer MEDICARE, SELFPAY ==
--- OUTSIDE RECORDS SUMMARY | 2025-02-23 06:30 | XMS_ITS ---
Author Organization The [facility] in [place] Address [address] [place] [address] Care Team Providers Care Airport Engineer Name Role Phone Chava Garcia Primary Care Provider [phone] Allergies Allergen (clinical drug ingredient) Drug/Non Drug Allergy documented on EMR Reaction Allergy Type Onset Date Status meperidine Demerol shortness of breath Drug Allergy Active ciprofloxacin Ciprofloxacin rash Drug Allergy Active Results Component Value Reference Range Notes UA DIP NONAUTO WO MICRO (810 02) - IN OFFICE Reviewed date:03/06/2025 03:12:12 PM Interpretation: Performing Lab: Notes/Report: COLOR yellow CLARITY [...] a Week Active Vitamin D3 50 MCG (1999 UT) 1 capsule Or ally Once a day [...] Problem Status W/U Status Risk Notes Problem Diabetic renal disease (595173651) 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) Active confirmed Problem Idiopathic pulmonary arterial hypertension (822268023) Primary pulmonary hypertension (I27.0) Active confirmed Problem Chronic kidney disease stage 3A (disorder) (151504913) Chronic kidney disease, stage 3a (N18.31) Active confirmed Vital Signs Weight 187.4 lbs 02/23/2025 Height 61 in 02/23/2025 Blood pressure systolic 118 mm Hg 02/24/20 25 Blood pressure diastolic 76 mm Hg 025 BMI 35.41 kg/m2 02/23/2025 Encounters Encounter Location Date Provider Diagnosis [facility] [address] [place] [address] 02/23/2025 Chava Hoy Urinary urgency R39. 15 [...] meds Chronic kidney disease due to diabetes micah fernandez wathin labs Primary pulmonary hypertension roman stabl e Chronic kidney disease, stage 3a checkin g labs Next Appt Details Provider Name:Chava Garcia, 09:15:00 AM, [address] [place], [address], Progress Notes * Martina HOLLAND KDOB:1950 (74 yo F)Acc No.[id number]:02/23/2025 Progress Note Patient: Martina TORREZ Provider: Earlene Garcia ([facility])MD :1950 A ge:74 Y S ex:Female Date:02/23/2025 Address:[address] [place] [address] [address] [place], [id number] Check In:10:19 AM ESTCheck O ut:10:56 AM [...] of left shoulder, not elsewhere classified Modified On:01/17/2023 Status:confirmed R53.83 Fatigue Modified On:01/17/2023 Status:confirmed G56.00 Carpal tunnel syndro me Modified On:01/17/2023 Status:confirmed I95.1 Orthostasis Modified On:01/17/2023 Status:confirmed M85.80 Osteopenia Modified On:01/17/2023 Status:confirmed L30.9 Eczema Modified On:01/17/2023 Status:confirmed M25.559 Hip pain Modified On:01/17/2023 Status:confirmed M25.50 Arthralgia Modified On:01/17/2023 Status:confirmed M17.9 Osteoarthritis of ri ght knee [...] On:01/17/2023 Status:confirmed M77.32 Calcaneal spur, left Modified On:01/17/2023 Status:confirmed G25.9 Abnormal leg movemen t Modified On:01/17/2023 Status:confirmed E78.00 Pure hypercholestero lemia, unspecified Modified On:11/26/2023 Status:confirmed 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, unspecified laterality Modified On:11/26/2023 Status:confirmed J30.9 Allergic rhinitis, u nspecified Modified On:12/30/2022 Status:confirmed I10 Essential (primary) hypertension Modified On:03/20/2024W/U Status:confirmed I51.5 Myocardial degenerat ion Modified On:11/26/2023U Status:confirmed I26.99 Other pulmonary embo lism without acute cor pulmonale Modified On:05/07/2023 Status:confirmed I25.2 Anterolateral myocar dial infarction greater than eight weeks ago Modified On:04/23/2023 Status:confirmed I82.409 Acute embolism and t hrombosis [...] Chronic kidney disea se, stage 3a Modified On:02/23/2025 Status:confirmed * Medical History: * Surgical History: H ernia Repair C Section Bone Spur Lithotripsy Left Shoulder Surgery 02/28/2023exa study 3-2-83Tzinngdmp hernia repair 10/29/2024 * Hospitalization/Major Diagno stic Procedure: F all/ Shoulder Dislocation ulmonary Embolism 03/2023 * Family History: F ather: , acute myocardial infarction, hypertension, diagnosed with Unspecified essential hypertension, Unspecified heart disease. M other: , Cerebral vascular accident, acute myocardial infarction, diagnosed with Unspecified heart disease. B shaun(s): alive. S eren(s): alive. D iasac(s): alive. 2 brother(s) , 4 sister(s) - [...] times a Week Vitamin D3 50 MCG (2000 UT) Capsule [...] L ab: UA DIP NONAUTO WO MICRO (41663) - IN OFFICE (Collection Date & Time [...] (Check Out) true * Provider: Earlene Garcia ([facility])MD Date: 0 02/23/2025 Generated for Printi ng/Faxing/eTransmitting on: 0 05/14/2025 08:38 AM EDT History and Physical Notes * [...]
--- OUTSIDE RECORDS SUMMARY | 2025-03-06 11:11 | XMS_ITS ---
Author Organization [facility] [place] Address [address] [place] [address] Care Team Providers Care Furniture Manager Name Role Phone Chvaa Garcia Primary Care Provider [phone] REASON FOR VISIT Mammogram Results Encounters Encounter Location Date Provider Diagnosis [address] [address] 03/06/2025 Chava Garcia Plan Of Treatment Next Appt Details Provider Name:Chava Rosales Johnnyeugenia, 09:15:00 AM, [address] [place], [address], Progress Notes * Martina HOLLAND KDOB:1950 (74 yo F)Acc No.[id number]:03/06/2025 Patient: Gloria HA Martina Lauren :1950 A ge:74 Y S ex:Female Address:[address] [place] [address] [place], [address] * true * Date: Generated for Printi ng/Faxing/eTransmitting on: 0 05/14/2025 08:39 AM EDT
--- OUTSIDE RECORDS SUMMARY | 2025-03-09 10:30 | XMS_ITS ---
Author Organization [facility] in [place] Address [address] [place] [address] Care Team Providers Care Bias Cutting Machine Operator Vertical Name Role Phone Chava Garcia Primary Care Provider [phone] Allergies Allergen (clinical drug ingredient) Drug/Non Drug Allergy documented on EMR Reaction Allergy Type Onset Date Status meperidine Demerol shortness of breath Drug Allergy Active ciprofloxacin Ciprofloxacin rash Drug Allergy Active REASON FOR VISIT Back Pain & Right Shoulder Pain, Patient leaned over and felt like something pulled or was strained Medications Medication SIG (Take, Route, Frequency, Duration) Notes Start Date End Date Status Cyclobenzaprine HCl 10 MG 1 tablet Orall y bid for 30 days 03/09/2025 Active Triamcinolone Acetonide 0.1 % 1 applicat ion Externally Two times a Week Active Rosuvastatin Calcium 5 MG 1 tablet Orall y Once a day for 90 days Active Vitamin D3 50 MCG (2000 UT) 1 capsule Or ally Once a day Active OneTouch Ultra - USE 1 STRIP TO CHECK GLUCOSE ONCE DAILY VIA METER, FASTING, IN THE MORNING. In Vitro Dx: E11.9 for 100 days Active Metoprolol Succinate ER 25 MG 1 tablet O rally Once a day for 90 days Active Pantoprazole Sodium 40 MG 1 tablet Orall y Once a day for 90 days Active Lancets 30G - use 1 lancet DX: E11 .9 once Daily for 90 days Active Iron 325 (65 Fe) MG 1 tablet Orally BID for 90 days Active hydroCHLOROthiazide 12.5 MG Oral for 90 Days Active Eliquis 2.5 MG 1 tablet Orally Twic e a day Active Aspir-Low 81 MG 1 tablet Orally Once a day Active Social History Tobacco Use: Social History Observation Description Date Details (start date - stop date) Never Smoker NA - NA Tobacco Use/Smoking Question Answer Notes Patient is a nonsmoker AUDIT-C (Standard) Question Answer Notes Did you have a drink containing alcohol in the p ast year? No Points 0 Interpretation Negative Problems Problem Type SNOMED Code ICD Code Onset Dates Problem Status W/U Status Risk Notes Problem Strain of trapezius muscle (223531168) Trapezius muscle strain (S46.819A) Active confirmed Vital Signs Weight 183.8 lbs 03/09/2025 Height 61 in 03/09/2025 Blood pressure systolic 122 mm Hg 03/09/20 25 Blood pressure diastolic 74 mm Hg 025 BMI 34.72 kg/m2 03/09/2025 Encounters Encounter Location Date Provider Diagnosis [facility] [address] [place] [address] 03/09/2025 Chava Garcia Trapezius muscle str ain S46.819A and Essential (primary) hypertension I10 Assessments Encounter Date Diagnosis (ICD Code) Assessment Notes Treatment Notes Treatment Clinical Notes Section Notes 03/09/2025 Trapezius muscle strain (ICD-10 - S46.819A) tenerness on exam - muscle relaxer and heat 03/09/2025 Essential (primary) hypertension (ICD-10 - I10) cardiology adjust edmeds - watchign salt and caffeine Plan Of Treatment Medication Medication Name Sig Start Date Stop Date Notes Cyclobenzaprine HCl 10 MG 1 tablet Orally bid for 30 days 03/09/2025 Treatment Notes Assessment Notes Trapezius muscle strain tenerness on exa m - muscle relaxer and heat Essential (primary) hypertension cardiol ogy adjust edmeds - watchign salt and caffeine Next Appt Details Provider Name:Chava Bobby Garcia, 09:15:00 AM, [address] [place], [address], Progress Notes * Martina HOLLAND KDOB:1950 (74 yo F)Acc No.[id number]:03/09/2025 Progress Note Patient: Gloria HA Martina Leonidas Provider: Earlene Garcia ([facility])MD :1950 A ge:74 Y S ex:Female Date:03/09/2025 Address:[address] [place] [address] [address] [place], [id number] Check In:02:22 PM ESTCheck O ut:02:59 PM EST Subjective: * Chief Complaints: * B ack Pain & Right Shoulder PainPatient leaned over and felt like something pulled or was strained * HPI: G eneral: just started las night - reaching in front of ehr and felt pulling - then this am felt wors e- worse iwth deep breath and cough. 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, not elsewhere classified Modified On:01/17/2023 Status:confirmed R53.83 Fatigue Modified On:01/17/2023 Status:confirmed G56.00 Carpal tunnel syndro me Modified On:01/17/2023 Status:confirmed I95.1 Orthostasis Modified On:01/17/2023 Status:confirmed M85.80 Osteopenia Modified On:01/17/2023 Status:confirmed L30.9 Eczema Modified On:01/17/2023 Status:confirmed M25.559 Hip pain Modified On:01/17/2023U Status:confirmed M25.50 Arthralgia Modified On:01/17/2023 Status:confirmed M17.9 Osteoarthritis of ri ght knee Modified On:01/17/2023 Status:confirmed E11.65 Diabetes mellitus ty pe 2, uncontrolled Modified On:11/26/2023U Status:confirmed R55 Near syncope Modified On:01/17/2023U Status:confirmed K42.9 Umbilical hernia Modified On:01/17/2023U Status:confirmed E66.3 Over weight Modified On:01/17/2023U Status:confirmed J30.2 Allergic rhinitis, s easonal Modified On:01/17/2023U Status:confirmed K57.30 Colon, diverticulosi s Modified On:01/17/2023U Status:confirmed K46.9 Other abdominal dimitry ia Modified On:01/17/2023U Status:confirmed K42.9 Periumbilical hernia Modified On:01/17/2023 Status:confirmed M19.90 DA (degenerative art hritis) Modified On:01/17/2023 Status:confirmed M77.32 Calcaneal spur, left Modified On:01/17/2023 Status:confirmed G25.9 Abnormal leg movemen t Modified On:01/17/2023 Status:confirmed E78.00 Pure hypercholestero lemia, unspecified Modified On:11/26/2023 Status:confirmed 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, unspecified laterality Modified On:11/26/2023 Status:confirmed J30.9 Allergic rhinitis, u nspecified Modified On:12/30/2022 Status:confirmed I10 Essential (primary) hypertension Modified On:11/26/2023 Status:confirmed I51.5 Myocardial degenerat ion Modified On:11/26/2023 Status:confirmed I26.99 Other pulmonary embo lism without acute cor pulmonale Modified On:05/07/2023U Status:confirmed I25.2 Anterolateral myocar dial infarction greater than eight weeks ago Modified On:04/23/2023 Status:confirmed I82.409 Acute embolism and t hrombosis of unspecified deep veins of unspecified lower extremity Modified On:07/08/2023 Status:confirmed J01.90 Acute sinus infectio n Modified On:07/23/2023 Status:confirmed K29.70 Gastritis Modified On:08/27/2023U Status:confirmed M54.50 Low back pain at mul tiple sites Modified On:09/29/2023U Status:confirmed N39.0 Urinary tract infect ion, site not specified Modified On:09/29/2023 Status:confirmed S00.93XA Head contusion Modified On:11/03/2023U Status:confirmed M81.0 Osteoporosis Modified On:03/12/2024U Status:confirmed K57.90 Diverticulosis Modified On:05/26/2024U Status:confirmed M12.9 Hand arthritis Modified On:09/22/2024U Status:confirmed E11.9 Diabetes Modified On:11/24/2024/U Status:confirmed I95.1 Orthostatic hypotens ion Modified On:12/31/2024/U Status:confirmed 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 Modified On:02/23/2025/U Status:confirmed I27.0 Primary pulmonary hy pertension Modified On:02/23/2025/U Status:confirmed N18.31 Chronic kidney disea se, stage 3a Modified On:02/23/2025/U Status:confirmed S46.819A Trapezius muscle str ain Modified On:03/09/2025/U Status:confirmed * Medical History: * Surgical History: H ernia Repair C Section Bone Spur Lithotripsy Left Shoulder Surgery 02/28/2023exa study 8-0-06Bkoxoximi hernia repair 10/29/2024 * Hospitalization/Major Diagno stic Procedure: F all/ Shoulder Dislocation ulmonary Embolism 03/2023 * Family History: F ather: , acute myocardial infarction, hypertension, diagnosed with Unspecified essential hypertension, Unspecified heart disease. M other: , Cerebral vascular accident, acute myocardial infarction, diagnosed with Unspecified heart disease. B rother(s): alive. S ister(s): alive. D danielleer(s): alive. 2 brother(s) , 4 sister(s) - healthy. 1 daughter(s) - healthy. . * Social History: T obacco Use: T obacco Use/Smoking P atient is a n onsmoker D rug/Alcohol: A TRACIE-C (Standard) D id you have a drink containing alcohol in the past year? N o P oints 0 I nterpretation N egative * Medications: T akingAspir-Low 81 MG Tablet Delayed Release 1 tablet Orally Once a day Eliquis(Apixaban) 2.5 MG Tablet 1 tablet Orally Twice a day hydroCHLOROthiazide 12.5 MG Capsule Oral Iron 325 (65 Fe) MG Tablet 1 [...] 1 tablet Orally Twice a day Taking hydroCHLOROthiazide 12.5 MG Capsule Oral Taking Iron 325 (65 Fe) MG Tablet [...] Capsule 1 capsule Orally Once a day DiscontinuedAmoxicillin-Pot Clavulanate 875-125 MG Tablet 1 tablet Orally every 12 hrs Medication List reviewed and reconciled with the patientDiscontinued Amoxicillin-Pot Clavulanate 875-125 MG Tablet 1 tablet Orally every 12 hrs Medication List reviewed and reconciled with the patient * Allergies: D emerol: shortness of breath - Allergy - Criticality HighCiprofloxacin: rash - Side Effects - Criticality Highno[Allergies Verified] Objective: * Vitals: W t:183.8lbs, Ht: 61 in, BP:122/74mm Hg, BMI:34.72Index, Ht-cm: 154.94 cm, Wt-k.37 kg. * Examination: A bdomen Exam:: R mid trapezius tendnerness - Poor rom in R sholjlder duet o pain. Assessment: * Assessment: 1. T rapezius muscle strain - S46.819A (Primary) 2 . E ssential (primary) hypertension - I10 Plan: * Treatment: 2. E ssential (primary) hypertension Notes: cardiology adjust edmeds - watchign salt and caffeine * Procedure Codes: * Preventive Medicine: Screenings/Counseling: B [place] ACTION PLAN Above Normal BMI Follow-up D ietary management education, guidance, and counseling * * Sign off status: Completed Visit Status: C HK (Check Out) true * Provider: Earlene Garcia ([facility])MD Date: 03/09/2025 Generated for Brittanii cedric/Kel/eTransmitting on: 0 05/14/2025 08:37 AM EDT History and Physical Notes * HPI (History of Present Illness) Category Sub-Category Detail Notes Category Not es General just started la s night - reaching in front of ehr and felt pulling - then this am felt wors e- worse iwth deep breath and cough Examination Category Sub-Category Detail Notes Category Not es Abdomen Exam: R mid trapezius tendnerness - Poor rom in R sholjlder duet o pain
--- OUTSIDE RECORDS SUMMARY | 2025-03-09 10:57 | XMS_ITS ---
Author Organization [facility] [place] Address [address] [place] [address] Care Team Providers Care Paraprofessional Education Assistant Name Role Phone Chava Garcia Primary Care Provider REASON FOR VISIT US neck Encounters Encounter Location Date Provider Diagnosis [address] [address] 03/09/2025 Chava Garcia Plan Of Treatment Next Appt Details Provider Name:Chava Rosales Radha, 09:15:00 AM, [address] [place], [address], Progress Notes * Martina HOLLAND KDOB:1950 (74 yo F)Acc No.[id number]:03/09/2025 Patient: Gloria HA Martina Lauren :1950 A ge:74 Y S ex:Female Address:[address] [place] [address] [place], [address] * true * Date: Generated for Printi ng/Faxing/eTransmitting on: 0 05/14/2025 08:38 AM EDT
--- OUTSIDE RECORDS SUMMARY | 2025-05-11 04:45 | XMS_ITS ---
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 Name Role Phone Chava Garcia Primary Care Provider Allergies Allergen (clinical drug ingredient) Drug/Non Drug Allergy documented on EMR Reaction Allergy Type Onset Date Status meperidine Demerol shortness of breath Drug Allergy Active ciprofloxacin Ciprofloxacin rash Drug Allergy Active REASON FOR VISIT 3 month f/u Medications Medication SIG (Take, Route, Frequency, Duration) Notes Start Date End Date Status Pantoprazole Sodium 40 MG 1 tablet Orall y Once a day for 90 days Active Iron 325 (65 Fe) MG 1 tablet Orally BID for 90 days Active Lancets 30G - use 1 lancet DX: E11 .9 once Daily for 90 days Active Metoprolol Succinate ER 25 MG 1 tablet O rally Once a day for 90 days Active OneTouch Ultra - USE 1 STRIP TO CHECK GLUCOSE ONCE DAILY VIA METER, FASTING, IN THE MORNING. In Vitro Dx: E11.9 for 100 days Active Aspir-Low 81 MG 1 tablet Orally Once a day Active Vitamin D3 50 MCG (1999 UT) 1 capsule Or ally Once a day Active Cyclobenzaprine HCl 10 MG 1 tablet Orall y bid for 30 days 03/09/2025 Active Eliquis 2.5 MG 1 tablet Orally Twic e a day Active hydroCHLOROthiazide 12.5 MG Oral for 90 Days Active Rosuvastatin Calcium 5 MG 1 tablet Orall y Once a day for 90 days Active Triamcinolone Acetonide 0.1 % 1 applicat ion Externally Two times a Week Active Social History Tobacco Use: Social History Observation Description Date Details (start date - stop date) Never Smoker NA - NA Tobacco Use/Smoking Question Answer Notes Patient is a nonsmoker Vital Signs Weight 187.8 lbs 05/11/2025 Height 61 in 05/11/2025 Blood pressure systolic 134 mm Hg 05/11/20 25 Blood pressure diastolic 78 mm Hg 025 BMI 35.48 kg/m2 05/11/2025 Encounters Encounter Location Date Provider Diagnosis [facility] [address] [place] [address] 05/11/2025 Chava Garcia Diabetes mellitus ty pe 2, uncontrolled E11.65 ; Chronic kidney disease, stage 3a N18.31 ; Pure hypercholesterolemia, unspecified E78.00 ; Essential (primary) hypertension I10 and Gastritis K29.70 Assessments Encounter Date Diagnosis (ICD Code) Assessment Notes Treatment Notes Treatment Clinical Notes Section Notes 05/11/2025 Diabetes mellitus type 2, uncontrolled (ICD-10 - E11.65) wants to stay off meds 05/11/2025 Chronic kidney disease, stage 3a (ICD-10 - N18.31) 05/11/2025 Pure hypercholesterole michelle, unspecified (ICD-10 - E78.00) cont with meds 05/11/2025 Essential (primary) hypertension (ICD-10 - I10) stable at [facility] 05/11/2025 Gastritis (ICD-10 - K29.70) meds hek;potn Plan Of Treatment Treatment Notes Assessment Notes Diabetes mellitus type 2, uncontrolled w ants to stay off meds Pure hypercholesterolemia, unspecified c ont with meds Essential (primary) hypertension stable at [facility] Gastritis meds hek;potn Pending Test Test Name Order Date HEMOGLOBIN A1C (GLYCO) 05/11/2025 IRON, TOTAL 05/11/2025 LIPID PANEL (CHOL/TRIG/HDL/LDL) 05/11/20 25 RHEUMATOID PANEL 05/11/2025 STOOL OCCULT BLOOD 05/11/2025 THYROID PANEL (T4/TSH/FREE T3) 5 CMP (COMP MET REDD) w/eGFR CKD-EPI 2024 CBC WITH DIFF 05/11/2025 Next Appt Details Provider Name:Chava Garcia, 09:15:00 AM, [address] [place], [address], Progress Notes * Martina HOLLAND KDOB:1950 (74 yo F)Acc No.[id number]:05/11/2025 Progress Note Patient: Martina TORREZ Provider: Earlene Garcia ([facility])MD :1950 A ge:74 Y S ex:Female Date:05/11/2025 Address:[address] [place] [address] , [place], [id number] Check In:08:41 AM ESTCheck O ut:09:12 AM EST Subjective: * Chief Complaints: * 3 month f/u * HPI: G eneral: DM - 140-1502 at hoem - not great with diet GERD - stabel wiyh meds HTN -monitring at home - contolled Vit D Def -maintaingin supple Hypercholesterlemia - disucssed taking meds. * ROS: E ENT: hearing changes [...] classified Modified On:01/17/2023 Status:confirmed R53.83 Fatigue Modified On:01/17/2023U Status:confirmed G56.00 Carpal tunnel syndro me Modified On:01/17/2023U Status:confirmed I95.1 Orthostasis Modified On:01/17/2023U Status:confirmed M85.80 Osteopenia Modified On:01/17/2023U Status:confirmed L30.9 Eczema Modified On:01/17/2023U Status:confirmed M25.559 Hip pain Modified On:01/17/2023U Status:confirmed M25.50 Arthralgia Modified On:01/17/2023U Status:confirmed M17.9 Osteoarthritis of ri ght knee Modified On:01/17/2023U Status:confirmed E11.65 Diabetes mellitus ty pe 2, uncontrolled Modified On:11/26/2023U Status:confirmed R55 Near syncope Modified On:01/17/2023U Status:confirmed K42.9 Umbilical hernia Modified On:01/17/2023U Status:confirmed E66.3 Over weight Modified On:01/17/2023 Status:confirmed J30.2 Allergic rhinitis, s easonal Modified On:01/17/2023 Status:confirmed K57.30 Colon, diverticulosi s Modified On:01/17/2023 Status:confirmed K46.9 Other abdominal dimitry ia Modified On:01/17/2023 Status:confirmed K42.9 Periumbilical hernia Modified On:01/17/2023 Status:confirmed M19.90 DA (degenerative art hritis) Modified On:01/17/2023U Status:confirmed M77.32 Calcaneal spur, left Modified On:01/17/2023 [...] Status:confirmed J01.90 Acute sinus infectio n Modified On:07/23/2023U Status:confirmed K29.70 Gastritis Modified On:08/27/2023U Status:confirmed M54.50 Low back pain at mul tiple sites Modified On:09/29/2023U Status:confirmed N39.0 Urinary tract infect ion, site not specified Modified On:09/29/2023U Status:confirmed S00.93XA Head contusion Modified On:11/03/2023U Status:confirmed M81.0 Osteoporosis Modified On:03/12/2024U Status:confirmed K57.90 Diverticulosis Modified On:05/26/2024U Status:confirmed M12.9 Hand arthritis Modified On:09/22/2024U Status:confirmed E11.9 Diabetes Modified On:11/24/2024U Status:confirmed I95.1 Orthostatic hypotens ion Modified On:12/31/2024U Status:confirmed 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 Modified On:02/23/2025 Status:confirmed I27.0 Primary pulmonary hy pertension Modified On:02/23/2025 Status:confirmed N18.31 Chronic kidney disea se, stage 3a Modified On:02/23/2025 Status:confirmed S46.819A Trapezius muscle str ain Modified On:03/09/2025 Status:confirmed * Medical History: * Surgical History: H ernia Repair C Section Bone Spur Lithotripsy Left Shoulder Surgery 02/28/2023exa study 6-7-59Vrwsyqmux hernia repair 10/29/2024 * Hospitalization/Major Diagno stic Procedure: F all/ Shoulder Dislocation ulmonary Embolism 03/2023 * Family History: F ather: , acute myocardial infarction, hypertension, diagnosed with Unspecified essential hypertension, Unspecified heart disease. M other: , Cerebral vascular accident, acute myocardial infarction, diagnosed with Unspecified heart disease. B nikier(s): alive. S ister(s): alive. D isaac(s): alive. 2 brother(s) , 4 sister(s) - healthy. 1 daughter(s) - healthy. . * Social History: T obacco Use: T obacco Use/Smoking P atient is a n onsmoker * Medications: T akingAspir-Low 81 MG Tablet Delayed Release 1 tablet Orally Once a day Cyclobenzaprine HCl 10 MG Tablet 1 tablet Orally bid Eliquis(Apixaban) 2.5 MG Tablet 1 tablet Orally [...] Capsule 1 capsule Orally Once a day Medication List reviewed and reconciled with the patientTaking Aspir-Low 81 MG Tablet Delayed Release 1 tablet Orally Once a day Taking Cyclobenzaprine HCl 10 MG Tablet 1 tablet Orally bid Taking Eliquis(Apixaban) 2.5 MG Tablet 1 tablet [...] a Week Taking Vitamin D3 50 MCG (1999 UT) Capsule 1 capsule Orally Once a day Medication List reviewed and reconciled with the patient * Allergies: D emerol: shortness of breath - Allergy - Criticality HighCiprofloxacin: rash - Side Effects - Criticality Highno[Allergies Verified] Objective: * Vitals: W t:187.8lbs, Ht: 61 in, BP:134/78mm Hg, BMI:35.48Index, Ht-cm: 154.94 cm, Wt-k.19 kg. * Examination: P hysical Exam: GENERAL: [...] mood and affect. Assessment: * Assessment: 1. D iabetes mellitus type 2, uncontrolled - E11.65 (Primary) 2 . C hronic kidney disease, stage 3a - N18.31 3 . P ure hypercholesterolemia, unspecified - E78.00 4 . E ssential (primary) hypertension - I10 5 . G astritis - K29.70 Plan: * Treatment: 2. C hronic kidney disease, stage 3a L AB: HEMOGLOBIN A1C (GLYCO) L AB: IRON, TOTAL L AB: LIPID PANEL (CHOL/TRIG/HDL/LDL) L AB: RHEUMATOID PANEL L AB: STOOL OCCULT BLOOD L AB: THYROID PANEL (T4/TSH/FREE T3) L AB: CMP (COMP MET REDD) w/eGFR CKD-EPI L AB: CBC WITH DIFF 3. P ure hypercholesterolemia, unspecified L AB: HEMOGLOBIN A1C (GLYCO) L AB: IRON, TOTAL L AB: LIPID PANEL (CHOL/TRIG/HDL/LDL) L AB: RHEUMATOID PANEL L AB: STOOL OCCULT BLOOD L AB: THYROID PANEL (T4/TSH/FREE T3) L AB: CMP (COMP MET REDD) w/eGFR CKD-EPI L AB: CBC WITH DIFF Notes: cont with meds 4. E ssential (primary) hypertension L AB: HEMOGLOBIN A1C (GLYCO) L AB: IRON, TOTAL L AB: LIPID PANEL (CHOL/TRIG/HDL/LDL) L AB: RHEUMATOID PANEL L AB: STOOL OCCULT BLOOD L AB: THYROID PANEL (T4/TSH/FREE T3) L AB: CMP (COMP MET REDD) w/eGFR CKD-EPI L AB: CBC WITH DIFF Notes: stable at [place] 5. G astritis L AB: HEMOGLOBIN A1C (GLYCO) L AB: IRON, TOTAL L AB: LIPID PANEL (CHOL/TRIG/HDL/LDL) L AB: RHEUMATOID PANEL L AB: STOOL OCCULT BLOOD L AB: THYROID PANEL (T4/TSH/FREE T3) L AB: CMP (COMP MET REDD) w/eGFR CKD-EPI L AB: CBC WITH DIFF Notes: meds hek;potn * Procedure Codes: * Preventive Medicine: Screenings/Counseling: B [place] ACTION PLAN Above Normal BMI Follow-up D ietary management education, guidance, and counseling * * Sign off status: Completed Visit Status: C HK (Check Out) true * Provider: Earlene Garcia ([facility])MD Date: 05/11/2025 Generated for Printi ng/Fameghang/eTransmitting on: 0 05/14/2025 08:38 AM EDT History and Physical Notes * HPI (History of Present Illness) Category Sub-Category Detail Notes Category Not es General DM - 140-1502 at hoem - not great with diet GERD - stabel wiyh meds HTN -monitring at home - contolled Vit D Def -maintaingin supple Hypercholesterlemia - disucssed taking meds Examination Category Sub-Category Detail Notes Category [...]
--- OUTSIDE RECORDS SUMMARY | 2025-05-14 08:37 | XMS_ITS | CCD ---
Author Organization [facility] CliniSyde Care Team Providers Care Scientific Specialist Name Role Phone DEDE COLEMAN Attending Unavailable [...] Care Unavailable Kj Garcia Primary Care Physician [phone] Eddie MILLARD Attending Unavailable Kj Garcia Referring Unavailable Kj Garcia MD Primary Care Provider [phone] Kj Garcia MD Primary Care Provider [...] Meperidine; Translations: [Demerol] Drug Allergy [address] [facility] Repository (7 sources) Meperidine; Translations: [MEPERIDINE] Drug Allergy 8 Dyspnea (finding), Shortness Of Breath [facility] Repository (3 sources) Ciprofloxacin; Translations: [ciprofloxacin] Drug Allergy 5 Eruption of skin (disorder) [facility] (1 source) No Known Medication Allergies; Translations: [No Known Medication Allergies] Propensity to adverse reactions (disorder) [facility] Repository Medications Current Medications Medication Drug [...] [facility] Facility Office Visiton 03-04-2025 Follow-up visit [id number] Sabine Hollandporfirio Lauren 1950 F Date Provider Department Center 03/04/2025 42030-ZBXUIE, ADAM BUCK [facility] Family History Problem Relation Age of Onset Valvular heart disease Mother Atrial fibrillation Sister Lupus Sister Family Status - Relation Status Age at Mother Sister Level of Service:75054 MS OFFICE/OUTPATIENT ESTABLISHED MOD MDM 30 MIN [facility] Office Visiton 01-11-2025 Follow-up visit [id number] StephonMartina Lauren 1950 Provider Department Center 01/11/2025 ALLISON GUIDOKUN [facility] SURG Second Fl Family History Problem Relation Age of Onset Valvular heart disease Mother Family Status - Relation Status Age at Mother Level of Service:05658 MS POSTOP FOLLOW UP VISIT RELATED TO ORIGINAL PX Reason for Visit and Comments: Post-op [483] - Patient here for 2 month post op, s/p open incisional hernia repair 10/29/2024. [facility] Office Visiton 11-10-2024 Follow-up visit [id number] StephonMartina 1950 Provider Department Center 11/[facility]2024 [facility] Second Fl Family History Problem Relation Age of Onset Valvular heart disease Mother Family Status - Relation Status Age at Mother Level of Service:77725 MS POSTOP FOLLOW UP VISIT RELATED TO ORIGINAL PX Reason for Visit and Comments: Post-op [483] - Martina is here today for post op: s/p open incisional hernia repair 10/29/2024 [facility] 36on 11-02-[address] Leigh: patien t is to wear the binder for 2 months. She may try wearing the binder over a t-shirt rather than contact directly with skin. Spoke with patient and notified, understands. Will keep area clean and dry and try wearing over a t-shirt. [facility] 36 Patient called in stating that she has been wearing the binder since her surgery on 10/29/[address] Leigh for hernia repair. She voiced that she is starting to get a rash from wearing it all the time. She would like to know how long she has to wear it. Please advise. [facility] 36on 11-01-2024 36 Letter created and emailed as requested. [facility] 36 Patient called ilir cedric that her daughter forgot to ask for a letter for work for the day that the patient had surgery. Patient had surgery on 10/[address] Leigh. She would like the letter to be emailed to [email or web address] [facility] HPon 10-29-2024 History Of Present Illness [...] Serge Durand MD General Surgery PGY2 [facility] OPNOTEon 10-29-2024 OPNOTE OPEN INCISIONAL CEFERINO IA REPAIR Operative Note Date: 10/29/2024 Location: [facility] OR Name: Martina Holland, : 1950, [...] Drains: * None in log * Staff: Field Assistant: Kareen Rangel RN Scrub Person: Mylene Nino CST [employer] Field Assistant: Shavon Alcantar RN [place] Scrub: Mary [...] hemodynamically stable. Condition: stable Hair Leigh [facility] POCT GLUCOSE METER UNSOLICIT ED RESULTSon 10-29-2024 Glucose [Mass/Vol] 105 mg/dL Normal 70-105 [facility] Comment on above: Order Comment: Waive d Testing in the ED is performed under the ED CLIA certificate #[id number]. Result Comment: dhol as Performed By: #### L [id number] ####[facility] (Znaptag)[address] [place] [address] 36on 10-05-2024 36 ----- Message from Lj Oneil MD sent at 10/04/2024 1:22 PM EST ----- Lipids and LFTs are good. Continue meds and diet and recheck in 6 months. Also BMP is good [facility] Owen 09-30-2024 ALT [Catalytic activity/Vol] 15 U/L Normal 7-52 [facility] Comment on above: Performed By: #### L [id number] #### [facility] (BESnoox) [address] [place] [address] Manuel 09-30-2024 AST [Catalytic activity/Vol] 17 U/L Normal 13-39 [facility] Comment on above: Performed By: #### L [id number] #### [facility] (BEAKER) [address] [place] [address] BASIC METABOLIC PANELon 09-09 Anion gap [Moles/Vol] 11 mmol/L Normal 7-20 [facility] Comment on above: Performed By: #### L AB15 #### [facility] (BEAKER) [address] [place] [address] Calcium [Mass/Vol] 9.6 mg/dL Normal 8.6-10.3 [facility] Comment on above: Performed By: #### L AB15 #### [facility] (BEAKER) [address] [place] [address] Chloride [Moles/Vol] 103 mmol/L Normal 98-107 [facility] Comment on above: Performed By: #### L AB15 #### [facility] (BEAKER) [address] [place] [address] CO2 [Moles/Vol] 32 mmol/L High 21-31 [facility] Comment on above: Performed By: #### L [id number] #### [facility] (BEAKER) [address] [place] [address] Creatinine [Mass/Vol] 1.04 mg/dL Normal 0.60-1.20 [facility] Comment on above: Performed By: #### L [id number] #### [facility] (BEAKER) [address] [place] [address] GLOMERULAR FILTRATION RATE ML/MIN/1.73 SQ M.PREDICTED 56.8 mL/min/1.73m*2 Low >60.0 [facility] Comment on above: Result Comment: [facility]???s estimated glomerular filtration rate (eGFR) will [...] individuals. Performed By: #### L AB15 #### [facility] ([facility]) [address] [place] [address] Glucose [Mass/Vol] 100 mg/dL Normal 70-100 [facility] Comment on above: Performed By: #### L AB15 #### [facility] ([facility]) [address] [place] [address] Potassium [Moles/Vol] 3.8 mmol/L Normal 3.5-5.1 [facility] Comment on above: Performed By: #### L [id number] #### [facility] ([facility]) [address] [place] [address] Sodium [Moles/Vol] 142 mmol/L Normal 136-145 [facility] Comment on above: Performed By: #### L [id number] #### [facility] ([facility]) [address] [place] [address] Urea nitrogen [Mass/Vol] 14 mg/dL Normal 7-25 [facility] Comment on above: Performed By: #### L [id number] #### [facility] ([facility]) [address] [place] [address] UREA NITROGEN/CREATININE (MASS RATIO) IN SER/PLAS 13.5 [facility] Comment on above: Performed By: #### L [id number] #### [facility] ([facility]) [address] [place] [address] CBC WITH AUTO DIFFERENTIALon 09-30-2024 Basophils (Bld) [#/Vol] 0.05 10*3/uL Normal 0.00-0.20 [facility] Comment on above: Performed By: #### L [id number] ####[facility] (BEAKER)[address] [facility] [place] [address] Basophils/100 WBC (Bld) 0.9 % Normal 0.0-1.0 [facility] Comment on above: Performed By: #### L [id number] ####[facility] (BEAKER)[address] [place] [address] Eosinophils (Bld) [#/Vol] 0.15 10*3/uL Normal 0.00-0.50 [facility] Comment on above: Performed By: #### L [id number] ####[facility] (BEAKER)[address] [place] [address] Eosinophils/100 WBC (Bld) 2.6 % Normal 0.0-6.0 [facility] Comment on above: Performed By: #### L [id number] ####[facility] (BEAKER)[address] [place] [address] Erythrocyte distribution width (RBC) [Ratio] 14.3 % Normal 11.5-15.0 [facility] Comment on above: Performed By: #### L [id number] ####[facility] (BEAKER)[address] [place] [address] ERYTHROCYTE MEAN CORPUSCULAR HEMOGLOBIN CONCENTRATION (G/DL) BY AUTOMATED 32.8 g/dL Normal 32.0-35.0 [facility] Comment on above: Performed By: #### L [id number] ####[facility] (BEAKER)[address] [place] [address] Hematocrit (Bld) [Volume fraction] 40.2 % Normal 36.0-48.0 [facility] Comment on above: Performed By: #### L [id number] ####[facility] (BEAKER)[address] [place] [address] Hemoglobin (Bld) [Mass/Vol] 13.2 g/dL Normal 12.0-15.0 [facility] Comment on above: Performed By: #### L [id number] ####[facility] (BEAKER)[address] [place] [address] Immature granulocytes (Bld) [#/Vol] 0.02 10*3/uL Normal 0.00-0.20 [facility] Comment on above: Performed By: #### L [id number] ####[facility] (BEAKER)[address] [place] [address] Immature granulocytes/100 WBC (Bld) 0.3 % Normal 0.0-1.0 [facility] Comment on above: Performed By: #### L [id number] ####[facility] (BEAKER)[address] [place] [address] Lymphocytes (Bld) [#/Vol] 1.93 10*3/uL Normal 1.20-4.00 [facility] Comment on above: Performed By: #### L [id number] ####[facility] (BEAKER)[address] [place] [address] Lymphocytes/100 WBC (Bld) 32.9 % Normal 20.0-45.0 [facility] Comment on above: Performed By: #### L [id number] ####[facility] (BEAKER)[address] [place] [address] MCH (RBC) [Entitic mass] 32.1 pg Normal 27.0-33.0 [facility] Comment on above: Performed By: #### L [id number] ####[facility] (BEAKER)[address] [place] [address] MCV (RBC) [Entitic vol] 97.8 fL Normal 82.0-98.0 [facility] Comment on above: Performed By: #### L [id number] ####[facility] (BEAKER)[address] [place] [address] Monocytes (Bld) [#/Vol] 0.64 10*3/uL Normal 0.10-1.00 [facility] Comment on above: Performed By: #### L [id number] ####[facility] (BEAKER)[address] [place] [address] Monocytes/100 WBC (Bld) 10.9 % Normal 5.0-12.0 [facility] Comment on above: Performed By: #### L [id number] ####[facility] ([facility])[address] [place] [address] Neutrophils (Bld) [#/Vol] 3.08 10*3/uL Normal 1.60-7.60 [facility] Comment on above: Performed By: #### L [id number] ####[facility] ([facility])[address] [place] [address] Neutrophils/100 WBC (Bld) 52.4 % Normal 40.0-72.0 [facility] Comment on above: Performed By: #### L [id number] ####[facility] ([facility])[address] [place] [address] NRBC (PER 100 WBCS) BY AUTOMATED COUNT 0.0 % Normal 0 [facility] Comment on above: Performed By: #### L [id number] ####[facility] ([facility])[address] [place] [address] PLATELETS (10*3/UL) IN BLOOD AUTOMATED COUNT 191 10*3/uL Normal 150-400 [facility] Comment on above: Performed By: #### L [id number] ####[facility] ([facility])[address] [place] [address] RBC (Bld) [#/Vol] 4.11 10*6/uL Normal 3.80-5.00 [facility] Comment on above: Performed By: #### L [id number] ####[facility] ([facility])[address] [place], [place] [address] WBC (Bld) [#/Vol] 5.87 10*3/uL Normal 4.00-10.60 [facility] Comment on above: Performed By: #### L [id number] ####[facility] ([facility] [place] [address] LIPID PANELon 09-30-2024 CHOL/HDL 2.3 mg/dL Normal [facility] Comment on above: Performed By: #### L [id number] #### [facility] ([facility] [address] [place] [address] Cholesterol [Mass/Vol] 119 mg/dL Low 120-200 [facility] Comment on above: Performed By: #### L [id number] #### [facility] ([facility]) [address] [place] [address] Magnesium [Mass/Vol] 99 mg/dL Normal 40-149 [facility] Comment on above: Result Comment: TRIG LYCERIDE REFERENCE RANGE: 20 YEARS AND OLDER CARDIOVASCULAR RISK LESS THAN 150 mg/dL LOW RISK 150 TO 199 mg/dL BORDERLINE RISK 200 mg/dL AND GREATER HIGH RISK Performed By: #### L AB18 #### [facility] ([facility]) [address] [place] [address] Magnesium [Mass/Vol] 48 mg/dL Normal 0-160 [facility] Comment on above: Performed By: #### L AB18 #### [facility] ([facility]) [address] [place] [address] Magnesium [Mass/Vol] 51 mg/dL Normal 23-92 [facility] Comment on above: Performed By: #### L AB18 #### [facility] ([facility]) [address] [place] [address] NON HDL CHOL. (LDL+VLDL) 68 Normal [facility] Comment on above: Performed By: #### L AB18 #### [facility] ([facility]) [address] [place] [address] TOTAL VLDL-C 20 mg/dL Normal 0-40 [facility] Comment on above: Performed By: #### L AB18 #### [facility] ([facility]) [address] [place] [address] Labon 09-30-2024 Lab [id number] Martina Holland 1950 F Date Provider Department Center 09/30/2024 8967-[facility] OPD LAB RESOURCE [facility] OPD MO Medical C Family History Problem Relation Age of Onset Valvular heart disease Mother Family Status - Relation Status Age at Mother Normal [facility] MRSA/MSSA DNA NASALon 2024 MRSA DNA Negative Normal Negative [facility] Comment on above: Order Comment: Testi [...] preclude nasal colonization. Performed By: #### L [id number] ####[facility] (BEAKER)[address] [place] [address] MSSA DNA Negative Normal Negative [facility] Comment on above: Order Comment: Testi [...] preclude nasal colonization. Performed By: #### L [id number] ####[facility] (BEAKER)[address] [place] [address] PROTIME-INRon 09-30-2024 INR IN PPP BY COAGULATION ASSAY 1.02 Normal 0.90-1.10 [facility] Comment on above: Result Comment: ACCC [...] 1995;108:231S-246S. Performed By: #### L [id number] #### [facility] (BEAKER) [address] [place] [address] PROTHROMBIN TIME (PT) IN PPP BY COAGULATION ASSAY 13.4 Seconds Normal 12.3-14.8 [facility] Comment on above: Performed By: #### L [id number] #### [facility] (BEAKER) [address] [place] [address] Office Visiton 09-20-2024 Follow-up visit [id number] Martina Holland 1950 F Date Provider Department Center 09/20/2024 52449-BVWIERARGENIS ONEIL BUCK [facility] Family History Problem Relation Age of Onset Valvular heart disease Mother Family Status - Relation Status Age at Mother Level of Service:24360 MS OFFICE/OUTPATIENT ESTABLISHED MOD MDM 30 MIN Reason for Visit and Comments: DVT [Other] - On Eliquis. Dr. Leigh's office has a message out to Dr. Escobar asking about holding Eliquis prior to procedure. Pre-op Exam [[id number]] - She is requesting cardiac clearance for upcoming hernia surgery with Dr. Leigh at [facility]. Patient denies chest pain, SOB, palpitations, and lightheadedness/syncope. Hypertension [499388] Hyperlipidemia [182] - Had routine labs w/ lipid panel in May 2024. Normal [facility] Consulton 08-24-2024 Consult [id number] Martina Holland 1950 F Date Provider Department Center 08/24/2024 454-HAIR LEIGH [facility] SURG Second Fl Family History Problem Relation Age of Onset Valvular heart disease Mother Family Status - Relation Status Age at Mother Level of Service:80769 MS OFFICE/OUTPATIENT NEW LOW MDM 30 MINUTES Reason for Visit and Comments: Consult [484] - Martina is here today for consult: Incisional Hernia Normal [facility] Reminderson 10-31-2024 Reminders Reminders From: Mikayla Castillo LPN To: Juan - Clinical; Sent: 07/08/2024 09:21:21 EDT Show up: 03/22/2029 07:00:00 EDT Subject: colonoscopy recall Due Date/Time: 04/22/2029 07:00:00 EDT Reminder/Recall Patient due for screening colonoscopy 04/2029. Normal [facility] Ambulatory Visit Summaryon 1 Ambulatory Visit Summary Ambulatory Visit Summary MARTINA HOLLAND :1950 Visit Date:07/06/2024 Ambulatory Visit Instructions Your Care Team Attending Physician - VENICE MERCHANT, Eddie Castro Primary Care Physician - Rosemary [...] for choosing us for your care. Normal [facility] CBC AND AUTO DIFFon 01-07-20 24 ABSOLUTE BASOPHIL 0.0 X10E9/L Normal 0.0-0.2 [facility] Comment on above: Performed By: #### C NEREYDA, 27454-4, FEPR, 2276-4 #### [facility] ([id number]) [address], [address] [place] [address] ABSOLUTE NEUTROPHIL 4.3 X10E9/L Normal 1.5-6.6 [facility] Comment on above: Performed By: #### C NEREYDA, 97569-9, FEPR, 2276-4 #### [facility] ([id number]) [address] [place] [address] Basophils/100 WBC (Bld) 0.6 % Normal [facility] Comment on above: Performed By: #### C NEREYDA, 11179-2, FEPR, 6-4 #### [facility] ([id number]) [address], [address] [place] [address] Eosinophils (Bld) [#/Vol] 0.1 10*3/uL Normal 0.0-0.4 [facility] Comment on above: Performed By: #### C BCA, 73298-6, FEPR, 2275-4 #### [facility] ([id number]) [address], [facility] [address] [place] [address] Eosinophils/100 WBC (Bld) 1.5 % Normal [facility] Comment on above: Performed By: #### C BCA, 64643-3, FEPR, 2275-4 #### [facility] ([id number]) [address] [address] [place] [address] Erythrocyte distribution width (RBC) [Ratio] 13.1 % Normal 11.5-15.0 [facility] Comment on above: Performed By: #### C NEREYDA, 57185-1, FEPR, 2275-4 #### [facility] ([id number]) [address] [address] [place] [address] Hematocrit (Bld) [Volume fraction] 38.2 % Normal 35-47 [facility] Comment on above: Performed By: #### C BCA, 29428-2, FEPR, 2275-4 #### [facility] ([id number]) [address] [address] [place] [address] Hemoglobin (Bld) [Mass/Vol] 12.9 g/dL Normal 11.7-15.5 [facility] Comment on above: Performed By: #### C BCA, 25493-0, FEPR, 2275-4 #### [facility] ([id number]) [address] [address] [place] [address] Lymphocytes (Bld) [#/Vol] 1.6 10*3/uL Normal 1.0-3.5 [facility] Comment on above: Performed By: #### Cata DAWN, 59319-5, FEPR, 2275-4 #### [facility] ([id number]) [address], [address] [place] [address] Lymphocytes/100 WBC (Bld) 23.5 % Normal [facility] Comment on above: Performed By: #### Cata DAWN, 54876-3, FEPR, 2275- #### [facility] ([id number]) [address], [address] [place] [address] MCH (RBC) [Entitic mass] 31.5 pg Normal 27-34 [facility] Comment on above: Performed By: #### Cata DAWN, 27317-0, FEPR, 2275- #### [facility] ([id number]) [address], [address] [place] [address] MCHC (RBC) [Mass/Vol] 33.7 g/dL Normal 32-36 [facility] Comment on above: Performed By: #### Cata DAWN, 11040-2, FEPR, 2275- #### [facility] ([id number]) [address], [address] [place] [address] MCV (RBC) [Entitic vol] 94 fL Normal 80-100 [facility] Comment on above: Performed By: #### Cata DAWN, 99085-9, FEPR, 2275- #### [facility] ([id number]) [address], [address] [place] [address] Monocytes (Bld) [#/Vol] 0.7 10*3/uL Normal 0-0.9 [facility] Comment on above: Performed By: #### Cata DAWN, 83771-3, FEPR, 2275- #### [facility] ([id number]) [address], [address] [place] [address] Monocytes/100 WBC (Bld) 10.6 % Normal [facility] Comment on above: Performed By: #### C BCA, 62025-7, FEPR, 2275-4 #### [facility] ([id number]) [address], [facility] [address] [place] [address] Neutrophils/100 WBC (Bld) 63.8 % Normal [facility] Comment on above: Performed By: #### C BCA, 08009-8, FEPR, 2275-4 #### [facility] ([id number]) [address], [facility] [address] [place] [address] Platelet mean volume (Bld) [Entitic vol] 8.5 fL Normal 7-12 [facility] Comment on above: Performed By: #### Cata BCA, 06561-2, FEPR, 2275-4 #### [facility] ([id number]) [address], [facility] [address] [place] [address] Platelets (Bld) [#/Vol] 248 10*3/uL Normal 150-450 [facility] Comment on above: Performed By: #### Cata BCA, 19584-5, FEPR, 2275-4 #### [facility] ([id number]) [address], [facility] [address] [place] [address] RBC COUNT 4.08 X10E12/L Normal 3.80-5.20 [facility] Comment on above: Performed By: #### C BCA, 13504-8, FEPR, 2275-4 #### [facility] ([id number]) [address], [facility] [address] [place] [address] WBC (Bld) [#/Vol] 6.8 10*3/uL Normal 4.0-11.0 [facility] Comment on above: Performed By: #### Cata BCA, 34722-5, FEPR, 2275-4 #### [facility] ([id number]) [address] [place] [address], [address] [place] [address] D-Dimeron 01-07-2024 Fibrin D-dimer DDU (PPP) [Mass/Vol] [facility] Comment on above: Results <255 ng/mL DDU: The presence of a VTE can safely be excluded with a negative D-Dimer result and Wells score. A negative result doesn't exclude the possibility of DIC. The test be repeated along with other diagnostic tests if the patient's symptoms persist or worsen. [email or web address] FERRITINon 01-07-2024 Ferritin [Mass/Vol] 28 ng/mL Normal 11-307 [facility] Comment on above: Performed By: #### C BCA, 71601-2, FEPR, 2276-4 #### [facility] ([id number]) [address] [place] [address], [address] [address] Fibrin D-dimer DDU (PPP) [Ma ss/Vol]on 01-07-2024 D DIMER <150 Normal <255 [facility] Comment on above: Result Comment: Results <255 ng/mL DDU: The presence of a VTE can safely be excluded with a negative D-Dimer result and Wells score. A negative result doesn't exclude the possibility of DIC. The test be repeated along with other diagnostic tests if the patient's symptoms persist or worsen. [email or web address] Performed By: #### C BCA, 83573-5, FEPR, 2276-4 #### [facility] ([id number]) [address] [place] [address], [facility] [address] [place] [address] [facility] IRON PROFILEon 01-07-2024 Iron [Mass/Vol] 95 ug/dL Normal 50-170 [facility] Comment on above: Performed By: #### Cata BCA, 22714-8, FEPR, 2276-4 #### [facility] ([id number]) [address], [address] [place] [address] IRON BINDING 372 ug/dL Normal 250-425 [facility] Comment on above: Performed By: #### C BCA, 76030-7, FEPR, 2276-4 #### [facility] ([id number]) [address] [place] [address] IRON SATURATION 26 % SATURATION Normal 15-50 [facility] Comment on above: Performed By: #### C BCA, 76365-4, FEPR, 2276-4 #### [facility] ([id number]) [address], [address] [place] [address] Physician Referralon 023 Physician Referral [id number] Normal [facility] ECHOCARDIO M/2D COMPLETEon 0 01-08-2023 ECHOCARDIO M/2D COMPLETE Patient: MARTINA HOLLAND Exam Date: 01/08/2023 : 1950 Gender:F Ordering : SVETLANA REESE [facility] Admission #: [id number] Family : JOSÉ ANTONIO ASTUDILLO [facility] Order #: [id number] CLICK HERE TO VIEW EXAM ECHOCARDIOGRAM REPORT [...] M.D. on 01/09/2023 at 16:[address] [facility] INSULINon 08-29-2022 Insulin 18.2 uIU/mL Normal 2.6-24.[address] [facility] Comment on above: Performed By: #### I NSULIN ####[facility] [id number] [address]Dr. Bebe Spann BNPon 08-28-2022 Natriuretic peptide B (Bld) [Mass/Vol] 82.0 pg/mL Normal <=900.0 [facility] Comment on above: Performed By: #### T SH, T7, CMP, BNP, LIPID #### [facility] [address] [address] [address] Bebe Spann CBC AUTO DIFFon 08-28-2022 BASO # 0.0 103/ul Normal 0.0-0.1 [facility] Comment on above: Performed By: #### C BC #### [facility] [address] [place] [address] Dr. Bebe Spann Basophils/100 WBC (Bld) 0.4 % Normal 0.2-2.0 [facility] Comment on above: Performed By: #### C BC #### [facility] [address] [place] [address] Dr. Bebe Spann EO # 0.1 103/ul Normal 0.0-0.[address] [facility] Comment on above: Performed By: #### C BC #### [facility] [address] [place] [address] Dr. Bebe Spann Eosinophils/100 WBC (Bld) 1.7 % Normal 0.9-7.0 [facility] Comment on above: Performed By: #### C BC #### [facility] [address] [place] [address] Dr. Bebe Spann Erythrocyte distribution width (RBC) [Ratio] 14.4 % Normal 11.0-15.0 [facility] Comment on above: Performed By: #### C BC #### [facility] [address] [place] [address] Dr. Bebe Spann Hematocrit (Bld) [Volume fraction] 32.2 % Critically low 36.0-48.0 [facility] Comment on above: Performed By: #### C BC #### [facility] [address] [place] [address] Dr. Bebe Spann Hemoglobin (Bld) [Mass/Vol] 10.5 g/dL Critically low 12.0-16.0 [facility] Comment on above: Performed By: #### C BC #### [facility] [address] [place] [address] Dr. Bebe Spann IG # 0.03 10e3/ul Normal 0.00-0.03 [facility] Comment on above: Performed By: #### C BC #### [facility] [address] [place] [address] Dr. Bebe Spann IG % 0.4 % Normal 0.0-0.5 [facility] Comment on above: Performed By: #### C BC #### [facility] [address] [place] [address] Dr. Bebe Spann LYMPH # 2.2 103/ul Normal 1.2-3.8 [facility] Comment on above: Performed By: #### C BC #### [facility] [address] [place] [address] Dr. Bebe Spann Lymphocytes/100 WBC (Bld) 29.0 % Normal 20.5-60.0 [facility] Comment on above: Performed By: #### C BC #### [facility] [address] [place] [address] Dr. Bebe Spann MANUAL DIFF REQ NO Normal [facility] Comment on above: Performed By: #### C BC #### [facility] [address] [place] [address] Dr. Bebe Spann MCH (RBC) [Entitic mass] 31.0 pg Normal 26.7-34.0 [facility] Comment on above: Performed By: #### C BC #### [facility] [address] [address] [address] Bebe Spann MCHC (RBC) [Mass/Vol] 32.6 g/dL Normal 29.9-35.2 [facility] Comment on above: Performed By: #### C BC #### [facility] [address] [address] [address] Bebe Spann MCV (RBC) [Entitic vol] 95.0 fL Normal 81.0-99.0 [facility] Comment on above: Performed By: #### C BC #### [facility] [address] [address] [address] Bebe Spann MONO # 0.7 103/ul Normal 0.3-0.8 [facility] Comment on above: Performed By: #### C BC #### [facility] [address] [place] [address] Dr. Bebe Spann Monocytes/100 WBC (Bld) 9.1 % Normal 1.7-12.0 [facility] Comment on above: Performed By: #### C BC #### [facility] [address] [place] [address] Dr. Bebe Spann NEUT # 4.6 103/ul Normal 1.4-6.5 [facility] Comment on above: Performed By: #### C BC #### [facility] [address] [place] [address] Dr. Bebe Spann Neutrophils/100 WBC (Bld) 59.4 % Normal 43.0-75.[address] [facility] Comment on above: Performed By: #### C BC #### [facility] [address] [place] [address] Dr. Bebe Spann Platelet mean volume (Bld) [Entitic vol] 9.7 fL Normal 9.5-13.[address] [facility] Comment on above: Performed By: #### C BC #### [facility] [address] [place] [address] Dr. Bebe Spann PLT 277 103/ul Normal 150-[address] [facility] Comment on above: Performed By: #### C BC #### [facility] [address] [address] [address] Bebe Spann RBC 3.39 106/ul Critically low 4.20-5.40 [facility] Comment on above: Performed By: #### C BC #### [facility] [address] [address] [address] Bebe Spann WBC 7.7 103/ul Normal 4.0-11.0 [facility] Comment on above: Performed By: #### C BC #### [facility] [address] [address] [address] Bebe Spann FREE THYROXINE INDEX T7on FTI 1.98 Normal 1.30-4.50 [facility] Comment on above: Performed By: #### T SH, T7, CMP, BNP, LIPID #### [facility] [address] [address] [address] Bebe Spann T3U 33.0 % Normal 30.0-39.0 [facility] Comment on above: Performed By: #### T SH, T7, CMP, BNP, LIPID #### [facility] [address] [address] [address] Bebe Spann T4 [Mass/Vol] 6.00 ug/dL Normal 4.80-13.90 [facility] Comment on above: Performed By: #### T SH, T7, CMP, BNP, LIPID #### [facility] [address] [address] [address] Bebe Spann GLYCOHEMOGLOBIN A1Con 2021 ADA RECOMMENDATION SEE BELOW Normal [facility] Comment on above: Result Comment: ADA RECOMMENDED LIMIT 4.0 - 6.0 ADA THERAPEUTIC TARGET < 7.0 ACTION SUGGESTED > 7.0 Performed By: #### A 1C ####[facility] [id number] [address]Dr. Bebe Spann Glucose [Mass/Vol] 134 mg/dL Normal [facility] Comment on above: Performed By: #### A 1C ####[facility] [address] [address]Dr. Bebe Spann HbA1c (Bld) [Mass fraction] 6.3 % Critically high 4.5-6.2 [facility] Comment on above: Performed By: #### A 1C ####[facility] [address] [place], [place] [address]EaDr. Bebe Spann IRONon 08-28-2022 Iron [Mass/Vol] 52.0 ug/dL Normal 50.0-170.0 [facility] Comment on above: Performed By: #### I ROSAMARIA #### [facility] [address] [address] [address] Bebe Spann LIPID PROFILEon 08-28-2022 CHOL-HDL RATIO NORM SEE BELOW Normal [facility] Comment on above: Result Comment: 3.3 - 4.4 LOW RISK 4.4 - 7.1 AVERAGE RISK 7.1 - 11.0 MODERATE RISK >11.0 HIGH RISK Performed By: #### T SH, T7, CMP, BNP, LIPID #### [facility] [address] [address] [address] Bebe Spann Cholesterol [Mass/Vol] 94 mg/dL Normal <=200 [facility] Comment on above: Performed By: #### T SH, T7, CMP, BNP, LIPID #### [facility] [address] [address] [address] Bebe Spann Cholesterol in HDL [Mass/Vol] 48 mg/dL Normal 40-60 [facility] Comment on above: Performed By: #### T SH, T7, CMP, BNP, LIPID #### [facility] [address] [id number] [address] Bebe Spann Cholesterol in LDL [Mass/Vol] 23.2 mg/dL Normal [facility] Comment on above: Performed By: #### T SH, T7, CMP, BNP, LIPID #### [facility] [address] [id number] [address] Bebe Spann Cholesterol.total/C holesterol in HDL [Mass ratio] 2.0 {ratio} Normal [facility] Comment on above: Performed By: #### T SH, T7, CMP, BNP, LIPID #### [facility] [address] [address] [address] Bebe Spann HDL NORMAL > or = 60 mg/dl - LO W CARDIOVASCULAR RISK <40 mg/dl - HIGH CARDIOVASCULAR RISK Normal [facility] Comment on above: Performed By: #### T SH, T7, CMP, BNP, LIPID #### [facility] [address] [address] [address] Bebe Spann LDL CALC NORMAL SEE BELOW Normal [facility] Comment on above: Result Comment: <100 mg/dl OPTIMAL 100 - 129 mg/dl NEAR OR ABOVE OPTIMAL 130 - 159 mg/dl BORDERLINE HIGH 160 - 189 mg/dl HIGH >190 mg/dl VERY HIGH Performed By: #### T SH, T7, CMP, BNP, LIPID #### [facility] [address] [address] [address] Bebe Spann Triglyceride [Mass/Vol] 114 mg/dL Normal <=150 [facility] Comment on above: Performed By: #### T SH, T7, CMP, BNP, LIPID #### [facility] [address] [address] [address] Bebe Spann VLDL CALC 22.8 mg/dL Normal [facility] Comment on above: Performed By: #### T SH, T7, CMP, BNP, LIPID #### [facility] [address] [address] [address] Bebe Spann PROF 14(COMP METB)on 08-28- 022 Albumin [Mass/Vol] 3.2 g/dL Critically low 3.4-5.0 [facility] Comment on above: Performed By: #### T SH, T7, CMP, BNP, LIPID #### [facility] [address] [address] [address] Bebe Spann Albumin/Globulin [Mass ratio] 1.0 {ratio} Normal [facility] Comment on above: Performed By: #### T SH, T7, CMP, BNP, LIPID #### [facility] [address] [address] [address] Bebe Spann ALP [Catalytic activity/Vol] 61 U/L Normal 46-116 [facility] Comment on above: Performed By: #### T SH, T7, CMP, BNP, LIPID #### [facility] [address] [place] [address] Dr. Bebe Spann ALT [Catalytic activity/Vol] 20 U/L Normal 14-59 [facility] Comment on above: Performed By: #### T SH, T7, CMP, BNP, LIPID #### [facility] [address] [place] [address] Dr. Bebe Spann Anion gap [Moles/Vol] 10.6 mmol/L Normal [facility] Comment on above: Performed By: #### T SH, T7, CMP, BNP, LIPID #### [facility] [address] [place] [address] Dr. Bebe Spann AST [Catalytic activity/Vol] 12 U/L Critically low 15-37 [facility] Comment on above: Performed By: #### T SH, T7, CMP, BNP, LIPID #### [facility] [address] [place] [address] Dr. Bebe Spann Bilirubin [Mass/Vol] 0.3 mg/dL Normal 0.2-1.0 [facility] Comment on above: Performed By: #### T SH, T7, CMP, BNP, LIPID #### [facility] [address] [place] [address] Dr. Bebe Spann Calcium [Mass/Vol] 9.1 mg/dL Normal 8.5-10.1 [facility] Comment on above: Performed By: #### T SH, T7, CMP, BNP, LIPID #### [facility] [address] [place] [address] Dr. Bebe Spann Chloride [Moles/Vol] 103 mmol/L Normal 98-[address] [facility] Comment on above: Performed By: #### T SH, T7, CMP, BNP, LIPID #### [facility] [address] [place] [address] Dr. Bebe Spann CO2 [Moles/Vol] 30.0 mmol/L Normal 21.0-32.0 [facility] Comment on above: Performed By: #### T SH, T7, CMP, BNP, LIPID #### [facility] [address] [place] [address] Dr. Bebe Spann Creatinine [Mass/Vol] 1.20 mg/dL Critically high 0.55-1.02 [facility] Comment on above: Performed By: #### T SH, T7, CMP, BNP, LIPID #### [facility] [address] [place] [address] Dr. Bebe Spann EGFR-AF PAPUA [place] GUINE[place] 54 mL/min/1.73m2 Critically low >=60 [facility] Comment on above: Performed By: #### T SH, T7, CMP, BNP, LIPID #### [facility] [address] [place] [address] Dr. Bebe Spann EGFR-NON AF PAPUA [place] 44 mL/min/1.73m2 Critically low >=60 [facility] Comment on above: Performed By: #### T SH, T7, CMP, BNP, LIPID #### [facility] [address] [place] [address] Dr. Bebe Spann Globulin (S) [Mass/Vol] 3.1 g/dL Normal [facility] Comment on above: Performed By: #### T SH, T7, CMP, BNP, LIPID #### [facility] [address] [place] [address] Dr. Bebe Spann Glucose [Mass/Vol] 94 mg/dL Normal 74-106 [facility] Comment on above: Performed By: #### T SH, T7, CMP, BNP, LIPID #### [facility] [address] [place] [address] Dr. Bebe Sapnn Potassium [Moles/Vol] 4.6 mmol/L Normal 3.5-5.1 [facility] Comment on above: Performed By: #### T SH, T7, CMP, BNP, LIPID #### [facility] [address] [place] [address] Dr. Bebe Spann Protein [Mass/Vol] 6.3 g/dL Critically low 6.4-8.[address] [facility] Comment on above: Performed By: #### T SH, T7, CMP, BNP, LIPID #### [facility] [address] [place] [address] Dr. Bebe Spann Sodium [Moles/Vol] 139 mmol/L Normal 136-145 [facility] Comment on above: Performed By: #### T SH, T7, CMP, BNP, LIPID #### [facility] [address] [place], [place] [address] Dr. Bebe Spann Urea nitrogen [Mass/Vol] 20.0 mg/dL Critically high 7.0-18.0 [facility] Comment on above: Performed By: #### T SH, T7, CMP, BNP, LIPID #### [facility] [address] [place], [place] [address] Dr. Bebe Spann Urea nitrogen/Creatinine [Mass ratio] 16.7 mg/mg Normal [facility] Comment on above: Performed By: #### T SH, T7, CMP, BNP, LIPID #### [facility] [address] [place], [place] [address] Dr. Bebe Spann TSHon 08-28-2022 TSH 3.195 uIU/mL Normal 0.358-3.740 [facility] Comment on above: Performed By: #### T SH, T7, CMP, BNP, LIPID #### [facility] [address] [place], [place] [address] Dr. Bebe Spann Covid-19 PCR ([facility])on 03-09 SARS-CoV-2 (COVID-19) RNA MUSHTAQ+probe Ql (Unsp spec) Not detected Normal NOT DETECTED [facility] Comment on above: Result Comment: This test is not yet approved or cleared by the [place] FDA. When there are no FDA-approved or cleared tests available, and other criteria are met, FDA can make tests available under an emergency access mechanism called an Emergency Use Authorization (EUA). The EUA for this test is supported by the Loss Prevention And Safety Manager of Health and Human Service's (HHS's) declaration [...] with SARS-CoV-2. Performed By: #### C VDTB ####[facility] [address] [place], [place] [address]TbCatalino Spann MG MAMM SCREEN 3D DANICA CADon 03-13-2022 MG MAMM SCREEN 3D DANICA CAD Patient: MARTINA HOLLAND Exam Date: 03/13/2022 : 1950 Gender:F Ordering : DR KJ GARCIA . Admission #: [id number] Family : Order #: [id number] CLICK HERE TO VIEW EXAM RADIOLOGY REPORT [...] Treatments HYSTERECTOMY Family Cancers None LOCATION: [facility] BREAST COMPOSITION: Scattered areas fibroglandular density. [...] M.D. on 03/14/2022 at 13:[address] [facility] Cardiovascular Lab Reporton 06-28-2021 Cardiovascular Lab Report [facility] Patient Name: Martina Holland [facility] MR #: [id number] Physician: Marissa Cha, Department of M.D. Medicine Service Date: 06/27/2021 Division of Birthdate: 1950 Cardiology Room #: CC Adult Cardiovascular Services [facility] [address] [place], [place] [address] Cardiovascular Laboratory Report IMPRESSIONS: 1. Angiographically non-obstructive [...] right internal jugular vein was obtained. A 6-Upper Sorbian 11-cm sheath was inserted without difficulty. A [...] to access the left radial artery. A 6-Upper Sorbian glide sheath was inserted without difficulty. Bilateral [...] Cha M.D. Date Trans: 06/28/2021 03:01 Mejia/destinee [id number] Normal [facility] Vital Signs Date Time Vital Sign Value Performing Clinician Jose lal 01-24-2025 08:36-0400 Body mass index (BMI) [Ratio] 34.77 kg/m2 Lorraine Stephens DO Work Phone: [facility] 01-24-2025 08:36-0400 Body weight 83.46 kg Lorraine Stephens DO Work Phone: [facility] 01-24-2025 08:36-0400 Diastolic blood pressure 80 mm[Hg] Lorraine Stephens DO Work Phone: [facility] 01-24-2025 08:36-0400 Heart rate 63 /min Lorraine Stephens DO Work Phone: [facility] 01-24-2025 08:36-0400 Systolic blood pressure 129 mm[Hg] Lorraine Stephens DO Work Phone: [facility] 07-06-2024 13:26-0400 Blood Pressure Location Eddie DOZIERL [facility] 07-06-2024 13:26-0400 Diastolic blood pressure 66 mm[Hg] Eddie NILL [facility] 07-06-2024 13:26-0400 Heart rate 68 /min Eddie NILL [facility] 07-06-2024 13:26-0400 Respiratory rate 16 /min Eddie NILL [facility] 07-06-2024 13:26-0400 Systolic blood pressure 118 mm[Hg] Eddie NILL [facility] 01-07-2024 08:30-0400 Body height 154.9 cm Kristi Escobar MD Work Phone: [facility] 01-07-2024 08:30-0400 Body mass index (BMI) [Ratio] 34.39 kg/m2 Kristi Escobar MD Work Phone: [facility] 01-07-2024 08:30-0400 Body weight 82.56 kg Kristi Escobar MD Work Phone: [facility] 01-07-2024 08:30-0400 Diastolic blood pressure 80 mm[Hg] Kristi Escobar MD Work Phone: [facility] 01-07-2024 08:30-0400 Systolic blood pressure 126 mm[Hg] Kristi Escobar MD Work Phone: [facility] Encounters Encounter Date Encounter Type Care Provider Facility Start: 03-22-2025 ambulatory KJ GARCIA [facility] Start: 03-04-2025 End: 03-04-2025 ambulatory SOHEILA DENISE [facility] Start: 01-24-2025 End: 01-24-2025 Office outpatient visit 15 minutes Lorraine Stephens Work Phone: [facility] [place] Comment on above: Bilateral carotid ar [place] stenosis (Primary Dx); History of pulmonary embolus (PE); History of DVT (deep vein thrombosis) Start: 01-24-2025 End: 01-24-2025 ambulatory LORRAINE STEPHENS [facility] Start: 01-11-2025 End: 01-11-2025 ambulatory [facility] Start: 11-10-2024 End: 11-10-2024 ambulatory [facility] Start: 10-29-2024 End: 10-29-2024 ambulatory [facility] Start: 09-30-2024 ambulatory [facility] Start: 09-20-2024 End: 09-20-2024 ambulatory [facility] Start: 09-20-2024 End: 09-20-2024 Encounter for other preprocedural examination [facility] Start: 08-24-2024 End: 08-24-2024 ambulatory [facility] Start: 08-24-2024 End: 08-24-2024 ambulatory [facility] Start: 07-06-2024 End: 07-06-2024 ambulatory Eddie MILLARD Facility:[facility] Start: 07-06-2024 End: 07-06-2024 Patient encounter procedure Eddie MILLARD [facility] Start: 01-08-2024 End: 01-08-2024 Telephone encounter Xenia Lindo MANAGER OF PHARMACY [facility] Start: 01-07-2024 End: 01-08-2024 ambulatory KRISTI Mable ESCOBAR [facility] Start: 01-07-2024 End: 01-07-2024 ambulatory [facility] Start: 01-07-2024 End: 01-07-2024 Office outpatient visit 25 minutes Kristi Escobar MD Work Phone: [facility] Comment on above: History of DVT (deep vein thrombosis) (Primary Dx); History of pulmonary embolus (PE); Anemia, unspecified type Start: 07-24-2023 ambulatory Eddie MILLARD Facility:[facility] Start: 01-08-2023 End: 01-09-2023 ambulatory SVETLANA REESE Facility:[facility] Start: 08-28-2022 End: 08-29-[address] KJ GARCIA . Facility:[facility] Start: 04-11-[address] KJ GARCIA . Facili ty:[facility] Start: 04-03-2022 End: 04-03-[address] KJ GARCIA . Facility:[facility] Start: 03-13-2022 End: 03-14-[address] KJ GARCIA . Facility:[facility] Start: 06-27-2021 End: 06-28-2021 ambulatory DEDE COLEMAN Facility:[facility] Procedures Date Procedure Procedure Detail Performing Clinician Start: 01-24-2025 Follow-up visit Follow-up LORRAINE STEPHENS Start: 01-07-2024 Follow-up visit Follow-up KRISTI ESCOBAR Start: 04-07-2023 Adult depression scr eening assessment Kristi Escobra MD Work Phone: Start: 02-17-2014 Colonoscopy Eddie [...] Td Vaccines (3 - Td or Tdap) [facility] Start: 02-06-2026 End: 02-06-2026 Patient encounter procedure 02/06/2026 8:30 AM EDT Office Visit [facility] [address] [place] [address] Lorraine Stephens, DO [address] [facility] [address] [place] [address] [facility] [place] Start: 01-24-2026 Adult BMI Screening Adult BMI Screen ing [facility] Start: 01-24-2026 Tobacco Screening Tobacco Screening [place] [facility] Start: 05-09-2025 Influenza vaccination Influenza Vacc ine [facility] Start: 01-30-2025 COVID-19 Vaccine (5 - Pfizer risk season) COVID-19 Vaccine (5 - Pfizer risk season) [facility] Start: 01-24-2025 End: 01-24-2026 US Carotid arteries - bilateral Vas carotid duplex bilateral Vascular Ultrasound Routine Bilateral carotid artery stenosis Expected: 01/24/2025, Expires: 01/24/2026 [employer] Work Phone: Comment on above: Expected: 01/24/2025 , Expires: 01/24/2026 Start: 01-24-2025 End: 01-24-2025 Patient encounter procedure 01/24/2025 8:30 AM EDT Office Visit [facility] [address] [place] [address] [place] [address] Lorraine Stephens DO [address] [facility] [address] [place] [address] [facility] Start: 01-06-2025 Adult BMI Screening [facility] Screen ing [facility] Start: 01-06-2025 Tobacco Screening [facility]ening [facility] Start: 07-07-2024 Fall Risk Screening Fall Risk Screen ing [facility] Start: 05-09-2024 Influenza vaccination Influenza Vacc ine [facility] Start: 04-07-2024 Depression Screening Depression Scre ening [facility] Start: 05-09-2023 COVID-19 Vaccine ( season) COVID-19 Vaccine ( season) [facility] Start: 1968 Adult BMI Follow Up Plan Adult BMI Follow Up Plan [place] [employer] Start: 1968 Diabetic foot examination Diabetic Foot Exam [facility] Start: 1950 Glaucoma screening Diabetic Op [facility]thalmology Exam [facility] Start: 1950 Medicare Annual Wellness Visit Medicare Annual Wellness Visit [facility] End: 02-07-2024 D-Dimer D-Dimer Lab Routine History of DVT (deep vein thrombosis) History of pulmonary embolus (PE) Anemia, unspecified type 1 Occurrences starting 01/07/2024 until 02/07/2024 [employer] Work Phone: Comment on above: 1 Occurrences starti ng 01/07/2024 until 02/07/2024 Immunizations Immunization Date Immunization Notes Care Provider Fa cility 07-24-2022 Covid-19, Mrna, Lnp- s, Bivalent, Pf, 10 Mcg/0.2 Ml Kristi Escobar MD Work Phone: [facility] 07-24-2022 SARS-CoV-2 (COVID-19 ) [id number] Eddie MILLARD [facility] 06-12-2021 SARS-CoV-2 (COVID-19 ) mRNA BNT-162b2 vax Eddie DOZIERL [facility] 06-01-2021 tetanus toxoid, redu екатерина diphtheria toxoid, and acellular pertussis vaccine, adsorbed Kristi Escobar MD Work Phone: [facility] 11-28-2020 SARS-CoV-2 (COVID-19 ) mRNA BNT-162b2 vax Eddie NILL [facility] 11-06-2020 SARS-CoV-2 (COVID-19 ) mRNA BNT-162b2 vax Eddie DOZIERL [facility] 07-25-2020 influenza, injectabl e, quadrivalent, preservative free Kristi Escobar MD Work Phone: [facility] 07-25-2020 influenza virus vacc ine, unspecified formulation Kristi Escobar MD Work Phone: [facility] 06-14-2020 Seasonal trivalent influenza vaccine, adjuvanted, preservative free Kristi Escobar MD Work Phone: [facility] 07-27-2018 influenza, injectabl e, quadrivalent, preservative free Kristi Escobar MD Work Phone: [facility] 12-04-2017 pneumococcal conjuga te vaccine, 13 valent Kristi Escobar MD Work Phone: [facility] 05-29-2017 influenza, injectabl e, quadrivalent, preservative free Kristi Escobar MD Work Phone: [facility] 10-09-2016 pneumococcal polysaccharide vaccine, 23 valent Kristi Escobar MD Work Phone: [facility] 09-04-2016 pneumococcal polysaccharide vaccine, 23 valent Kristi Escobar MD Work Phone: [facility] 06-06-2016 influenza virus vacc ine, unspecified formulation Kristi Escobar MD Work Phone: [facility] 10-17-2014 tetanus toxoid, redu екатерина diphtheria toxoid, and acellular pertussis vaccine, adsorbed Kristi Escobar MD Work Phone: [employer] Payers Date Payer Category Payer Medicare AETNA MEDICARE A ETNA MEDICARE PLAN (HMO) [id number] 2021-Present [phone] [address] [place] [address] [id number] 2021 Medicare HMO AETNA MEDICARE [id number] 2021 Unknown [id number] 2018 Unknown [id number] 2016 Medicare [id number] 2015 Private Health Insurance [id number] 1959 Medicare [id number] 1959 Self-pay [id number] 1951 Unknown [id number]. 647 1951 Unknown [id number]. 593 1951 Unknown [id number] [id number]. 593 1951 Unknown [id number] [id number]. 593 1951 Unknown [id number] [id number]. 593 1951 Unknown [id number] [id number]. 593 1951 Unknown [id number] [id number]. 1286 1951 Unknown [id number] [id number]. 1286 1951 Unknown [id number] [id number]. 727 1951 Unknown [id number] [id number]. 1286 1951 Unknown [id number]. 1286 Social History Date Type Detail Facility Start: 07-06-2024 Tobacco smoking status Never [facility] Start: 10-19-2020 End: 04-07-2023 Sex Assigned At Female [facility] Start: 04-07-2023 Tobacco smoking stat [facility] Ex-smoker [facility] History of tobacco use Current sm[facility] Start: 04-07-2023 Tobacco use and exposure Smokeless tobacco non-user [facility] Start: 01-07-2024 End: 01-24-2025 Alcoholic beverage intake Current drinker of alcohol (finding) [facility] Start: 10-19-2020 End: 04-07-2023 History of Social function [facility] How often to you hav e a drink containing alcohol? 2-4 times a month [facility] How many standard drinks containing alcohol do you have on a typical day? 1 or 2 [facility] How often do you hav e 6 or more drinks on 1 occasion? Never [facility] Start: 04-21-2019 Alcohol Comment rare beer [facility] Start: 1950 Sex assigned at Not on file [facility] Start: 04-13-2015 Sex Female (finding) [facility] Functional Status Date Assessment Result Facility 07-06-2024 Functional Status N/A [facility] Clinical Notes 08-28-2022 to 03-04-2025 Lorraine Rosales Jesusita, DO - 01/24/2025 8:30 AM EDTTelephone Encounter - Xenia Lindo, [facility] - 01/08/2024 9:06 AM EDTTelephone Encounter - Xenia Lindo, [facility] - 01/08/2024 9:06 AM EDT Note Date [...] mg daily #Hyperlipidemi (more content not included)... [facility] 01-24-2025 History of Present illness Narrative Images from the original note were not included. CC: Chief Complaint Patient presents with Follow-up Blood Clot(s) No testing 74 y.o. female w/ h/o HTN, SVT, uterine cancer (1994), coronary artery disease ([place]), HLD, DM-2 and previous unprovoked VTE (DVT/PE [...] mellitus, without long-term current use of insulin ([facility]) Arthritis HLD (hyperlipidemia) HTN (hypertension) PONV (postoperative nausea and vomiting) Cancer, uterine ([facility]) Prolonged emergence from general anesthesia Abdominal hernia Presence of right artificial knee joint Carpal tunnel syndrome Chronic pain Diverticular disease of colon Eczema Extrapyramidal movements present Fatigue Hip pain Hypoproteinemia Left shoulder pain Low back pain Nonsustained ventricular tachycardia ([facility]) Obesity Ocular hypertension Orthostatic hypotension Osteoarthritis of knee Osteopenia Pathological dislocation of left shoulder, not elsewhere classified Premenopausal menorrhagia Seasonal allergic rhinitis Supraventricular tachycardia Acute deep vein thrombosis (DVT) of tibial vein of right lower extremity ([facility]) SOB (shortness of breath) History of myocardial infarction Pure hypercholesterolemia BP 129/80 Pulse 63 Wt 83.5 kg (184 lb) BMI 34.77 kg/m Past Medical History: Diagnosis Date Arthritis Cancer ([facility]) uterine 2004 Chronic kidney disease stones Diabetes mellitus type 2, controlled ([facility]) Hyperlipidemia Hypertension PONV (postoperative nausea and vomiting) Prolonged emergence from general anesthesia Past Surgical History: Procedure Laterality Date CARPAL TUNNEL RELEASE SECTION COLONOSCOPY N/A 04/22/2019 Performed by Neville Xavier MD at [facility] EXCISION SPUR HERNIA REPAIR x4 HYSTERECTOMY JOINT REPLACEMENT Right knee LITHOTRIPSY ROTATOR CUFF REPAIR Right SHOULDER SURGERY TRIGGER FINGER RELEASE x2 Vascular Invasive/EKOS N/A 04/09/2023 Performed by Myron Mcgrath MD at [facility] CARDIAC CATH LABS ROS: Review of Systems Respiratory: Negative for shortness of breath. Cardiovascular: Negative for leg swelling. Gastrointestinal: Negative for abdominal pain and blood in stool. Hernia repair 10/2024 Genitourinary: Negative for hematuria and vaginal bleeding. Skin: Negative for wound. [x] Up to date w/ colon cancer screening [x] Up to date w/ mammogram [] Not up to date w/ diabetes manager cancer screening former smoker - quit 1975 History of: no h/o CVA + h/o: DVT, PE + h/o: OK, CAD, HTN no h/o: PAD, PVD, claudication [...] SVT, uterine cancer (1994), coronary artery disease ([place]), HLD, DM-2 and previous unprovoked VTE (DVT/PE [...] M, MD documented [facility] this encounter [facility] Note Subjective Patient ID: Martina Holland [...] past 36 hour(s)). No follow-ups on file. [facility] 11-10-2024 Note Subjective Patient ID: Martina [...] past 36 hour(s)). No follow-ups on file. [facility] 10-29-2024 Note Patient: Martina K Ree d Procedure Summary Date: 10/29/24 Room / Location: [facility] OPERATING ROOM 01 / [facility] Operating Room Anesthesia Start: 1501 Anesthesia [...] per anesthesia protocol. No notable events documented. [facility] 10-29-2024 Note Peripheral IV Date/Time: 10/29/2024 3:08 PM Placement Needle size: 18 G Laterality: left Location: external jugular Local anesthetic: none Site prep: alcohol Technique: anatomical landmarks Attempts: 1 [facility] 10-29-2024 Note Airway Date/Time: 10/29/2024 3:20 PM Urgency: elective Airway not difficult General Information and Staff Patient location during procedure: OR Anesthesiologist: Lázaro Phelps MD Resident/CONTENT PRODUCTION SPECIALIST/CAA: Tanner Mclaughlin MD Performed: resident/CONTENT PRODUCTION SPECIALIST/CAA Indications and Patient Condition Indications for airway [...] 1 Number of other approaches attempted: 0 [facility] 10-29-2024 Note Orders from past 72 hours: Full Code; Standing ceFAZolin in dextrose (iso-os) (Ancef) IVPB 2 g Full Code [facility] 10-28-2024 Note Patient: Martina morgan Procedure Information Date/Time: 10/29/24 1300 Procedure: OPEN INCISIONAL HERNIA REPAIR Location: [facility] OPERATING ROOM 01 / [facility] Operating Room Surgeons: Hair Leigh MD [...] Plan discussed with attending. Additional Equipment Requests [facility] 09-30-2024 Note Patient notified via menschmaschine publishinghart. Rachael Gomes MA [facility] 09-20-2024 Note [place] Cardiology - [facility] Subjective Martina Holland is a 74 [...] ventricular size appears (more content not included)... [facility] 08-24-2024 Note Subjective Patient ID: Martina [...] Status: She is alert. CT scan from [facility] showed supraumbilical abdominal wall bulging, fascial defect is 3.8 cm in diameter, with: Herniated. Assessment/Plan Midline incisional hernia Open incisional hernia repair is indicated. No diagnosis found. No orders of the defined types were placed in this encounter. No results found for this or any previous visit (from the past 36 hour(s)). No follow-ups on file. [facility] 07-06-2024 Note General Surgery Offi ce/Clinic [...] h/o htn, DMII, hyperlipidemia, DVT/PE on Eliquis, [place], SVT, osteoporosis, uterine cancer; referred for colorectal [...] E&M of New Patient Moderate 45-59 Min 01213 2. Recurrent ventral incisional hernia (K43.2: Incisional hernia without obstruction or gangrene) obtain abd/pelvic ct scan with contrast for further evaluation, will call patient with results; signs/symptoms of incarceration/strangulation of hernia explained in detail, and patient understands that he should seek prompt medical evaluation if they were to occur. Ordered: E&M of New Patient Moderate 45-59 Min 33732 Follow-up No qualifying data available Problem List/Past [...] (02/17/2014), Arthroscopy of (more content not included)... [facility] Comment on above: Result Comment: Elec tronically Signed By: VENICE MERCHANT, Eddie Harley\Date and Time Signed: 07/06/24 14:31 EDT 01-08-2024 Miscellaneous Notes Called patient to inform of normal test result. Dr. Escobar would like her to repeat d-dimer in 4-6 weeks documented in this encounter [facility] 01-08-2024 Telephone encounter Note Called patient to inform of normal test result. Dr. Escobar would like her to repeat d-dimer in 4-6 weeks [facility] 01-07-2024 History of Present illness Narrative Images from the original note were not included. [facility] [address] [place] [address] Subjective: Patient ID: Martina Holland is a [...] of around 10. Echo was repeated at [facility] on 05/22/23: No significant swelling of lower extremities is reported. She is not requiring compression stockings. Patient Active Problem List Diagnosis Acute pulmonary embolism with acute cor pulmonale (CMS-HCC) Controlled type 2 diabetes mellitus, without long-term current use of insulin ([facility]) Arthritis HLD (hyperlipidemia) HTN (hypertension) PONV (postoperative [...] otherwise can be more local in the [facility] for plan for indefinite anticoagulation therapy for [...] Escobar III, MD documented in this encounter [facility] 01-07-2024 Miscellaneous Notes Addended by: KRISTI ESCOBAR on: 01/07/2024 01:29 PM Modules accepted: Orders documented in this encounter [facility] 01-07-2024 Note Addended by: Philip ESCOBAR on: 01/07/2024 01:29 PM Modules accepted: Orders [facility] 08-28-2022 Note PROCEDURE: XR KNEE [...] by: ALEXX BELTRE Date: 2022-08-28 17:[address] [facility] Evaluation + Plan note No data available for this section [facility] Evaluation note Diagnosis History of DVT (deep vein thrombosis)- Primary History of pulmonary embolus (PE) Anemia, unspecified type documented [facility] this encounter [facility] Bilateral carotid artery stenosis- Primary Occlusion and stenosis of carotid artery without mention of cerebral infarction History of pulmonary embolus (PE) History of DVT (deep vein thrombosis) documented [facility] this encounter [facility] No data available for this section [facility] InstructionsNot on filedocumented in this encounter [facility] filed[facility]ed in this encounter [facility] No data available for this section [facility] Summary Purpose Family History No Family [...] section and content) DATE CREATED AUTHOR 07/03/2021 [facility] DATE CREATED AUTHOR AUTHOR'S ORGANIZ ATION 01/15/[address] [facility] DATE CREATED AUTHOR AUTHOR'S ORGANIZ ATION 01/08/2024 [facility] DATE CREATED AUTHOR AUTHOR'S ORGANIZ ATION 07/10/2024 [facility] DATE CREATED AUTHOR AUTHOR'S ORGANIZ ATION 03/05/2025 [facility] DATE CREATED AUTHOR AUTHOR'S ORGANIZ ATION 03/26/2025 [facility] Patient Care team informatio n (unrecognized section and content) Scientific Specialist Relationship Specialty Start Date End Date Kj Garcia MD [address] [id number] PCP - General 11/03/22 Scientific Specialist Relationship Specialty Start Date End Date Kj Garcia MD [address] [place] [address] PCP - General 11/03/22 Scientific Specialist Relationship Specialty Start Date End Date Kj [...] BE BASED ON THE PRIMARY CLINICAL RECORDS. [employer] [facility]. provides no warranty or guarantee of the accuracy or completeness of information in this document.
--- OUTSIDE RECORDS SUMMARY | 2025-05-14 08:37 | XMS_ITS | Encounter Summary ---
Author Organization [employer] Address [id number] [address] [place] [address] Care Team Providers Care Biochemistry Professor Name Role Phone Larry Garcia MD Primary Care Provider [phone] Encounter Details Date Type Department Care Team (Late st Contact Info) Description 07/24/2023 Telephone [facility] [address] [place] [address] Shayne Escobar MD [address] [place] [address] Social History Tobacco Use Types Packs/Day Years [...] on file documented as of this encounter Miscellaneous Notes * Telephone Encounter - Jessie Prabhakar - 07/24/2023 9:58 AM EST Patient wanted to no if she could return her Oxygen Machine she does not use anymore * Telephone Encounter - Shayne Escobar MD - 07/24/2023 9:58 AM EST Good question. I am not sure the answer of that. It was probably prescribed through the hospital and someone through the hospital might be in charge of taking that back. Could you ask Leticia or Nicolette if they might know? * Telephone Encounter - Leticia Hilton LPN - 07/24/2023 9:58 AM EST Durable medical equipment needs an order saying she can discontinue oxygen therapy. Do you agree? She says she is breathing just fine. * Telephone Encounter - Shayne Escobar MD - 07/24/2023 9:58 AM EST agree * Telephone Encounter - Leticia Hilton LPN - 07/24/2023 9:58 AM EST Spoke to patient about calling DME, also an order has been added for patient to discontinue oxygen therapy. documented in this encounter Plan of Treatment Upcoming Encounters Date Type Department Care Team (Late st Contact Info) Description 09/14/2025 8:30 AM EST Appointment [facility] - Vascular [address] [place] [address] Lorraine Mc, DO [address] [place] [address] 09/19/2025 8:30 AM EST [facility] [place] [address] [place] [address] Lorraine Mc, DO [address] [place] [address] 02/06/2026 9:00 AM EDT Office Visit [facility] [place] [address] [place] [address] Tania Mosley, CENTRAL OFFICE MECHANIC-CURATOR OF PHOTOGRAPHY AND PRINTS [address] [place] [address] documented as of this encounter Visit Diagnoses Not on filedocumented in this encounter Additional Health Concerns Assessment Noted Time PHQ-9 Depression Total Score: 0 04/07/20 23 7:12 PM EDT documented as of this encounter Care Teams Biochemistry Professor Relationship Specialty Start Date End Date Larry Garcia MD PCP - General 11/03/22 documented as of this encounter
--- OUTSIDE RECORDS SUMMARY | 2025-05-14 08:38 | XMS_ITS | Clinical Summary ---
Author Organization [employer] tem Address [id number] [address] [place] [address] Care Team Providers Care Maintenance Truck Driver Name Role Phone Larry Garcia MD Primary Care Provider [phone] Allergies Active Allergy Reactions Criticality Noted Date [...] Encounters Date Type Department Care Team Description 03/18/2025 Orders Only [facility] [address] [place] [address] Ref Prov, Not In System 03/07/2025 Telephone [facility] [address] [place] [address] Lorraine Mc DO 03/04/2025 10:25 AM EDT Ancillary Procedure [facility] [place] [address] Pain from Last 3 Months Immunizations Immunization Administration [...] Info) Description 09/14/2025 8:30 AM EST Appointment [facility] - Vascular [address] [place] [address] Lorraine Mc, DO [address] [facility] [address] [place] [address] 09/19/2025 8:30 AM EST Office Visit [facility] [place] [address] [place] [address] Lorraine Mc, DO [address] [facility] [address] [place] [address] 02/06/2026 9:00 AM EDT Office Visit [facility] [place] [address] [place] [address] Tania Mosley, FOOD AND BEVERAGE LEAD-MANAGER SKILLED [address] [facility] [place] [address] Health Maintenance Due Date Last Done Comments Diabetic Ophthalmology Exam 1950 Statin Use: Diabetic 1950 Diabetic Foot Exam 1969 Depression Screening [...] Completed 07/02/2023, Medical Devices Not on file Procedures Procedure Name Priority Date/Time Associated Diagnosis Comments VASC CAROTID DUPLEX BILATERAL Routine 03/18/2025 9:47 AM EDT VASC CAROTID DUPLEX BILATERAL Routine 03/04/2025 10:25 AM EDT Pain from Last 3 Months Results * Vas carotid duplex bilateral (03/18/2025 9:47 AM EDT) Only the most recent of2 resultswithin the time period is included. Anatomical Region Laterality Modality Vascular Bilateral Ultrasound us Not In System Ref Prov CV VASCULAR ORDERABLES Fi nal Result from Last 3 Months Insurance AETNA MEDICARE Care Teams Maintenance Truck Driver Relationship Specialty Start Date End Date Larry Garcia MD PCP - General 11/03/22
--- OUTSIDE RECORDS SUMMARY | 2025-05-14 08:38 | XMS_ITS | Encounter Summary ---
Author Organization [employer] Address [facility] [place][id number] [address] [place] [address] Care Team Providers Care Software Test Manager Name Role Phone Larry Garcia MD Primary Care Provider [phone] Encounter Details Date Type Department Care Team (Late st Contact Info) Description 03/07/2025 Telephone [facility] [address] [place] [address] Lorraine Stephens, DO [address] [place] [address] Social History Tobacco Use Types Packs/Day Years [...] encounter Miscellaneous Notes * Telephone Encounter - Cate Baker - 03/07/2025 2:57 PM EDT Patient is calling to see if [facility] has sent over the results from her carotid scan yet.She [facility] care for [facility] so she uses [facility]. Upon reviewing her last note, it looks like she was actually due for a one-year follow up with carotid scan prior next January (2025). She just had it done last week and said no one told her she was due next year. I am not sure how Dr will want to proceed- call her with results, bring her in now and then again in 2025. Patient may be reached at [phone], please update her as to next steps/results. Thank you. * Telephone Encounter - Favian Parmar - 03/07/2025 2:[address] STEPHENS INFORMED WILL REACH OUT TO PATIENT documented in this encounter Plan of Treatment Upcoming Encounters Date Type Department Care Team (Late st Contact Info) Description 09/14/2025 8:30 AM EST Appointment [facility] - [facility]ascular [address] [address] Lorraine Stephens, DO [address] [email or web address] [facility] [address] [place] [address] 09/19/2025 8:30 AM EST Office Visit [facility] [address] [place] [address] Lorraine Stephens, DO [email or web address] [facility] [address] [place] [address] 02/06/2026 9:00 AM EDT Office Visit [facility] [address] [place] [address] Tania Mosley, BULK MAIL TECHNICIAN-SALES CENTER MANAGER [address] [facility] [place] [address] documented as of this encounter Visit Diagnoses Not on filedocumented in this encounter Additional Health Concerns Assessment Noted Time PHQ-9 Depression Total Score: 0 04/07/20 23 7:12 PM EDT documented as of this encounter Care Teams Software Test Manager Relationship Specialty Start Date End Date Larry Garcia MD PCP - General 11/03/22 documented as of this encounter
--- OUTSIDE RECORDS SUMMARY | 2025-05-14 08:38 | XMS_ITS ---
Author Organization [employer] Address [facility][id number] [address] [place] [address] Care Team Providers Care Visitor Use Assistant Name Role Phone Larry Garcia MD Primary Care Provider [phone] Active Problems Problem Noted Date Diagnosed Date [...]
--- OUTSIDE RECORDS SUMMARY | 2025-05-14 08:38 | XMS_ITS | Encounter Summary ---
Author Organization [facility] Sys tem Address [id number] [address] [place] [address] Care Team Providers Care Flying Shear Operator Name Role Phone Larry Garcia MD Primary Care Provider [phone] Encounter Details Date Type Department Care Team (Late st Contact Info) Description 03/18/2025 Orders Only [facility] [address] [place] [phone] Ref Prov, [place] [address] Social History Tobacco Use Types Packs/Day Years [...] Upcoming Encounters Date Type Department Care Team ([facility] st Contact Info) Description 09/14/2025 8:30 AM EST Appointment [facility] - [facility] [address] [place] [address] Lorraine Mc, DO [address] [facility] [address] [place] [address] 09/19/2025 8:30 AM EST Office Visit [facility] [address] [place] [address] Lorraine Mc, DO [address] [facility] [address] [place] [address] 02/06/2026 9:00 AM EDT Office Visit [facility] [address] [place] [address] Tania Mosley, LEATHER GRADER-NURSE LICENSED PRACTICAL [address] [facility] [place] [address] documented as of this encounter Procedures Procedure Name Priority Date/Time Associated Diagnosis Comments VASC CAROTID DUPLEX BILATERAL Routine 03/18/2025 9:47 AM EDT documented in this encounter Results * Vas carotid duplex bilateral (03/18/2025 9:47 AM EDT) Anatomical Region Laterality Modality Vascular Bilateral Ultrasound us Not In System Ref Prov CV VASCULAR ORDERABLES Fi nal Result documented in this encounter Visit Diagnoses Not on filedocumented in this encounter Additional Health Concerns Assessment Noted Time PHQ-9 Depression Total Score: 0 04/07/20 7:12 PM EDT documented as of this encounter Care Teams Flying Shear Operator Relationship Specialty Start Date End Date Larry Garcia MD PCP - General 11/03/22 documented as of this encounter
--- OUTSIDE RECORDS SUMMARY | 2025-05-14 08:39 | XMS_ITS | Clinical Summary ---
Author Organization [facility] Address [address] [place] [address] Care Team Providers Care Guide Dog Mobility Instructor Name Role Phone Larry Garcia MD Primary Care Provider [phone] Allergies Active Allergy Reactions Criticality Noted Date [...] Risk 3.9 % 30-day risk of , [place], or cardiac arrest From a cardiology perspective [...] 06/08/2025 8:00 AM EDT Office Visit [facility] [address] [place] [phone] Jr. Akbar Dent C, [address] [facility] [address] [place] [address] Health Maintenance Due Date Last Done Comments CT Colonography 1951 FIT-DNA 1951 FIT 1951 FOBT 1950 Sigmoidoscopy 1950 Mammogram 1991 Influenza Vaccine (#1) 2025 0, 06/14/2020, 07/27/2018, Additional history exists Colonoscopy 04/22/2029 [...] Narrative 04/22/2019 12:00 PM EDT PERFORMED AT [facility] LOCATION:[id number] Procedure Note CONVERSION, GENERIC - 01/22/2023 PERFORMED AT [facility] LOCATION:[id number] us Neville Xavier MD ENDOSCOPY PROCEDURE ORDERABL ES Final Result from Last 3 Months or Most Recently Relevant to Health Maintenance Insurance [employer] MED[employer]ARE ADVANTAGE Care Teams Guide Dog Mobility Instructor Relationship Specialty Start Date End Date Larry Garcia MD PCP - General Family Medicine 01/16/23
--- OUTSIDE RECORDS SUMMARY | 2025-05-14 08:39 | XMS_ITS | Clinical Summary ---
Author Organization [facility] Address [address] [place] [address] Care Team Providers Care Machine Operators Name Role Phone Larry Garcia MD Primary Care Provider [phone] Allergies Active Allergy Reactions Criticality Noted Date [...] mouth in the morning and at bedtime. 4 Active oxyCODONE (Roxicodone) 5 mg immediate release tabletIndication s:Recurrent ventral incisional hernia Take 1 tablet (5 mg) by mouth every 6 (six) hours if needed for severe pain (8-10 pain score) for up to 15 doses. 15 tablet 5 Active Additional Information Patient not taking.Reported on 03/04/2025 hydroCHLOROthiaz gloria 12.5 mg tabletIndication s:Essential hypertension Take 1 tablet (12.5 mg) by mouth in the morning. 90 tablet 3 Active Active Problems Problem Noted Date Diagnosed [...] Risk 3.9 % 30-day risk of , [place], or cardiac arrest From a cardiology perspective [...] Description 03/04/2025 9:40 AM EDT Office Visit [place] [address] [place] [address] Asael Hansen, THERESA Essential hypertension (Primary Dx); Nonsustained ventricular tachycardia (CMS/HCC); Supraventricular tachycardia; Mixed hyperlipidemia from Last 3 Months Family History Medical [...] 1961 Mammogram 1991 COVID-19 Vaccine ( season) 2025 08/02/2024, 07/24/2022, 07/24/2022, Additional history exists Influenza Vaccine (#1) 2025 , 06/14/2020, 07/27/2018, Additional history exists Depression Screening [...] 11:28 AM 10/29/2024 7:58 PM Care Teams Machine Operators Relationship Specialty Start Date End Date Larry Garcia MD [address] [facility] [address] [address] PCP - General 08/13/22
--- OUTSIDE RECORDS SUMMARY | 2025-05-14 08:39 | XMS_ITS | Encounter Summary ---
Author Organization [facility] Address [address] [place] [address] Care Team Providers Care Bag Making Machine Operator Name Role Phone Larry Garcia MD Primary Care Provider [phone] Encounter Details Date Type Department Care Team (Late Contact Info) Description 03/12/2023 Abstract [facility] [address] [place] [address] Kervin Camara, CONVENTION MANAGER [address] [place] [address] Social History Tobacco Use Types [...] Description 06/08/2025 8:00 AM EDT Office Visit [facility] [address] [address] Jr. Akbar Dent, [address] [place] [address] documented as of this encounter Visit Diagnoses Not on filedocumented in this encounter Care Teams Bag Making Machine Operator Relationship Specialty Start Date End Date Larry Garcia MD PCP - General Family Medicine 01/16/23 documented as of this encounter
--- OUTSIDE RECORDS SUMMARY | 2025-05-14 08:39 | XMS_ITS | Encounter Summary ---
Author Organization [facility] Address [id number] [address] [place] [address] Care Team Providers Care Sewer Pipe Press Operator Name Role Phone Larry Garcia MD Primary Care Provider [phone] Encounter Details Date Type Department Care Team (Late st Contact Info) Description 04/07/2023 Orders Only [facility] [address] [place] [phone] External, Scanning Provider Pain (Primary Dx) [...] of Assessment Author 2 04/07/2023 7:11 PM Ivette Barajas RN * Question Answer Date of Assessment Author Q1: How often do you have a drink containing alcohol? 2-4 times a month 04/07/2023 7:11 PM Torsten Barajas RN Q2: How many drinks containing alcohol do you have on a typical day when you are drinking? 1 or 2 04/07/2023 7:11 PM Torsten Barajas RN Q3: How often do you have six or more drinks on one occasion? Never 04/07/2023 7:11 PM Torsten Barajas RN * Question Answer Date of Assessment Author Functional Status Independent 04/07/2023 7:12 PM Ivette Barajas RN documented as of this encounter Plan of Treatment Upcoming Encounters Date Type Department Care Team (Late st Contact Info) Description 09/14/2025 8:30 AM EST Appointment [facility] - [facility] [address] [place] [phone] Lorraine Mc, DO [address] [employer] [address] [place] [address] 09/19/2025 8:30 AM EST Office Visit [facility] [address] [place] [address] Lorraine Mc, DO [address] [employer] [address] [place] [address] 02/06/2026 9:00 AM EDT Office Visit [facility] [place] [address] [place] [address] Tania Mosley, LOGISTICS MANAGEMENT SPECIALIST-CLASSROOM INSTRUCTIONAL AIDE [address] [facility] [place] [address] documented as of this encounter Results * [...] documented as of this encounter Care Teams Sewer Pipe Press Operator Relationship Specialty Start Date End Date Larry Garcia MD PCP - General 11/03/22 documented as of this encounter
--- OUTSIDE RECORDS SUMMARY | 2025-05-14 08:39 | XMS_ITS | Patient Health Record ---
Author Organization [facility] in [place] Address [address] [place] [address] Care Team Providers Care Crime Laboratory Analyst Name Role Phone Chava Riley Primary Care Provider Allergies Allergen (clinical drug ingredient) Drug/Non Drug Allergy documented on EMR Reaction Allergy Type Onset Date Status meperidine Demerol shortness of breath Drug Allergy Active ciprofloxacin Ciprofloxacin rash Drug Allergy Active Results Component Value Reference Range Notes XR wrist RT min 3V Reviewed date:09/23/2024 12:49:26 PM Interpretation: Performing Lab: Notes/Report: Source Facility: [place] [address] XRay Report Signed Patient: MARTINA HOLLAND MR#: [id number] : 1950 Acct:[id number] Age/Sex: 74 / F ADM Date: 09/22/24 Loc: RAD Attending Dr: Kj Riley M.D. Ordering Physician: Kj Riley M.D. Date of Service: 09/22/24 Procedure(s): XR wrist RT min 3V Accession Number(s): [id number] cc: Kj Riley M.D. [place] [address] Patient Name: MARTINA HOLLAND MRN: [id number] date: 1950 Sex: F Assigned Patient Location: RAD Current Patient Location: Accession/Order Number: [id number] Exam Date: 09/22/2024 13:50 Report Date: 09/23/2024 [...] Dictated By: Zandra Adamson M.D. Signed By: 09/23/24731 DD/ 9 TD/TT: Card Writer Hand: [place] [address] XRay Report Signed Patient: MARTINA HOLLAND MR#: [id number] : 1950 Acct:[id number] Age/Sex: 74 / F ADM Date: 09/22/24 Loc: RAD Attending Dr: Octavio Riley M.D. Ordering Physician: Kj Riley M.D. Date of Service: 09/22/24 Procedure(s): XR wri st RT min 3V Accession Number(s): [id number] cc: Kj Riley M.D. [place] [address] Patient Name: MARTINA HOLLAND MRN: [id number] date: 1950 Sex: F Assigned Patient Location: [facility] Current Patient Location: Accession/Order Numb er: [id number] Exam Date: 09/22/2024 13:50 Report Date: 09/23/2024 [...] M.D. Signed By: 09/23/24731 DD/ 9 TD/TT: Card Writer Hand: CARMEN LEWISAUTPita WO MICRO ([id number]) - IN OFFICE Reviewed date:03/06/2025 03:12:12 PM Interpretation: Performing Lab: Notes/Report: COLOR yellow CLARITY clear GLUCOSE n BILIRUBIN n KETONE n SPECIFIC GRAVITY 1.005 BLOOD n PH 5 PROTEIN n UROBILINOGEN n NITRITE n LEUKOCYTE ESTERASE n FREE T3 Reviewed date:05/30/2024 09:18:25 PM Interpretation: Performing Lab: Notes/Report: [facility] , Free T3 2.49 2.18-3.98 pg/mL Performing Lab: see note ML - [facility] GLYCOHEMOGLOBIN A1C Reviewed date:05/30/2024 09:18:25 PM Interpretation: Performing Lab: Notes/Report: The [facility] , Glycohemoglobin A1C 6.1 4.5-6.2 % ADA THERAPEUTIC TARGET < 7.0 ADA RECOMMENDED LIMIT 4.0 - 6.0 ACTION SUGGESTED > 7.0 Estimated Average Glucose 128 Performing Lab: see note ML - [facility] LB IRON Reviewed date:05/30/2024 09:18:25 PM Interpretation: Performing Lab: Notes/Report: The [facility] , Iron 62.0 50.0-170.0 ug/dL Performing Lab: see note ML - [facility] LB LIPID PROFILE Reviewed date:05/30/2024 09:18:25 PM Interpretation: Performing Lab: Notes/Report: The [facility] , Triglycerides 99 <=150 mg/dL Cholesterol 119 [...] RISK Performing Lab: see note ML - [facility] LB PROF 14(COMP METB) Reviewed date:05/30/2024 09:18:25 PM Interpretation: Performing Lab: Notes/Report: The [facility] , Sodium 141 136-145 mmol/L Potassium 3.9 [...] 1.4 Performing Lab: see note ML - [facility] T4 Reviewed date:05/30/2024 09:18:26 PM Interpretation: Performing Lab: Notes/Report: The [facility] , T4 Thyroxine 7.00 4.80-13.90 ug/dL Performing Lab: see note ML - [facility] LB TSH Reviewed date:05/30/2024 09:18:26 PM Interpretation: Performing Lab: Notes/Report: The [facility] , Thyroid Stimulating Hormone 2.687 0.358-3.740 uIU/mL Performing Lab: see note ML - [facility] LB CREATININE Reviewed date:07/28/2024 07:54:49 AM Interpretation: Performing Lab: Notes/Report: The [facility] , Creatinine 1.15 0.55-1.02 mg/dL Estimated GFR ( Regina 56 >=60 mL/min/1.73m 2 Estimated GFR (Non- Shira 46 >=60 mL/min/1.73m 2 Performing Lab: see note - [facility] LB CBC AUTO DIFF Reviewed date:05/30/2024 09:18:25 PM Interpretation: Performing Lab: Notes/Report: The [facility] , White Blood Count 5.7 4.0-11.0 10 [...] 0.00-0.03 10 3/uL Performing Lab: see note - [facility] LB COVID-19, Flu A+B IH Reviewed date:03/06/2025 03:12:12 PM Interpretation: Performing Lab: Notes/Report: COVID positive FLU A neg FLU B neg Control present MM tomosynthesis screening B I Reviewed date:03/06/2025 03:12:12 PM Interpretation: Performing Lab: Notes/Report: Source Facility: [facility]-[address] [place] [address] [place] [address] Mammography Report Signed Patient: MARTINA HOLLAND MR#: [id number] : 1950 Acct:[id number] Age/Sex: 74 / F ADM Date: 03/04/25 Loc: MAMMO Attending Dr: Kj Riley M.D. Ordering Physician: Kj Riley M.D. Results: Date of Service: 03/04/25 Follow Up: Procedure(s): MM tomosynthesis screening BI Accession Number(s): [id number] cc: Kj Riley M.D. Patient Name: MARTINA HOLLAND MR#: [id number] : 1950 Exam Date: 03/04/2025 Ordering Doctor: DR KJ RILEY . RADIOLOGY REPORT PROCEDURE: MM TOMOSYNTHESIS SCREENING BI COMPARISON: MM TOMOSYNTHESIS SCREENING BI, 01/23/2024. MG MAMM SCREEN 3D DANICA CAD, 03/13/2022. MG MAMM SCREEN DANICA W CAD, 11/08/2020. MG MAMM DANICA SCRN W CAD DIG, 06/04/2013. INDICATIONS: Screening Calculator Name NCI Breast Cancer Risk Assessment Tool 5 Year Breast Cancer Risk 1.60% Lifetime Breast Cancer Risk 3.90% Personal Breast Cancer No Personal Ovarian Cancer No Treatments HYSTERECTOMY Family Cancers Grandmother-maternal with colon cancer at age 40. LOCATION: The [facility] BREAST COMPOSITION: The breasts are almost entirely fatty. FINDINGS: DIAGNOSTIC CATEGORY 1--NEGATIVE. RIGHT BREAST: No significant suspicious finding. LEFT BREAST: No significant suspicious finding. RECOMMENDATIONS: ROUTINE MAMMOGRAM AND CLINICAL EVALUATION IN 12 MONTHS. PLEASE NOTE: A NORMAL MAMMOGRAM DOES NOT EXCLUDE THE POSSIBILITY OF BREAST CANCER. A CLINICALLY SUSPICIOUS PALPABLE LUMP SHOULD BE BIOPSIED. Dictated by: John Dias DO on 03/04/2025 at 14:14 Approved by: John Dias DO on 03/04/2025 at 14:17 Dictated By: John Dias M.D. Signed By: 03/04/25 1417 DD/ 16 TD/TT: Card Writer Hand: [place] [address] Mammography Report Signed Patient: MARTINA HOLLAND MR#: [id number] : 1950 Acct:[id number] Age/Sex: 74 / F ADM Date: 03/04/25 Loc: MAMMO Attending Dr: Octavio Riley M.D. Ordering Physician: Kj Riley M.D. Results: Date of Service: 03/04/25 Follow Up: Procedure(s): MM tomosynthesis screening BI Accession Number(s): [id number] cc: Kj Riley M.D. Patient Name: MARTINA HOLLAND MR#: [id number] : 1950 Exam Date: 03/04/2025 Ordering Doctor: DR KJ RILEY . RADIOLOGY REPORT PROCEDURE: MM TOMOSYNTHESIS SCREENING BI COMPARISON: MM TOMOSYNTHESIS SCREENING BI, 01/23/2024. MG MAMM SCREEN 3D DANICA CAD, 03/13/2022. MG MAMM SCREEN DANICA W CAD, 11/08/2020. MG MAMM DANICA SCRN W CAD DIG, 06/04/2013. INDICATIONS: Screening Calculator Name NCI Breast Cancer Risk Assessment Tool 5 Year Breast Cancer Risk 1.60% Lifetime Breast Canc er Risk 3.90% Personal Breast Canc er No Personal Ovarian Can cer No Treatments HYSTERECTOMY Family Cancers Grandmother-maternal with colon cancer at age 40. LOCATION: The [facility] BREAST COMPOSITION: The breasts are almost entirely fatty. FINDINGS: DIAGNOSTIC CATEGORY 1--NEGATIVE. RIGHT BREAST: No significant suspicious finding. LEFT BREAST: No significant suspicious finding. RECOMMENDATIONS: ROUTINE MAMMOGRAM AN D CLINICAL EVALUATION IN 12 MONTHS. PLEASE NOTE: A MT L MAMMOGRAM DOES NOT EXCLUDE THE POSSIBILITY OF BREAST CANCER. A CLINICALLY SUSPICIOUS PALPABLE LUMP SHOULD BE BIOPSIED. Dictated by: John Dias DO on 03/04/2025 at 14:14 Approved by: John Dias DO on 03/04/2025 at 14:17 Dictated By: John Dias M.D. Signed By: 03/04/25 1417 DD/ 16 TD/TT: Card Writer Hand: XR HAND RT MIN 3V Reviewed date:09/23/2024 12:49:26 PM Interpretation: Performing Lab: Notes/Report: Source Facility: [place] [address] [place] [address] XRay Report Signed Patient: MARTINA HOLLAND MR#: [id number] : 1950 Acct:[id number] Age/Sex: 74 / F ADM Date: 09/22/24 Loc: RAD Attending Dr: Kj Riley M.D. Ordering Physician: Kj Riley M.D. Date of Service: 09/22/24 Procedure(s): XR hand RT min 3V Accession Number(s): [id number] cc: Kj Riley M.D. [place] [address] Patient Name: MARTINA HOLLAND MRN: [id number] date: 1950 Sex: F Assigned Patient Location: [facility] Current Patient Location: Accession/Order Number: [id number] Exam Date: 09/22/2024 13:50 Report Date: 09/23/2024 [...] M.D. Signed By: 09/23/2432 DD/ 9 TD/TT: Card Writer Hand: [place] [address] XRay Report Signed Patient: MARTINA HOLLAND MR#: [id number] : 1950 Acct:[id number] Age/Sex: 74 / F ADM Date: 09/22/24 Loc: RAD Attending Dr: Octavio Riley M.D. Ordering Physician: Kj Riley M.D. Date of Service: 09/22/24 Procedure(s): XR rign d RT min 3V Accession Number(s): [id number] cc: Kj Riley M.D. [place] [address] Patient Name: MARTINA HOLLAND MRN: [id number] date: 1950 Sex: F Assigned Patient Location: RAD Current Patient Location: Accession/Order Numb er: [id number] Exam Date: 09/22/2024 13:50 Report Date: 09/23/2024 [...] M.D. Signed By: 09/23/2432 DD/ 9 TD/TT: Card Writer Hand: CT abdomen pelvis w con Reviewed date:07/28/2024 12:33:32 PM Interpretation: Performing Lab: Notes/Report: Source Facility: [facility]-[address] [place] [address] [place] [address] CT Scan Report Signed Patient: MARTINA HOLLAND MR#: [id number] : 1950 Acct:[id number] Age/Sex: 74 / F ADM Date: 07/28/24 Loc: LAB Attending Dr: Poonam Schmitt M.D. Ordering Physician: Poonam Schmitt M.D. Date of Service: 07/28/24 Procedure(s): CT abdomen pelvis w con Accession Number(s): [id number] cc: Kj Riley M.D. The [address] [address] Patient Name: MARTINA HOLLAND MRN: [id number] date: 1950 Sex: F Assigned Patient Location: LAB Current Patient Location: LAB Accession/Order Number: [id number] Exam Date: 07/28/2024 08:15 Report Date: 07/28/2024 [...] By: Jesus Manuel Burnett M.D. Signed By: 07/28/2453 DD/ TD/TT: Card Writer Hand: The [address] [address] [address] Scan Report Signed Patient: MARTINA HOLLAND MR#: [id number] : 1950 Acct:[id number] Age/Sex: 74 / F ADM Date: 07/28/24 Loc: LAB Attending Dr: Wen Schmitt M.D. Ordering Physician: Poonam Schmitt M.D. Date of Service: 07/28/24 Procedure(s): CT abdomen pelvis w con Accession Number(s): [id number] cc: Kj Riley M.D. [address] [address] Patient Name: MARTINA HOLLAND MRN: [id number] date: 1950 Sex: F Assigned Patient Location: LAB Current Patient Location: LAB Accession/Order Numb er: [id number] Exam Date: 08:15 Report Date: 07/28/2024 08:50 [...] By: Jesus Manuel Burnett M.D. Signed By: 07/28/2453 DD/ TD/TT: Card Writer Hand: Reason For Referral Diagnosis 1 Diverticulosis (K57. 90) Referral Organization [facility] Referring Provider First Name Chava Referring Provider Last Name Radha Referring Provider Speciality Family [facility] hakeem Referred Provider Poonam Schmitt Referred Provider Specialty General Surg lizet Referral Priority Routine Medications Medication SIG (Take, Route, Frequency, Duration) Notes Start Date End Date Status Pantoprazole Sodium 40 MG 1 tablet Orall y Once a day for 90 days Active Rosuvastatin Calcium 5 MG 1 tablet Orall y Once a day for 90 days Active Triamcinolone Acetonide 0.1 % 1 applicat ion Externally Two times a Week Active Aspir-Low 81 MG 1 tablet Orally Once a day Active Vitamin D3 50 MCG (1999) 1 capsule Or ally Once a day Active Cyclobenzaprine HCl 10 MG 1 tablet Orall y bid for 30 days 03/09/2025 Active Eliquis 2.5 MG 1 tablet Orally Twic e a day Active hydroCHLOROthiazide 12.5 MG Oral for 90 Days Active Iron 325 (65 Fe) MG 1 [...] Vitro Dx: E11.9 for 100 days Active Immunizations Vaccine Route Administration Date Status Comme nts Flu, Fluad (00051) 65 yrs + High Dose Seasonal (7791-4131) IM Intramuscular 07/01/2023 Administered Flu, Fluad (04129) 65 yrs+, single-dose syringe (5858-2638) IM Intramuscular 07/06/2024 Administered Pneumococcal (Pneumovax 23) [...] Problem Status W/U Status Risk Notes Problem 96773426 Essential (primary) hypertension (I10) Active confirmed Problem 78594114 Other pulmonary embolism without acute cor pulmonale (I26.99) Active confirmed Problem Idiopathic pulmonary arterial hypertension (513210117) Primary pulmonary hypertension (I27.0) Active confirmed Problem 082069110 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) Active confirmed Problem 913084161848 Acute embolism and thrombosis of unspecified deep veins of unspecified lower extremity (I82.409) Active confirmed Problem Orthostatic hypotension (04555263) Orthostatic hypotension (I95.1) Active confirmed Problem 17384241 Allergic rhinitis, unspecified (J30.9) Active confirmed Problem Pathological dislocation of the shoulder region (529361540) Pathological dislocation of left shoulder, 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 confirmed Problem 52910159 Urinary tract infection, site not specified (N39.0) Active confirmed Problem Fatigue (05991125) Fatigue (R53.83) Active conf irmed Problem Carpal tunnel syndro me (94204877) Carpal tunnel syndrome (G56.00) Active confirmed Problem Orthostatic hypotension (32997190) Orthostasis (I95.1) Active confirmed Problem Osteopenia (408201818) Osteopeni a (M85.80) Active confirmed Problem Eczema (75278390) Eczema (L30.9) Active confirm ed Problem Hip pain (95506155) Hip pain (M25.559) Active confirmed Problem Diverticular disease of colon (089216026) Diverticulosis (K57.90) Active confirmed Problem Arthralgia (62706340) Arthralgia (M25.50) Active confirmed Problem Osteoarthritis of kn ee (210389026) Osteoarthritis of right knee (M17.9) Active confirmed Problem Osteoporosis (10419320) Osteoporosis (M81.0) Active confirmed Problem Gastritis (9225797) Gastritis (K29.70) Active confirmed Problem Diabetes mellitus ty pe 2 (87262588) Diabetes mellitus type 2, uncontrolled (E11.65) Active confirmed Problem Near syncope (985131452) Near syncope (R55) Active confirmed Problem Umbilical hernia (052111672) Umbilical hernia (K42.9) Active confirmed Problem Acute sinusitis (71032760) Acute sinus infection (J01.90) Active confirmed Problem Overweight (769007337) Over weig ht (E66.3) Active confirmed Problem Seasonal allergic rhinitis (414795243) Allergic rhinitis, seasonal (J30.2) Active confirmed Problem Diverticular disease of colon (881456600) Colon, diverticulosis (K57.30) Active confirmed Problem Abdominal hernia (88980596) Other abdominal hernia (K46.9) Active confirmed Problem Head contusion (S00.93XA) Active confirmed Problem Strain of trapezius muscle (121926642) Trapezius muscle strain (S46.819A) Active confirmed Problem Umbilical hernia (342856742) Periumbilical hernia (K42.9) Active confirmed Problem Arthropathy (942649850) Hand arthritis (M12.9) Active confirmed Problem Osteoarthritis (467212211) DA (degenerative arthritis) (M19.90) Active confirmed Problem Calcaneal spur (74614573) Calcaneal spur, left (M77.32) Active confirmed Problem Extrapyramidal movements (710610347) Abnormal leg movement (G25.9) Active confirmed Problem Pure hypercholesterolemia (760944677) Pure hypercholesterol emia, unspecified (E78.00) Active confirmed Problem Old myocardial infarction (7098103) Anterolateral myocardial infarction greater than eight weeks ago (I25.2) Active confirmed Problem 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, 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) Active confirmed Problem Diabetic renal disea se (377002531) 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) Active confirmed Problem Type II diabetes mellitus without complication (420204517) Diabetes (E11.9) Active confirmed Problem Chronic kidney disea se stage 3A (disorder) (201719416) Chronic kidney disease, stage 3a (N18.31) Active confirmed Problem Low back pain (finding) (946230314) Low back pain at multiple sites (M54.50) Active confirmed Vital Signs Temperature 99.1 degrees Fahrenheit 08/09/2024 Blood pressure diastolic 78 mm Hg 05/11/2025 Height 61 in 05/11/2025 Blood pressure systolic 134 mm Hg 05/11/2025 Weight 187.8 lbs 05/11/2025 BMI 35.48 kg/m2 05/11/2025 Encounters Encounter Location Date Provider Diagnosis [facility] [address] [facility] [place] [address] 03/06/2025 [facility] [address] [facility] [place] [address] 03/09/2025 [facility] [address] [place] [address] 09/23/2024 Chava Riley [facility] [address] [facility] [place] [address] 10/04/2024 Chava Riley [facility] [address] [facility] [place] [address] 10/21/2024 Chava Riley [facility] [address] [facility] [place] [address] 11/12/2024 Chava Riley [facility] [address] [facility] [address] 12/06/2024 Chava eugenia [facility] [address] [place] [address] 01/03/2025 Chava Hoy Acute bronchitis, unspecified organism J20.9 [facility] [address] [facility] [place] [address] 05/26/2024 Chava Hoy Diverticulosis K57.9 0 [facility] [address] [place] [address] 05/30/2024 Chava Johnnyy [facility] [address] [place] [address] 09/09/2024 Chava Hoy [facility] [address] [place] [address] 09/14/2024 Chava Hoy [facility] [address] [place] [address] 09/22/2024 Chava Hoy [facility] [address] [facility] [place] [address] 08/09/2024 Chava Hoy Acute bronchitis, unspecified organism J20.9 and COVID-19 U07.1 [place] [address] [place] [address] 07/06/2024 Chava Turnery Encounter for immunization Z23 [place] [address] [place] [address] 09/22/2024 Chava Turnery Myocardial degenerat ion I51.5 ; Diabetes mellitus type 2, uncontrolled E11.65 and Hand arthritis M12.9 [place] [address] [place] [address] 12/31/2024 Chava Turnery Orthostatic hypotens ion I95.1 [place] [address] [place] [address] 02/23/2025 Chava Hoy Urinary urgency R39. 15 ; Diabetes mellitus type 2, uncontrolled E11.65 ; Pure hypercholesterolemia, unspecified E78.00 ; Essential (primary) hypertension I10 ; Gastritis K29.70 ; Chronic kidney disease due to diabetes mellitus E11.22 ; Primary pulmonary hypertension I27.0 and Chronic kidney disease, stage 3a N18.31 [facility] [address] [facility] [place] [address] 05/11/2025 Chava Hoy Diabetes mellitus ty pe 2, uncontrolled E11.65 ; Chronic kidney disease, stage 3a N18.31 ; Pure hypercholesterolemia, unspecified E78.00 ; Essential (primary) hypertension I10 and Gastritis K29.[address] [address] 03/09/2025 Chava Riley Trapezius muscle str ain S46.819A and Essential (primary) hypertension I10 [address] [address] 05/26/2024 Chava Riley Diabetes mellitus ty pe 2, uncontrolled E11.65 ; Pure hypercholesterolemia, unspecified E78.00 ; Essential (primary) hypertension I10 and Gastritis K29.[address] [address] 11/24/2024 Chava Riley Fatigue R53.83 ; Pur e hypercholesterolemia, unspecified E78.00 ; Essential (primary) hypertension I10 and Diabetes E11.9 Assessments Encounter Date Diagnosis (ICD Code) Assessment Notes Treatment Notes Treatment Clinical Notes Section Notes 05/26/2024 Diabetes mellitus type 2, uncontrolled (ICD-10 - E11.65) levels are good 05/26/2024 Pure hypercholesterolem ia, unspecified (ICD-10 - E78.00) review meds 07/06/2024 Encounter for immunization (ICD-10 - Z23) 08/09/2024 Acute bronchitis, unspecified organism (ICD-10 - J20.9) Rest and drink more liquids, especially water. You may use a humidifier or vaporizer to help keep the drainage moist. Lqut-rip-afaqdxu Nasal Saline may help the stuffy and runny nose. Use Ibuprofen and or Tylenol as needed for fever, chills, body aches or pain. Children 5 years old should not be given pujb-rek-ulbujgz cough and cold medications such as guaifenesin and dextromethorphan. If you're over age 5, you may try jmzy-koo-jkrfpla cold medications such as guaifenesin and dextromethorphan, [...] controle 09/22/2024 Myocardial degeneration (ICD-10 - I51.5) 05/11/2025 Diabetes mellitus type 2, uncontrolled (ICD-10 - E11.65) wants to stay off meds 05/11/2025 Chronic kidney disease, stage 3a (ICD-10 - N18.31) 03/09/2025 Trapezius muscle strain (ICD-10 - S46.819A) tenerness on exam - muscle relaxer and heat 03/09/2025 Essential (primary) hypertension (ICD-10 - I10) cardiology adjust edmeds - watchign salt and caffeine 05/26/2024 Diverticulosis (ICD-10 - K57.90) 01/03/2025 Acute bronchitis, unspecified organism (ICD-10 - J20.9) 05/11/2025 Pure hypercholesterolem ia, unspecified (ICD-10 - E78.00) cont with meds 09/22/2024 Diabetes mellitus type 2, uncontrolled (ICD-10 [...] (primary) hypertension (ICD-10 - I10) stabel here 05/11/2025 Essential (primary) hypertension (ICD-10 - I10) stable at maritza 05/11/2025 Gastritis (ICD-10 - K29.70) meds hek;potn 02/23/2025 Gastritis (ICD-10 - K29.70) stagble on meds 02/23/2025 Chronic kidney disease due to diabetes mellitus (ICD-10 - E11.22) wathin labs 02/23/2025 Primary pulmonary hypertension (ICD-10 - I27.0) roman stable 02/23/2025 Chronic kidney disease, stage 3a (ICD-10 - N18.31) checking labs Plan Of Treatment Pending Test Test Name Order Date CMP (COMPLETE METABOLIC PANEL) 4 CMP (COMPLETE METABOLIC PANEL) 3 HEMOGLOBIN A1C (GLYCO) 05/26/2024 HEMOGLOBIN A1C (GLYCO) 05/07/2023 HEMOGLOBIN A1C (GLYCO) 05/11/2025 IRON, TOTAL 05/11/2025 IRON, TOTAL 05/26/2024 IRON, TOTAL 05/07/2023 LIPID PANEL (CHOL/TRIG/HDL/LDL) 05/07/20 23 LIPID PANEL (CHOL/TRIG/HDL/LDL) 05/26/20 24 LIPID PANEL (CHOL/TRIG/HDL/LDL) 05/11/20 25 CBC WITH DIFF 05/26/2024 CBC WITH DIFF 05/07/2023 VITAMIN D, 25 LEVEL (TOTAL) 05/07/2023 DEXA Axial Skeleton (hips, pelvis, spine )* 02/26/2024 RHEUMATOID PANEL 05/11/2025 Insulin Level 05/07/2023 STOOL OCCULT BLOOD 05/11/2025 XR Hand 3 Views Right 09/22/2024 ECHOCARDIO M or 2D COMPLETE 12/30/2022 THYROID PANEL (T4/TSH/FREE T3) 3 THYROID PANEL (T4/TSH/FREE T3) 4 THYROID PANEL (T4/TSH/FREE T3) 5 ECHOCARDIO M/2D COMPLETE 05/07/2023 CMP (COMP MET REDD) w/eGFR CKD-EPI 2024 CBC WITH DIFF 05/11/2025 Next Appt Details Provider Name:Chava Riley, 09:15:00 AM, [address] [place], [address], Insurance Providers Payer Name Payer Address Payer Phone Subscriber Number Group Number Insured Name Patient Relationship to Insured Coverage Start Date Coverage End Date [employer]ARE [address] [place], [place] [id number] Martina Holland Self - patient is the [...] Umbilical hernia K42.9 Surgical History Surgery Date(Month/Year) Lithotripsy Umbilical hernia repair 10/29/2024 Bone Spur C Section Hernia Repair Left Shoulder Surgery 02/28/2023 dexa study 03-10-24 Hospitalization History Reason Date(Month/Year) Pulmonary Embolism 03/2023 Fall/ Shoulder Dislocation 10/2022
[2025-05-14 10:04] LABS: Alanine Aminotransferase 26 U/L (14-59); Aspartate Amino Transferase 17 U/L (15-37)
== END 2025-05-14 08:34 | disposition home or self-care (01) ==
PROVIDERS: PCP Family Medicine; Visit Provider Internal Medicine Cardiovascular Disease
DX: E78.00 Pure hypercholesterolemia, unspecified (principal); I10 Essential (primary) hypertension
CPT/HCPCS: 36415; 84450; 84460